=== PATIENT | female | born 1935 | race Caucasian/White ===

== ENCOUNTER → 2017-10-10 12:01 | Outpatient (CLI) | payer MEDICARE, SELFPAY ==
--- NOTE | 2017-10-10 12:03 | HPBI_ITS ---
MAMMOGRAPHY - BILATERAL SCREENING REASON FOR EXAM: Female, 82 years old. Routine annual screening examination. PERTINENT HISTORY: Daughters with breast cancer. Remote bilateral excisional breast biopsies. TECHNIQUE: Digital bilateral breast enedina (3D mammographic acquisition) in the CC and MLO projections. 2-D mediolateral oblique (MLO) and craniocaudad (CC) views of both breasts were obtained. CAD: Full Field Digital Mammography with Computer Added Detection was performed. COMPARISON: Comparison is made with prior examination dated October 03, 2016 and September 22, 2015. FINDINGS: Breast Composition: The breasts are heterogeneously dense, which may obscure small masses. There are no dominant masses or suspicious calcifications. No other significant abnormalities are identified. There has been no significant change since the prior study. HPBI/SCREENING MAMM (CAD), BILAT IMPRESSION: Stable bilateral screening mammogram. Yearly follow-up mammogram recommended. (A) ASSESSMENT CATEGORY: BIRADS Category 1: Negative. A letter regarding these results will be sent to the patient by the facility within 30 days. Approximately 10% of breast cancers are not detected by mammography. A normal mammogram should not delay biopsy of a clinically suspicious abnormality. [id number] Electronically Signed: Maurisio Yee MD at 13:49 EST Tel [phone], Service support ,
== END ==
PROVIDERS: Family Provider Internal Medicine; PCP Internal Medicine; Visit Provider Internal Medicine
DX: Z12.31 Encounter for screening mammogram for malignant neoplasm of breast (principal)
CPT/HCPCS: 77063; 77067

== ENCOUNTER → 2018-11-07 10:45 | Outpatient (CLI) | payer MEDICARE, SELFPAY ==
--- NOTE | 2018-11-07 10:48 | BI_ITS ---
MAMMOGRAPHY - BILATERAL SCREENING REASON FOR EXAM: Female, 83 years old. Routine annual screening examination. PERTINENT HISTORY: Daughters with breast cancer. Remote bilateral excisional breast biopsies. TECHNIQUE: Digital bilateral breast enedina (3D mammographic acquisition) in the CC and MLO projections. 2-D mediolateral oblique (MLO) and craniocaudad (CC) views of both breasts were obtained. CAD: Full Field Digital Mammography with Computer Added Detection was performed. COMPARISON: Comparison is made with prior study of October 10, 2017 and June 02, 2017. FINDINGS: Breast Composition: The breasts are heterogeneously dense, which may obscure small masses. There are no dominant masses or suspicious calcifications. No other significant abnormalities are identified. There has been no significant change since the prior study. BI/SCREENING MAMM (CAD), BILAT IMPRESSION: Stable bilateral screening mammogram. Yearly follow-up mammogram recommended. (A) ASSESSMENT CATEGORY: BIRADS Category 1: Negative. A letter regarding these results will be sent to the patient by the facility within 30 days. Approximately 10% of breast cancers are not detected by mammography. A normal mammogram should not delay biopsy of a clinically suspicious abnormality. [id number] Electronically Signed: Maurisio Yee, at 13:06 EDT , Service support ,
== END ==
PROVIDERS: Family Provider Internal Medicine; PCP Internal Medicine; Referring Provider Internal Medicine; Visit Provider Internal Medicine
DX: Z12.31 Encounter for screening mammogram for malignant neoplasm of breast (principal); Z80.3 Family history of malignant neoplasm of breast
CPT/HCPCS: 77063; 77067

== ENCOUNTER 2019-01-10 10:00 | Outpatient (RCR) | payer MEDICARE, SELFPAY ==
--- NOTE | 2018-11-28 11:05 | HP.PTEVAL_ITS ---
Patient's Visit Information REFUGIO MEDINA is a 83 year old F referred to Physical Therapy by Nadine Felix MD with a diagnosis of CERVICAL DDD AND H/O NERVE IMPINGEMENT. Date of Evaluation: 11/28/18 Physical Therapist: Lamar Garcia PT, Cert MDT - Visit Plan Frequency: 2-3x /Week Duration: 4-6 Weeks Plan: US TO RIGHT THORACIC REGION. 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 POSTURE CORRECTION/STRENGTHENING, INSTRUCTION IN APPROPRIATE BODY MECHANICS AND ACTIVITY MODIFICATIONS. REBECA UE ROM, STRETCHING AND STRENGTHENING. PLEASE TEST USE OF LUMBAR SUPPORT IN SITTING NEXT VISIT. ALSO PLEASE REVIEW RECENTLY GIVEN EX'S FROM [facility] WITH PATIENT AND MAKE CHANGES APPROPRIATE. HEP INSTRUCTION. - Subjective Findings: Diagnosis: CERVICAL DDD AND H/O NERVE IMPINGEMENT. Work/Leisure: RETIRED. Present symptoms: STIFF NECK AND PAIN AROUND SHOULDER BLADES AND BELOW RIGHT > LEFT. ALSO GETS PAIN IN NECK WITH TURNING. NO UE NUMBNESS OR TINGLING. NO HEADACHES. Present since: ABOUT A YEAR AND A HALF AGO. Pain Scale: Worst - 7/10 Least - 0/10. Currently: 10/14. Commenced as a result of: NO APPARENT REASON. Symptoms at onset: UPPER BACK. Worse: WHEN I GET TIRED, GARDENING, BALANCING CHECK BOOK, IT JUST HURTS. Better: HEATING PAD. NOTHING ELSE HELPS. Disturbed sleep: NO. Previous history/Previous treatment: THIS EPISODE TRIED 10 WEEKS AT [facility] BUT DIDN'T HELP. MASSAGE. PATIENT DENIES ANY PREVIOUS HISTORY OR TREATMENT FOR UPPER BACK PAIN. Dizziness: NO. Tinnitis: NO. Nausea: NO. Shortness of Breath: NO. Difficulty Swollowing: NO. Gait: RECENTLY LEFT KNEE STARTED HURTING. SURGERY ON IT A LONG TIME AGO. HAS MEERA'T NEXT WEEK WITH [facility] TO CHECK HER KNEE. LEFT HANKS SHARP PAINS TOO. Accidents/Falls: NO. Unexplained weight loss: NO. Imaging: AT [facility] - PATIENT DOESN'T KNOW RESULTS. PMH/Recent major surgery: COUMADIN FOR HEART CONDITION. OTHER: NOTICES NECK PAIN WHEN LOOKING BACK TO THE LEFT FOR ONCOMING TRAFFIC. CHIEF COMPLAINT IS UPPER BACK PAIN. PATIENT LIVES ALONE. - Objective Sitting Posture/Standing Posture: FORWARD HEAD. NO TORTICOLLIS. Active Correction of posture: NE. Other Observations: INDEP GAIT AND TRANSFERS. Motor deficit: REBECA UE'S WFL'S GRADED GROSSLY 4/5. Sensory deficit: NO. ROM deficit: REBECA UE'S WFL. Reflexes: NT. Dural Signs: NEGATIVE. Cervical Mvmt Loss: Flex: NIL. Pro: NIL. Ext: GOLDIE. Ret: GOLDIE. RSB: MOD. LSB: GOLDIE. R Rot: GOLDIE. L Rot: GOLDIE. THORACIC MVMT LOSS: RIGHT ROT - GOLDIE. LEFT ROT - GOLDIE. EXT - GOLDIE. PATIENT WITH C/O INCREASED NECK PAIN WITH REBECA ROT AND INCREASED UPPER BACK PAIN WITH REBECA THORACIC ROTATION. Postural strength: POOR. Palpation: MILD TENDERNESS WITH PALPATION OF MEDIAL AND INFERIOR RIGHT SCAP REGIONS. TREATMENT: US TO RIGHT THORACIC REGION AT 1.3 W/CM2 X 8 MIN WITH PATIENT PRONE. PATIENT REPORTING DECREASED PAIN POST SESSION. - Goals Goal 1:: DECREASE C/O NECK AND UPPER BACK PAIN Goal Time Frame: 4-6 Weeks Goal 2:: IMPROVE HEAD TURNING, THORACIC ROTATION, ADL AND RECREATIONAL FUNCTION LIKE GARDENING AND BALANCING CHECKBOOK. Goal Time Frame: 4-6 Weeks Goal 3:: INSTRUCT IN PROPHYLAXIS Goal Time Frame: 4-6 Weeks - Rehabilitation Potential Rehabilitation Potential: Fair - Anticipated Interventions Patient/Client Instruction: Educate patient on: Condition, Plan of Care, Risk Factors, Benefits of Fitness Program For the Purpose of:: To improve self management Therapeutic Exercise to Include: Strength training, Body mechanics, Postural training, Active ROM, Scapular Strength/Stabilization For the Purpose of:: To decrease pain Thermo therapy (hot pack): Yes Ultrasound (thermal/non thermal): Yes For the Purpose of:: To decrease pain, To increase ROM, To improve nutrient delivery to tissue Thank you for the opportunity to evaluate your patient. For Medicare and Medicare HMO plans, please review the plan of care and approve it. It will need to be FAXED BACK to us at [phone] for Medicare purposes. For Medicare only, by signing this I certify the plan of care. Please let me know if there are questions or concerns regarding this plan of care. Physician Signature: Date:
--- NOTE | 2018-12-20 13:02 | HP.PTREVAL_ITS ---
Nadine Felix MD, It has been my pleasure to treat REFUGIO MEDINA over the last 7 visits for CERVICAL DDD AND H/O NERVE IMPINGEMENT. Please see the progress note below for an update on the physical therapy plan of care! Subjective: PATIENT REPORTS SHE IS A LITTLE BETTER SINCE STARTING PT. SHE STATES SHE THINKS THE EX'S HAVE GIVEN HER MORE STRENGTH. SHE REPORTS COMPLIANCE WITH HEP. PATIENT REPORTS SHE WOULD LIKE TO CONTINUE PT IF POSSIBLE. Objective/Function: RECOMMEND CONTINUE PT BASED ON IMPROVEMENTS MADE AND POTENT IAL FOR MORE IMPROVEMENT. PATIENT IS TOLERATING PRE WELL AND LEARNING A HEP. Cervical Mvmt Loss: Flex: NIL. Pro: NIL. Ext: GOLDIE. Ret: GOLDIE. RSB: MOD. LSB: GOLDIE. R Rot: MOD. L Rot: MOD. THORACIC MVMT LOSS: RIGHT ROT - MOD. LEFT ROT - MOD. EXT - GOLDIE. PATIENT STILL WITH C/O INCREASED NECK PAIN WITH REBECA ROT BUT ROM HAS INCREASED. PATIENT DENIES INCREASED PAIN WITH THORACIC ROM TESTING TODAY. Postural strength: POOR. Palpation: STILL WITH MILD TENDERNESS WITH PALPATION OF MEDIAL AND INFERIOR RIGHT SCAP REGIONS. SELF STM WITH LACROSS BALL AGAINST WALL IN CLINIC TODAY TOLERATED WELL. Plan Plan: CONTINUE PT 2X'S A WEEK X 3 WEEKS PER ORIG POC WORKING TOWARD SAME GOALS: POSTURE CORRECTION/STRENGTHENING, INSTRUCTION IN APPROPRIATE BODY MECHANICS AND ACTIVITY MODIFICATIONS. REBECA UE ROM, STRETCHING AND STRENGTHENING. PLEASE TEST USE OF LUMBAR SUPPORT IN SITTING NEXT VISIT. ALSO PLEASE REVIEW RECENTLY GIVEN EX'S FROM [facility] WITH PATIENT AND MAKE CHANGES APPROPRIATE. HEP INSTRUCTION. Goals Goal 1:: DECREASE C/O NECK AND UPPER BACK PAIN Goal Time Frame: 4-6 Weeks Goal Progress: Progressing Goal 2:: IMPROVE HEAD TURNING, THORACIC ROTATION, ADL AND RECREATIONAL FUNCTION LIKE GARDENING AND BALANCING CHECKBOOK. Goal Time Frame: 4-6 Weeks Goal Progress: Progressing Goal 3:: INSTRUCT IN PROPHYLAXIS Goal Time Frame: 4-6 Weeks Goal Progress: Progressing Anticipated Interventions Patient/Client Instruction: Educate patient on: Condition, Plan of Care, Risk Factors, Benefits of Fitness Program For the Purpose of:: To improve self management Therapeutic Exercise to Include: Strength training, Body mechanics, Postural training, Active ROM, Scapular Strength/Stabilization For the Purpose of:: To decrease pain Thermo therapy (hot pack): Yes Ultrasound (thermal/non thermal): Yes For the Purpose of:: To decrease pain, To increase ROM, To improve nutrient delivery to tissue Please do not hesitate to contact me at [phone] by phone or if you have questions or concerns regarding this new plan of care! Sincerely, Lamar Garcia, PT, Cert MDT
--- NOTE | 2019-01-10 13:56 | HP.PTDCSUM_ITS ---
HP - PT D/C Summary It has been my pleasure to treat REFUGIO MEDINA under orders from Nadine Felix MD, for the diagnosis of CERVICAL DDD AND H/O NERVE IMPINGEMENT for a total of 13 visit(s). Discharge Date: 01/10/19 Please see the following information for a summary of their discharge status. - Subjective Subjective: PATIENT REPORT SHE CAME IN AND NKECHI HELPED HER IN THE GYM YESTERDAY AND IT WENT WELL. PATIENT REPORTS SHE CAN MANAGE HER PAIN BY MODIFYING HER ACTIVITIES WE HAVE INSTRUCTED HER BUT SHE STILL GETS THE SAME PAIN IF SHE TRIES TO DO WHAT SHE WANTS TO DO. - Pain R thoracic spine Pain Intensity (Out of 10): 5 - Overall Improvement % Improvement: 75 - Objective Objective/Function: PATIENT IS NOW INDEP WITH AN EXERCISE PROGRAM AND IS MANAGING HER PAIN BETTER WITH ACTIVITY MODIFICATIONS BUT HAS NOT BEEN ABLE TO RESUME NORMAL ACTIVITY WITHOUT THE SAME PAIN SHE CAME HERE FOR. PHYSICIAN RE- CHECK RECOMMENDED DUE TO THIS. EXAM TESTING TODAY IS SIMILAR TO LAST RECKECK: Cervical Mvmt Loss: Flex: NIL. Pro: NIL. Ext: GOLDIE. Ret: GOLDIE. RSB: MOD. LSB: GOLDIE. R Rot: MOD. L Rot: MOD. THORACIC MVMT LOSS: RIGHT ROT - MOD. LEFT ROT - MOD. EXT - GOLDIE. PATIENT STILL WITH C/O INCREASED NECK PAIN WITH REBECA ROT. PATIENT DENIES INCREASED PAIN WITH THORACIC ROM TESTING TODAY. Postural strength: POOR - Goals Goal 1:: DECREASE C/O NECK AND UPPER BACK PAIN Goal Progress: Progressing Goal 2:: IMPROVE HEAD TURNING, THORACIC ROTATION, ADL AND RECREATIONAL FUNCTION LIKE GARDENING AND BALANCING CHECKBOOK. Goal Progress: Progressing Goal 3:: INSTRUCT IN PROPHYLAXIS Goal Progress: Progressing - Plan Plan: D/C TO INDEP EX AND PHYSICIAN FOLLOW UP. PATIENT IS AGREEABLE. - D/C Information If there are questions or concerns regarding this patient's physical therapy, please feel free to call me at [phone]. Thank you for the referral of this patient. Sincerely, Lamar Garcia, PT, Cert MDT
== END 2019-01-10 19:00 | disposition home or self-care (01) ==
LOC: PT 10:00
PROVIDERS: Family Provider Internal Medicine; PCP Internal Medicine; Referring Provider Internal Medicine; Visit Provider Internal Medicine
DX: M50.30 Other cervical disc degeneration, unspecified cervical region (principal); Z86.69 Personal history of other diseases of the nervous system and sense organs
CPT/HCPCS: 97035; 97110; 97140; 97162; 97530

== ENCOUNTER → 2019-02-21 11:57 | Outpatient (CLI) | payer MEDICARE, SELFPAY ==
[2019-02-21 12:41] LABS: International Normalized Ratio 2.8; Prothrombin Time (Protime)PT. 29.4 SECONDS (11.7-14.9)
== END ==
PROVIDERS: Family Provider Internal Medicine; PCP Internal Medicine; Referring Provider Nurse Practitioner; Visit Provider Nurse Practitioner
DX: R31.0 Gross hematuria (principal)
CPT/HCPCS: 85610

== ENCOUNTER → 2019-04-03 09:41 | Outpatient (CLI) | payer MEDICARE, SELFPAY ==
[2019-04-03 11:38] LABS: AST(SGOT) 29 U/L (15-37); Alanine Aminotransfer ALT/SGPT 31 U/L (13-56); Albumin, Serum 3.6 g/dL (3.2-5.0); Alkaline Phosphatase 74 U/L (45-117); Bilirubin, Direct 0.15 mg/dL (0.00-0.30); Cholesterol 183 mg/dL (200); Globulin 3.7 g/dL (2.2-4.2); High Density Lipoprotein 67 mg/dL; Protein, Total 7.3 g/dL (6.4-8.2); Triglycerides 104 mg/dL; Very Low Density Lipoprotein 21 mg/dL (5-40)
== END ==
PROVIDERS: Family Provider Internal Medicine; PCP Internal Medicine; Referring Provider Internal Medicine Cardiovascular Disease; Visit Provider Internal Medicine Cardiovascular Disease
DX: E78.5 Hyperlipidemia, unspecified (principal)
CPT/HCPCS: 36415; 80061; 80076

== ENCOUNTER 2019-04-05 08:43 | Outpatient (RCR) | payer MEDICARE, SELFPAY ==
[2019-04-02 12:50] LABS: International Normalized Ratio 1.8; Prothrombin Time (Protime)PT. 20.4 SECONDS (11.7-14.9)
== END 2019-04-05 10:00 | disposition home or self-care (01) ==
LOC: LAB 08:43
PROVIDERS: Family Provider Internal Medicine; PCP Internal Medicine; Referring Provider Internal Medicine Cardiovascular Disease; Visit Provider Internal Medicine Cardiovascular Disease
DX: I34.0 Nonrheumatic mitral (valve) insufficiency (principal)
CPT/HCPCS: 36415; 85610

== ENCOUNTER → 2019-04-17 10:13 | Outpatient (CLI) | payer MEDICARE, SELFPAY ==
--- NOTE | 2019-04-17 10:19 | RAD_ITS ---
STUDY: X-RAY - THORACIC SPINE REASON FOR EXAM: Female, 83 years old. Chronic back pain. TECHNIQUE: AP and lateral view(s) of the thoracic spine were obtained. COMPARISON: None. FINDINGS: Normal kyphosis of the thoracic spine. There is no substantial scoliosis. There is demineralization of the thoracic spine with endplate spondylosis. There is multilevel disc space narrowing of the thoracic spine. The soft tissue structures are unremarkable. RAD/Thoracic Spine 2 Views IMPRESSION: Multilevel disc space narrowing with demineralization of the thoracic vertebrae. Electronically Signed: Maurisio Yee, at 12:51 EDT , Service support ,
== END ==
PROVIDERS: Family Provider Internal Medicine; PCP Internal Medicine; Referring Provider Nurse Practitioner Family; Visit Provider Nurse Practitioner Family
DX: M54.6 Pain in thoracic spine (principal)
CPT/HCPCS: 72070

== ENCOUNTER → 2019-04-19 10:50 | Outpatient (CLI) | payer MEDICARE, SELFPAY ==
--- NOTE | 2019-04-19 10:53 | ECHOD_ITS ---
Reason For Study: valve replacement eval Procedure This was a 2D Doppler, Color Flow transthoracic echocardiogram. Technically difficult study, patient had a hard time staying on left side due to hip pain. Exam performed in department. Left Ventricle Normal size and thickness. The estimated ejection fraction is 60 %. Stage 1 diastolic dysfunction. No regional wall motion abnormalities noted. Right Ventricle Normal size and thickness. Normal systolic function. Atria Normal left atrium. Normal right atrium. Normal atrial septum. Mitral Valve The mitral valve is structurally normal. No prolapse or stenosis seen. Trivial mitral valve insufficiency. Tricuspid Valve Normal tricuspid valve. Mild (1+) eccentric tricuspid valve insufficiency. Right ventricular systolic pressure estimated to be 25 mmHg. Aortic Valve Peak aortic valve gradient 26 mmHg. Mean aortic valve gradient 13 mmHg. Stable appearing mechanical aortic valve apparatus. Pulmonic Valve The pulmonic valve is not well visualized. Great Vessels Normal aortic root. Normal arch. Normal inferior vena cava. Inferior vena cava collapse with sniff. Pericardium/Pleural No pericardial effusion. MMode/2D Measurements & Calculations LVIDd: 4.7 cm IVSd: 0.78 cm LVOT diam: 2.0 cm LVIDs: 2.6 cm LVPWd: 0.78 cm LVOT area: 3.2 cm2 FS: 44.7 % LAV(MOD-sp4): 35.1 ml LA A4 area: 15.4 cm2 RA A4 area: 16.0 cm2 Time Measurements MV dec time: 0.27 sec Doppler Measurements & Calculations MV E max charan: 59.0 cm/sec Lat Peak E' Charan: 9.2 cm/sec Med Peak E' Charan: 8.2 cm/sec MV A max charan: 71.7 cm/sec E/E' lat: 6.4 E/E' med: 7.2 MV E/A: 0.82 MV V2 max: 80.2 cm/sec MV P1/2t max charan: 70.7 cm/sec Ao V2 max: 253.6 cm/sec MV max P.6 mmHg MV P1/2t: 87.0 msec Ao max P.7 mmHg MV V2 mean: 49.0 cm/sec MV dec slope: 238.1 cm/sec2 Ao V2 mean: 165.2 cm/sec MV mean P.1 mmHg MVA(P1/2t): 2.5 cm2 Ao mean P.6 mmHg MV V2 VTI: 20.7 cm Ao V2 VTI: 50.5 cm MVA(VTI): 2.7 cm2 ASHOK(I,D): 1.1 cm2 ASHOK(V,D): 1.2 cm2 LV V1 max: 92.5 cm/sec MR max charan: 563.0 cm/sec SV(LVOT): 56.3 ml LV V1 max P.4 mmHg MR max P.8 mmHg LV V1 mean P.6 mmHg MR mean charan: 441.3 cm/sec LV V1 mean: 57.0 cm/sec MR mean P.8 mmHg LV V1 VTI: 17.4 cm MR VTI: 170.1 cm PA V2 max: 87.6 cm/sec TR max charan: 223.6 cm/sec TR max P.0 mmHg Interpretation Summary The estimated ejection fraction is 60 %. Stage 1 diastolic dysfunction. Trivial mitral valve insufficiency. Mild (1+) eccentric tricuspid valve insufficiency. Right ventricular systolic pressure estimated to be 25 mmHg. Stable appearing and normally functioning mechanical aortic valve apparatus. Compared to echo report dated 11/20/2012, LV function has remained the same, RVSP has decreased from 40 to 25 mm Hg. Ordering Physician: Maldonado Mercer Referring Physician: Maldonado Mercer Performed By: Jhonathan Hart [facility]
== END ==
PROVIDERS: Family Provider Internal Medicine; PCP Internal Medicine; Referring Provider Internal Medicine Cardiovascular Disease; Visit Provider Internal Medicine Cardiovascular Disease
DX: I34.0 Nonrheumatic mitral (valve) insufficiency (principal)
CPT/HCPCS: 93306

== ENCOUNTER 2019-04-22 10:11 | Outpatient (RCR) | payer MEDICARE, SELFPAY ==
[2019-04-11 10:45] LABS: International Normalized Ratio 4.9
[2019-04-11 10:58] LABS: Prothrombin Time (Protime)PT. 46.1 SECONDS (11.7-14.9)
[2019-04-15 10:06] LABS: International Normalized Ratio 3.3; Prothrombin Time (Protime)PT. 33.8 SECONDS (11.7-14.9)
[2019-04-22 11:07] LABS: International Normalized Ratio 3.1; Prothrombin Time (Protime)PT. 32.5 SECONDS (11.7-14.9)
== END 2019-04-22 13:00 | disposition home or self-care (01) ==
LOC: LAB 10:11
PROVIDERS: Family Provider Internal Medicine; PCP Internal Medicine; Referring Provider Internal Medicine Cardiovascular Disease; Visit Provider Internal Medicine Cardiovascular Disease
DX: I34.0 Nonrheumatic mitral (valve) insufficiency (principal)
CPT/HCPCS: 36415; 85610

== ENCOUNTER → 2019-04-24 09:21 | Outpatient (CLI) | payer MEDICARE, SELFPAY ==
--- NOTE | 2019-04-24 09:26 | STEWCON_ITS ---
Reason For Study: CAD Stress Results Protocol: Arslan Protocol Maximum Predicted HR: 137 bpm Target HR: 116 bpm % Maximum Predicted HR: 112 % DurationHeart Rate Stage (mm:ss) (bpm) BP Comment Baseline 77 136/68No Chest Pain; Diluted Definity 3 ML Given Arslan Protocol Stage I 3:00 141 140/70No Chest Pain Arslan Protocol Stage II 3:00 153 164/72No Chest Pain; Mild Dyspnea Recovery 93 118/62No Chest Pain Stress Duration: 6:00 mm:ss Maximum Stress HR: 153 bpm METS: 7 Baseline Echocardiogram Findings The estimated ejection fraction is 55 %. Stress Echo Wall motion Data Resting WM Intermediate WM Stress WM Resting Wall Motion Wall Motion Stress No regional wall motion No regional wall motion abnormalities noted. abnormalities noted. EKG Data The baseline ECG displays normal sinus rhythm. The patient exercised according to the regular Arslan protocol for a total duration of 6:00. The maximum heart rate attained was 157 beats per minute. This was 114% of maximum predicted heart rate. The patient exercised into stage 3 of the Arlsan protocol. At peak exercise, upsloping ST changes only were noted, which did not meet the criteria for ischemia. No clinical angina was noted. Interpretation Summary The estimated ejection fraction is 55 %. Normal, adequate, treadmill echocardiogram. Negative for ischemia by EKG and echocardiographic criteria. No anginal symptoms noted. Rare PACs and PVCs during exercise. Average exercise capacity for age. Appropriate blood pressure response to exercise. Test terminated due to fatigue. Decreased sensitivity due to poor echo windows requiring Definity agent. Baseline ejection fraction mildly depressed 55% which increased to a final ejection fraction of 65%. No complications. The study was technically difficult. Contrast injection was performed. Ordering Physician: Maldonado Mercer Referring Physician: Nadine Felix Performed By: Evon Estrada, LUIS MIGUEL, RVT
== END ==
PROVIDERS: Family Provider Internal Medicine; PCP Internal Medicine; Referring Provider Internal Medicine Cardiovascular Disease; Visit Provider Internal Medicine Cardiovascular Disease
DX: I25.10 Atherosclerotic heart disease of native coronary artery without angina pectoris (principal); I48.91 Unspecified atrial fibrillation; E78.5 Hyperlipidemia, unspecified; I34.0 Nonrheumatic mitral (valve) insufficiency; Z95.2 Presence of prosthetic heart valve
CPT/HCPCS: 93017; 93350; Q9957; A4216; C8928

== ENCOUNTER 2019-05-28 10:33 | Outpatient (RCR) | payer MEDICARE, SELFPAY ==
[2019-05-07 11:53] LABS: Prothrombin Time (Protime)PT. 22.9 SECONDS (11.7-14.9)
[2019-05-14 14:29] LABS: International Normalized Ratio 2.5; Prothrombin Time (Protime)PT. 27.3 SECONDS (11.7-14.9)
[2019-05-28 11:21] LABS: International Normalized Ratio 2.8; Prothrombin Time (Protime)PT. 29.3 SECONDS (11.7-14.9)
== END 2019-05-28 18:00 | disposition home or self-care (01) ==
LOC: LAB 10:33
PROVIDERS: Family Provider Internal Medicine; PCP Internal Medicine; Referring Provider Internal Medicine Cardiovascular Disease; Visit Provider Internal Medicine Cardiovascular Disease
DX: I34.0 Nonrheumatic mitral (valve) insufficiency (principal)
CPT/HCPCS: 36415; 85610

== ENCOUNTER 2019-07-02 11:16 | Outpatient (RCR) | payer MEDICARE, SELFPAY ==
[2019-06-26 10:41] LABS: International Normalized Ratio 2.1; Prothrombin Time (Protime)PT. 23.2 SECONDS (11.7-14.9)
[2019-06-28 09:20] LABS: International Normalized Ratio 1.3; Prothrombin Time (Protime)PT. 16.1 SECONDS (11.7-14.9)
[2019-07-02 12:33] LABS: International Normalized Ratio 2.8; Prothrombin Time (Protime)PT. 29.6 SECONDS (11.7-14.9)
== END 2019-07-02 18:00 | disposition home or self-care (01) ==
LOC: LAB 11:16
PROVIDERS: Family Provider Internal Medicine; PCP Internal Medicine; Referring Provider Internal Medicine Cardiovascular Disease; Visit Provider Internal Medicine Cardiovascular Disease
DX: I34.0 Nonrheumatic mitral (valve) insufficiency (principal)
CPT/HCPCS: 36415; 85610

== ENCOUNTER 2019-08-02 15:56 | Outpatient (RCR) | payer MEDICARE, SELFPAY ==
[2019-07-09 12:20] LABS: Prothrombin Time (Protime)PT. 66.7 SECONDS (11.7-14.9)
[2019-07-09 12:22] LABS: International Normalized Ratio 7.7
[2019-07-11 11:34] LABS: Prothrombin Time (Protime)PT. 39.9 SECONDS (11.7-14.9)
[2019-07-11 11:39] LABS: International Normalized Ratio 4.1
[2019-07-15 10:26] LABS: International Normalized Ratio 2.9; Prothrombin Time (Protime)PT. 30.2 SECONDS (11.7-14.9)
[2019-08-02 19:47] LABS: Hematocrit 42.7 % (37-47); Hemoglobin 13.7 g/dL (12.0-15.0); Mean Corp Hgb Conc 32.1 g/dL (32-36); Mean Corpuscular Hgb 30.7 pg (27.0-32.0); Mean Corpuscular Volume 95.7 fL (81-99); Mean Platelet Vol. 10.6 fl (6.2-12.0); Platelet Count 249 K/mm3 (150-450); RBC Distribution Width CV 14.9 % (11.6-14.6); RBC Distribution Width SD 53.1 fl (35.1-43.9); Red Blood Count 4.46 M/mm3 (4.2-5.4); White Blood Count 5.7 K/mm3 (4.4-11.0)
[2019-08-02 20:04] LABS: Prothrombin Time (Protime)PT. 31.3 SECONDS (11.7-14.9)
[2019-08-02 20:15] LABS: Anion Gap 6 (5-15); BUN 14 mg/dL (7-18); BUN/Creat Ratio 18.1 RATIO (10-20); Calcium,Total 9.3 mg/dL (8.5-10.1); Chloride 110 mmol/L (98-107); Creatinine, Serum 0.78 mg/dL (0.55-1.02); EST Glomerular Filtration Rate 75 mL/min (>60); Est Glom Filt Rate - Afr Amer 91 mL/min (>60); Glucose 75 mg/dL (74-106); Potassium 3.9 mmol/L (3.5-5.1); Sodium Level 143 mmol/L (136-145)
[2019-08-02 20:26] LABS: BNP,B-Type NATRIURETIC PEPTIDE 225.7 pg/mL (0-100)
== END 2019-08-02 18:00 | disposition home or self-care (01) ==
LOC: LAB 15:56
PROVIDERS: Nurse Practitioner Family; Family Provider Internal Medicine; PCP Internal Medicine; Referring Provider Internal Medicine Cardiovascular Disease; Visit Provider Internal Medicine Cardiovascular Disease
DX: I34.0 Nonrheumatic mitral (valve) insufficiency (principal); I48.91 Unspecified atrial fibrillation; Z95.2 Presence of prosthetic heart valve; Z87.74 Personal history of (corrected) congenital malformations of heart and circulatory system; Z79.01 Long term (current) use of anticoagulants; R60.9 Edema, unspecified; R06.02 Shortness of breath
CPT/HCPCS: 36415; 80048; 83880; 85027; 85610

== ENCOUNTER → 2019-08-05 13:59 | Outpatient (CLI) | payer MEDICARE, SELFPAY ==
[2019-08-05 13:00] VITALS: BMI 20.5
--- NOTE | 2019-08-05 14:00 | RAD_ITS ---
STUDY: X-RAY CHEST REASON FOR EXAM: Female, 83 years old. Dyspnea on exertion. TECHNIQUE: Frontal and lateral views of the chest. COMPARISON: November 19, 2012 FINDINGS: Hyperexpansion with mild diffuse interstitial pattern slightly more prominent than on the prior study. Small right pleural effusion. Cardiomegaly with sternotomy wires, relatively unchanged Normal mediastinum and jon. Normal visualized pulmonary arteries. Normal visualized aortic arch and descending thoracic aorta. Normal visualized thoracic spine. Normal visualized ribs, clavicles, and shoulders. There is no demonstrated abnormality of the visualized soft tissue structures of the upper abdomen. RAD/Chest PA and Lateral IMPRESSION: Stable cardiomegaly with slight increased diffuse interstitial pattern and small right effusion. Findings may represent partial resolution of mild interstitial edema/congestive failure. No acute finding. Electronically Signed: Joey Washington MD at 16:08 EST , Service support ,
[2019-08-05 16:01] LABS: Anion Gap 2 (5-15); BUN 14 mg/dL (7-18); BUN/Creat Ratio 19.1 RATIO (10-20); Calcium,Total 9.2 mg/dL (8.5-10.1); Chloride 109 mmol/L (98-107); Creatinine, Serum 0.73 mg/dL (0.55-1.02); EST Glomerular Filtration Rate 80 mL/min (>60); Est Glom Filt Rate - Afr Amer 97 mL/min (>60); Glucose 65 mg/dL (74-106); Potassium 4.1 mmol/L (3.5-5.1); Sodium Level 141 mmol/L (136-145)
== END ==
PROVIDERS: Family Provider Internal Medicine; PCP Internal Medicine; Referring Provider Internal Medicine Cardiovascular Disease; Visit Provider Internal Medicine Cardiovascular Disease
DX: I48.91 Unspecified atrial fibrillation (principal); I48.92 Unspecified atrial flutter; R06.02 Shortness of breath
CPT/HCPCS: 36415; 71046; 80048

== ENCOUNTER 2019-08-21 11:47 | Day surgery (SDC) | payer MEDICARE, SELFPAY ==
[2019-08-05 13:00] VITALS: BMI 20.5
[2019-08-20 07:09] VITALS: BMI 20.5
--- NOTE | 2019-08-20 15:54 | PCM.HP.BLA ---
History and Physical Date of Admission: 08/21/19 [facility] History of Present Illness Details: Details: Mrs. Ward is a very pleasant 83-year-old non-smoking female with a history of hyperlipidemia, mitral insufficiency, intermittent atrial fibrillation, history of bicuspid aortic valve status post mechanical aortic valve replacement on 07/24/[address] Mishra at [facility] receiving a number 21 mm [place] valve, and on chronic Coumadin therapy since that time. She is transferring care from [facility] in [place]. Her most recent stress test was 10/27/2006 which was a negative treadmill/MPI. 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 An echocardiogram performed on 11/20/2012 at [facility] demonstrated intact LV function with an EF around 55%, stable appearing prosthetic aortic valve, and an RVSP of 40 mmHg. Subsequent to that, her echocardiogram dated 04/27/2016 for more revealed showed an EF of 55%, peak/mean gradient of 28/13 mmHg respectively, RVSP of 29 mmHg. Her most recent echocardiogram dated 04/19/2019 was as follows: The estimated ejection fraction is 60 %. Stage 1 diastolic dysfunction. Trivial mitral valve insufficiency. Mild (1+) eccentric tricuspid valve insufficiency. Right ventricular systolic pressure estimated to be 25 mmHg. Stable appearing and normally functioning mechanical aortic valve apparatus. Compared to echo report dated 11/20/2012, LV function has remained the same, RVSP has decreased from 40 to 25 mm Hg. Patient was in sinus rhythm at the time of her echocardiogram and stress echocardiogram. She underwent a stress echocardiogram on 04/24/2019 which was negative for inducible ischemia. She was in sinus rhythm at that time. Patient states that prior to going to [place], she noted new onset palpitations, shortness of breath and dyspnea on exertion walking upstairs. Patient went to [place] for about 8 days, and did fairly well and did not imbibe in excessive salt or water intake. Patient denies any chest pain symptoms. After arriving home she noticed tachycardia, increasing shortness of breath and dyspnea on exertion. She did not notify our office as it was the [place] holidays but called us to get an urgent appointment. In our office today her blood pressure is 120/60, pulse is 120 and irregular with ectopic beats. Her physical exam demonstrates 2+ carotid upstroke bilaterally, a 2/6 systolic ejection murmur best heard at the upper right sternal border with both systolic and diastolic clicks, no diastolic murmurs, no S3, S4, and no edema noted. EKG dated 04/02/2019 shows normal sinus rhythm with PACs and PVCs. EKG dated 08/05/2019 shows atrial fibrillation with rapid ventricular response, PVC, nonspecific inferior lateral ST segment flattening. Most recent lipid profile dated 11/22/2017 showed an LDL of 92 and HDL of 58. Her most recent lipids dated 04/03/2019 show an LDL of 95 and HDL of 67. Intake Vital Signs 08/05/19 Height 5 ft 6 in 08/05/19 Weight: 127 lb 08/05/19 BMI 20.5 08/05/19 BP 120/60 08/05/19 Blood Pressure Location Lt brachial 08/05/19 Position Sitting 08/05/19 Respiration 20 H 08/05/19 Pulse 120 H 08/05/19 Pulse Source Auscultation Intake Visit Reasons: Edema, shortness of breath Allergies amoxicillin trihydrate [From Augmentin] Adverse Reaction (Verified 04/02/19 11:03) Diarrhea potassium clavulanate [From Augmentin] Adverse Reaction (Verified 04/02/19 11:03) Diarrhea Medications calcium carbonate 600 mg(1,500 mg)-vitamin D3 800 unit chewable tablet 1 tab PO BID 03/30/19 [History Confirmed 08/05/19] cholecalciferol (vitamin D3) 25 mcg (1,000 unit) tablet 1,000 unit PO DAILY 03/30/19 [History Confirmed 08/05/19] multivitamin 1 tab PO DAILY 03/30/19 [History Confirmed 08/05/19] pravastatin 40 mg tablet 40 mg PO DAILY 03/30/19 [History Confirmed 08/05/19] risedronate 35 mg tablet 35 mg PO QWEEK 03/30/19 [History Confirmed 08/05/19] tizanidine 2 mg capsule 2 mg PO TID PRN 03/30/19 [History Confirmed 08/05/19] Coumadin 3 mg tablet 3 mg PO DAILY #90 tab NS 04/15/19 [Rx Confirmed 08/05/19] furosemide 20 mg tablet 20 mg PO DAILY #30 tab 08/05/19 [Rx Confirmed 08/05/19] metoprolol succinate 25 mg tablet,extended release 24 hr 25 mg PO DAILY #30 tab 08/05/19 [Rx Confirmed 08/05/19] [facility] Medical History Atrial fibrillation (Chronic) Hyperlipidemia (Chronic) Nonrheumatic mitral (valve) insufficiency (Chronic) FCI current use of anticoagulant (Chronic) Surgical History History of right and left heart catheterization (Chronic 07/13/00) Status post mechanical aortic valve replacement (Chronic 07/24/00) Family History Father , age 65 of head injury Head injury Brother CAD (coronary artery disease) Social History (Updated 08/05/19 @ 13:42 by Maldonado Mercer MD) Smoking Status: Never smoker ROS Const Const: Positive for weight gain and other; negative for fatigue, weakness, body ache, fever(s), headache(s), chills, frequent falls, night sweats, daytime sleepiness, difficulty sleeping, excessive sweating, weight loss, increased appetite, poor appetite or anorexia Eyes Eyes: Negative for blind spots, loss of peripheral vision, transient loss of vision, blurry vision, change in vision, double vision, floaters, tunnel vision or other ENT ENT: Negative for headache(s), dizziness, hearing loss, tinnitus, Nosebleed/epistaxis, balance problems, post nasal drip, lip swelling, tongue swelling, bleeding gums, hoarseness, neck pain, dry mouth or other Cardio Chest Pain: No Resp Respiratory: Negative for SOB with activity, SOB at rest, SOB orthopnea\SOB lying down, Coughing up blood/hemoptysis, chest congestion, pain on inspiration, snoring, stridor, wheezing, crackles, paroxysmal nocturnal dyspnea or other GI GI: Negative nausea, vomiting, heartburn, constipation, belching, bloating, cramping, vomiting blood/hematemesis, bright, red blood in stools, black,tarry stools, loose stools, Difficulty Swallowing or other : Negative for hematuria, frequent nighttime urination/ nocturia, erectile dysfunction or abnormal vaginal bleeding Musc Musc: Negative for muscle aches/ myalgia, muscle weakness, joint pain or balance problems Skin Skin: Negative redness, non-healing lesions, rash, unusual bruising, skin ulcer, wounds, jaundice or other Neuro Neuro: Negative for dizziness, lightheadedness, near syncope, syncope, orthostatic symptoms, frequent falls, headache(s), weakness, confusion, memory loss, restless legs, blurry vision, double vision, vertigo, seizures, lack of coordination or other Ollie Hematologic/Lymphatic: Negative for easy bleeding, easy bruising, enlarged lymph nodes or other Endo Endo: Negative for fatigue, cold intolerance, heat intolerance, excessive sweating, flushing, increased thirst/drinking, increased hunger, hair loss, hair growth or other Psych Psych: Negative for anxiety, depression, thoughts of harming anyone, thoughts of harming yourself, visual hallucinations, panic attacks or audible hallucinations Allergy Allergy/Immunology: Negative for throat swelling, Negative for tongue swelling, Negative for hives, Negative for rash, Negative for lip swelling Cardiology Exam Const Appearance: cooperative, healthy appearing and no acute distress Nutritional Appearance: well nourished Orientation: alert, oriented x3 and oriented to person Head Head: normal to inspection, normocephalic and atraumatic Nose: external nose normal Face and Sinus: face symmetric Mouth: oral mucosae normal Eyes General: appearance normal, both eyes and all related structures Eyelids: eyelids normal Conjunctivae: conjunctivae normal Pupils: PERRL and normal by confrontation EOM: EOM intact bilaterally Neck Neck: normal visual inspection and full ROM Carotids: normal carotid upstroke Chest Chest inspection: normal inspection of the chest Auscultation: Bilateral: Clear to Auscultation Cardio Palpation: normal PMI Rate: regular rate Rhythm: regular rhythm Heart sounds: S1 normal and S2 normal GI GI: normal to inspection, no hepatosplenomegaly and bowel sounds present Neuro General: alert, awake, oriented x3, CN's II-XI intact bilaterally and moves all extremities Skin Skin: no rashes or lesions noted Extremities Pulses: Normal: Right Femoral Pulse, Left Femoral Pulse, Right Dorsalis Pedis Pulse, Left Dorsalis Pedis Pulse, Right Posterior Tibial Pulse, Left Posterior Tibial Pulse, Right Radial Pulse, Left Radial Pulse Lower Extremity Edema: None: Bilateral Psych Psychological: normal affect Assessment & Plan 1. Atrial fibrillation I48.91 Plan 1. Atrial fibrillation: The patient presents with new onset rapid atrial fibrillation on no beta-angeli or calcium channel angeli therapy. Her most recent stress test in April 2019 was negative for inducible ischemia at which time she was in normal sinus rhythm by her EKG telemetry markings. At this point I would recommend continuing her Coumadin, and proceeding with rate control medications with Toprol-XL 25 mg p.o. daily. In addition I recommended Lasix 20 mg p.o. daily for her lower extremity edema. It is doubtful the patient had a pulmonary embolism as she is on Coumadin, and has no overt dyspnea at rest. It appears that her lower extremity edema and dyspnea preceded her plane ride to and from [place]. She will return in 2 weeks time for a blood pressure check and heart rate evaluation as well as a repeat EKG. Recommend an INR between 2.5 and 3.5 for the next 4 weeks followed by elective DC cardioversion. If this is unsuccessful, she may require amiodarone loading for a month's time followed by repeat cardioversion. Orders Orders: 12 Lead EKG performed by [facility] Today Cardioversion Today Basic Metabolic Profile (BMP) Today Chest PA and Lateral Today 2. Status post mechanical aortic valve replacement Z95.2 #[address] Bill Valve per Dr. Mishra, [facility] 07/24/2000 Plan 2. Status post mechanical aortic valve replacement: Patient require Coumadin therapy lifelong. Her most recent echocardiogram in April 2019 showed normal functioning prosthetic aortic valve. Continue SBE prophylaxis going forward. 3. Hyperlipidemia E78.5 Plan 3. Hyperlipidemia: Her LDL and HDL cholesterol are fairly well-controlled given her risk factors. Continue Pravachol. 4. Return office in 4 months with either myself or an [employer]. This note was generated using a voice recognition system and there may be incorrect words, spelling or punctuation that were not noted when reviewing the office note prior to saving.
--- NOTE | 2019-08-21 13:46 | CARDIOVERS_ITS ---
Cardioversion Cardioversion: DC cardioversion summary: The patient was brought to the [facility] holding area in the fasting state. The risk/benefits of the cardioversion procedure were thoroughly explained the patient and informed consent was obtained. The defibrillator pads were placed in the AP position. With the assistance of Dr. Truman Sanderson the patient was given 40 mg of IV propofol. Once adequate sedation was obtained, the patient received a single 200 J biphasic synchronized shock which converted from atrial fibrillation to normal sinus rhythm. Her rhythm remained durable, and the pads were removed. The patient spontaneously awoke, moves all 4 extremities and tolerated procedure well. Conclusions: Successful Coumadin assisted DC cardioversion receiving a single biphasic 200 J synchronized shock which converted from atrial fibrillation to normal sinus rhythm. Patient remain on Coumadin therapy. Should the patient revert back to atrial fibrillation I would recommend loading with amiodarone for 4 weeks time followed by repeat DC cardioversion as the patient has significant dyspnea on exertion and shortness of breath which may be related to her atrial fibrillation. Patient tolerated procedure well. No complications.
[2019-08-21 13:51] LABS: Bedside Glucose 80 mg/dL (70-110)
--- NOTE | 2019-08-21 14:06 | PRO.PCM_ITS ---
Procedure Report Date of Procedure: 08/21/19 CONSCIOUS SEDATION REPORT DATE OF SERVICE: August 21, 2019 BRIEF HISTORY OF PRESENT ILLNESS: The patient is an 84-year-old female who presented to [facility] for an elective outpatient cardioversion due to underlying atrial fibrillation. The patient has never previously undergone a cardioversion. She denies a history of any adverse effects from anesthesia. Her last surface echocardiogram revealed an ejection fraction of approximately 60%. The patient is currently systemically anticoagulated on Coumadin with an INR of 3.0. She denies a history of asthma, COPD or obstructive sleep apnea. PHYSICAL EXAMINATION: VITAL SIGNS: Reviewed and were acceptable. GENERAL: The patient is a female, in no apparent distress, speaking in full sentences. HEENT: Normocephalic, atraumatic. Mucous membranes are moist and pink. Good mouth opening noted. Trachea is midline. Good neck mobility. CHEST: S1, S2 irregularly irregular. No murmurs, rubs or gallops were noted. LUNGS: Clear to auscultation bilaterally without appreciable wheezes, rales or rhonchi. ABDOMEN: Soft, nontender, nondistended. Positive bowel sounds. EXTREMITIES: There is no clubbing, cyanosis or edema. ASA Class: II DESCRIPTION OF PROCEDURE: After confirmation of informed consent, the patient's anesthesia plan was reviewed in detail. Propofol was chosen. Risks and benefits were reviewed and the patient agreed to proceed. At 1335, the patient was given 40 mg of propofol. The patient achieved an appropriate level of sedation and was given a 200 joule synchronized cardioversion by Dr. Mercer at the bedside. This was successful in achieving normal sinus rhythm. The patient was monitored until 1345, at which time she reached her baseline mental status and function. The patient tolerated the procedure well. COMPLICATIONS: None ESTIMATED BLOOD LOSS: None RECOMMENDATIONS: Okay to recover in usual fashion. Code Visit 9xxxx: Other Procedure See Report - [id number]
[2019-08-21 15:31] LABS: Prothrombin Time Fingerstick 33.6 SEC (11.9-14.4)
== END 2019-08-21 14:35 | disposition home or self-care (01) ==
PROVIDERS: Family Provider Internal Medicine; PCP Internal Medicine; Referring Provider Internal Medicine Cardiovascular Disease; Visit Provider Internal Medicine Cardiovascular Disease
DX: I48.91 Unspecified atrial fibrillation (principal); E78.5 Hyperlipidemia, unspecified; I34.0 Nonrheumatic mitral (valve) insufficiency; Z95.2 Presence of prosthetic heart valve; Z79.01 Long term (current) use of anticoagulants; Z79.899 Other long term (current) drug therapy
CPT/HCPCS: 36416; 82962; 85610; 92960; 93005; J7040

== ENCOUNTER 2019-09-04 13:28 | Outpatient (RCR) | payer MEDICARE, SELFPAY ==
[2019-08-05 13:00] VITALS: BMI 20.5
[2019-08-12 12:47] LABS: Prothrombin Time (Protime)PT. 39.3 SECONDS (11.7-14.9)
[2019-08-16 11:42] LABS: International Normalized Ratio 3.3
[2019-08-20 13:18] LABS: International Normalized Ratio 3.2
[2019-08-26 15:47] LABS: International Normalized Ratio 2.2; Prothrombin Time (Protime)PT. 24.7 SECONDS (11.7-14.9)
[2019-09-04 14:35] LABS: International Normalized Ratio 3.8
== END 2019-09-04 18:00 | disposition home or self-care (01) ==
LOC: LAB 13:28
PROVIDERS: Family Provider Internal Medicine; PCP Internal Medicine; Referring Provider Internal Medicine Cardiovascular Disease; Visit Provider Internal Medicine Cardiovascular Disease
DX: I34.0 Nonrheumatic mitral (valve) insufficiency (principal)
CPT/HCPCS: 36415; 85610

== ENCOUNTER → 2019-09-18 10:49 | Outpatient (CLI) | payer MEDICARE, SELFPAY ==
[2019-09-18 10:04] VITALS: BMI 20.5
[2019-09-18 12:47] LABS: Prothrombin Time (Protime)PT. 61.8 SECONDS (11.7-14.9)
[2019-09-18 13:35] LABS: BUN 11 mg/dL (7-18); Creatinine, Serum 0.95 mg/dL (0.55-1.02); Glucose 67 mg/dL (74-106)
[2019-09-18 13:36] LABS: Anion Gap 4 (5-15); BUN/Creat Ratio 11.6 RATIO (10-20); Calcium,Total 9.2 mg/dL (8.5-10.1); Chloride 108 mmol/L (98-107); EST Glomerular Filtration Rate 60 mL/min (>60); Est Glom Filt Rate - Afr Amer 72 mL/min (>60); Potassium 3.7 mmol/L (3.5-5.1); Sodium Level 141 mmol/L (136-145)
== END ==
PROVIDERS: PCP Internal Medicine; Referring Provider Physician Assistant Medical; Visit Provider Physician Assistant Medical
DX: Z79.01 Long term (current) use of anticoagulants (principal)
CPT/HCPCS: 36415; 80048; 85610

== ENCOUNTER 2019-09-22 15:16 | Observation (INO) | payer MEDICARE, SELFPAY ==
[2019-09-18 10:04] VITALS: BMI 20.5
[2019-09-22] VITALS (7 sets, daily range): BP systolic 126–156; BP diastolic 59–93; PULSE 85–120; RESP 16–20; TEMP 36.6–37.1; O2SAT 96–98; BMI 19.6
--- NOTE | 2019-09-22 15:47 | CT_ITS ---
STUDY: CT BRAIN WITHOUT CONTRAST REASON FOR EXAM: Female, 84 years old. VERTIGO RADIATION DOSAGE (If Supplied By Facility): CTDIvol = ( 44.99 ) mGy, DLP = ( 762.36 ) mGycm TECHNIQUE: Transaxial CT imaging of the brain was performed without administration of intravenous contrast material. Individualized dose optimization techniques were used for this CT. COMPARISON: Prior study of 11/20/2012 FINDINGS: Normal soft tissue structures. Normal calvarium. There is mild cerebral atrophy with widening of the extra-axial spaces and ventricular dilatation. There are areas of decreased attenuation within the white matter tracts of the supratentorial brain, consistent with microvascular disease changes. Normal basal ganglia and thalami. Normal brainstem. Normal cerebellum. There is no intracranial hemorrhage. There are no findings of an acute ischemic infarction. Normal visualized paranasal sinuses. CT/Brain/Head without Contrast IMPRESSION: Chronic involutional changes of the brain. findings are similar to the previous study. Electronically Signed: Eladio Finney MD at 16:44 EST , Service support ,
--- NOTE | 2019-09-22 15:47 | EKG12_ITS ---
Test Reason : DIZZINESS Blood Pressure : / mmHG Vent. Rate : 083 BPM Atrial Rate : 227 BPM P-R Int : 000 ms QRS Dur : 092 ms QT Int : 382 ms P-R-T Axes : 000 063 -85 degrees QTc Int : 448 ms Atrial fibrillation with premature ventricular or aberrantly conducted complexes Nonspecific ST & T Wave Abnormality Abnormal ECG Confirmed by GUALBERTO GAUTHIER, MAYDA ([id number]), newspaper editor managing BERTA WEBSTER ([id number]) on 09/25/2019 8:56:31 AM Referred By: ART Confirmed By:MAYDA BURCIAGA MD
--- NOTE | 2019-09-22 15:47 | RAD_ITS ---
STUDY: X-RAY CHEST REASON FOR EXAM: Female, 84 years old. DIZZINESS TECHNIQUE: Single AP portable view of the chest. COMPARISON: Prior study of 08/05/2019 FINDINGS: The lungs are clear and expanded. There is no demonstrated pleural abnormality. There is mild cardiac enlargement. Status post sternotomy changes are noted. Normal mediastinum and jon. Normal visualized pulmonary arteries. Normal visualized aortic arch and descending thoracic aorta. Normal visualized thoracic spine. Normal visualized ribs, clavicles, and shoulders. There is no demonstrated abnormality of the visualized soft tissue structures of the upper abdomen. RAD/Chest 1 View (Portable) IMPRESSION: Mild cardiomegaly. Status post sternotomy. No acute cardiopulmonary disease process seen. Chest findings are stable in the interval. Electronically Signed: Eladio Finney MD at 16:16 EST , Service support ,
--- NOTE | 2019-09-22 15:55 | ED.DCSUM_ITS ---
- ER Visit Summary Date of Service: 09/22/19 Chief Complaint: Dizziness History of Present Illness: The patient is a 84 F with dizziness. Symptoms started yesterday. Nothing seemed to bring them on. Worse with moving her head and turning her head. It feels like things are whirling around. She never h ad this before. She feels her heartbeat in her ears but denies any other hearing symptoms. Denies any recent illnesses or fevers. Denies trauma. She takes Coumadin for history of atrial fibrillation and valve replacement. She has been compliant. She denies vision changes, speech changes, facial droop, weakness, numbness, or history of stroke. Physical Examination: Afebrile and vital signs unremarkable. HEENT exam unremarkable except for some blisters at her external right ear. She said this is from a dermatology treatment and they have been there. No other lesions. No nystagmus. Cranial nerves grossly intact. Heart irregular. Lungs clear. Abdomen soft. Extremities show trace symmetric edema, nontender. Skin otherwise unremarkable. Otherwise neurologic testing is normal. Test Results: EKG shows atrial fibrillation at a rate of 83. Laboratory studies and imaging are pending. Emergency Department Course and Treatment: Patient presents with vertigo. She has some components of peripheral vertigo and some component of central vertigo. Will initiate a work-up. She does not have focal neurologic findings or definite onset time. Further she is on Coumadin and not a TPA candidate. There is no indication to call a stroke team at this time. We will continue to monitor for any new or worsening issues. CBC, BMP unremarkable. Troponin normal. INR 9.5. Chest x-ray showed chronic changes and CT brain showed chronic changes. Patient is not having bleeding, so she will hold her Coumadin. She was not treated with vitamin K or other meds for her INR. Cannot rule out central cause of vertigo. Hospitalist was contacted for admission. Treatment Plan: As above Disposition: Admission Impression: 1. Vertigo 2. Supratherapeutic INR This note was generated with [employer] software. It may contain incorrect words, spelling, and punctuation that were not noted in review of the chart prior to signing ED Disposition - Plan for ED Patient: Referrals: Nadine Felix MD [Primary Care Provider] -
[2019-09-22] MEDS: LORazepam 2 MG/ML Syringe 0.5 MG IV (16:07)
[2019-09-22 16:09] LABS: Absolute Lymphocyte Count 1.24 X10^3/uL (0.83-4.51); Basophil# 0.03 X10^3/uL; Basophil% 0.5 % (0-1); Eosinophil# 0.03 X10^3/uL; Eosinophils% 0.5 % (0-5); Hemoglobin 14.1 g/dL (12.0-15.0); Lymphocyte # 1.24 X10^3/ul (4.0); Mean Corp Hgb Conc 33.6 g/dL (32-36); Mean Corpuscular Hgb 31.2 pg (27.0-32.0); Mean Corpuscular Volume 92.9 fL (81-99); Mean Platelet Vol. 10.3 fl (6.2-12.0); Monocyte# 0.58 X10^3/uL; Monocyte% 9.8 % (0-10); NRBC Flagged by Analyzer 0 % (0-5); Neutrophil # 4.02 X10^3/uL (2.7-7.7); Platelet Count 178 K/mm3 (150-450); RBC Distribution Width CV 13.3 % (11.6-14.6); RBC Distribution Width SD 45.4 fl (35.1-43.9); Red Blood Count 4.52 M/mm3 (4.2-5.4); White Blood Count 5.9 K/mm3 (4.4-11.0)
[2019-09-22 16:23] LABS: Prothrombin Time (Protime)PT. 78.9 SECONDS (11.7-14.9)
[2019-09-22 16:24] LABS: Partial Thromboplast Time 85.4 Seconds (24.1-36.2)
[2019-09-22 16:28] LABS: Anion Gap 5 (5-15); BUN 9 mg/dL (7-18); BUN/Creat Ratio 11.3 RATIO (10-20); Calcium,Total 9.1 mg/dL (8.5-10.1); Chloride 110 mmol/L (98-107); EST Glomerular Filtration Rate 73 mL/min (>60); Est Glom Filt Rate - Afr Amer 88 mL/min (>60); Estimated Creatinine Clearance 46.48 ml/min; Glucose 89 mg/dL (74-106); Potassium 3.6 mmol/L (3.5-5.1); Sodium Level 142 mmol/L (136-145)
[2019-09-22 16:30] LABS: International Normalized Ratio 9.5
--- NOTE | 2019-09-22 18:32 | HP.PCM_ITS ---
Problem List (1) Vertigo Status: Acute (2) BPPV (benign paroxysmal positional vertigo) Status: Chronic (3) Supratherapeutic INR Status: Acute (4) Longstanding persistent atrial fibrillation Status: Chronic (5) History of cardioversion Status: Chronic Comment: failed (6) Hyperlipidemia Status: Chronic (7) Nonrheumatic mitral (valve) insufficiency Status: Chronic Comment: Mild to moderate per echo 04/27/16 done @ [facility] (8) History of right and left heart catheterization Status: Chronic Comment: Per Dr. Ramos, [facility] 07/13/2000:Severe ; LAD 20% ostial stenosis;nonobstructive coronaries. (9) Status post mechanical aortic valve replacement Status: Chronic Comment: [facility] History of bicuspid aortic valve Status: Acute Comment: #21 St[address] Bill Valve per Dr. Mishra [facility] 07/24/2000 (11) [facility] current use of anticoagulant Status: Chronic Comment: Warfarin History of Present Illness Date of Admission: 09/22/19 Chief Complaint: Vertigo and difficulty ambulating The patient is a 84 year old F with a past medical history of longstanding persistent atrial fibrillation, hyperlipidemia, nonrheumatic mitral valve insufficiency, nonrheumatic bicuspid aortic stenosis with history of mechanical aortic valve replacement in July 2000, BPPV, remote TIA and chronic anticoagulation with warfarin who presented to the emergency department at [facility] on 09/22/2019 complaining of vertigo associated with gait instability secondary to disequilibrium. She has had this in the past and she generally goes to her ENT doctor who performs head maneuvers which resolves the problem. She has never been taught how to do this and she does not have Antivert at home. She denies nausea and also denies vomiting. She has no unilateral numbness or weakness, no difficulty swallowing, no change in vision, no slurred speech or other focal neurologic deficits. She denies ear pain, fevers, chills, headache. No signs of presentation to the emergency department were temperature 97.8, pulse rate 85, blood pressure 131/90, respiratory rate 16 and she was 98% saturated on room air. CBC showed a normal white blood cell count at 5.9 with an unremarkable differential. Hemoglobin and platelets were within normal limits. INR was markedly elevated at 9.5. BMP showed a potassium of 3.6 and was otherwise unremarkable. Troponin was less than 0.015. A noncontrasted CT brain showed chronic involutional changes with no acute findings. Chest x-ray showed no acute findings. She denies any epistaxis, hematochezia, hematemesis, hemoptysis, extensive bruising or melena. The only recent change to her medication is amiodarone which was started after a failed cardioversion in August 2019 and this could be contributing to the elevated INR. She is scheduled for a repeat cardioversion on 10/02/19. Her nurse recruiter is Dr. Mercer. Past Medical History Past Medical History (Chronic Problems): Chronic Problems (Last Reviewed 09/22/19 @ 18:52 by Kendra Barrios DO) BPPV (benign paroxysmal positional vertigo) (Chronic) Longstanding persistent atrial fibrillation (Chronic) History of cardioversion (Chronic 08/21/19) failed Hyperlipidemia (Chronic) Nonrheumatic mitral (valve) insufficiency (Chronic) Mild to moderate per echo 04/27/16 done @ [facility] History of right and left heart catheterization (Chronic 07/13/00) Per Dr. Ramos, [facility] 07/13/2000:Severe ; LAD 20% ostial stenosis;nonobstructive coronaries. Status post mechanical aortic valve replacement (Chronic 07/24/00) #21 [address] Bill Valve [address]. Mishra, [facility] 07/24/2000 [facility] current use of anticoagulant (Chronic) Warfarin Medical History: Medical History (Last Reviewed 09/22/19 @ 18:52 by Kendra Barrios DO) Longstanding persistent atrial fibrillation (Chronic) I48.11 Hyperlipidemia (Chronic) E78.5 Nonrheumatic mitral (valve) insufficiency (Chronic) I34.0 Mild to moderate per echo 04/27/16 done @ [facility] current use of anticoagulant (Chronic) Z79.01 Warfarin Allergies amoxicillin trihydrate [From Augmentin] Adverse Reaction (Verified 09/22/19 15:17) Diarrhea potassium clavulanate [From Augmentin] Adverse Reaction (Verified 09/22/19 15:17) Diarrhea Home Medications: Ambulatory Orders Medication Instructions Recorded calcium carbonate 600 mg(1,500 1 tab PO BID 03/30/19 mg)-vitamin D3 800 unit chewable tablet cholecalciferol (vitamin D3) 25 1,000 unit PO DAILY 03/30/19 mcg (1,000 unit) tablet multivitamin 1 tab PO DAILY 03/30/19 risedronate 35 mg tablet 35 mg PO QWEEK 03/30/19 tizanidine 2 mg capsule 2 mg PO TID PRN 03/30/19 Coumadin 3 mg tablet 3 mg PO DAILY #90 tab NS 04/15/19 furosemide 20 mg tablet 20 mg PO DAILY #30 tab 08/05/19 metoprolol succinate 25 mg 25 mg PO DAILY #30 tab 08/05/19 tablet,extended release 24 hr amiodarone 200 mg tablet 200 mg PO DAILY #30 tab 08/28/19 Surgical History: Surgical History (Last Reviewed 09/22/19 @ 18:52 by Kendra Barrios DO) History of cardioversion (Chronic) Onset Date: 08/21/19 Z98.890 failed History of right and left heart catheterization (Chronic) Onset Date: 07/13/[address] Ramos, [facility] 07/13/2000:Severe ; LAD 20% ostial stenosis;nonobstructive coronaries. Status post mechanical aortic valve replacement (Chronic) Onset Date: 07/24/[address] Bill [address] 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 Denies: Chest Pain, Light Headedness, Orthopnea, Palpitations, Syncope Respiratory: Reports: Shortness of breath upon exertion. Denies: Cough, Shortness of breath at rest, Sputum production Gastrointestinal: Denies: Abdominal Pain, Constipation, Diarrhea, Dyspepsia, Hematemesis, Hematochezia, Nausea, Melena, Vomiting Genitourinary: Denies: Dysuria Gynecological: Denies: Breast symptoms, Vaginal discharge Musculoskeletal: Denies: Joint Pain, Joint Tenderness Skin: Reports: - - She has erythematous macular lesions on her face that she tells me are due to recent dermatologic treatment and not due to rash. Denies: Jaundice, Rash, Wounds Neurological: Denies: Numbness, Tingling, Focal weakness Psychiatric: Denies: Anxiety, Depression, Homicidal Ideations, Suicidal Ideations Endocrine: Denies: Change in Body Habitus, Hx of Thyroiditis Hematologic/ Lymphatic: Denies: Easy Bruising, Easy Bleeding VTE Information - Inpt Only VTE Present on Admission: No VTE Mechan Device Prophylaxis: None VTE Pharm Prophylaxis ordered?: No Reason prophylaxis not ordered:: Treatment Not Indicated - She is supratherapeutic on warfarin and the INR is 9.5 Patient Problems: Active and Suspected Problems (Last Reviewed 09/22/19 @ 18:52 by Kendra Barrios DO) Vertigo (Acute) Supratherapeutic INR (Acute) - Physical Exam Vitals/I&O's: Vital Signs Temp Pulse Resp BP Pulse Ox 97.8 F 89 18 156/86 H 96 09/22/19 15:18 09/22/19 17:23 09/22/19 17:23 09/22/19 17:23 09/22/19 17:23 Oxygen Delivery Method Room Air Weight: 121 lb 9.6 oz Body Mass Index (BMI) 19.6 Intake and Output for Last 24 Hours 09/20/19 09/21/19 09/22/19 23:59 23:59 23:59 Intake Total 500 / 500 Balance 500 / 500 General: Alert, Oriented x3, Cooperative, No apparent distress, Well developed HEENT: Atraumatic, PERRLA, EOMI, Normocephalic, - - 1-2 beats of nystagmus Oral: No Gingival or Mucosal Lesions/ Ulcerations, Dry Mucosa Neck: Supple, No JVD, Negative Carotid Bruits, No Nodes, Trachea Midline Lungs: Clear to auscultation, Normal air movement, No rhonchi, No wheeze, No rales Cardiovascular: No murmurs, Irregular Rate - Telemetry unit shows atrial fibrillation with controlled ventricular response, No rub noted, No Gallop, - - She has a mechanical valve click due to the AVR Abdomen: Bowel Sounds Present, Soft, Non Tender Extremities: No cyanosis, No edema, Capillary Refill Less than 3 Seconds, Edema - Of the ankles and distal bilateral lower extremities, Peripheral Pulses Normal Skin: No rashes, No breakdown, - - She has erythematous macular lesions over her face which she states are secondary to recent dermatologic treatment and not due to a rash Musculoskeletal: No Tenderness to Palpation of Joints or Extremities, No Muscle Wasting Neurological: Cranial nerves II-XII grossly intact, Neuro grossly intact Psych/Mental Status: Normal Affect, Appropriate Laboratory Results 09/22/19 16:00: WBC 5.9, RBC 4.52, Hgb 14.1, Hct 42.0, MCV 92.9, MCH 31.2, MCHC 33.6, RDW Std Deviation 45.4 H, RDW Coeff of Celio 13.3, Plt Count 178, MPV 10.3, Immature Gran % (Auto) 0.200, Neut % (Auto) 68.0, Lymph % (Auto) 21.0, [place] % (Auto) 9.8, Eos % (Auto) 0.5, Baso % (Auto) 0.5, Absolute Neuts (auto) 4.0, Absolute Lymphs (auto) 1.24, Nucleated RBC % 0 09/22/19 16:00: PT 78.9 H, INR 9.5 H*, APTT 85.4 H 09/22/19 16:00: Sodium 142, Potassium 3.6, Chloride 110 H, Carbon Dioxide 27.0, Anion Gap 5, BUN 9, Creatinine 0.80, Estim Creat Clear Calc 46.48, Est GFR (MDRD) Af Amer 88, Est GFR (MDRD) Non-Af 73, BUN/Creatinine Ratio 11.3, Glucose 89, Calcium 9.1, Troponin I < 0.015 Assessment/Plan All Active Problems (Last Reviewed 09/22/19 @ 18:52 by Kendra Barrios DO) Vertigo (Acute) Supratherapeutic INR (Acute) History of bicuspid aortic valve (Acute) Impressions 1. BPPV - admit to the hospital for observation since she is unable to walk. Neurological assessments every 4 hours X 24H. Antivert ordered. PT consult for vestibular therapy 2. Supratherapeutic INR at 9.5- The INR has been increasing since the amiodarone was started on 08/21/2019 and it was 3.8 on 09/04/2019, 7.0 on 09/18/2019 and 9.5 today. She tells me that her warfarin dose has not changed recently. She sees Dr. Mercer and Dr. Felix. Will request records. Hold Warfarin and give 5 mg of vitamin K PO now. Recheck Pt/INR in the AM. 3. Chronic medical conditions include: Chronic persistent atrial fibrillation, history of bicuspid aortic valve with can occult aortic valve replacement, nonrheumatic mitral regurgitation, hyperlipidemia -continue home medications except for warfarin Code Visit OBSV E&M: 73022 Initial observation care L2
[2019-09-22 19:10] LABS: Magnesium 2.3 mg/dL (1.6-2.6)
[2019-09-22] MEDS: Phytonadione (Vit K1) 5 MG TABLET PO (20:02)
[2019-09-22] MEDS: Calcium Carb/Vitamin D 1 TABLET Tablet PO (22:26)
[2019-09-23] VITALS (12 sets, daily range): BP systolic 121–141; BP diastolic 67–93; PULSE 82–101; RESP 16–21; TEMP 36.4–37; O2SAT 93–98
[2019-09-23 04:48] LABS: Prothrombin Time (Protime)PT. 37.7 SECONDS (11.7-14.9)
[2019-09-23 04:50] LABS: International Normalized Ratio 3.8
[2019-09-23] MEDS: Amiodarone 200 MG Tablet PO (08:33)
[2019-09-23] MEDS: Furosemide 20 MG Tablet PO (08:33)
[2019-09-23] MEDS: Metoprolol(XL)Succ 25 MG Tablet PO (08:33)
[2019-09-23] MEDS: Calcium Carb/Vitamin D 1 TABLET Tablet PO ×2 (08:33→20:01)
--- NOTE | 2019-09-23 12:04 | PCM.PN.HOSP ---
Patient Problems: Active and Suspected Problems (Last Reviewed 09/22/19 @ 18:52 by Kendra Barrios DO) Vertigo (Acute) Supratherapeutic INR (Acute) Reason for Visit: Follow-up on vertigo/supratherapeutic INR Subjective: Patient was seen and examined. Feels improved. Has slight dizziness when she lifts her head up to look up to the ceiling. History of ago, follows with ENT. Seen by PT and OT and given materials for vestibular therapy. Denies any bleeding. Objective: Physical exam: Vitals/I&O's: Vital Signs Temp Pulse Resp BP Pulse Ox 97.8 F 100 18 127/93 H 98 09/23/19 08:26 09/23/19 08:33 09/23/19 08:26 09/23/19 08:26 09/23/19 08:26 Oxygen Delivery Method Room Air Weight: 55.157 kg Body Mass Index (BMI) 19.6 Intake and Output for Last 24 Hours 09/21/19 09/22/19 09/23/19 23:59 23:59 23:59 Intake Total 800 / 800 150 / 150 Balance 800 / 800 150 / 150 General: Alert, Oriented x3, Cooperative, No apparent distress HEENT: Atraumatic, PERRLA, EOMI, Normocephalic Oral: Moist Mucosa Neck: Supple Lungs: Clear to auscultation, Normal air movement Cardiovascular: Regular rate, Regular Rhythm, Normal S1, Normal S2, No murmurs Abdomen: Bowel Sounds Present, Soft, Non Tender, Non-Distended, No Hepato-splenomegaly Extremities: No edema Skin: No rashes Musculoskeletal: No Tenderness to Palpation of Joints or Extremities Lymphatic: No Cervical, Supraclavicular, or Inguinal Adenopathy Neurological: Cranial nerves II-XII grossly intact, Neuro grossly intact, - - Short-term memory present Psych/Mental Status: Normal Affect, Appropriate Laboratory Results 09/22/19 16:00: WBC 5.9, RBC 4.52, Hgb 14.1, Hct 42.0, MCV 92.9, MCH 31.2, MCHC 33.6, RDW Std Deviation 45.4 H, RDW Coeff of Celio 13.3, Plt Count 178, MPV 10.3, Immature Gran % (Auto) 0.200, Neut % (Auto) 68.0, Lymph % (Auto) 21.0, [place] % (Auto) 9.8, Eos % (Auto) 0.5, Baso % (Auto) 0.5, Absolute Neuts (auto) 4.0, Absolute Lymphs (auto) 1.24, Nucleated RBC % 0 09/22/19 16:00: PT 78.9 H, INR 9.5 H*, APTT 85.4 H 09/22/19 16:00: Sodium 142, Potassium 3.6, Chloride 110 H, Carbon Dioxide 27.0, Anion Gap 5, BUN 9, Creatinine 0.80, Estim Creat Clear Calc 46.48, Est GFR (MDRD) Af Amer 88, Est GFR (MDRD) Non-Af 73, BUN/Creatinine Ratio 11.3, Glucose 89, Calcium 9.1, Troponin I < 0.015 09/22/19 16:00: Magnesium 2.3 09/23/19 04:05: PT 37.7 H, INR 3.8 H* Current Medications Acetaminophen (Tylenol) 650 mg PO Q6H PRN PRN PRN Reason: Pain Score 1-10/Temp > 100.7 F Al Hydroxide/Mg Hydroxide (Mylanta Ii) 30 ml PO Q6H PRN PRN PRN Reason: Gastric Burning Amiodarone HCl (Cordarone) 200 mg PO DAILY [facility] Last Admin: 09/23/19 08:33 Dose: 200 mg Documented by: Calcium/Vitamin D (Os-Lee 500mg + D) 1 tablet PO BID [facility] Last Admin: 09/23/19 08:33 Dose: 1 tablet Documented by: Cholecalciferol (Vitamin D) 1,000 unit PO DAILY [facility] Last Admin: 09/23/19 08:33 Dose: 1,000 unit Documented by: Furosemide (Lasix) 20 mg PO DAILY [facility] Last Admin: 09/23/19 08:33 Dose: 20 mg Documented by: Sodium Chloride () 250 mls @ 15 mls/hr IV .[id number] PRN PRN Reason: Saline Flush Sodium Chloride () 250 mls @ 15 mls/hr IV .[id number] PRN PRN Reason: Additional IVPB Infusion Magnesium Hydroxide (Milk Of Magnesia) 30 ml PO DAILY PRN PRN PRN Reason: Constipation Meclizine HCl (Antivert) 12.5 mg PO TID PRN PRN PRN Reason: Vertigo Melatonin (Melatonin) 3 mg PO QHS PRN PRN PRN Reason: INSOMNIA Metoprolol Succinate (Toprol Xl (Beta Parmjit)) 25 mg PO DAILY [facility] Last Admin: 09/23/19 08:33 Dose: 25 mg Documented by: Nitroglycerin (Nitrostat) 0.4 mg SUBLINGUAL Q5M PRN PRN Reason: CARDIAC/CHEST PAIN Ondansetron HCl (Zofran) 4 mg IV Q8H PRN PRN PRN Reason: NAUSEA/VOMITING Potassium Chlor[facility] ([facility]Dur) [facility] Last Admin: 09/23/19 08:33 Dose: 20 meq Documented by: Prochlorperazine Edisylate (Compazine Iv) 5 mg IV Q4H PRN PRN PRN Reason: Breakthrough Nausea/Vomiting Risedronate (Actonel) 35 mg PO QWEEK [facility] Sodium Chloride () 10 - 40 ml IV UD PRN PRN Reason: SALINE FLUSH Tizanidine HCl (Zanaflex) 2 mg PO TID PRN PRN PRN Reason: SPASMS STROKE Vital Signs/Narrative: Vital Signs Temp Pulse Resp BP Pulse Ox 09/23/19 08:33 100 09/23/19 08:26 97.8 F 100 18 127/93 H 98 Medical Necessity - Tobacco Use Smoking Status: Never smoker Tobacco Use: Non-smoker Assessment/Plan All Active Problems (Last Reviewed 09/22/19 @ 18:52 by Kendra Barrios DO) Vertigo (Acute) Supratherapeutic INR (Acute) History of bicuspid aortic valve (Acute) 1. Vertigo secondary to BPPV, improved, continue Antivert, vestibular therapy per PT 2. Supratherapeutic INR, INR improved to 3.8, continue to hold Coumadin Repeat INR in a.m. 3. Chronic atrial fibrillation/mechanical bicuspid aortic valve replacement, remains stable, goal INR is 2.5-3.5, Will repeat INR in a.m, likely resume Coumadin tomorrow We will discuss with cardiology about continuation of amiodarone and Coumadin interaction 4. DVT PPx-INR is supratherapeutic, Coumadin on hold Code Visit Inpatient E&M: 04997 [facility] Hosp L2
[2019-09-23] MEDS: Acetaminophen 325 MG Tablet 650 MG PO (20:04)
[2019-09-24] VITALS (11 sets, daily range): BP systolic 108–142; BP diastolic 64–84; PULSE 70–97; RESP 17–20; TEMP 36.4–36.9; O2SAT 95–97
[2019-09-24] MEDS: Acetaminophen 325 MG Tablet 650 MG PO (03:24)
[2019-09-24] MEDS: Rizatriptan Benzoate 10 MG Tablet PO (04:34)
[2019-09-24 06:17] LABS: International Normalized Ratio 1.5; Prothrombin Time (Protime)PT. 18.3 SECONDS (11.7-14.9)
[2019-09-24] MEDS: Metoprolol(XL)Succ 25 MG Tablet PO (08:44)
[2019-09-24] MEDS: Amiodarone 200 MG Tablet PO (08:44)
[2019-09-24] MEDS: Calcium Carb/Vitamin D 1 TABLET Tablet PO ×2 (08:44→21:29)
[2019-09-24] MEDS: Furosemide 20 MG Tablet PO (08:45)
[2019-09-24] MEDS: Enoxaparin 60 MG/0.6 ML Syringe SC ×2 (10:38→21:29)
--- NOTE | 2019-09-24 10:42 | CASEMGMT ---
Case Management Progress Note: This data analyst report writer to patient bedside, introduced self and role. Explained/reviewed RODRIGUEZ form with patient in regards to her current treatment this hospital admission. Informed Outpatient billing is determined by her insurance plan and continual review is conducted to determine any changes in condition that may warrant inpatient stay. Patient acknowledges and states understanding, questions clarified/addressed with no additional questions or concerns. Rodriguez form signed and placed in patient hard chart and provided a copy. Ivonne Ayers RNCM
--- NOTE | 2019-09-24 12:38 | PCM.PN.HOSP ---
Patient Problems: Active and Suspected Problems (Last Reviewed 09/22/19 @ 18:52 by Kendra Barrios DO) Vertigo (Acute) Supratherapeutic INR (Acute) Reason for Visit: Follow-up on vertigo/supratherapeutic INR Subjective: Patient was seen and examined. Dizziness is improved. Denied chest pain or palpitations. Objective: Physical exam: General: Alert, Oriented x3, Cooperative, No apparent distress HEENT: Atraumatic, PERRLA, EOMI, Normocephalic Oral: Moist Mucosa Neck: Supple Lungs: Clear to auscultation, Normal air movement Cardiovascular: Regular rate, Regular Rhythm, Normal S1, Normal S2, No murmurs Abdomen: Bowel Sounds Present, Soft, Non Tender, Non-Distended, No Hepato-splenomegaly Extremities: No edema Skin: No rashes Musculoskeletal: No Tenderness to Palpation of Joints or Extremities Lymphatic: No Cervical, Supraclavicular, or Inguinal Adenopathy Neurological: Cranial nerves II-XII grossly intact, Neuro grossly intact, - - Short-term memory present Psych/Mental Status: Normal Affect, Appropriate Vitals/I&O's: Vital Signs Temp Pulse Resp BP Pulse Ox 98.3 F 73 18 127/79 H 95 09/24/19 08:35 09/24/19 08:44 09/24/19 08:35 09/24/19 08:35 09/24/19 08:35 Oxygen Delivery Method Room Air Weight: 55.157 kg Body Mass Index (BMI) 19.6 Intake and Output for Last 24 Hours 09/22/19 09/23/19 09/24/19 23:59 23:59 23:59 Intake Total 800 / 800 925 / 925 1000 / 1000 Balance 800 / 800 925 / 925 1000 / 1000 Laboratory Results 09/24/19 05:35: PT 18.3 H, INR 1.5 Current Medications Acetaminophen (Tylenol) 650 mg PO Q6H PRN PRN PRN Reason: Pain Score 1-10/Temp > 100.7 F Last Admin: 09/24/19 03:24 Dose: 650 mg Documented by: Al Hydroxide/Mg Hydroxide (Mylanta Ii) 30 ml PO Q6H PRN PRN PRN Reason: Gastric Burning Amiodarone HCl (Cordarone) 200 mg PO DAILY [facility] Last Admin: 09/24/19 08:44 Dose: 200 mg Documented by: Calcium/Vitamin D (Os-Lee 500mg + D) 1 tablet PO BID [facility] Last Admin: 09/24/19 08:44 Dose: 1 tablet Documented by: Cholecalciferol (Vitamin D) 1,000 unit PO DAILY [facility] Last Admin: 09/24/19 08:44 Dose: 1,000 unit Documented by: Enoxaparin Sodium (Lovenox) 60 mg SC Q12 [facility] Last Admin: 09/24/19 10:38 Dose: 60 mg Documented by: Furosemide (Lasix) 20 mg PO DAILY [facility] Last Admin: 09/24/19 08:45 Dose: 20 mg Documented by: Sodium Chloride () 250 mls @ 15 mls/hr IV .[id number] PRN PRN Reason: Saline Flush Sodium Chloride () 250 mls @ 15 mls/hr IV .[id number] PRN PRN Reason: Additional IVPB Infusion Magnesium Hydroxide (Milk Of Magnesia) 30 ml PO DAILY PRN PRN PRN Reason: Constipation Meclizine HCl (Antivert) 12.5 mg PO TID PRN PRN PRN Reason: Vertigo Melatonin (Melatonin) 3 mg PO QHS PRN PRN PRN Reason: INSOMNIA Metoprolol Succinate (Toprol Xl (Beta Parmjit)) 25 mg PO DAILY [facility] Last Admin: 09/24/19 08:44 Dose: 25 mg Documented by: Nitroglycerin (Nitrostat) 0.4 mg SUBLINGUAL Q5M PRN PRN Reason: CARDIAC/CHEST PAIN Ondansetron HCl (Zofran) 4 mg IV Q8H PRN PRN PRN Reason: NAUSEA/VOMITING Potassium Chloride (K-Dur) [facility] Last Admin: 09/24/19 08:44 Dose: 20 meq Documented by: Prochlorperazine Edisylate (Compazine Iv) 5 mg IV Q4H PRN PRN PRN Reason: Breakthrough Nausea/Vomiting Sodium Chloride () 10 - 40 ml IV UD PRN PRN Reason: SALINE FLUSH Tizanidine HCl (Zanaflex) 2 mg PO TID PRN PRN PRN Reason: SPASMS Warfarin Sodium (Coumadin (Pbkc)) 7.5 mg PO X1 ONE Stop: 09/24/19 17:01 STROKE Vital Signs/Narrative: Vital Signs Pulse 02/18/20 08:44 73 Medical Necessity - Tobacco Use Smoking Status: Never smoker Tobacco Use: Non-smoker Assessment/Plan All Active Problems (Last Reviewed 09/22/19 @ 18:52 by Kendra Barrios DO) Vertigo (Acute) Supratherapeutic INR (Acute) History of bicuspid aortic valve (Acute) 1. Vertigo secondary to BPPV, improved, continue Antivert, vestibular therapy per PT 2. Supratherapeutic INR, now subtherapeutic, bryan continue on therapeutic Lovenox and coumadin Repeat INR in a.m. 3. Chronic atrial fibrillation/mechanical bicuspid aortic valve replacement, remains stable, goal INR is 2.5-3.5, Will repeat INR in a.m, 4. Concern for cognitive impairment, admitting CT scan of brain was negative for any abnormality, no hydrocephalus seen, will check TSH, vitamin B12 5. DVT PPx-on therapeutic lovenox and coumadin Code Visit Inpatient E&M: 88402 Subs Hosp L2
--- NOTE | 2019-09-24 13:37 | CON.PCM_ITS ---
Problem List (1) Longstanding persistent atrial fibrillation Status: Chronic (2) History of cardioversion Status: Chronic Comment: failed (3) Hyperlipidemia Status: Chronic (4) Nonrheumatic mitral (valve) insufficiency Status: Chronic Comment: Mild to moderate per echo 04/27/16 done @ [facility] (5) Status post mechanical aortic valve replacement Status: Chronic Comment: #21 St[address] Bill Valve per Dr. 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 Patient underwent a recent cardioversion which was unsuccessful. Patient was offered amiodarone therapy in an attempt to stabilize her atrial membrane and attempt a repeat cardioversion. Initially the patient declined amiodarone therapy but then they finally agreed. Unfortunately she missed her appointment for INR check, and had not followed up properly in our office. Patient apparently was admitted with dizziness which is a known entity with the patient in the past consistent with otolith induced vertigo. Patient's INR was found to be elevated at 9.5, and the patient was given vitamin K therapy. This decreased her INR down to 3.8 initially, and now it is 1.5. Patient remains in atrial fibrillation. She denies any chest pain, angina, but does have some signs of dementia with worsening forgetfulness prior to initiation of amiodarone therapy. [] Past Medical History Allergies/Adverse Reactions: Allergies amoxicillin trihydrate [From Augmentin] Adverse Reaction (Verified 09/22/19 15:17) Diarrhea potassium clavulanate [From Augmentin] Adverse Reaction (Verified 09/22/19 15:17) Diarrhea Home Medications: Ambulatory Orders Medication Instructions Recorded calcium carbonate 600 mg(1,500 1 tab PO BID 03/30/19 mg)-vitamin D3 800 unit chewable tablet cholecalciferol (vitamin D3) 25 1,000 unit PO DAILY 03/30/19 mcg (1,000 unit) tablet multivitamin 1 tab PO DAILY 03/30/19 risedronate 35 mg tablet 35 mg PO QWEEK 03/30/19 tizanidine 2 mg capsule 2 mg PO TID PRN 03/30/19 Coumadin 3 mg tablet 3 mg PO DAILY #90 tab NS 04/15/19 furosemide 20 mg tablet 20 mg PO DAILY #30 tab 08/05/19 metoprolol succinate 25 mg 25 mg PO DAILY #30 tab 08/05/19 tablet,extended release 24 hr amiodarone 200 mg tablet 200 mg PO DAILY #30 tab 08/28/19 Past Medical History (Chronic Problems): Chronic Problems (Last Reviewed 09/22/19 @ 18:52 by Kendra Barrios DO) BPPV (benign paroxysmal positional vertigo) (Chronic) Longstanding persistent atrial fibrillation (Chronic) History of cardioversion (Chronic 08/21/19) failed Hyperlipidemia (Chronic) Nonrheumatic mitral (valve) insufficiency (Chronic) Mild to moderate per echo 04/27/16 done @ [facility] History of right and left heart catheterization (Chronic 07/13/00) Per Dr. Ramos [facility] 07/13/2000:Severe ; LAD 20% ostial stenosis;nonobstructive coronaries. Status post mechanical aortic valve replacement (Chronic 07/24/00) #21 St[address] Bill Valve per Dr. 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 Denies: Chest Discomfort, Shortness of Breath, Orthopnea, PND, Peripheral Edema, Palpitations, Lightheadedness, Near Syncope, Syncope Respiratory: Denies: Cough, Sputum Production, Hemoptysis Gastrointestinal: Denies: Hematemesis, Hematochezia, Melena Genitourinary: Denies: Dysuria, Hematuria Skin: Denies: Rash Subjectve: Patient sitting in a chair, no acute distress. Objective: Vital Signs Temp Pulse Resp BP Pulse Ox 98.3 F 73 18 127/79 H 95 09/24/19 08:35 09/24/19 08:44 09/24/19 08:35 09/24/19 08:35 09/24/19 08:35 Oxygen Delivery Method Room Air Weight: 121 lb 9.6 oz Body Mass Index (BMI) 19.6 Intake and Output for Last 24 Hours 09/22/19 09/23/19 09/24/19 23:59 23:59 23:59 Intake Total 800 / 800 925 / 925 1000 / 1000 Balance 800 / 800 925 / 925 1000 / 1000 General: Awake, Alert, Oriented x 3 HEENT: PERRL, EOMI, Sclera Non Icteric Neck: Supple, Good ROM, No Lymph Node Enlargement Lungs: Clear to auscultation Cardiovascular: Irregular Rhythm, Normal S2, No Rubs, No Gallops Murmur Murmur: Grade 2/6 Vascular: No Carotid Bruits, Normal Femoral Pulses, Normal Radial Pulses, Normal Dorsalis Pedal Pulse, Normal Posterior Tibial Pulses Abdomen: Bowel Sounds Present, Soft, Non Tender, No HSM, No Organomegaly Extremities: No Cyanosis, No Clubbing, No edema Neurological: No Focal Motor or Sensory Deficit 09/24/19 05:35: PT 18.3 H, INR 1.5 Rhythm: EKG: ECHO: Stress Test: Most recent stress test dated 04/24/2019 was negative for inducible ischemia. Cardiac Cath: PCI: CT Surgery: Holter monitor: EPS: PPM: CXR: Chest CT Scan: Assessment/Plan 1. Chronic persistent atrial fibrillation: Patient was started on amiodarone therapy, but unfortunately failed to follow-up appropriately for her INR, causing her INR to drift upwards as a result of amiodarone displacement. Her initial INR was 9.5, and is now 1.5 after correction with vitamin K. Unfortunate the patient requires an INR between 2.5 and 3.5 given her prosthetic aortic valve. Recommend starting her on Lovenox 1 mg/kg subcu daily to provide adequate anticoagulation while her INR increases with Coumadin redistribution. I would not recommend ELIZABETH guided DC cardioversion at this time. She will need to demonstrate a stable INR between 2.5 and 3.5 over the next 4 weeks with amiodarone on board prior to any repeat cardioversion. Patient's heart rate is well controlled recommend continuing current therapy. Patient may be discharged home once her INR is above 2.0, or she may be discharged home on Lovenox 60 mg subcu twice daily and have her INR checked on an outpatient basis. 2. We will plan for DC cardioversion in 4 to 6 weeks time. 3. Discussed with Dr. Leonardo. Thank you very much for the opportunity to participate in the cardiac care of your patient. Consultation time took place between 1 PM and 1:40 PM. All questions answered to the patient's family. Code Visit Inpatient E&M: 55792 Init Hosp L2
--- NOTE | 2019-09-24 15:54 | CASEMGMT ---
SW spoke with patient's daughter in [place] and her daughter here at [facility]. They are concerned with some of her memory issues at home and they were looking for recommendations on who to see to help with assessing this. Physician then came to the room and talked extensively with patient and family including memory issues. SW will gather some information for patient and family and get it to them. Alba CHAIDEZ MSW
[2019-09-24 16:23] LABS: Thyroid Stim Hormone (TSH) 2.59 uIU/mL (0.358-3.74)
[2019-09-24 17:28] LABS: Vitamin B12 521 pg/mL (211-911)
[2019-09-24] MEDS: 0.9% Saline Lock 10 ML Syringe IV (21:30)
[2019-09-25] VITALS (7 sets, daily range): BP systolic 121–140; BP diastolic 72–95; PULSE 76–91; RESP 16; TEMP 36.7; O2SAT 94–98
[2019-09-25] MEDS: Rizatriptan Benzoate 10 MG Tablet PO (06:17)
[2019-09-25 06:57] LABS: International Normalized Ratio 1.6; Prothrombin Time (Protime)PT. 19.1 SECONDS (11.7-14.9)
[2019-09-25] MEDS: Amiodarone 200 MG Tablet PO (08:28)
[2019-09-25] MEDS: Calcium Carb/Vitamin D 1 TABLET Tablet PO (08:28)
[2019-09-25] MEDS: Furosemide 20 MG Tablet PO (08:28)
--- NOTE | 2019-09-25 08:28 | PN.CARD_ITS ---
Subjectve: Patient doing well this morning, no 24-hour events. Remains in atrial fibrillation. INR 1.6 today. Objective: Vital Signs Temp Pulse Resp BP Pulse Ox 98.1 F 91 16 140/95 H 94 09/25/19 08:25 09/25/19 08:25 09/25/19 08:25 09/25/19 08:25 09/25/19 08:25 Oxygen Delivery Method Room Air Weight: 121 lb 9.6 oz Body Mass Index (BMI) 19.6 Intake and Output for Last 24 Hours 09/23/19 09/24/19 09/25/19 23:59 23:59 23:59 Intake Total 925 / 925 1720 / 1720 60 / 60 Balance 925 / 925 1720 / 1720 60 / 60 General: Awake, Alert, Oriented x 3 HEENT: PERRL, EOMI, Sclera Non Icteric Neck: Supple, Good ROM, No Lymph Node Enlargement Lungs: Clear to auscultation Cardiovascular: Irregular Rhythm, Normal S2, No Rubs, No Gallops, Lamoure Prosthetic S1, Lamoure Prosthetic S2 Vascular: No Carotid Bruits, Normal Femoral Pulses, Normal Radial Pulses, Normal Dorsalis Pedal Pulse, Normal Posterior Tibial Pulses Abdomen: Bowel Sounds Present, Soft, Non Tender, No HSM, No Organomegaly Extremities: No Cyanosis, No Clubbing, No edema Neurological: No Focal Motor or Sensory Deficit 09/25/19 06:00: PT 19.1 H, INR 1.6 Rhythm: EKG: ECHO: Stress Test: Cardiac Cath: PCI: CT Surgery: Holter monitor: EPS: PPM: CXR: Chest CT Scan: Medical Necessity - Tobacco Use Smoking Status: Never smoker Tobacco Use: Non-smoker Assessment/Plan 1. Chronic persistent atrial fibrillation: Patient was started on amiodarone therapy, but unfortunately failed to follow-up appropriately for her INR, causing her INR to drift upwards as a result of amiodarone displacement. Her initial INR was 9.5, and is now 1.5 after correction with vitamin K. Is currently 1.6. Unfortunately the patient requires an INR between 2.5 and 3.5 given her prost hetic aortic valve. Recommend starting her on Lovenox 1 mg/kg subcu daily to provide adequate anticoagulation while her INR increases with Coumadin redistribution. I would not recommend ELIZABETH guided DC cardioversion at this time. She will need to demonstrate a stable INR between 2.5 and 3.5 over the next 4 weeks with amiodarone on board prior to any repeat cardioversion. Patient's heart rate is well controlled recommend continuing current therapy. Patient may be discharged home once her INR is above 2.0, or she may be discharged home on Lovenox 60 mg subcu twice daily and have her INR checked on an outpatient basis. 2. We will plan for DC cardioversion in 4 to 6 weeks time. 3. Discussed with Dr. Leonardo. Patient may follow-up with Dr. Mercer in the office. We will sign off. Please call with any questions. All questions answered to the patient's family. Code Visit Inpatient E&M: 60954 Subs Hosp L2
[2019-09-25] MEDS: Enoxaparin 60 MG/0.6 ML Syringe SC (08:29)
[2019-09-25] MEDS: Metoprolol(XL)Succ 25 MG Tablet PO (08:29)
--- NOTE | 2019-09-25 10:59 | DCINST_ITS ---
- Discharge Diagnoses Current Active Problems: Current Active and Chronic Problems (Last Reviewed 09/22/19 @ 18:52 by Kendra Barrios DO) Vertigo (Acute) BPPV (benign paroxysmal positional vertigo) (Chronic) Supratherapeutic INR (Acute) Reason(s) for Visit for Discharge Instructions: Dizziness, fall You will use the following diet at home:: Cardiac Your food should be the consistency of: Regular Your liquids should be the consistency of: Regular/Thin Discharge Activity: Return to Normal Activity Instructions: Enoxaparin Sodium (Porcine) Solution for injection, Understanding Dizziness, Balance Problems, and Fainting, Inner Ear Problems: Causes of Dizziness (Vertigo), Managing Balance Problems: Vestibular Rehabilitation Therapy, Dizziness (Vertigo) and Balance Problems: Ensuring Your Safety Additional Instructions: Continue to take your coumadin. You will be discharged with Lovenox injections. You should have your INR checked on Monday09/27/19. Dr. Mercer's cardiology office should manage your INR until it is therapeutic (2.5- 3.5). You should follow-up with Dr. Mercer in 4 weeks to decide on the cardioversion. Follow-up with Dr. Del Castillo for memory-related complaints. Allergies/Adverse Reactions: Allergies amoxicillin trihydrate [From Augmentin] Adverse Reaction (Verified 09/22/19 15:17) Diarrhea potassium clavulanate [From Augmentin] Adverse Reaction (Verified 09/22/19 15:17) Diarrhea Medications to take at Discharge calcium carbonate 600 mg(1,500 mg)-vitamin D3 800 unit chewable tablet 1 tab PO BID 03/30/19 cholecalciferol (vitamin D3) 25 mcg (1,000 unit) tablet 1,000 unit PO DAILY 03/30/19 multivitamin 1 tab PO DAILY 03/30/19 risedronate 35 mg tablet 35 mg PO QWEEK 03/30/19 tizanidine 2 mg capsule 2 mg PO TID PRN 03/30/19 Coumadin 3 mg tablet 3 mg PO DAILY #90 tab NS 04/15/19 furosemide 20 mg tablet 20 mg PO DAILY #30 tab 08/05/19 metoprolol succinate 25 mg tablet,extended release 24 hr 25 mg PO DAILY #30 tab 08/05/19 amiodarone 200 mg tablet 200 mg PO DAILY #30 tab 08/28/19 Acetaminophen [Tylenol Tablet] 650 mg PO Q6H PRN PRN tablet 09/25/19 Enoxaparin [Lovenox] 60 mg SUBCUT Q12 7 Days #14 syringe 09/25/19 Meclizine HCl [Antivert] 12.5 mg PO TID PRN PRN 7 Days #20 tab 09/25/19 The following prescriptions were given: Meclizine HCl [Antivert] 12.5 mg PO TID PRN PRN 7 Days #20 tab PRN Reason: Vertigo Transmission Status: [id number] Enoxaparin [Lovenox] 60 mg SUBCUT Q12 7 Days #14 syringe Transmission Status: [id number] Primary Care Physician: Nadine Felix MD [Primary Care Provider] - Please follow up with your Primary Care Physician in: within 1-2 weeks of discharge Test Results: Test results from this visit will be discussed in further detail at your follow- up appointment, if applicable. Please Follow Up With: Maldoando Mercer MD When: in 4 weeks Please Follow Up With: Roberto Del Castillo Chi, MD When: as scheduled Proposed Discharge Date: 09/25/19
--- NOTE | 2019-09-25 11:05 | PCM.DC.SUM ---
Discharge Date and Diagnosis Date of Admission: 09/22/19 Date of Discharge: 09/25/19 - Primary Discharge Diagnosis Active and Suspected Problems (Last Reviewed 09/22/19 @ 18:52 by Kendra Barrios DO) Vertigo (Acute) Supratherapeutic INR (Acute) Subtherapeutic INR - Secondary Discharge Diagnosis Chronic Problems (Last Reviewed 09/22/19 @ 18:52 by Kendra Barrios DO) BPPV (benign paroxysmal positional vertigo) (Chronic) Longstanding persistent atrial fibrillation (Chronic) History of cardioversion (Chronic 08/21/19) failed Hyperlipidemia (Chronic) Nonrheumatic mitral (valve) insufficiency (Chronic) Mild to moderate per echo 04/27/16 done @ [facility] History of right and left heart catheterization (Chronic 07/13/00) Per Dr. Ramos, [facility] 07/13/2000:Severe ; LAD 20% ostial stenosis;nonobstructive coronaries. Status post mechanical aortic valve replacement (Chronic 07/24/00) #21 St[address] Bill Valve per Dr. 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 findings are similar to the previous study. Electronically Signed: Eladio Finney MD at 16:44 EST , Service support , Chest X-Ray 09/22/19 15:47 IMPRESSION: Mild cardiomegaly. Status post sternotomy. No acute cardiopulmonary disease process seen. Chest findings are stable in the interval. Electronically Signed: Eladio Finney MD at 16:16 EST , Service support , Cardiology Operations: None Procedures: None Summary of Care Provided: The patient is a 84 year old F with past medical history of chronic atrial fibrillation, tension who presented with dizziness and was diagnosed with vertigo secondary to BPPV. Her admitting INR was 9.8. Patient received oral vitamin K. Repeat INR was 3.8. Has a history of mechanical bioprosthetic aortic with goal INR between 2.5-3.5. Her repeat INR on the second day was 1.5. Patient was started on Lovenox with Coumadin bridging. Cardiology was consulted on [facility] by the family. INR on the third day was 1.6. Family was comfortable in being discharged on Lovenox and Coumadin overlap. Patient to follow closely with cardiology office within 3 days for repeat INR and adjustment of her Coumadin. There was an extensive discussion with the family who had concerns about cognitive impairment. It was recommended for the family to follow-up with a GI attrition. CT scan on admission showed chronic involutional changes. TSH was normal, B12 was normal. Patient will also follow closely with cardiology in the outpatient within a month for ELIZABETH cardioversion. Subjective: On the day of discharge, patient was seen and examined. Denied any new complaints. Objective: Physical exam: General: Alert, Oriented x3, Cooperative, No apparent distress HEENT: Atraumatic, PERRLA, EOMI, Normocephalic Oral: Moist Mucosa Neck: Supple Lungs: Clear to auscultation, Normal air movement Cardiovascular: Regular rate, Regular Rhythm, Normal S1, Normal S2, No murmurs Abdomen: Bowel Sounds Present, Soft, Non Tender, Non-Distended, No Hepato-splenomegaly Extremities: No edema Skin: No rashes Musculoskeletal: No Tenderness to Palpation of Joints or Extremities Lymphatic: No Cervical, Supraclavicular, or Inguinal Adenopathy Neurological: Cranial nerves II-XII grossly intact, Neuro grossly intact, - - Short-term memory present Psych/Mental Status: Normal Affect, Appropriate - Physical Exam Vitals/I&O's: Vital Signs Temp Pulse Resp BP Pulse Ox 98.1 F 91 16 140/95 H 94 09/25/19 08:25 09/25/19 08:29 09/25/19 08:25 09/25/19 08:25 09/25/19 08:25 Oxygen Delivery Method Room Air Weight: 55.157 kg Body Mass Index (BMI) 19.6 Intake and Output for Last 24 Hours 09/23/19 09/24/19 09/25/19 23:59 23:59 23:59 Intake Total 925 / 925 1720 / 1720 60 / 60 Balance 925 / 925 1720 / 1720 60 / 60 Laboratory Results 09/24/19 05:35: TSH 2.59 09/24/19 05:35: Vitamin B12 521 09/25/19 06:00: PT 19.1 H, INR 1.6 Current Medications Acetaminophen (Tylenol) 650 mg PO Q6H PRN PRN PRN Reason: Pain Score 1-10/Temp > 100.7 F Last Admin: 09/24/19 03:24 Dose: 650 mg Documented by: Al Hydroxide/Mg Hydroxide (Mylanta Ii) 30 ml PO Q6H PRN PRN PRN Reason: Gastric Burning Amiodarone HCl (Cordarone) 200 mg PO DAILY [facility] Last Admin: 09/25/19 08:28 Dose: 200 mg Documented by: Calcium/Vitamin D (Os-Lee 500mg + D) 1 tablet PO BID [facility] Last Admin: 09/25/19 08:28 Dose: 1 tablet Documented by: Cholecalciferol (Vitamin D) 1,000 unit PO DAILY [facility] Last Admin: 09/25/19 08:28 Dose: 1,000 unit Documented by: Enoxaparin Sodium (Lovenox) 60 mg SC Q12 [facility] Last Admin: 09/25/19 08:29 Dose: 60 mg Documented by: Furosemide (Lasix) 20 mg PO DAILY [facility] Last Admin: 09/25/19 08:28 Dose: 20 mg Documented by: Sodium Chloride () 250 mls @ 15 mls/hr IV .[id number] PRN PRN Reason: Saline Flush Sodium Chloride () 250 mls @ 15 mls/hr IV .[id number] PRN PRN Reason: Additional IVPB Infusion Magnesium Hydroxide (Milk Of Magnesia) 30 ml PO DAILY PRN PRN PRN Reason: Constipation Meclizine HCl (Antivert) 12.5 mg PO TID PRN PRN PRN Reason: Vertigo Melatonin (Melatonin) 3 mg PO QHS PRN PRN PRN Reason: INSOMNIA Metoprolol Succinate (Toprol Xl (Beta Parmjit)) 25 mg PO BID [facility] Nitroglycerin (Nitrostat) 0.4 mg SUBLINGUAL Q5M PRN PRN Reason: CARDIAC/CHEST PAIN Ondansetron HCl (Zofran) 4 mg IV Q8H PRN PRN PRN Reason: NAUSEA/VOMITING Potassium Chloride (K-Dur) 20 meq PO DAILYCM SHIRA Last Admin: 09/25/19 08:28 Dose: 20 meq Documented by: Prochlorperazine Edisylate (Compazine Iv) 5 mg IV Q4H PRN PRN PRN Reason: Breakthrough Nausea/Vomiting Rizatriptan Benzoate (Maxalt) 10 mg PO .[X1 PRN] PRN PRN Reason: MIGRAINE SYMPTOMS Last Admin: 09/25/19 06:17 Dose: 10 mg Documented by: Sodium Chloride () 10 - 40 ml IV UD PRN PRN Reason: SALINE FLUSH Last Admin: 09/24/19 21:30 Dose: 10 ml Documented by: Tizanidine HCl (Zanaflex) 2 mg PO TID PRN PRN PRN Reason: SPASMS Discharge Diet: Low fat/ Low Cholesterol, 2000 mg Sodium Diet Discharge Activity: Return to Normal Activity Home Medications: Medications to take at Discharge calcium carbonate 600 mg(1,500 mg)-vitamin D3 800 unit chewable tablet 1 tab PO BID 03/30/19 cholecalciferol (vitamin D3) 25 mcg (1,000 unit) tablet 1,000 unit PO DAILY 03/30/19 multivitamin 1 tab PO DAILY 03/30/19 risedronate 35 mg tablet 35 mg PO QWEEK 03/30/19 tizanidine 2 mg capsule 2 mg PO TID PRN 03/30/19 Coumadin 3 mg tablet 3 mg PO DAILY #90 tab NS 04/15/19 furosemide 20 mg tablet 20 mg PO DAILY #30 tab 08/05/19 metoprolol succinate 25 mg tablet,extended release 24 hr 25 mg PO DAILY #30 tab 08/05/19 amiodarone 200 mg tablet 200 mg PO DAILY #30 tab 08/28/19 Acetaminophen [Tylenol Tablet] 650 mg PO Q6H PRN PRN tab 09/25/19 Enoxaparin [Lovenox] 60 mg SUBCUT Q12 7 Days #14 syringe 09/25/19 Meclizine HCl [Antivert] 12.5 mg PO TID PRN PRN 7 Days #20 tab 09/25/19 Following Prescrptions Were Given to Patient: Meclizine HCl [Antivert] 12.5 mg PO TID PRN PRN 7 Days #20 tab PRN Reason: Vertigo Transmission Status: [id number] Enoxaparin [Lovenox] 60 mg SUBCUT Q12 7 Days #14 syringe Transmission Status: [id number] Primary Care Physician: Nadine Felix MD [Primary Care Provider] - Please follow up with your Primary Care Physician in: within 1-2 weeks of discharge Please Follow Up With: Maldonado Mercer MD When: in 4 weeks Please Follow Up With: Roberto Del Castillo Chi, MD When: as scheduled Patient Instructions: Enoxaparin Sodium (Porcine) Solution for injection, Understanding Dizziness, Balance Problems, and Fainting, Inner Ear Problems: Causes of Dizziness (Vertigo), Managing Balance Problems: Vestibular Rehabilitation Therapy, Dizziness (Vertigo) and Balance Problems: Ensuring Your Safety Disposition: Home Minutes spent on discharge:: 40 Patient Condition:: Stable Medical Necessity - Tobacco Use Smoking Status: Never smoker Tobacco Use: Non-smoker Meaningful Use Info Meaningful Use Diagnoses (Choose all that apply): None applicable Code Visit OBSV E&M: 83591 Observation care discharge
--- NOTE | 2019-09-25 11:22 | CASEMGMT ---
DILAN spoke with Dr Del Castillo's office and they are accepting new patients. DILAN created a list of in network Neurologists and Geriatricians for patient and family. DILAN also created a list of medical alert systems for patient and family. DILAN gave these lists to patient's daughter in law. She said patient's daughter already made patient an appt with Dr Del Castillo. She thanked DILAN for the assistance. Alba WOODSON
--- NOTE | 2019-09-25 11:47 | CASEMGMT ---
Call to [facility] that was already e-scribed and per pharmacist, pt's co-pay is $7.50 at this time. Gerardo DEGROOT CM
--- NOTE | 2019-09-25 11:50 | PHA.DC.MC ---
Pharmacy Service has performed discharge medication reconciliation and counseling for this patient. 1. ENOXAPARIN 60MG SC Q12H X 7 DAYS 2. MECLIZINE 12.5MG PO TID PRN VERTIGO X 7 DAYS The patient's discharge medication list was reviewed for discrepancies and discrepancies were resolved. Home Medications calcium carbonate 600 mg(1,500 mg)-vitamin D3 800 unit chewable tablet 1 tab PO BID 03/30/19 cholecalciferol (vitamin D3) 25 mcg (1,000 unit) tablet 1,000 unit PO DAILY 03/30/19 multivitamin 1 tab PO DAILY 03/30/19 risedronate 35 mg tablet 35 mg PO QWEEK 03/30/19 tizanidine 2 mg capsule 2 mg PO TID PRN 03/30/19 Coumadin 3 mg tablet 3 mg PO DAILY #90 tab NS 04/15/19 furosemide 20 mg tablet 20 mg PO DAILY #30 tab 08/05/19 metoprolol succinate 25 mg tablet,extended release 24 hr 25 mg PO DAILY #30 tab 08/05/19 amiodarone 200 mg tablet 200 mg PO DAILY #30 tab 08/28/19 Acetaminophen [Tylenol Tablet] 650 mg PO Q6H PRN PRN tab 09/25/19 Enoxaparin [Lovenox] 60 mg SUBCUT Q12 7 Days #14 syringe 09/25/19 Meclizine HCl [Antivert] 12.5 mg PO TID PRN PRN 7 Days #20 tab 09/25/19 The patient was counseled on the following discharge medications and changes in medications for homegoing were reviewed. The Reason for Use, instructions for use, and potential side effects were reviewed for all new medications. The patient's questions regarding all of their medications were answered. The patient was able to verbally demonstrate an understanding of their discharge medications.
== END 2019-09-25 10:55 | disposition home or self-care (01) ==
LOC: ED 15:54 → PCU 18:46
PROVIDERS: Admitting Provider Internal Medicine; Emergency Provider Emergency Medicine; PCP Internal Medicine; Visit Provider Internal Medicine
DX: H81.10 Benign paroxysmal vertigo, unspecified ear (principal); I48.11 Longstanding persistent atrial fibrillation; D68.8 Other specified coagulation defects; I10 Essential (primary) hypertension; E78.5 Hyperlipidemia, unspecified; Z79.899 Other long term (current) drug therapy; Z79.01 Long term (current) use of anticoagulants; Z95.2 Presence of prosthetic heart valve
CPT/HCPCS: 36415; 70450; 71045; 80048; 82607; 83735; 84443; 84484; 85025; 85610; 85730; 93005; 96361; 96372; 96374; 97116; 97162; 97166; 97530; 99218; 99285; A4216; G0378

== ENCOUNTER 2019-10-04 08:59 | Outpatient (RCR) | payer MEDICARE, SELFPAY ==
[2019-08-20 07:09] VITALS: BMI 20.5
[2019-09-22 18:30] VITALS: BMI 19.6
[2019-09-27 14:00] LABS: International Normalized Ratio 4.2
[2019-09-27 14:10] LABS: Prothrombin Time (Protime)PT. 40.8 SECONDS (11.7-14.9)
[2019-09-27 14:23] LABS: AST(SGOT) 27 U/L (15-37); Alanine Aminotransfer ALT/SGPT 30 U/L (13-56); Albumin, Serum 3.6 g/dL (3.2-5.0); Alkaline Phosphatase 64 U/L (45-117); Bilirubin, Direct 0.19 mg/dL (0.00-0.30); Cholesterol 142 mg/dL (200); Globulin 3.3 g/dL (2.2-4.2); High Density Lipoprotein 55 mg/dL; Protein, Total 6.9 g/dL (6.4-8.2); Triglycerides 66 mg/dL; Very Low Density Lipoprotein 13 mg/dL (5-40)
[2019-09-30 09:39] LABS: International Normalized Ratio 2.9; Prothrombin Time (Protime)PT. 30.6 SECONDS (11.7-14.9)
[2019-09-30 17:44] LABS: Absolute Lymphocyte Count 1.87 X10^3/uL (0.83-4.51); Absolute Neutrophil Count 5.2 X10^3/uL (2.0-7.7); Basophil# 0.05 X10^3/uL; Basophil% 0.6 % (0-1); Eosinophil# 0.04 X10^3/uL; Eosinophils% 0.5 % (0-5); Hematocrit 44.1 % (37-47); Hemoglobin 14.2 g/dL (12.0-15.0); Lymphocyte # 1.87 X10^3/ul (4.0); Lymphocyte % 23.4 % (19-41); Mean Corp Hgb Conc 32.2 g/dL (32-36); Mean Corpuscular Hgb 30.4 pg (27.0-32.0); Mean Corpuscular Volume 94.4 fL (81-99); Mean Platelet Vol. 10.9 fl (6.2-12.0); Monocyte# 0.84 X10^3/uL; Monocyte% 10.5 % (0-10); NRBC Flagged by Analyzer 0 % (0-5); Neutrophil # 5.16 X10^3/uL (2.7-7.7); Neutrophil % 64.7 % (47-70); Platelet Count 199 K/mm3 (150-450); RBC Distribution Width CV 13.6 % (11.6-14.6); RBC Distribution Width SD 47.1 fl (35.1-43.9); Red Blood Count 4.67 M/mm3 (4.2-5.4)
[2019-09-30 18:18] LABS: AST(SGOT) 31 U/L (15-37); Alanine Aminotransfer ALT/SGPT 40 U/L (13-56); Albumin, Serum 3.8 g/dL (3.2-5.0); Alkaline Phosphatase 68 U/L (45-117); Anion Gap 4 (5-15); BUN 14 mg/dL (7-18); BUN/Creat Ratio 17.1 RATIO (10-20); Calcium,Total 9.4 mg/dL (8.5-10.1); Chloride 106 mmol/L (98-107); Creatinine, Serum 0.82 mg/dL (0.55-1.02); EST Glomerular Filtration Rate 71 mL/min (>60); Est Glom Filt Rate - Afr Amer 86 mL/min (>60); Globulin 3.7 g/dL (2.2-4.2); Glucose 73 mg/dL (74-106); Potassium 3.9 mmol/L (3.5-5.1); Protein, Total 7.5 g/dL (6.4-8.2); Sodium Level 141 mmol/L (136-145); Thyroid Stim Hormone (TSH) 1.43 uIU/mL (0.358-3.74)
[2019-10-01 09:11] LABS: Vitamin D,25 Hydroxy 52.8 ng/mL
[2019-10-04 09:54] LABS: Prothrombin Time (Protime)PT. 22.7 SECONDS (11.7-14.9)
== END 2019-10-04 18:00 | disposition home or self-care (01) ==
LOC: LAB 08:59
PROVIDERS: Family Provider Internal Medicine; PCP Family Medicine Geriatric Medicine; Referring Provider Internal Medicine Cardiovascular Disease; Visit Provider Internal Medicine Cardiovascular Disease
DX: I34.0 Nonrheumatic mitral (valve) insufficiency (principal); E55.9 Vitamin D deficiency, unspecified; R60.9 Edema, unspecified; R42 Dizziness and giddiness; E78.00 Pure hypercholesterolemia, unspecified; E78.5 Hyperlipidemia, unspecified
CPT/HCPCS: 36415; 80053; 80061; 80076; 82306; 84443; 85025; 85610

== ENCOUNTER 2019-11-04 08:59 | Outpatient (RCR) | payer MEDICARE, SELFPAY ==
[2019-09-30 10:38] VITALS: BMI 19.6
[2019-10-07 14:29] LABS: International Normalized Ratio 2.7; Prothrombin Time (Protime)PT. 29.1 SECONDS (11.7-14.9)
[2019-10-14 09:10] LABS: Prothrombin Time (Protime)PT. 52.3 SECONDS (11.7-14.9)
[2019-10-14 09:29] LABS: International Normalized Ratio 5.7
[2019-10-16 10:48] LABS: International Normalized Ratio 2.1; Prothrombin Time (Protime)PT. 23.6 SECONDS (11.7-14.9)
[2019-10-21 11:42] LABS: International Normalized Ratio 1.7; Prothrombin Time (Protime)PT. 20.1 SECONDS (11.7-14.9)
[2019-10-28 11:00] LABS: International Normalized Ratio 2.1; Prothrombin Time (Protime)PT. 23.1 SECONDS (11.7-14.9)
[2019-11-04 09:31] LABS: International Normalized Ratio 1.9; Prothrombin Time (Protime)PT. 21.6 SECONDS (11.7-14.9)
== END 2019-11-04 18:00 | disposition home or self-care (01) ==
LOC: LAB 08:59
PROVIDERS: Family Provider Internal Medicine; PCP Family Medicine Geriatric Medicine; Referring Provider Internal Medicine Cardiovascular Disease; Visit Provider Internal Medicine Cardiovascular Disease
DX: I34.0 Nonrheumatic mitral (valve) insufficiency (principal)
CPT/HCPCS: 36415; 85610

== ENCOUNTER 2019-12-02 10:26 | Outpatient (RCR) | payer MEDICARE, SELFPAY ==
[2019-09-30 10:38] VITALS: BMI 19.6
[2019-11-11 09:27] LABS: International Normalized Ratio 2.6; Prothrombin Time (Protime)PT. 27.2 SECONDS (11.7-14.9)
[2019-11-18 10:10] LABS: International Normalized Ratio 2.5; Prothrombin Time (Protime)PT. 26.6 SECONDS (11.7-14.9)
[2019-12-02 11:55] LABS: International Normalized Ratio 1.9; Prothrombin Time (Protime)PT. 21.4 SECONDS (11.7-14.9)
== END 2019-12-05 18:00 | disposition home or self-care (01) ==
LOC: LAB 10:26
PROVIDERS: Family Provider Internal Medicine; PCP Family Medicine Geriatric Medicine; Referring Provider Internal Medicine Cardiovascular Disease; Visit Provider Internal Medicine Cardiovascular Disease
DX: I34.0 Nonrheumatic mitral (valve) insufficiency (principal)
CPT/HCPCS: 36415; 85610

== ENCOUNTER 2019-12-31 10:58 | Outpatient (RCR) | payer MEDICARE, SELFPAY ==
[2019-09-30 10:38] VITALS: BMI 19.6
[2019-12-09 11:59] LABS: International Normalized Ratio 2.7; Prothrombin Time (Protime)PT. 28.3 SECONDS (11.7-14.9)
[2019-12-31 11:34] LABS: International Normalized Ratio 3.4
== END 2019-12-31 18:00 | disposition home or self-care (01) ==
LOC: LAB 10:58
PROVIDERS: Family Provider Internal Medicine; PCP Family Medicine Geriatric Medicine; Referring Provider Internal Medicine Cardiovascular Disease; Visit Provider Internal Medicine Cardiovascular Disease
DX: I34.0 Nonrheumatic mitral (valve) insufficiency (principal)
CPT/HCPCS: 36415; 85610

== ENCOUNTER → 2020-01-01 14:50 | Outpatient (CLI) | payer MEDICARE, SELFPAY ==
--- NOTE | 2020-01-01 15:40 | RAD_ITS ---
STUDY: X-RAY - ABDOMEN/PELVIS REASON FOR EXAM: Female, 84 years old. RIGHT SIDE ABDOMEN PAIN, TECHNIQUE: AP supine and upright views of the abdomen and pelvis. COMPARISON: None. FINDINGS: Normal visualized lung bases. There is an abundance of fecal material throughout the colon. There is no demonstrated free abdominal air. The visualized liver, spleen and kidneys are grossly normal in size and morphology. There are calcified phleboliths in the pelvis. There are diffuse degenerative changes of the visualized lumbar spine. Degenerative changes of the sacroiliac joints as well as both hip joints. RAD/Abd Inc Decub and/or Erect IMPRESSION: Large amount of fecal material is seen in the colon. Electronically Signed: Maurisio Yee, at 15:20 EDT , Service support ,
[2020-01-01 15:53] LABS: Absolute Lymphocyte Count 2.11 X10^3/uL (0.83-4.51); Absolute Neutrophil Count 3.7 X10^3/uL (2.0-7.7); Basophil# 0.03 X10^3/uL; Basophil% 0.5 % (0-1); Eosinophil# 0.08 X10^3/uL; Eosinophils% 1.2 % (0-5); Hematocrit 43.8 % (37-47); Lymphocyte # 2.11 X10^3/ul (4.0); Lymphocyte % 32.4 % (19-41); Mean Corpuscular Hgb 29.4 pg (27.0-32.0); Mean Corpuscular Volume 91.8 fL (81-99); Mean Platelet Vol. 10.7 fl (6.2-12.0); Monocyte# 0.57 X10^3/uL; Monocyte% 8.8 % (0-10); NRBC Flagged by Analyzer 0 % (0-5); Neutrophil # 3.71 X10^3/uL (2.7-7.7); Neutrophil % 56.9 % (47-70); Platelet Count 189 K/mm3 (150-450); RBC Distribution Width CV 14.1 % (11.6-14.6); RBC Distribution Width SD 47.8 fl (35.1-43.9); Red Blood Count 4.77 M/mm3 (4.2-5.4); White Blood Count 6.5 K/mm3 (4.4-11.0)
[2020-01-01 16:08] LABS: Vitamin D,25 Hydroxy 56.2 ng/mL
[2020-01-01 16:18] LABS: ALB/GLOB Ratio 1.2 RATIO (0.9-2.4); AST(SGOT) 35 U/L (15-37); Alanine Aminotransfer ALT/SGPT 30 U/L (13-56); Albumin, Serum 3.8 g/dL (3.2-5.0); Alkaline Phosphatase 64 U/L (45-117); Anion Gap 7 (5-15); BUN 13 mg/dL (7-18); BUN/Creat Ratio 15.4 RATIO (10-20); Calcium,Total 9.2 mg/dL (8.5-10.1); Chloride 109 mmol/L (98-107); Creatinine, Serum 0.84 mg/dL (0.55-1.02); EST Glomerular Filtration Rate 68 mL/min (>60); Est Glom Filt Rate - Afr Amer 83 mL/min (>60); Globulin 3.3 g/dL (2.2-4.2); Glucose 79 mg/dL (74-106); Potassium 4.2 mmol/L (3.5-5.1); Protein, Total 7.1 g/dL (6.4-8.2); Sodium Level 141 mmol/L (136-145); Thyroid Stim Hormone (TSH) 1.72 uIU/mL (0.358-3.74)
== END ==
PROVIDERS: PCP Family Medicine Geriatric Medicine; Referring Provider Family Medicine Geriatric Medicine; Visit Provider Family Medicine Geriatric Medicine
DX: E55.9 Vitamin D deficiency, unspecified (principal); R53.83 Other fatigue; R10.9 Unspecified abdominal pain
CPT/HCPCS: 36415; 74019; 80053; 82306; 84443; 85025

== ENCOUNTER 2020-01-02 10:30 | Outpatient (RCR) | payer MEDICARE, SELFPAY ==
[2019-09-30 10:38] VITALS: BMI 19.6
--- NOTE | 2019-12-03 13:16 | HP.PTEVAL_ITS ---
Patient's Visit Information REFUGIO MEDINA is a 84 year old F referred to Physical Therapy by Roberto Del Castillo MD with a diagnosis of LOW BACK PAIN. Date of Evaluation: 12/03/19 Physical Therapist: Lamar Garcia PT, Cert MDT - Visit Plan Frequency: 2-3x /Week Duration: 4-6 Weeks Plan: RIGHT SCAP REGION US, STM AND STRETCHING. POSTURE CORRECTION/STRENGTHENING, INSTRUCTION IN APPROPRIATE BODY MECHANICS AND ACTIVITY MODIFICATIONS. DLS STARTING WITH A NEUTRAL SPINE PROGRESSING ROM TOLERATED. REBECA LE ROM, STRETCHING AND STRENGTHENING. HEP INSTRUCTION. - Subjective Subjective: Work/Leisure: RETIRED. Present symptoms: BACK PAIN A LITTLE BELOW SHOULDER BLADES. ITS ALL OVER MY BACK BACK MUSCLES ARE CRAMPING UP. PATIENT DENIES REBECA LE SX'S. Present since: CHRONIC. Pain Scale: WORST 8/10, LEAST 0/10. Currently: /10. Commenced as a result of: NO APPARENT REASON. Symptoms at onset: LOW BACK. Worse: IT JUST STARTS DOING IT. Better: HEATING PAD, ALCOHOL. Disturbed sleep: YES. Previous history/Previous treatment: CHIROPRACTIC. PHYSICAL THERAPY. PAIN MGMT. [facility] - LAST INJECTION WAS APPROX AUG 2019 - PATIENT REPORTS SHE DOES NOT THINK THE INJECTION HELPED. NO BACK SURGERY. Coughing/sneezing/straining: NO. Gait: UNREMARKABLE. NO ASSISTIVE DEVICES. Difficulty initiating urinatin: NO. Accidents: NO. Unexplained weight loss: NO. Imaging: NONE RECENT THAT PATIENT CAN RECALL. PMH: HEART VALVE REPLACEMENT ABOUT 20 YEARS AGO, TAKING COUMADIN. PATIENT DENIES H/O STROKE, CANCER AND DM. H/O LEFT KNEE PAIN WITHIN THE LAST YEAR - KNEE SURGERY A LONG TIME A GO. Recent major surgery: NO. SOCIAL: LIVES ALONE. OTHER: PATIENT REPORTS SHE WAS DOING SOME HOME EX'S BUT NONE RECENT. PATIENT REPORTS US TREATMENTS HELPING THIS PAIN IN THE PAST. - Objective Sitting Posture/Standing Posture: FORWARD HEAD. NO TORTICOLLIS. Active Correction of posture: NE. Other Observations: INDEP GAIT AND TRANSFERS. Motor deficit: REBECA UE'S WFL'S GRADED GROSSLY 4/5. Sensory deficit: NO. ROM deficit: REBECA UE'S WFL. Reflexes: NT. Dural Signs: NEGATIVE. Cervical Mvmt Loss: Flex: NIL. Pro: NIL. Ext: GOLDIE. Ret: GOLDIE. RSB: MOD. LSB: MOD. R Rot: MOD. L Rot: MOD. THORACIC MVMT LOSS: RIGHT ROT - GOLDIE. LEFT ROT - MOD. EXT - GOLDIE. PATIENT WITH C/O INCREASED NECK PAIN AND CRACKING WITH REBECA ROT AND INCREASED UPPER BACK PAIN WITH REBECA THORACIC ROTATION. Postural strength: POOR. Palpation: MILD TENDERNESS WITH PALPATION OF MEDIAL AND INFERIOR RIGHT SCAP REGIONS. EASILY PALPABLE MUSCLE SPASMS ALONG MEDIAL BOARDER OF RIGHT SCAP TODAY. TREATMENT: US TO RIGHT THORACIC REGION AT 1.3 W/CM2 X 8 MIN WITH PATIENT PRONE. NEUROMUSCULAR REEDUCATION - RETRAINING OF MVMT AND POSTURE FOR SITTING, LYING AND STANDING ACTIVITIES. PATIENT RESPONDED WELL TO US AND COMMUNICATED A GOOD UNDERSTANDING OF ALL INSTRUCTIONS AFTER GIVEN. - Goals Goal 1:: DECREASE C/O RIGHT THORACIC PAIN Goal Time Frame: 4-6 Weeks Goal 2:: IMPROVE LIFTING, STANDING, *SLEEP*, SOCIAL LIFE, TRAVEL AND HOMEMAKING FUNCTION Goal Time Frame: 4-6 Weeks Goal 3:: INSTRUCT IN PROPHYLAXIS Goal Time Frame: 4-6 Weeks - Anticipated Interventions Patient/Client Instruction: Educate patient on: Condition, Plan of Care, Risk Factors, Benefits of Fitness Program For the Purpose of:: To improve self management Therapeutic Exercise to Include: Strength training, Body mechanics, Postural training, Flexibilty training, Neuromotor development, In an aquatic setting, Dynamic Lumbar Stabilization For the Purpose of:: To decrease pain, To increase ROM, To improve muscle performance and motor function, To increase tolerance to activity/condition/position, To improve ability of physical actions for home/community/work/leisure, To improve gait and locomotor functions Manual Therapy Techniques to Include: Soft tissue mobilization For the Purpose of:: To decrease pain, To improve nutrient delivery to tissue Cryotherapy (ice pack, ice massage): Yes Thermo therapy (hot pack): Yes Ultrasound (thermal/non thermal): Yes For the Purpose of:: To decrease pain, To decrease swelling/inflammation, To improve nutrient delivery to tissue Thank you for the opportunity to evaluate your patient. For Medicare and Medicare HMO plans, please review the plan of care and approve it. It will need to be FAXED BACK to us at [phone] for Medicare purposes. For Medicare only, by signing this I certify the plan of care. Please let me know if there are questions or concerns regarding this plan of care. Physician Signature: Date:
--- NOTE | 2019-12-23 12:59 | HP.PTREVAL_ITS ---
Dr. Roberto Del Castillo MD, It has been my pleasure to treat REFUGIO MEDINA over the last 9 visits for LOW BACK PAIN. Please see the progress note below for an update on the physical therapy plan of care! Subjective: PATIENT REPROTS SHE DIDN'T NOTICE A DIFFERENCE WITH THE DRY NEEDLING AND ISN'T SURE IF SHE WANTS TO TRY IT AGAIN. Objective/Function: PATIENT WAS PAINFREE POST SESSION AGAIN AND IS MAKING SLOW PROGRESS TOWARD ALL SET PT GOALS. SHE IS A GOOD CANDIDATE TO CONTINUE PT AT THIS TIME. SHE DOES STILL GET PAIN QUITE SEVEVE AT TIMES. SHE PLANS TO CONTACT DR. MACIAS'S OFFICE TO SCHEDULE INJECTION MISSED DUE TO THE VIRUS. Plan Plan: CONTINUE PT 2 TIMES A WK X 2 MORE WKS. PATIENT AGREEABLE. RIGHT SCAP REGION US, STM AND STRETCHING. POSTURE CORRECTION/STRENGTHENING, INSTRUCTION IN APPROPRIATE BODY MECHANICS AND ACTIVITY MODIFICATIONS. DLS STARTING WITH A NEUTRAL SPINE PROGRESSING ROM TOLERATED. REBECA LE ROM, STRETCHING AND STRENGTHENING. HEP INSTRUCTION. Goals Goal 1:: DECREASE C/O RIGHT THORACIC PAIN Goal Time Frame: 4-6 Weeks Goal Progress: Progressing Goal 2:: IMPROVE LIFTING, STANDING, *SLEEP*, SOCIAL LIFE, TRAVEL AND HOMEMAKING FUNCTION Goal Time Frame: 4-6 Weeks Goal Progress: Progressing Goal 3:: INSTRUCT IN PROPHYLAXIS Goal Time Frame: 4-6 Weeks Goal Progress: Progressing Anticipated Interventions Patient/Client Instruction: Educate patient on: Condition, Plan of Care, Risk F actors, Benefits of Fitness Program For the Purpose of:: To improve self management Therapeutic Exercise to Include: Strength training, Body mechanics, Postural training, Flexibilty training, Neuromotor development, In an aquatic setting, Dynamic Lumbar Stabilization For the Purpose of:: To decrease pain, To increase ROM, To improve muscle performance and motor function, To increase tolerance to activity/condition/position, To improve ability of physical actions for home/community/work/leisure, To improve gait and locomotor functions Manual Therapy Techniques to Include: Soft tissue mobilization For the Purpose of:: To decrease pain, To improve nutrient delivery to tissue Cryotherapy (ice pack, ice massage): Yes Thermo therapy (hot pack): Yes Ultrasound (thermal/non thermal): Yes For the Purpose of:: To decrease pain, To decrease swelling/inflammation, To improve nutrient delivery to tissue Please do not hesitate to contact me at [phone] by phone or if you have questions or concerns regarding this new plan of care! Sincerely, Lamar Garcia, PT, Cert MDT
== END 2020-01-02 19:00 | disposition home or self-care (01) ==
LOC: PT 10:30
PROVIDERS: PCP Family Medicine Geriatric Medicine; Referring Provider Family Medicine Geriatric Medicine; Visit Provider Family Medicine Geriatric Medicine
DX: M54.5 Low back pain (principal)
CPT/HCPCS: 97014; 97035; 97110; 97112; 97140; 97162; 97164; 97530; G0283

== ENCOUNTER 2020-02-03 16:57 | Outpatient (RCR) | payer MEDICARE, SELFPAY ==
[2020-01-20 09:20] VITALS: BMI 19.6
[2020-01-20 13:07] LABS: International Normalized Ratio 2.4; Prothrombin Time (Protime)PT. 25.6 SECONDS (11.7-14.9)
[2020-02-03 17:30] LABS: International Normalized Ratio 2.6; Prothrombin Time (Protime)PT. 27.1 SECONDS (11.7-14.9)
== END 2020-02-03 18:00 | disposition home or self-care (01) ==
LOC: LAB 16:57
PROVIDERS: Family Provider Internal Medicine; PCP Family Medicine Geriatric Medicine; Referring Provider Internal Medicine Cardiovascular Disease; Visit Provider Internal Medicine Cardiovascular Disease
DX: I34.0 Nonrheumatic mitral (valve) insufficiency (principal)
CPT/HCPCS: 36415; 85610

== ENCOUNTER → 2020-02-07 | Outpatient (CLI) | payer MEDICARE, SELFPAY ==
[2020-01-30 14:07] VITALS: BMI 19.6
== END | disposition home or self-care (01) ==
LOC: POLAB3 11:12 → LABSPEC 11:12
PROVIDERS: PCP Family Medicine Geriatric Medicine; Visit Provider Family Medicine Geriatric Medicine
DX: N39.0 Urinary tract infection, site not specified (principal)
CPT/HCPCS: 87086; 87088; 87186

== ENCOUNTER → 2020-02-12 14:02 | Outpatient (CLI) | payer MEDICARE, SELFPAY ==
[2020-01-30 14:07] VITALS: BMI 19.6
--- NOTE | 2020-02-12 14:12 | CT_ITS ---
STUDY: CT THORACIC SPINE WITHOUT CONTRAST REASON FOR EXAM: Female, 84 years old. BACK PAIN RADIATION DOSAGE (If Supplied By Facility): CTDIvol = ( 18.42 ) mGy, DLP = ( 650.27 ) mGycm TECHNIQUE: The patient was scanned in a multi detector CT scanner. High resolution imaging was performed. Images were obtained from C7 to L1. Sagittal and coronal images were reconstructed. Individualized dose optimization techniques were used for this CT. COMPARISON: None. FINDINGS: Normal visualized cervical spine. Normal kyphosis of the thoracic spine. There is no substantial scoliosis. Normal thoracic vertebrae and endplates. Normal disc spaces heights. Suspect ribs on the L1 vertebra. The soft tissue structures are unremarkable. CT/Spine Thoracic without Contras IMPRESSION: Normal unenhanced CT examination of the thoracic spine. Electronically Signed: Roe Avila MD at 14:53 EDT Tel , Service support ,
== END ==
PROVIDERS: PCP Family Medicine Geriatric Medicine; Referring Provider Anesthesiology Pain Medicine; Visit Provider Anesthesiology Pain Medicine
DX: M51.34 Other intervertebral disc degeneration, thoracic region (principal); I34.0 Nonrheumatic mitral (valve) insufficiency
CPT/HCPCS: 36415; 72128; 85610

== ENCOUNTER 2020-02-24 09:40 | Outpatient (RCR) | payer MEDICARE, SELFPAY ==
[2020-01-30 14:07] VITALS: BMI 19.6
[2020-02-12 16:07] LABS: International Normalized Ratio 2.5; Prothrombin Time (Protime)PT. 26.1 SECONDS (11.7-14.9)
[2020-02-24 10:31] LABS: International Normalized Ratio 2.1; Prothrombin Time (Protime)PT. 22.6 SECONDS (11.7-14.9)
== END 2020-02-24 18:00 | disposition home or self-care (01) ==
LOC: LAB 09:40
PROVIDERS: Family Provider Internal Medicine; PCP Family Medicine Geriatric Medicine; Referring Provider Internal Medicine Cardiovascular Disease; Visit Provider Internal Medicine Cardiovascular Disease
DX: I34.0 Nonrheumatic mitral (valve) insufficiency (principal)
CPT/HCPCS: 36415; 85610

== ENCOUNTER → 2020-03-31 15:57 | Outpatient (CLI) | payer MEDICARE, SELFPAY ==
[2020-01-30 14:07] VITALS: BMI 19.6
--- NOTE | 2020-03-31 16:28 | RAD_ITS ---
STUDY: X-RAY CHEST REASON FOR EXAM: Female, 84 years old. osteoporosis TECHNIQUE: PA and lateral views of the chest. COMPARISON: Previous study of 09/22/2019 FINDINGS: The lungs are clear and expanded. There is no demonstrated pleural abnormality. There is mild cardiac enlargement. Status post median sternotomy changes are noted. Normal mediastinum and jon. Normal visualized pulmonary arteries. Normal visualized aortic arch and descending thoracic aorta. Normal visualized thoracic spine. Normal visualized ribs, clavicles, and shoulders. There is no demonstrated abnormality of the visualized soft tissue structures of the upper abdomen. RAD/Chest PA and Lateral IMPRESSION: Mild cardiomegaly. Status post median sternotomy. No acute cardiopulmonary disease process is seen. Chest findings are stable in the interval. Electronically Signed: Eladio Finney MD at 22:06 EDT , Service support ,
[2020-03-31 17:23] LABS: Vitamin D,25 Hydroxy 60.6 ng/mL
[2020-03-31 17:32] LABS: ALB/GLOB Ratio 1.3 RATIO (0.9-2.4); AST(SGOT) 30 U/L (15-37); Alanine Aminotransfer ALT/SGPT 24 U/L (13-56); Albumin, Serum 3.7 g/dL (3.2-5.0); Alkaline Phosphatase 65 U/L (45-117); Anion Gap 4 (5-15); BUN 18 mg/dL (7-18); Calcium,Total 9.2 mg/dL (8.5-10.1); Chloride 107 mmol/L (98-107); Creatinine, Serum 0.72 mg/dL (0.55-1.02); EST Glomerular Filtration Rate 82 mL/min (>60); Est Glom Filt Rate - Afr Amer 99 mL/min (>60); Globulin 2.9 g/dL (2.2-4.2); Glucose 93 mg/dL (74-106); Potassium 4.2 mmol/L (3.5-5.1); Protein, Total 6.6 g/dL (6.4-8.2); Sodium Level 142 mmol/L (136-145); Thyroid Stim Hormone (TSH) 1.68 uIU/mL (0.358-3.74)
[2020-03-31 17:38] LABS: Absolute Lymphocyte Count 1.54 X10^3/uL (0.83-4.51); Absolute Neutrophil Count 4.9 X10^3/uL (2.0-7.7); Basophil# 0.04 X10^3/uL; Basophil% 0.6 % (0-1); Eosinophil# 0.08 X10^3/uL; Eosinophils% 1.1 % (0-5); Hematocrit 45.2 % (37-47); Hemoglobin 14.5 g/dL (12.0-15.0); Lymphocyte # 1.54 X10^3/ul (4.0); Lymphocyte % 21.5 % (19-41); Mean Corp Hgb Conc 32.1 g/dL (32-36); Mean Corpuscular Hgb 30.1 pg (27.0-32.0); Mean Platelet Vol. 11.3 fl (6.2-12.0); Monocyte# 0.61 X10^3/uL; Monocyte% 8.5 % (0-10); NRBC Flagged by Analyzer 0 % (0-5); Neutrophil # 4.87 X10^3/uL (2.7-7.7); Neutrophil % 68.2 % (47-70); Platelet Count 188 K/mm3 (150-450); RBC Distribution Width CV 15.1 % (11.6-14.6); RBC Distribution Width SD 52.8 fl (35.1-43.9); Red Blood Count 4.81 M/mm3 (4.2-5.4); White Blood Count 7.2 K/mm3 (4.4-11.0)
== END ==
LOC: POLAB3 15:57 → RAD 16:27
PROVIDERS: PCP Family Medicine Geriatric Medicine; Referring Provider Family Medicine Geriatric Medicine; Visit Provider Family Medicine Geriatric Medicine
DX: E55.9 Vitamin D deficiency, unspecified (principal); R53.83 Other fatigue; M81.0 Age-related osteoporosis without current pathological fracture
CPT/HCPCS: 36415; 71046; 80053; 82306; 84443; 85025

== ENCOUNTER 2020-04-06 09:37 | Outpatient (RCR) | payer MEDICARE, SELFPAY ==
[2020-01-30 14:07] VITALS: BMI 19.6
[2020-03-09 11:19] LABS: International Normalized Ratio 3.2; Prothrombin Time (Protime)PT. 32.2 SECONDS (11.7-14.9)
[2020-03-23 14:02] LABS: International Normalized Ratio 2.1; Prothrombin Time (Protime)PT. 22.7 SECONDS (11.7-14.9)
[2020-04-06 10:44] LABS: International Normalized Ratio 1.9
== END 2020-04-06 18:00 | disposition home or self-care (01) ==
LOC: LAB 09:37
PROVIDERS: Family Provider Internal Medicine; PCP Family Medicine Geriatric Medicine; Referring Provider Internal Medicine Cardiovascular Disease; Visit Provider Internal Medicine Cardiovascular Disease
DX: I34.0 Nonrheumatic mitral (valve) insufficiency (principal)
CPT/HCPCS: 36415; 85610

== ENCOUNTER 2020-04-11 20:46 | Observation (INO) | payer MEDICARE, SELFPAY ==
[2020-01-30 14:07] VITALS: BMI 19.6
[2020-04-11 20:47] VITALS: BP 142/90; PULSE 91; RESP 16; TEMP 37.1; O2SAT 98; BMI 17.3
--- NOTE | 2020-04-11 21:08 | ED.DCSUM_ITS ---
History of Present Illness Chief Complaint: Back Informant: Patient, Family Onset: Yesterday Current Severity: Mild Maximum Severity: Moderate Narrative: Patient presents secondary to right-sided back spasms. Patient is a poor historian and much of the history is provided by her daughter at bedside. She states that her mother started complaining of back pain yesterday or this morning. She does have a history of chronic back pain that typically hits her between the shoulder blades. She is in pain management and is currently on tramadol. She states that back pain is been very well controlled. Over the last day or 2 she is now complaining of right-sided lower back pain. It does not radiate down to her leg. There is been no reported fall or injury. No problems with bowel or bladder control. Family did find some old baclofen and gave her a dose approximately 5 hours ago without improvement. Daughter gave her tramadol 1 hour ago and patient states that the pain is improving. 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 Valve per Dr. Mishra, [facility] 07/24/2000- CAN NOT HAVE MRI W/THIS Past Medical History - Allergies and Home Meds Allergies/Adverse Reactions: Allergies amiodarone Adverse Reaction (Severe, Verified 04/11/20 20:52) Poor balance, poor appetite, severe dizziness amoxicillin trihydrate [From Augmentin] Adverse Reaction (Verified 04/11/20 20:52) Diarrhea potassium clavulanate [From Augmentin] Adverse Reaction (Verified 04/11/20 20:52) Diarrhea Primary Care Physician: Roberto Del Castillo Chi, MD [Primary Care Provider] - Prior records reviewed: Yes Surgical History: AVR Lives: Alone Smoking Status: Never smoker Review of Systems General: Denies: Chills, Fever Eyes: Denies: Visual changes - bilaterally ENT: Denies: Bilateral ear pain Cardiovascular: Denies: Chest pain Respiratory: Denies: Dyspnea, Cough Gastrointestinal: Denies: Abdominal pain, Vomiting, Diarrhea Musculoskeletal: Reports: Back pain, Swelling. Denies: Extremity Pain Skin: Denies: Rash Hematologic: Reports: Easy bruising - Secondary to Coumadin Allergy: Denies: Uticaria Physical Exam Vital Signs/Narrative: Vital Signs Temp Pulse Resp BP Pulse Ox 04/11/20 20:47 98.8 F 91 16 142/90 H 98 Inital Vital Signs reviewed: Yes General: Well nourished, Well developed Head: Normocephalic ENT: Moist mucous membranes Neck: Supple Cardiovascular: Irregular, - - Mechanical valve click noted Respiratory: No distress, CTA bilaterally Abdomen: Soft, Nontender, Normal bowel sounds, No masses Back: - - No midline tenderness noted. She does have tenderness in the right lumbar paraspinal muscles. Extremities: Edema - 2+ lower extremity edema. Skin: Normal color Neurological: Alert, Oriented x3 Psychological: Normal affect Diagnostic/Tx/Re-eval Pelvis and lumbar spine x-rays are reviewed by myself. No acute fracture is noted. 04/11/20 22:47 Pelvis 1 or 2 Views [RAD] Stat 04/11/20 23:00 Lumbar Spine 2 or 3 Views [RAD] Stat Laboratory Results 04/11/20 04/11/20 20:31 20:31 WBC 9.3 RBC 5.12 Hgb 15.3 H Hct 47.5 H MCV 92.8 MCH 29.9 MCHC 32.2 RDW Std Deviation 51.9 H RDW Coeff of Celio 14.9 H Plt Count 197 MPV 11.1 Immature Gran % (Auto) 0.300 Neut % (Auto) 66.5 Lymph % (Auto) 21.2 Cowley % (Auto) 11.6 H Eos % (Auto) 0.1 Baso % (Auto) 0.3 Absolute Neuts (auto) 6.2 Absolute Lymphs (auto) 1.96 Nucleated RBC % 0 Sodium 139 Potassium 3.7 Chloride 104 Carbon Dioxide 29.0 Anion Gap 6 BUN 13 Creatinine 0.72 Estim Creat Clear Calc 32.26 Est GFR (MDRD) Af Amer 99 Est GFR (MDRD) Non-Af 82 BUN/Creatinine Ratio 18.1 Glucose 81 Calcium 9.3 - Medical Decision Making Patient had taken tramadol just prior to arrival. She was given p.o. Valium and a Lidoderm patch placed. They did note that her spasms seem to be lessening, however when daughter tried to lie the bed back to let her rest she got severe spasms again. Nursing staff went in to try to ambulate the patient. She is able to sit on the side of the bed but had severe pain when trying to weight- bear on her right hip. At that time decision was made to keep the patient in the hospital. Lab work and x-rays are unremarkable. She was given an additional 12.5 mcg of fentanyl to help with pain. I will speak with hospitalist. ED Disposition - Plan for ED Patient: Disposition: Acute Care Hospital [facility] Diagnosis: Back spasm Referrals: Roberto Del Castillo Chi, MD [Primary Care Provider] -
[2020-04-11] MEDS: diazePAM 5 MG Tablet 2.5 MG PO (21:14)
[2020-04-11] MEDS: Lidocaine 5% Patch 1 PATCH TOPICAL (21:21)
[2020-04-11] MEDS: fentaNYL 100 MCG/2 ML Ampul 12.5 MCG IV (22:28)
[2020-04-11 22:33] LABS: Absolute Lymphocyte Count 1.96 X10^3/uL (0.83-4.51); Absolute Neutrophil Count 6.2 X10^3/uL (2.0-7.7); Basophil# 0.03 X10^3/uL; Basophil% 0.3 % (0-1); Eosinophil# 0.01 X10^3/uL; Eosinophils% 0.1 % (0-5); Hematocrit 47.5 % (37-47); Hemoglobin 15.3 g/dL (12.0-15.0); Lymphocyte # 1.96 X10^3/ul (4.0); Lymphocyte % 21.2 % (19-41); Mean Corp Hgb Conc 32.2 g/dL (32-36); Mean Corpuscular Hgb 29.9 pg (27.0-32.0); Mean Corpuscular Volume 92.8 fL (81-99); Mean Platelet Vol. 11.1 fl (6.2-12.0); Monocyte# 1.07 X10^3/uL; Monocyte% 11.6 % (0-10); NRBC Flagged by Analyzer 0 % (0-5); Neutrophil # 6.15 X10^3/uL (2.7-7.7); Neutrophil % 66.5 % (47-70); Platelet Count 197 K/mm3 (150-450); RBC Distribution Width CV 14.9 % (11.6-14.6); RBC Distribution Width SD 51.9 fl (35.1-43.9); Red Blood Count 5.12 M/mm3 (4.2-5.4); White Blood Count 9.3 K/mm3 (4.4-11.0)
--- NOTE | 2020-04-11 22:47 | RAD_ITS ---
STUDY: X-RAY - PELVIS REASON FOR EXAM: Female, 84 years old. SEVERE BACK PAIN WITH SPASMS STARTING TODAY. PATIENT UNABLE TO FULLY STRAIGHTEN LEGS OR TURN IN LEGS FOR THIS IMAGE. TECHNIQUE: One view of the pelvis was obtained. COMPARISON: None. FINDINGS: There is a non-specific bowel gas pattern. Colonic fecal retention. Normal visualized soft tissue structures. Mild degenerative lower lumbar changes. Normal bilateral iliac wings, sacroiliac joints and visualized sacrum. Normal visualized bilateral superior and inferior pubic rami. Normal pubic symphysis. Normal ischial tuberosities. Normal visualized right femoral head. Normal right acetabulum. Normal right hip joint. Normal visualized left femoral head. Normal left acetabulum. Normal left hip joint. RAD/Pelvis 1 or 2 Views IMPRESSION: No acute bony injury of the pelvis. Colonic fecal retention. Electronically Signed: Silver Garcia DO at 23:37 EDT Tel [phone], Service support ,
[2020-04-11 22:51] LABS: Anion Gap 6 (5-15); BUN 13 mg/dL (7-18); BUN/Creat Ratio 18.1 RATIO (10-20); Calcium,Total 9.3 mg/dL (8.5-10.1); Chloride 104 mmol/L (98-107); Creatinine, Serum 0.72 mg/dL (0.55-1.02); EST Glomerular Filtration Rate 82 mL/min (>60); Est Glom Filt Rate - Afr Amer 99 mL/min (>60); Estimated Creatinine Clearance 32.26 ml/min; Glucose 81 mg/dL (74-106); Potassium 3.7 mmol/L (3.5-5.1); Sodium Level 139 mmol/L (136-145)
--- NOTE | 2020-04-11 23:00 | RAD_ITS ---
STUDY: X-RAY - LUMBAR SPINE REASON FOR EXAM: Female, 84 years old. SEVERE BACK PAIN WITH SPASMS STARTING TODAY TECHNIQUE: 2 view(s) of the lumbar spine were obtained. COMPARISON: None FINDINGS: Normal lumbar lordosis. There is no substantial scoliosis. There is a normal alignment of the vertebrae. Normal vertebral bodies with minimal spurring at the endplates. Normal disc space heights. The soft tissue structures are unremarkable. Colonic fecal retention. RAD/Lumbar Spine 2 or 3 Views IMPRESSION: Minimal degenerative changes of the lumbar spine. Colonic fecal retention. Electronically Signed: Silver Garcia DO at 23:35 EDT Tel [phone], Service support ,
[2020-04-11 23:21] VITALS: BP 137/84; PULSE 85; RESP 16; O2SAT 95
--- NOTE | 2020-04-11 23:36 | HP.PCM_ITS ---
Problem List (1) Back spasm Status: Acute (2) Back pain Status: Chronic Qualifiers: Back pain location: thoracic back pain Chronicity: acute Back pain laterality: right Qualified Code(s): M54.6 - Pain in thoracic spine (3) Segmental and somatic dysfunction of thoracic region Status: Chronic (4) Segmental and somatic dysfunction of cervical region Status: Chronic (5) Vertigo Status: Chronic (6) BPPV (benign paroxysmal positional vertigo) Status: Chronic (7) Longstanding persistent atrial fibrillation Status: Chronic (8) History of cardioversion Status: Chronic Comment: failed (9) Hyperlipidemia Status: Chronic (10) Nonrheumatic mitral (valve) insufficiency Status: Chronic Comment: Mild to moderate per echo 04/27/16 done @ [facility] (11) History of right and left heart catheterization Status: Chronic Comment: Per Dr. Ramos, [facility] 07/13/2000:Severe ; LAD 20% ostial stenosis;nonobstructive coronaries. (12) Status post mechanical aortic valve replacement Status: Chronic Comment: #21 [facility] Bill Valve per Dr. Mishra [facility] 07/24/2000- CAN NOT HAVE MRI W/THIS (13) History of bicuspid aortic valve Status: Chronic Comment: [facility] [employer] current use of anticoagulant Status: Chronic Comment: Warfarin History of Present Illness Date of Admission: 04/11/20 Chief Complaint: R lower back pain The patient is a 84 year old F with a significant history of bicuspid aortic valve status post mechanical aortic valve replacement; permanent atrial fibrillation; and chronic back pain who presents emergency department with excruciating right lower back pain. Patient is unsure when her pain started but her daughter thinks patient's pain started on the same day of presentation or a day before presentation. Her pain started after doing gardening. Her pain radiates to her right hip. Her pain is aggravated with slight movement and with standing. Her pain improves with lying still. She is in so much pain that she is unable to walk at this time. Patient's family gave patient some old baclofen pill. Patient is on home tramadol that she takes lesser dose as prescribed. She used to see Dr. Arnett for upper back pain in between her bilateral scapula. Past Medical History Past Medical History (Chronic Problems): Chronic Problems (Last Reviewed 04/12/20 @ 00:[address] Edward Arreguin MD) Back pain (Chronic) Segmental and somatic dysfunction of thoracic region (Chronic) Segmental and somatic dysfunction of cervical region (Chronic) Vertigo (Chronic) BPPV (benign paroxysmal positional vertigo) (Chronic) Longstanding persistent atrial fibrillation (Chronic) History of cardioversion (Chronic 08/21/19) failed Hyperlipidemia (Chronic) Nonrheumatic mitral (valve) insufficiency (Chronic) Mild to moderate per echo 04/27/16 done @ [facility] History of right and left heart catheterization (Chronic 07/13/00) Per Dr. Ramos [facility] 07/13/2000:Severe ; LAD 20% ostial stenosis;nonobstructive coronaries. Status post mechanical aortic valve replacement (Chronic 07/24/00) #21 St. Bill Valve per Dr. Mishra [facility] 07/24/2000- CAN NOT HAVE MRI W/THIS History of bicuspid aortic valve (Chronic) #21 St[address] Bill Valve per Dr. Mishra [facility] 07/24/2000 [facility] current use of anticoagulant (Chronic) Warfarin Medical History: Medical History (Last Reviewed 04/12/20 @ 02:[address] Edward Arreguin MD) Longstanding persistent atrial fibrillation (Chronic) I48.11 Hyperlipidemia (Chronic) E78.5 Nonrheumatic mitral (valve) insufficiency (Chronic) I34.0 Mild to moderate per echo 04/27/16 done @ [facility] current use of anticoagulant (Chronic) Z79.01 Warfarin Allergies amiodarone Adverse Reaction (Severe, Verified 04/11/20 20:52) Poor balance, poor appetite, severe dizziness amoxicillin trihydrate [From Augmentin] Adverse Reaction (Verified 04/11/20 20:52) Diarrhea potassium clavulanate [From Augmentin] Adverse Reaction (Verified 04/11/20 20:52) Diarrhea Home Medications: Ambulatory Orders Medication Instructions Recorded cholecalciferol (vitamin D3) 25 1,000 unit PO DAILY 03/30/19 mcg (1,000 unit) tablet metoprolol succinate 25 mg 25 mg PO DAILY #30 tab 08/05/19 tablet,extended release 24 hr Acetaminophen [Tylenol Tablet] 650 mg PO Q6H PRN PRN tab 09/25/19 calcium carbonate 600 mg(1,500 1 tab PO DAILY tab 12/16/19 mg)-vitamin D3 800 unit chewable tablet meclizine 12.5 mg tablet 12.5 mg PO DAILY PRN #14 tab 12/16/19 tramadol 50 mg tablet See Rx Instructions PO DAILY 02/10/20 Warfarin [Coumadin ([facility])] 3 mg PO DAILY 04/12/20 Surgical History: Surgical History (Last Reviewed 04/12/20 @ 02:[address] Edward Arreguin MD) History of cardioversion (Chronic) Onset Date: 08/21/19 Z98.890 failed History of right and left heart catheterization (Chronic) Onset Date: 07/13/[address] Ramos, [facility] 07/13/2000:Severe ; LAD 20% ostial stenosis;nonobstructive coronaries. Status post mechanical aortic valve replacement (Chronic) Onset Date: 07/24/[address] Bill [address]ve [address] Dr. Mishra, [facility] 07/24/2000- CAN NOT HAVE MRI W/THIS Surgical History: AVR Psychiatric History: - - She does not admit to a psychiatric disorder but, she is on Risperidone [employer] History: No pertinent [employer] history Lives: Alone Smoking Status: Never smoker - *Family History Maternal Family History: Family History (Last Reviewed 04/12/20 @ 02:[address] Edward Arreguin MD) Father Head injury Brother CAD (coronary artery disease) Review of Systems Constitutional: Denies: Chills, Fever, Weight Change HEENT: Denies: Head Aches, Sinus Congestion, Sinus Drainage Cardiovascular: Denies: Chest Pain, Palpitations Respiratory: Denies: Cough, Shortness of breath at rest, Sputum production Gastrointestinal: Denies: Abdominal Pain, Nausea, Vomiting Genitourinary: Denies: Dysuria Musculoskeletal: Reports: Back Pain - Right lower back, Joint Pain - Right hip, Muscle pain Skin: Denies: Rash, Wounds Neurological: Denies: Numbness, Tingling, Focal weakness Psychiatric: Denies: Anxiety, Depression, Homicidal Ideations, Suicidal Ideations Hematologic/ Lymphatic: Denies: Easy Bruising, Easy Bleeding VTE Information - Inpt Only VTE Present on Admission: No VTE Mechan Device Prophylaxis: None VTE Pharm Prophylaxis ordered?: No Reason prophylaxis not ordered:: Treatment Not Indicated - Home Coumadin for A. fib and mechanical aortic valve continued. Patient Problems: Active and Suspected Problems (Last Reviewed 04/12/20 @ 00:[address] Edward Arreguin MD) Back spasm (Acute) - Physical Exam Vitals/I&O's: Vital Signs Temp Pulse Resp BP Pulse Ox 98.8 F 85 16 137/84 H 95 04/11/20 20:47 04/11/20 23:21 04/11/20 23:21 04/11/20 23:21 04/11/20 23:21 Oxygen Delivery Method Room Air Weight: 48.8 kg Body Mass Index (BMI) 17.3 General: Alert, Oriented x3, Cooperative HEENT: Atraumatic, PERRLA, EOMI, Normocephalic Neck: Supple, No JVD, Trachea Midline Lungs: Clear to auscultation, Normal air movement Cardiovascular: Normal S1, Normal S2, No murmurs, Irregular Rate, - - Hyperdynamic heart sounds. Abdomen: Bowel Sounds Present, Soft, Non Tender Extremities: No edema, Capillary Refill Less than 3 Seconds Skin: No rashes, No breakdown Musculoskeletal: No Tenderness to Palpation of Joints or Extremities Neurological: Cranial nerves II-XII grossly intact Psych/Mental Status: Normal Affect, Appropriate Laboratory Results 04/11/20 20:31: WBC 9.3, RBC 5.12, Hgb 15.3 H, Hct 47.5 H, MCV 92.8, MCH 29.9, MCHC 32.2, RDW Std Deviation 51.9 H, RDW Coeff of Celio 14.9 H, Plt Count 197, MPV 11.1, Immature Gran % (Auto) 0.300, Neut % (Auto) 66.5, Lymph % (Auto) 21.2, [place] % (Auto) 11.6 H, Eos % (Auto) 0.1, Baso % (Auto) 0.3, Absolute Neuts (auto) 6.2, Absolute Lymphs (auto) 1.96, Nucleated RBC % 0 04/11/20 20:31: Sodium 139, Potassium 3.7, Chloride 104, Carbon Dioxide 29.0, Anion Gap 6, BUN 13, Creatinine 0.72, Estim Creat Clear Calc 32.26, Est GFR (MDRD) Af Amer 99, Est GFR (MDRD) Non-Af 82, BUN/Creatinine Ratio 18.1, Glucose 81, Calcium 9.3 Assessment/Plan All Active Problems (Last Reviewed 04/12/20 @ 00:[address] Edward Arreguin MD) Back spasm (Acute) The patient is a 84 year old F with a significant history of bicuspid aortic valve status post mechanical aortic valve replacement; permanent atrial fibrillation; and chronic back pain who presents to the emergency department with excruciating right lower back pain that radiates to her right hip. Intractable right lower back pain Patient received Valium; fentanyl and Lidoderm patch at emergency department. Escalate home dose of tramadol. Will put patient on scheduled Flexeril. IV morphine as needed. Antiemetics and bowel protocol in place. Lidoderm patch ordered PT and OT to work with patient. Patient's family asked whether patient could be discharged on fentanyl patch at time of discharge. Discussed with patient form that is very unlikely as the pain is acute. History of mechanical aortic valve Coumadin continued. Trend PT/INR Permanent A. fib Coumadin continued Metoprolol continued DVT prophylaxis Not indicated since patient is therapeutic those of Coumadin. Coumadin continued. Advanced care planning: Discussed CODE STATUS with outpatient. Different CODE STATUS including DNR and a full CODE STATUS was discussed with patient. Patient stated that she has a living will. Her daughter Dorothy Munoz has a copy of patient's living will. Patient is a full code with CPR and intubation. However she does not want to remain on mechanical ventilation for a prolonged time. Sixteen (16) minutes was spent discussing CODE STATUS. Inpatient E&M: 18370 Init Hosp L3 Procedures: [id number] Advncd Care Plan 30 Min
[2020-04-11 23:48] LABS: Prothrombin Time (Protime)PT. 30.5 SECONDS (11.7-14.9)
[2020-04-12] VITALS (7 sets, daily range): BP systolic 109–142; BP diastolic 73–92; PULSE 78–89; RESP 16–20; TEMP 36.3–37.1; O2SAT 92–100; BMI 17.6
[2020-04-12] MEDS: traMADol 50 MG Tablet PO ×2 (05:05→12:16)
[2020-04-12] MEDS: Acetaminophen 500 MG Tablet PO ×2 (05:05→12:16)
[2020-04-12] MEDS: Baclofen 10 MG Tablet PO ×2 (05:06→15:17)
[2020-04-12] MEDS: Metoprolol(XL)Succ 25 MG Tablet PO (10:04)
[2020-04-12] MEDS: Lidocaine 5% Patch 1 PATCH TOPICAL (10:05)
[2020-04-12] MEDS: Calcium Carb/Vitamin D 1 TABLET Tablet PO (10:05)
--- NOTE | 2020-04-12 11:35 | PCM.NTREPORT ---
Nutrition Therapy Report - History Nutrition Services has been consulted to:: Manage nutrient details of diet order Current diet / nutrition support order:: Regular w/ 120 cc Ensure Enlive 4x/day - Anthropometric Measurements Height:: 5 ft 6 in Weight:: 49.4 kg Body Mass Index (BMI):: 17.6 - Relevant Labs Relevant Labs:: Hgb 15.3 g/dL (12.0-15.0) H 04/11/20 20:31 Hct 47.5 % (37-47) H 04/11/20 20:31 RDW Std Deviation 51.9 fl (35.1-43.9) H 04/11/20 20:31 RDW Coeff of Celio 14.9 % (11.6-14.6) H 04/11/20 20:31 [place] % (Auto) 11.6 % (0-10) H 04/11/20 20:31 PT 30.5 SECONDS (11.7-14.9) H 04/11/20 20:31 - Assessment Food / Nutrition-Related History:: Pt states Regular diet at home - doesn't eat much - doesn't like to eat meat. UBW: 56.245 kg - wt loss of 12.2% in unknown time frame - pt states she has seen a difference in the way her clothes fit. Agreeable to ONS at [facility] for increased nutrition. Pt would like to prevent any further wt loss. Appeats to be malnourished AEB fat/musle loss, suboptimal po intake and wt loss. - Nutrition Diagnosis Problem / Etiology / Signs & Symptoms (PES):: Pt with decreased oral intake r/t doesn't eat much per pt AEB s/s malnutrition w/ fat/muscle loss and 12.2% wt loss Evidence of Malnutrition Exists:: Yes Severe PCM:: Chronic Illness - Nutrition Intervention Nutrition Prescription:: [id number] randal / 60-70 gm pro / day - Food / Nutrient Delivery Interventions Summary of nutrition intervention:: Rec continue liberal Regular diet w/ ONS at [facility] for increased nutrition if consumed. [ End ] Nutrition education provided?: Yes - encouraged pt to drink 2-3 bottles ensure enlive per day post d/c - MNT Monitoring Further MNT monitoring and evaluation required?: Yes MNT Follow-up in:: 3-5 days - please call RD/LD if questions [phone]
--- NOTE | 2020-04-12 12:57 | DCINST_ITS ---
- Discharge Diagnoses Current Active Problems: Current Active and Chronic Problems (Last Reviewed 04/12/20 @ 02:[address] Edward Arreguin MD) Back spasm (Acute) You will use the following diet at home:: Cardiac Your food should be the consistency of: Regular Your liquids should be the consistency of: Regular/Thin Discharge Activity: Return to Normal Activity Allergies/Adverse Reactions: Allergies amiodarone Adverse Reaction (Severe, Verified 04/11/20 20:52) Poor balance, poor appetite, severe dizziness amoxicillin trihydrate [From Augmentin] Adverse Reaction (Verified 04/11/20 20:52) Diarrhea potassium clavulanate [From Augmentin] Adverse Reaction (Verified 04/11/20 20:52) Diarrhea Medications to take at Discharge cholecalciferol (vitamin D3) 25 mcg (1,000 unit) tablet 1,000 unit PO DAILY 03/30/19 metoprolol succinate 25 mg tablet,extended release 24 hr 25 mg PO DAILY #30 tab 08/05/19 Acetaminophen [Tylenol Tablet] 650 mg PO Q6H PRN PRN tab 09/25/19 calcium carbonate 600 mg(1,500 mg)-vitamin D3 800 unit chewable tablet 1 tab PO DAILY tab 12/16/19 meclizine 12.5 mg tablet 12.5 mg PO DAILY PRN #14 tab 12/16/19 tramadol 50 mg tablet See Rx Instructions PO DAILY 02/10/20 Baclofen [Lioresal] 10 mg PO TID #21 tab 04/12/20 Lidocaine [Lidoderm Patch] 1 patch TOPICAL DAILY #14 patch 04/12/20 Warfarin [Coumadin] 3 mg PO DAILY 04/12/20 The following prescriptions were given: Lidocaine [Lidoderm Patch] 1 patch TOPICAL DAILY #14 patch Transmission Status: Pending to [id number] Baclofen [Lioresal] 10 mg PO TID #21 tab Transmission Status: Pending to [id number] Primary Care Physician: Roberto Del Castillo Chi, MD [Primary Care Provider] - Please follow up with your Primary Care Physician in: 1-2 weeks Test Results: Test results from this visit will be discussed in further detail at your follow- up appointment, if applicable. Please Follow Up With: Manfred Arnett DO When: 1 week Proposed Discharge Date: 04/12/20
--- NOTE | 2020-04-12 12:58 | PCM.DC.SUM ---
<Nain Cronin - Last Filed: 04/12/20 12:58> Discharge Date and Diagnosis Date of Admission: 04/11/20 Date of Discharge: 04/12/20 - Primary Discharge Diagnosis Acute Problems: Active Problems (Last Reviewed 04/12/20 @ 02:[address] Edward Arreguin MD) Back spasm (Acute), acute on chronic back pain 2/2 DDD - Secondary Discharge Diagnosis Chronic Problems: Chronic Problems (Last Reviewed 04/12/20 @ 02:[address] Edward Arreguin MD) Back pain (Chronic) Segmental and somatic dysfunction of thoracic region (Chronic) Segmental and somatic dysfunction of cervical region (Chronic) Vertigo (Chronic) BPPV (benign paroxysmal positional vertigo) (Chronic) Longstanding persistent atrial fibrillation (Chronic) History of cardioversion (Chronic 08/21/19) failed Hyperlipidemia (Chronic) Nonrheumatic mitral (valve) insufficiency (Chronic) Mild to moderate per echo 04/27/16 done @ [facility] History of right and left heart catheterization (Chronic 07/13/00) Per Dr. Ramos [facility] 07/13/2000:Severe ; LAD 20% ostial stenosis;nonobstructive coronaries. Status post mechanical aortic valve replacement (Chronic 07/24/00) #21 St. Bill Valve per Dr. Mishra [facility] 07/24/2000- CAN NOT HAVE MRI W/THIS History of bicuspid aortic valve (Chronic) #21 St. Bill Valve per Dr. Mishra 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 Colonic fecal retention. RAD/Lumbar Spine 2 or 3 Views IMPRESSION: Minimal degenerative changes of the lumbar spine. Colonic fecal retention. Operations: None Procedures: None Summary of Care Provided: Hospital course: The patient is a 84 year old F with pmhx as above, notably chronic back pain 2/[address] Arnett, who came to the ER with intractable back pain. Imaging was negative for acute fx however the patient was unablet o walk. She c/o spasms in the lumbar spine that led to severe pain and inability to ambulate. The patient was admitted to the med surg floor and treated with morphine, tylenol, lidoderm patches, and baclofen. She had significant improvement in her pain by the following morning, was able to amulate, and insistent on discharge home. She was discharged home in stable condition and should follow up with pain management in 1 week, and with her PCP in 1-2 week. Homegoing regimen will include baclofen, tylenol, lidocaine patches, and tramadol. This patient was seen by Nain Cronin PA-C under the supervision of Dr. Brush . [] - Physical Exam Vitals/I&O's: Vital Signs Temp Pulse Resp BP Pulse Ox 97.4 F L 83 20 H 122/78 H 97 04/12/20 10:11 04/12/20 10:11 04/12/20 10:11 04/12/20 10:11 04/12/20 10:11 Oxygen Delivery Method Room Air Weight: 108 lb 14.534 oz Body Mass Index (BMI) 17.6 Intake and Output for Last 24 Hours 04/10/20 04/11/20 04/12/20 23:59 23:59 23:59 Intake Total 150 / 150 Balance 150 / 150 General: Alert, Oriented x3, Cooperative HEENT: Atraumatic, PERRLA, EOMI, Normocephalic Neck: Supple, No JVD, Negative Carotid Bruits Lungs: Clear to auscultation, Normal air movement Cardiovascular: Regular rate, No murmurs Abdomen: Bowel Sounds Present, Soft, Non Tender Extremities: No edema, Capillary Refill Less than 3 Seconds Skin: No rashes, No breakdown Musculoskeletal: No Tenderness to Palpation of Joints or Extremities Neurological: Cranial nerves II-XII grossly intact Psych/Mental Status: Normal Affect, Appropriate, Alert and oriented to time, place, person, mood and affect Laboratory Results 04/11/20 20:31: WBC 9.3, RBC 5.12, Hgb 15.3 H, Hct 47.5 H, MCV 92.8, MCH 29.9, MCHC 32.2, RDW Std Deviation 51.9 H, RDW Coeff of Celio 14.9 H, Plt Count 197, MPV 11.1, Immature Gran % (Auto) 0.300, Neut % (Auto) 66.5, Lymph % (Auto) 21.2, [place] % (Auto) 11.6 H, Eos % (Auto) 0.1, Baso % (Auto) 0.3, Absolute Neuts (auto) 6.2, Absolute Lymphs (auto) 1.96, Nucleated RBC % 0 04/11/20 20:31: Sodium 139, Potassium 3.7, Chloride 104, Carbon Dioxide 29.0, Anion Gap 6, BUN 13, Creatinine 0.72, Estim Creat Clear Calc 32.26, Est GFR (MDRD) Af Amer 99, Est GFR (MDRD) Non-Af 82, BUN/Creatinine Ratio 18.1, Glucose 81, Calcium 9.3 04/11/20 20:31: PT 30.5 H, INR 3.0 Current Medications Acetaminophen (Tylenol) 500 mg PO Q6 [facility] Last Admin: 04/12/20 12:16 Dose: 500 mg Documented by: Baclofen (Lioresal) 10 mg PO TID [facility] Last Admin: 04/12/20 05:06 Dose: 10 mg Documented by: Calcium/Vitamin D (Os-Lee 500mg + D) 1 tablet PO DAILY [facility] Last Admin: 04/12/20 10:05 Dose: 1 tablet Documented by: Cholecalciferol (Vitamin D (25mcg)) 1,000 unit PO DAILY [facility] Last Admin: 04/12/20 10:06 Dose: 1,000 unit Documented by: Lidocaine (Lidoderm Patch) 1 patch TOPICAL DAILY [facility]; Protocol Last Admin: 04/12/20 10:05 Dose: 1 patch Documented by: Magnesium Hydroxide (Milk Of Magnesia) 30 ml PO DAILY PRN PRN Reason: Constipation Meclizine HCl (Antivert) 12.5 mg PO DAILY PRN PRN PRN Reason: dizziness Metoprolol Succinate (Toprol Xl (Beta Parmjit)) 25 mg PO DAILY [facility] Last Admin: 04/12/20 10:04 Dose: 25 mg Documented by: Morphine Sulfate () 1 mg IV Q4H PRN PRN PRN Reason: Pain Score 6-10/10 Nutritional Formula (Lactose Free) (Ensure Enlive) 120 ml PO 4X/DAY [facility] Last Admin: 04/12/20 10:16 Dose: 120 ml Documented by: Ondansetron HCl (Zofran) 4 mg IV Q8H PRN PRN PRN Reason: NAUSEA/VOMITING Polyethylene Glycol (Miralax) 17 gm PO DAILY PRN PRN Reason: Constipation Senna/Docusate Sodium (Senokot-S, Sharita-Colace) 2 tablet PO BID PRN PRN PRN Reason: Constipation Sodium Chloride () 10 - 40 ml IV UD PRN PRN Reason: SALINE FLUSH Tramadol HCl (Ultram) 50 mg PO Q6 [facility] Last Admin: 04/12/20 12:16 Dose: 50 mg Documented by: Warfarin Sodium (Jantoven) 3 mg PO MoTuWeThFrSa@1700 [facility] Warfarin Sodium (Jantoven) 1.5 mg PO Porras@1700 [facility] Discharge Diet: Low fat/ Low Cholesterol, 2000 mg Sodium Diet Discharge Activity: Return to Normal Activity Home Medications: Medications to take at Discharge cholecalciferol (vitamin D3) 25 mcg (1,000 unit) tablet 1,000 unit PO DAILY 03/30/19 metoprolol succinate 25 mg tablet,extended release 24 hr 25 mg PO DAILY #30 tab 08/05/19 Acetaminophen [Tylenol Tablet] 650 mg PO Q6H PRN PRN tab 09/25/19 calcium carbonate 600 mg(1,500 mg)-vitamin D3 800 unit chewable tablet 1 tab PO DAILY tab 12/16/19 meclizine 12.5 mg tablet 12.5 mg PO DAILY PRN #14 tab 12/16/19 tramadol 50 mg tablet See Rx Instructions PO DAILY 02/10/20 Baclofen [Lioresal] 10 mg PO TID #21 tab 04/12/20 Lidocaine [Lidoderm Patch] 1 patch TOPICAL DAILY #14 patch 04/12/20 Warfarin [Coumadin] 3 mg PO DAILY 04/12/20 Following Prescriptions Were Given to Patient: Lidocaine [Lidoderm Patch] 1 patch TOPICAL DAILY #14 patch Transmission Status: Received by [id number] Baclofen [Lioresal] 10 mg PO TID #21 tab Transmission Status: Received by [id number] Primary Care Physician: Roberto Del Castillo Chi, MD [Primary Care Provider] - Please follow up with your Primary Care Physician in: 1-2 weeks Please Follow Up With: Manfred Arnett DO When: 1 week Disposition: Home Minutes spent on discharge:: 35 Patient Condition:: Stable Medical Necessity - Tobacco Use Smoking Status: Never smoker Meaningful Use Info Meaningful Use Diagnoses (Choose all that apply): None applicable <Padmaja Brush - Last Filed: 04/12/20 16:57> Discharge Date and Diagnosis - Secondary Discharge Diagnosis Chronic Problems: Chronic Problems (Last Reviewed 04/12/20 @ 02:[address] Edward Arreguin MD) Back pain (Chronic) Segmental and somatic dysfunction of thoracic region (Chronic) Segmental and somatic dysfunction of cervical region (Chronic) Vertigo (Chronic) BPPV (benign paroxysmal positional vertigo) (Chronic) Longstanding persistent atrial fibrillation (Chronic) History of cardioversion (Chronic 08/21/19) failed Hyperlipidemia (Chronic) Nonrheumatic mitral (valve) insufficiency (Chronic) Mild to moderate per echo 04/27/16 done @ [facility] History of right and left heart catheterization (Chronic 07/13/00) Per Dr. Ramos [facility] 07/13/2000:Severe ; LAD 20% ostial stenosis;nonobstructive coronaries. Status post mechanical aortic valve replacement (Chronic 07/24/00) #21 St. Bill Valve per Dr. Mishra [facility] 07/24/2000- CAN NOT HAVE MRI W/THIS History of bicuspid aortic valve (Chronic) #21 St. Bill Valve per Dr. Mishra 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 She does have a history of chronic back pain due to degenerative joint disease and follows with Dr. Arnett. She usually takes tramadol for this pain. She was admitted through the ED on 04/11/2020 with a complaint of excruciating right lower back pain which started about a day before presentation. Patient states the pain started after gardening and she thinks she has been working too hard in her garden. Pain was aggravated by movement and with standing and relieved by lying still. She came into the ED because she was not even able to ambulate due to severe pain. Lumbar spine x-ray done showed minimal degenerative changes of the lumbar spine with colonic fecal retention. She was admitted and managed for intractable back pain. She was put on p.o. baclofen and lidocaine patch as well as Tylenol and tramadol. PT OT was consulted. Patient was able to work with therapy and able to ambulate and pain improved significantly. Patient insisted on being discharged home on 04/12/2020. She was therefore discharged home and is to follow-up with her primary care doctor and pain management doctor. Patient seen and examined prior to discharge. She had no complaints and felt well. Pain was much better. Review of systems otherwise negative. Labs and vitals reviewed. Home medications reviewed and reconciled. O/E: Vital Signs Temp Pulse Resp BP Pulse Ox 97.8 F 78 16 109/78 99 04/12/20 15:23 04/12/20 15:23 04/12/20 15:23 04/12/20 15:23 04/12/20 15:23 [] General: Alert, Oriented x3, Cooperative HEENT: Atraumatic, PERRLA, EOMI, Normocephalic Neck: Supple, No JVD, Negative Carotid Bruits Lungs: Clear to auscultation, Normal air movement Cardiovascular: Regular rate, No murmurs Abdomen: Bowel Sounds Present, Soft, Non Tender Extremities: No edema, Capillary Refill Less than 3 Seconds Skin: No rashes, No breakdown Musculoskeletal: No Tenderness to Palpation of Joints or Extremities Neurological: Cranial nerves II-XII grossly intact Psych/Mental Status: Normal Affect, Appropriate, Alert and oriented to time, place, person, mood and affect Plan is for discharge home today. She is to continue taking baclofen, Tylenol and tramadol as well as lidocaine patch. Rest as per Nain Cronin PA-C's note, which I have reviewed and endorsed. - Physical Exam Vitals/I&O's: Vital Signs Temp Pulse Resp BP Pulse Ox 97.8 F 78 16 109/78 99 04/12/20 15:23 04/12/20 15:23 04/12/20 15:23 04/12/20 15:23 04/12/20 15:23 Oxygen Delivery Method Room Air Weight: 108 lb 14.534 oz Body Mass Index (BMI) 17.6 Intake and Output for Last 24 Hours 04/10/20 04/11/20 04/12/20 23:59 23:59 23:59 Intake Total 150 / 150 Balance 150 / 150 Laboratory Results 04/11/20 20:31: WBC 9.3, RBC 5.12, Hgb 15.3 H, Hct 47.5 H, MCV 92.8, MCH 29.9, MCHC 32.2, RDW Std Deviation 51.9 H, RDW Coeff of Celio 14.9 H, Plt Count 197, MPV 11.1, Immature Gran % (Auto) 0.300, Neut % (Auto) 66.5, Lymph % (Auto) 21.2, [place] % (Auto) 11.6 H, Eos % (Auto) 0.1, Baso % (Auto) 0.3, Absolute Neuts (auto) 6.2, Absolute Lymphs (auto) 1.96, Nucleated RBC % 0 04/11/20 20:31: Sodium 139, Potassium 3.7, Chloride 104, Carbon Dioxide 29.0, Anion Gap 6, BUN 13, Creatinine 0.72, Estim Creat Clear Calc 32.26, Est GFR (MDRD) Af Amer 99, Est GFR (MDRD) Non-Af 82, BUN/Creatinine Ratio 18.1, Glucose 81, Calcium 9.3 04/11/20 20:31: PT 30.5 H, INR 3.0 OBSV E&M: [id number] Observation care discharge
--- NOTE | 2020-04-12 15:42 | NURSING ---
This nurse walked in room to check on pt and see if PT/OT had evaluated pt yet as pt and daughter have been waiting to take her home until evaluated. WE have been waiting and no one has come yet. Phyiscal Therapy not on this floor. Eleanor RN called all the other floors to see if PT/OT are around. Edson, [employer] has no way of getting a hold of them. this nurse along with Sachi Charge nurse think that PT/OT have left for the day. This nurse texted YARELY Pineda to inform as he wanted them to be seen by PT/OT prior to discharge.
== END 2020-04-12 16:05 | disposition home or self-care (01) ==
LOC: ED 23:29 → MS3 23:54
PROVIDERS: Admitting Provider Hospitalist; Emergency Provider Emergency Medicine; PCP Family Medicine Geriatric Medicine; Visit Provider Student in an Organized Health Care Education/Training Program
DX: G89.29 Other chronic pain (principal); M62.830 Muscle spasm of back; H81.10 Benign paroxysmal vertigo, unspecified ear; I48.21 Permanent atrial fibrillation; M99.01 Segmental and somatic dysfunction of cervical region; M99.02 Segmental and somatic dysfunction of thoracic region; E78.5 Hyperlipidemia, unspecified; Z95.2 Presence of prosthetic heart valve; Z79.01 Long term (current) use of anticoagulants; Z79.899 Other long term (current) drug therapy
CPT/HCPCS: 72100; 72170; 80048; 85025; 85610; 96374; 97802; 99218; 99285; A4216; G0378

== ENCOUNTER → 2020-04-23 | Outpatient (CLI) | payer MEDICARE, SELFPAY ==
[2020-04-12 11:38] VITALS: BMI 17.6
== END | disposition home or self-care (01) ==
LOC: LABSPEC 16:56
PROVIDERS: PCP Family Medicine Geriatric Medicine; Visit Provider Family Medicine Geriatric Medicine
DX: N39.0 Urinary tract infection, site not specified (principal)
CPT/HCPCS: 87086; 87088

== ENCOUNTER 2020-04-27 14:00 | Outpatient (RCR) | payer MEDICARE, SELFPAY ==
[2020-01-30 14:07] VITALS: BMI 19.6
[2020-04-12 11:38] VITALS: BMI 17.6
[2020-04-14 15:04] LABS: International Normalized Ratio 3.2; Prothrombin Time (Protime)PT. 32.3 SECONDS (11.7-14.9)
[2020-04-20 14:18] LABS: International Normalized Ratio 2.4; Prothrombin Time (Protime)PT. 25.7 SECONDS (11.7-14.9)
[2020-04-27 14:23] LABS: International Normalized Ratio 2.2; Prothrombin Time (Protime)PT. 24.3 SECONDS (11.7-14.9)
== END 2020-04-27 18:00 | disposition home or self-care (01) ==
LOC: LAB 14:00
PROVIDERS: Nurse Practitioner Family; Family Provider Internal Medicine; PCP Family Medicine Geriatric Medicine; Referring Provider Internal Medicine Cardiovascular Disease; Visit Provider Internal Medicine Cardiovascular Disease
DX: Z95.2 Presence of prosthetic heart valve (principal); Z79.01 Long term (current) use of anticoagulants
CPT/HCPCS: 36415; 85610

== ENCOUNTER 2020-05-27 10:11 | Outpatient (RCR) | payer MEDICARE, SELFPAY ==
[2020-04-24 13:27] VITALS: BMI 18.6
[2020-05-11 13:32] LABS: Prothrombin Time (Protime)PT. 45.9 SECONDS (11.7-14.9)
[2020-05-11 13:51] LABS: International Normalized Ratio 4.9
[2020-05-13 12:39] LABS: International Normalized Ratio 2.1; Prothrombin Time (Protime)PT. 22.6 SECONDS (11.7-14.9)
[2020-05-20 11:18] LABS: International Normalized Ratio 2.4
[2020-05-27 11:03] LABS: International Normalized Ratio 3.1; Prothrombin Time (Protime)PT. 31.6 SECONDS (11.7-14.9)
== END 2020-05-27 18:00 | disposition home or self-care (01) ==
LOC: LAB 10:11
PROVIDERS: Family Provider Internal Medicine; PCP Family Medicine Geriatric Medicine; Referring Provider Internal Medicine Cardiovascular Disease; Visit Provider Internal Medicine Cardiovascular Disease
DX: Z95.2 Presence of prosthetic heart valve (principal); Z79.01 Long term (current) use of anticoagulants
CPT/HCPCS: 36415; 85610

== ENCOUNTER 2020-06-23 16:39 | Outpatient (RCR) | payer MEDICARE, SELFPAY ==
[2020-04-24 13:27] VITALS: BMI 18.6
[2020-06-10 10:44] LABS: Prothrombin Time (Protime)PT. 35.9 SECONDS (11.7-14.9)
[2020-06-10 10:57] LABS: International Normalized Ratio 3.6
[2020-06-23 17:45] LABS: International Normalized Ratio 2.6; Prothrombin Time (Protime)PT. 27.1 SECONDS (11.7-14.9)
== END 2020-06-23 18:00 | disposition home or self-care (01) ==
LOC: LAB 16:39
PROVIDERS: Family Provider Internal Medicine; PCP Family Medicine Geriatric Medicine; Referring Provider Internal Medicine Cardiovascular Disease; Visit Provider Internal Medicine Cardiovascular Disease
DX: Z95.2 Presence of prosthetic heart valve (principal); Z79.01 Long term (current) use of anticoagulants
CPT/HCPCS: 36415; 85610

== ENCOUNTER → 2020-06-29 13:42 | Outpatient (CLI) | payer MEDICARE, SELFPAY ==
[2020-04-24 13:27] VITALS: BMI 18.6
[2020-06-29 17:28] LABS: Absolute Lymphocyte Count 1.35 X10^3/uL (0.83-4.51); Absolute Neutrophil Count 3.8 X10^3/uL (2.0-7.7); Basophil# 0.03 X10^3/uL; Basophil% 0.5 % (0-1); Eosinophil# 0.03 X10^3/uL; Eosinophils% 0.5 % (0-5); Hematocrit 43.3 % (37-47); Hemoglobin 13.8 g/dL (12.0-15.0); Lymphocyte # 1.35 X10^3/ul (4.0); Lymphocyte % 23.7 % (19-41); Mean Corp Hgb Conc 31.9 g/dL (32-36); Mean Corpuscular Hgb 31.2 pg (27.0-32.0); Mean Corpuscular Volume 97.7 fL (81-99); Mean Platelet Vol. 11.1 fl (6.2-12.0); Monocyte# 0.49 X10^3/uL; Monocyte% 8.6 % (0-10); NRBC Flagged by Analyzer 0 % (0-5); Neutrophil # 3.78 X10^3/uL (2.7-7.7); Neutrophil % 66.5 % (47-70); Platelet Count 198 K/mm3 (150-450); RBC Distribution Width CV 15.8 % (11.6-14.6); RBC Distribution Width SD 57.2 fl (35.1-43.9); Red Blood Count 4.43 M/mm3 (4.2-5.4); White Blood Count 5.7 K/mm3 (4.4-11.0)
[2020-06-29 17:47] LABS: ALB/GLOB Ratio 1.1 RATIO (0.9-2.4); AST(SGOT) 38 U/L (15-37); Alanine Aminotransfer ALT/SGPT 45 U/L (13-56); Albumin, Serum 3.9 g/dL (3.2-5.0); Alkaline Phosphatase 81 U/L (45-117); Anion Gap 2 (5-15); BUN 21 mg/dL (7-18); Calcium,Total 9.4 mg/dL (8.5-10.1); Chloride 108 mmol/L (98-107); Creatinine, Serum 0.78 mg/dL (0.55-1.02); EST Glomerular Filtration Rate 75 mL/min (>60); Est Glom Filt Rate - Afr Amer 90 mL/min (>60); Globulin 3.4 g/dL (2.2-4.2); Glucose 78 mg/dL (74-106); Potassium 4.1 mmol/L (3.5-5.1); Protein, Total 7.3 g/dL (6.4-8.2); Sodium Level 142 mmol/L (136-145); Thyroid Stim Hormone (TSH) 1.31 uIU/mL (0.358-3.74)
[2020-06-29 17:57] LABS: Vitamin D,25 Hydroxy 48.9 ng/mL
== END ==
PROVIDERS: PCP Family Medicine Geriatric Medicine; Visit Provider Family Medicine Geriatric Medicine
DX: E55.9 Vitamin D deficiency, unspecified (principal); R53.83 Other fatigue
CPT/HCPCS: 36415; 80053; 82306; 84443; 85025

== ENCOUNTER 2020-08-03 14:34 | Outpatient (RCR) | payer MEDICARE, SELFPAY ==
[2020-04-24 13:27] VITALS: BMI 18.6
[2020-07-21 10:58] LABS: International Normalized Ratio 3.1; Prothrombin Time (Protime)PT. 31.4 SECONDS (11.7-14.9)
[2020-07-27 16:59] LABS: International Normalized Ratio 2.4
[2020-08-03 15:11] LABS: International Normalized Ratio 3.3
[2020-08-03 18:40] LABS: M R Staph aureus DNA By PCR Negative (Negative); Probe Check PASS; Staph aureus DNA By PCR NEGATIVE (Negative)
== END 2020-08-03 18:00 | disposition home or self-care (01) ==
LOC: LAB 14:34
PROVIDERS: Family Provider Internal Medicine; PCP Family Medicine Geriatric Medicine; Referring Provider Internal Medicine Cardiovascular Disease; Visit Provider Internal Medicine Cardiovascular Disease
DX: N39.0 Urinary tract infection, site not specified (principal); Z95.2 Presence of prosthetic heart valve; Z79.01 Long term (current) use of anticoagulants
CPT/HCPCS: 36415; 85610; 87070; 87077; 87086; 87186; 87205; 87640

== ENCOUNTER 2020-08-28 12:48 | Outpatient (RCR) | payer MEDICARE, SELFPAY ==
[2020-04-24 13:27] VITALS: BMI 18.6
== END 2020-08-28 23:59 ==
LOC: IMMUN 12:48
PROVIDERS: PCP Family Medicine Geriatric Medicine; Referring Provider Family Medicine; Visit Provider Family Medicine
DX: Z23 Encounter for immunization (principal)
CPT/HCPCS: 0011A; 0012A

== ENCOUNTER 2020-08-31 16:09 | Outpatient (RCR) | payer MEDICARE, SELFPAY ==
[2020-04-24 13:27] VITALS: BMI 18.6
[2020-08-10 15:09] LABS: Prothrombin Time (Protime)PT. 30.7 SECONDS (11.7-14.9)
[2020-08-17 16:58] LABS: International Normalized Ratio 1.9
[2020-08-24 18:02] LABS: International Normalized Ratio 2.2; Prothrombin Time (Protime)PT. 24.4 SECONDS (11.7-14.9)
[2020-08-31 17:37] LABS: International Normalized Ratio 2.5; Prothrombin Time (Protime)PT. 26.7 SECONDS (11.7-14.9)
== END 2020-08-31 18:00 | disposition home or self-care (01) ==
LOC: LAB 16:09
PROVIDERS: Family Provider Internal Medicine; PCP Family Medicine Geriatric Medicine; Referring Provider Internal Medicine Cardiovascular Disease; Visit Provider Internal Medicine Cardiovascular Disease
DX: Z95.2 Presence of prosthetic heart valve (principal); Z79.01 Long term (current) use of anticoagulants
CPT/HCPCS: 36415; 85610

== ENCOUNTER 2020-09-14 16:10 | Outpatient (RCR) | payer MEDICARE, SELFPAY ==
[2020-04-24 13:27] VITALS: BMI 18.6
[2020-09-14 17:20] LABS: International Normalized Ratio 2.8; Prothrombin Time (Protime)PT. 28.7 SECONDS (11.7-14.9)
== END 2020-09-14 18:00 | disposition home or self-care (01) ==
LOC: LAB 16:10
PROVIDERS: Family Provider Internal Medicine; PCP Family Medicine Geriatric Medicine; Referring Provider Internal Medicine Cardiovascular Disease; Visit Provider Internal Medicine Cardiovascular Disease
DX: Z95.2 Presence of prosthetic heart valve (principal); Z79.01 Long term (current) use of anticoagulants
CPT/HCPCS: 36415; 85610

== ENCOUNTER → 2020-10-01 14:56 | Outpatient (CLI) | payer MEDICARE, SELFPAY ==
[2020-04-24 13:27] VITALS: BMI 18.6
[2020-10-01 18:05] LABS: Absolute Lymphocyte Count 1.86 X10^3/uL (0.83-4.51); Absolute Neutrophil Count 4.9 X10^3/uL (2.0-7.7); Basophil# 0.04 X10^3/uL; Basophil% 0.5 % (0-1); Eosinophil# 0.07 X10^3/uL; Eosinophils% 0.9 % (0-5); Hematocrit 44.4 % (37-47); Lymphocyte # 1.86 X10^3/ul (4.0); Lymphocyte % 25.2 % (19-41); Mean Corp Hgb Conc 31.5 g/dL (32-36); Mean Corpuscular Hgb 31.2 pg (27.0-32.0); Mean Corpuscular Volume 98.9 fL (81-99); Mean Platelet Vol. 10.9 fl (6.2-12.0); Monocyte% 6.8 % (0-10); NRBC Flagged by Analyzer 0 % (0-5); Neutrophil % 66.3 % (47-70); Platelet Count 184 K/mm3 (150-450); RBC Distribution Width CV 13.5 % (11.6-14.6); RBC Distribution Width SD 49.4 fl (35.1-43.9); Red Blood Count 4.49 M/mm3 (4.2-5.4); White Blood Count 7.4 K/mm3 (4.4-11.0)
[2020-10-01 18:30] LABS: ALB/GLOB Ratio 1.2 RATIO (0.9-2.4); AST(SGOT) 34 U/L (15-37); Alanine Aminotransfer ALT/SGPT 37 U/L (13-56); Alkaline Phosphatase 74 U/L (45-117); Anion Gap 6 (5-15); BUN 23 mg/dL (7-18); BUN/Creat Ratio 31.6 RATIO (10-20); Calcium,Total 9.6 mg/dL (8.5-10.1); Chloride 107 mmol/L (98-107); Creatinine, Serum 0.73 mg/dL (0.55-1.02); EST Glomerular Filtration Rate 81 mL/min (>60); Est Glom Filt Rate - Afr Amer 98 mL/min (>60); Globulin 3.3 g/dL (2.2-4.2); Glucose 92 mg/dL (74-106); Potassium 3.9 mmol/L (3.5-5.1); Protein, Total 7.3 g/dL (6.4-8.2); Sodium Level 141 mmol/L (136-145); Thyroid Stim Hormone (TSH) 1.88 uIU/mL (0.358-3.74)
== END ==
PROVIDERS: PCP Family Medicine Geriatric Medicine; Visit Provider Family Medicine Geriatric Medicine
DX: E55.9 Vitamin D deficiency, unspecified (principal); R53.83 Other fatigue
CPT/HCPCS: 36415; 80053; 82306; 84443; 85025

== ENCOUNTER 2020-11-02 13:53 | Outpatient (RCR) | payer MEDICARE, SELFPAY ==
[2020-04-24 13:27] VITALS: BMI 18.6
[2020-10-05 17:32] LABS: International Normalized Ratio 2.9; Prothrombin Time (Protime)PT. 29.7 SECONDS (11.7-14.9)
[2020-11-02 15:20] LABS: International Normalized Ratio 2.1; Prothrombin Time (Protime)PT. 22.7 SECONDS (11.7-14.9)
== END 2020-11-02 18:00 | disposition home or self-care (01) ==
LOC: LAB 13:53
PROVIDERS: Family Provider Internal Medicine; PCP Family Medicine Geriatric Medicine; Referring Provider Internal Medicine Cardiovascular Disease; Visit Provider Internal Medicine Cardiovascular Disease
DX: Z79.01 Long term (current) use of anticoagulants (principal); Z95.2 Presence of prosthetic heart valve
CPT/HCPCS: 36415; 85610

== ENCOUNTER 2020-12-04 16:29 | Outpatient (RCR) | payer MEDICARE, SELFPAY ==
[2020-10-27 15:58] VITALS: BMI 19.2
[2020-11-09 17:04] LABS: International Normalized Ratio 2.6; Prothrombin Time (Protime)PT. 27.3 SECONDS (11.7-14.9)
[2020-11-23 17:05] LABS: International Normalized Ratio 2.6; Prothrombin Time (Protime)PT. 26.8 SECONDS (11.7-14.9)
[2020-12-04 17:22] LABS: International Normalized Ratio 2.9; Prothrombin Time (Protime)PT. 29.6 SECONDS (11.7-14.9)
== END 2020-12-04 18:00 | disposition home or self-care (01) ==
LOC: LAB 16:29
PROVIDERS: Family Provider Internal Medicine; PCP Family Medicine Geriatric Medicine; Referring Provider Internal Medicine Cardiovascular Disease; Visit Provider Internal Medicine Cardiovascular Disease
DX: Z79.01 Long term (current) use of anticoagulants (principal); Z95.2 Presence of prosthetic heart valve
CPT/HCPCS: 36415; 85610

== ENCOUNTER 2020-12-28 16:19 | Outpatient (RCR) | payer MEDICARE, SELFPAY ==
[2020-10-27 15:58] VITALS: BMI 19.2
[2020-12-28 17:40] LABS: International Normalized Ratio 2.5; Prothrombin Time (Protime)PT. 26.5 SECONDS (11.7-14.9)
== END 2020-12-28 18:00 | disposition home or self-care (01) ==
LOC: LAB 16:19
PROVIDERS: Family Provider Internal Medicine; PCP Family Medicine Geriatric Medicine; Referring Provider Internal Medicine Cardiovascular Disease; Visit Provider Internal Medicine Cardiovascular Disease
DX: Z95.2 Presence of prosthetic heart valve (principal); Z79.01 Long term (current) use of anticoagulants
CPT/HCPCS: 36415; 85610

== ENCOUNTER 2021-01-25 16:07 | Outpatient (RCR) | payer MEDICARE, SELFPAY ==
[2020-10-27 15:58] VITALS: BMI 19.2
[2021-01-25 16:59] LABS: International Normalized Ratio 3.3; Prothrombin Time (Protime)PT. 32.6 SECONDS (11.7-14.9)
== END 2021-01-25 18:00 | disposition home or self-care (01) ==
LOC: LAB 16:07
PROVIDERS: Family Provider Internal Medicine; PCP Family Medicine Geriatric Medicine; Referring Provider Internal Medicine Cardiovascular Disease; Visit Provider Internal Medicine Cardiovascular Disease
DX: Z79.01 Long term (current) use of anticoagulants (principal); Z95.2 Presence of prosthetic heart valve
CPT/HCPCS: 36415; 85610

== ENCOUNTER → 2021-02-04 14:36 | Outpatient (CLI) | payer MEDICARE, SELFPAY ==
[2020-10-27 15:58] VITALS: BMI 19.2
[2021-02-04 15:43] LABS: Absolute Lymphocyte Count 0.95 X10^3/uL (0.83-4.51); Absolute Neutrophil Count 6.8 X10^3/uL (2.0-7.7); Basophil# 0.03 X10^3/uL; Basophil% 0.4 % (0-1); Eosinophil# 0.01 X10^3/uL; Eosinophils% 0.1 % (0-5); Hematocrit 44.8 % (37-47); Hemoglobin 14.3 g/dL (12.0-15.0); Lymphocyte # 0.95 X10^3/ul (0.83-4.51); Lymphocyte % 11.2 % (19-41); Mean Corp Hgb Conc 31.9 g/dL (32-36); Mean Corpuscular Hgb 30.5 pg (27.0-32.0); Mean Corpuscular Volume 95.5 fL (81-99); Mean Platelet Vol. 10.9 fl (6.2-12.0); Monocyte% 8.2 % (0-10); NRBC Flagged by Analyzer 0 % (0-5); Neutrophil # 6.78 X10^3/uL (2.7-7.7); Neutrophil % 79.9 % (47-70); Platelet Count 182 K/mm3 (150-450); RBC Distribution Width CV 12.8 % (11.6-14.6); Red Blood Count 4.69 M/mm3 (4.2-5.4); White Blood Count 8.5 K/mm3 (4.4-11.0)
[2021-02-04 16:06] LABS: ALB/GLOB Ratio 1.1 RATIO (0.9-2.4); AST(SGOT) 50 U/L (15-37); Alanine Aminotransfer ALT/SGPT 32 U/L (13-56); Albumin, Serum 3.7 g/dL (3.2-5.0); Alkaline Phosphatase 77 U/L (45-117); Anion Gap 9 (5-15); BUN 29 mg/dL (7-18); BUN/Creat Ratio 31.5 RATIO (10-20); Calcium,Total 8.9 mg/dL (8.5-10.1); Chloride 102 mmol/L (98-107); Creatinine, Serum 0.92 mg/dL (0.55-1.02); EST Glomerular Filtration Rate 61 mL/min (>60); Est Glom Filt Rate - Afr Amer 74 mL/min (>60); Globulin 3.5 g/dL (2.2-4.2); Glucose 118 mg/dL (74-106); Potassium 3.8 mmol/L (3.5-5.1); Protein, Total 7.2 g/dL (6.4-8.2); Sodium Level 141 mmol/L (136-145); Thyroid Stim Hormone (TSH) 0.71 uIU/mL (0.358-3.74)
== END ==
PROVIDERS: PCP Family Medicine Geriatric Medicine; Visit Provider Family Medicine Geriatric Medicine
DX: N39.0 Urinary tract infection, site not specified (principal); R53.83 Other fatigue
CPT/HCPCS: 36415; 80053; 84443; 85025; 87086; 87088

== ENCOUNTER 2021-03-03 15:14 | Outpatient (RCR) | payer MEDICARE, SELFPAY ==
[2020-10-27 15:58] VITALS: BMI 19.2
[2021-02-10 17:41] LABS: International Normalized Ratio 3.2; Prothrombin Time (Protime)PT. 32.1 SECONDS (11.7-14.9)
[2021-02-17 17:57] LABS: International Normalized Ratio 3.1; Prothrombin Time (Protime)PT. 30.8 SECONDS (11.7-14.9)
[2021-03-03 17:56] LABS: International Normalized Ratio 2.5; Prothrombin Time (Protime)PT. 26.4 SECONDS (11.7-14.9)
== END 2021-03-03 18:00 | disposition home or self-care (01) ==
LOC: LAB 15:14
PROVIDERS: Family Provider Internal Medicine; PCP Family Medicine Geriatric Medicine; Referring Provider Internal Medicine Cardiovascular Disease; Visit Provider Internal Medicine Cardiovascular Disease
DX: I48.11 Longstanding persistent atrial fibrillation (principal); Z79.01 Long term (current) use of anticoagulants; Z95.2 Presence of prosthetic heart valve
CPT/HCPCS: 36415; 85610

== ENCOUNTER 2021-03-24 16:14 | Outpatient (RCR) | payer MEDICARE, SELFPAY ==
[2020-10-27 15:58] VITALS: BMI 19.2
[2021-03-24 17:31] LABS: International Normalized Ratio 2.6; Prothrombin Time (Protime)PT. 26.8 SECONDS (11.7-14.9)
== END 2021-03-24 18:00 | disposition home or self-care (01) ==
LOC: LAB 16:14
PROVIDERS: Family Provider Internal Medicine; PCP Family Medicine Geriatric Medicine; Referring Provider Internal Medicine Cardiovascular Disease; Visit Provider Internal Medicine Cardiovascular Disease
DX: I48.11 Longstanding persistent atrial fibrillation (principal); Z79.01 Long term (current) use of anticoagulants; Z95.2 Presence of prosthetic heart valve
CPT/HCPCS: 36415; 85610

== ENCOUNTER → 2021-03-30 16:24 | Outpatient (CLI) | payer MEDICARE, SELFPAY ==
[2021-03-30 17:24] LABS: Absolute Lymphocyte Count 1.46 X10^3/uL (0.83-4.51); Basophil# 0.02 X10^3/uL; Basophil% 0.3 % (0-1); Eosinophil# 0.06 X10^3/uL; Hematocrit 40.4 % (37-47); Hemoglobin 13.2 g/dL (12.0-15.0); Lymphocyte # 1.46 X10^3/ul (0.83-4.51); Lymphocyte % 23.9 % (19-41); Mean Corp Hgb Conc 32.7 g/dL (32-36); Mean Corpuscular Hgb 31.5 pg (27.0-32.0); Mean Corpuscular Volume 96.4 fL (81-99); Mean Platelet Vol. 10.8 fl (6.2-12.0); Monocyte# 0.59 X10^3/uL; Monocyte% 9.6 % (0-10); NRBC Flagged by Analyzer 0 % (0-5); Neutrophil # 3.97 X10^3/uL (2.7-7.7); Neutrophil % 64.9 % (47-70); Platelet Count 195 K/mm3 (150-450); RBC Distribution Width CV 14.8 % (11.6-14.6); RBC Distribution Width SD 53.1 fl (35.1-43.9); Red Blood Count 4.19 M/mm3 (4.2-5.4); White Blood Count 6.1 K/mm3 (4.4-11.0)
[2021-03-30 17:41] LABS: ALB/GLOB Ratio 1.1 RATIO (0.9-2.4); AST(SGOT) 33 U/L (15-37); Alanine Aminotransfer ALT/SGPT 41 U/L (13-56); Albumin, Serum 3.6 g/dL (3.2-5.0); Alkaline Phosphatase 69 U/L (45-117); Anion Gap 5 (5-15); BUN 16 mg/dL (7-18); BUN/Creat Ratio 26.4 RATIO (10-20); Calcium,Total 9.1 mg/dL (8.5-10.1); Chloride 106 mmol/L (98-107); Creatinine, Serum 0.61 mg/dL (0.55-1.02); EST Glomerular Filtration Rate 100 mL/min (>60); Est Glom Filt Rate - Afr Amer 121 mL/min (>60); Globulin 3.2 g/dL (2.2-4.2); Glucose 96 mg/dL (74-106); Potassium 3.9 mmol/L (3.5-5.1); Protein, Total 6.8 g/dL (6.4-8.2); Sodium Level 138 mmol/L (136-145); Thyroid Stim Hormone (TSH) 1.37 uIU/mL (0.358-3.74); Vitamin D,25 Hydroxy 57.6 ng/mL
== END ==
PROVIDERS: PCP Family Medicine Geriatric Medicine; Visit Provider Family Medicine Geriatric Medicine
DX: E55.9 Vitamin D deficiency, unspecified (principal); R53.83 Other fatigue
CPT/HCPCS: 36415; 80053; 82306; 84443; 85025

== ENCOUNTER → 2021-04-06 08:22 | Outpatient (CLI) | payer MEDICARE, SELFPAY ==
--- NOTE | 2021-04-06 08:26 | EKG12_ITS ---
Test Reason : CP Blood Pressure : / mmHG Vent. Rate : 077 BPM Atrial Rate : 065 BPM P-R Int : 000 ms QRS Dur : 088 ms QT Int : 380 ms P-R-T Axes : 000 032 047 degrees QTc Int : 430 ms Atrial fibrillation Nonspecific ST and T wave abnormality Abnormal ECG Confirmed by GUALBERTO GAUTHIER, MAYDA ([id number]), publishing editor BERTA WEBSTER ([id number]) on 04/07/2021 9:55:53 AM Referred By: Roberto Del Castillo Confirmed By:MAYDA BURCIAGA MD
== END ==
PROVIDERS: PCP Family Medicine Geriatric Medicine; Referring Provider Family Medicine Geriatric Medicine; Visit Provider Family Medicine Geriatric Medicine
DX: R07.9 Chest pain, unspecified (principal)
CPT/HCPCS: 93005

== ENCOUNTER 2021-04-14 09:16 | Outpatient (RCR) | payer MEDICARE, SELFPAY ==
[2021-04-06 23:28] VITALS: BMI 19.2
[2021-04-14 10:39] LABS: International Normalized Ratio 2.6; Prothrombin Time (Protime)PT. 26.7 SECONDS (11.7-14.9)
[2021-05-12 18:01] LABS: International Normalized Ratio 2.4; Prothrombin Time (Protime)PT. 25.5 SECONDS (11.7-14.9)
== END 2021-04-14 18:00 | disposition home or self-care (01) ==
LOC: LAB 09:16
PROVIDERS: Family Provider Internal Medicine; PCP Family Medicine Geriatric Medicine; Referring Provider Internal Medicine Cardiovascular Disease; Visit Provider Internal Medicine Cardiovascular Disease
DX: I48.11 Longstanding persistent atrial fibrillation (principal); Z79.01 Long term (current) use of anticoagulants
CPT/HCPCS: 36415; 85610

== ENCOUNTER 2021-06-03 16:11 | Outpatient (RCR) | payer MEDICARE, SELFPAY ==
[2021-05-06 21:18] VITALS: BMI 19.2
[2021-05-27 17:32] LABS: International Normalized Ratio 2.2; Prothrombin Time (Protime)PT. 23.2 SECONDS (11.7-14.9)
[2021-06-03 17:34] LABS: International Normalized Ratio 1.8
== END 2021-06-06 18:00 | disposition home or self-care (01) ==
LOC: LAB 16:11
PROVIDERS: Family Provider Internal Medicine; PCP Family Medicine Geriatric Medicine; Referring Provider Internal Medicine Cardiovascular Disease; Visit Provider Internal Medicine Cardiovascular Disease
DX: I48.11 Longstanding persistent atrial fibrillation (principal); Z79.01 Long term (current) use of anticoagulants
CPT/HCPCS: 36415; 85610

== ENCOUNTER 2021-06-24 16:11 | Outpatient (RCR) | payer MEDICARE, SELFPAY ==
[2021-06-06 19:49] VITALS: BMI 19.2
[2021-06-10 17:24] LABS: International Normalized Ratio 2.4
[2021-06-24 16:56] LABS: International Normalized Ratio 2.3; Prothrombin Time (Protime)PT. 24.9 SECONDS (11.7-14.9)
== END 2021-07-06 18:00 | disposition home or self-care (01) ==
LOC: LAB 16:11
PROVIDERS: Family Provider Internal Medicine; PCP Family Medicine Geriatric Medicine; Referring Provider Internal Medicine Cardiovascular Disease; Visit Provider Internal Medicine Cardiovascular Disease
DX: I48.11 Longstanding persistent atrial fibrillation (principal); Z79.01 Long term (current) use of anticoagulants
CPT/HCPCS: 36415; 85610

== ENCOUNTER → 2021-07-27 14:22 | Outpatient (CLI) | payer MEDICARE, SELFPAY ==
--- NOTE | 2021-07-27 14:33 | RAD_ITS ---
STUDY: X-RAY CHEST REASON FOR EXAM: Female, 85 years old. CONGESTION OF MUCOSA TECHNIQUE: PA and lateral views of the chest. COMPARISON: 03/31/2020 FINDINGS: The lungs are clear and expanded. There is no demonstrated pleural abnormality. There is mild cardiac enlargement. Prior CABG. Normal mediastinum and jon. Normal visualized pulmonary arteries. Normal visualized aortic arch and descending thoracic aorta. There is no demonstrated abnormality of the visualized soft tissue structures of the upper abdomen. RAD/Chest PA and Lateral IMPRESSION: No acute abnormal cardiopulmonary finding. Electronically Signed: Ok Perez MD at 5:44 EST Tel , Service support ,
--- NOTE | 2021-07-27 14:33 | RAD_ITS ---
STUDY: X-RAY - ABDOMEN/PELVIS REASON FOR EXAM: Female, 85 years old. ABD PAIN TECHNIQUE: Two AP supine views of the abdomen and pelvis. COMPARISON: 01/01/2020 FINDINGS: Normal visualized lung bases. There is a moderate amount of colonic fecal material. Bowel gas pattern is nonobstructive. The visualized liver, spleen and kidneys are grossly normal in size and morphology. Normal soft tissue structures. RAD/Abdomen Single View IMPRESSION: Findings suggest constipation. Electronically Signed: Ok Perez MD at 5:41 EST Tel , Service support ,
== END ==
PROVIDERS: PCP Family Medicine Geriatric Medicine; Referring Provider Family Medicine Geriatric Medicine; Visit Provider Family Medicine Geriatric Medicine
DX: R68.83 Chills (without fever) (principal); R10.9 Unspecified abdominal pain; R09.89 Other specified symptoms and signs involving the circulatory and respiratory systems
CPT/HCPCS: 71046; 74018; 87635; 87804; 87807; C9803; U0005; U0003

== ENCOUNTER 2021-08-05 09:53 | Outpatient (RCR) | payer MEDICARE, SELFPAY ==
[2021-07-07 03:26] VITALS: BMI 19.2
[2021-07-08 17:45] LABS: International Normalized Ratio 2.6; Prothrombin Time (Protime)PT. 26.7 SECONDS (11.7-14.9)
[2021-07-22 18:11] LABS: International Normalized Ratio 2.8; Prothrombin Time (Protime)PT. 28.4 SECONDS (11.7-14.9)
[2021-08-02 16:12] LABS: Prothrombin Time (Protime)PT. 47.4 SECONDS (11.7-14.9)
[2021-08-02 16:15] LABS: International Normalized Ratio 5.2
[2021-08-05 10:53] LABS: International Normalized Ratio 1.9; Prothrombin Time (Protime)PT. 20.8 SECONDS (11.7-14.9)
== END 2021-08-07 18:00 | disposition home or self-care (01) ==
LOC: LAB 09:53
PROVIDERS: Family Provider Internal Medicine; PCP Family Medicine Geriatric Medicine; Referring Provider Internal Medicine Cardiovascular Disease; Visit Provider Internal Medicine Cardiovascular Disease
DX: I48.11 Longstanding persistent atrial fibrillation (principal); Z79.01 Long term (current) use of anticoagulants
CPT/HCPCS: 36415; 85610

== ENCOUNTER 2021-09-02 16:33 | Outpatient (RCR) | payer MEDICARE, SELFPAY ==
[2021-08-08 04:28] VITALS: BMI 19.2
[2021-08-12 17:11] LABS: International Normalized Ratio 2.5; Prothrombin Time (Protime)PT. 26.6 SECONDS (11.7-14.9)
[2021-08-19 17:19] LABS: International Normalized Ratio 2.5; Prothrombin Time (Protime)PT. 26.1 SECONDS (11.7-14.9)
[2021-09-02 16:58] LABS: International Normalized Ratio 2.3; Prothrombin Time (Protime)PT. 24.6 SECONDS (11.7-14.9)
== END 2021-09-06 18:00 | disposition home or self-care (01) ==
LOC: LAB 16:33
PROVIDERS: Family Provider Internal Medicine; PCP Family Medicine Geriatric Medicine; Referring Provider Internal Medicine Cardiovascular Disease; Visit Provider Internal Medicine Cardiovascular Disease
DX: I48.11 Longstanding persistent atrial fibrillation (principal); Z79.01 Long term (current) use of anticoagulants
CPT/HCPCS: 36415; 85610

== ENCOUNTER 2021-09-17 09:50 | Outpatient (CLI) | payer MEDICARE, SELFPAY ==
--- NOTE | 2021-09-17 09:54 | ECHOD_ITS ---
Reason For Study: Valve Replacement Procedure This was a 2D Doppler, Color Flow transthoracic echocardiogram. Technically difficult study, patient had a very difficult time laying on left side and staying in position. The study was technically difficult. Exam performed in department. Left Ventricle Normal LV size. Left ventricular systolic function is normal. The estimated ejection fraction is 60 %. Post operative septal motion. No regional wall motion abnormalities noted. Right Ventricle Normal RV size. Normal systolic function. Atria The left atrium is moderately enlarged. The right atrium is moderately enlarged. No doppler evidence for ASD. Mitral Valve There is mild mitral annular calcification. Anterior leaflet diffuse mitral valve thickening. The mitral papillary muscle appears thickened and/or calcified. Trivial mitral valve insufficiency. Tricuspid Valve Normal tricuspid valve. Moderate (2+) eccentric tricuspid valve insufficiency. Right ventricular systolic pressure estimated to be 28 mmHg. Aortic Valve Stable appearing mechanical aortic valve apparatus. Trivial transvalvular insufficiency of the aortic valve. Pulmonic Valve The pulmonic valve is not well visualized. Great Vessels Normal sized aortic root. Pericardium/Pleural No pericardial effusion. MMode/2D Measurements & Calculations LVIDd: 4.2 cm IVSd: 1.1 cm Ao root diam: 3.7 cm LVIDs: 2.7 cm LVPWd: 1.1 cm LA dimension: 3.1 cm RVDd: 3.8 cm FS: 37.4 % LAV(MOD-bp): 69.4 ml LA A4 area: 20.0 cm2 RA A4 area: 18.7 cm2 LAV(MOD-bp) Indexed: 43.4 ml/m2 LAV(MOD-sp2): 75.6 ml LAV(MOD-sp4): 56.8 ml Time Measurements MV dec time: 0.19 sec Doppler Measurements & Calculations MV E max charan: 85.7 cm/sec Lat Peak E' Charan: 11.4 cm/sec Med Peak E' Charan: 10.8 cm/sec MV A max charan: 27.8 cm/sec E/E' lat: 7.5 E/E' med: 8.0 MV E/A: 3.1 MV V2 max: 103.1 cm/sec MV P1/2t max charan: 103.5 cm/sec Ao V2 max: 209.0 cm/sec MV max P.3 mmHg MV P1/2t: 76.6 msec Ao max P.5 mmHg MV V2 mean: 55.2 cm/sec MV dec slope: 396.0 cm/sec2 Ao V2 mean: 146.4 cm/sec MV mean P.5 mmHg MVA(P1/2t): 2.9 cm2 Ao mean P.5 mmHg MV V2 VTI: 21.3 cm Ao V2 VTI: 38.3 cm LV V1 max: 169.9 cm/sec PA V2 max: 77.1 cm/sec TR max charan: 250.8 cm/sec LV V1 max P.6 mmHg TR max P.2 mmHg LV V1 mean P.2 mmHg LV V1 mean: 115.4 cm/sec LV V1 VTI: 35.6 cm ECHO/Echo Complete Interpretation Summary The study was technically difficult. Left ventricular systolic function is normal. The estimated ejection fraction is 60 %. Post operative septal motion. The left atrium is moderately enlarged. The right atrium is moderately enlarged. There is mild mitral annular calcification. Anterior leaflet diffuse mitral valve thickening. The mitral papillary muscle appears thickened and/or calcified. Trivial mitral valve insufficiency. Moderate (2+) eccentric tricuspid valve insufficiency. Stable appearing mechanical aortic valve apparatus. Trivial transvalvular insufficiency of the aortic valve. Right ventricular systolic pressure estimated to be 28 mmHg. Transmitral diastolic flow velocities suggest diastolic dysfunction (pseudonorm al pattern). Ordering Physician: Ok Rodas Referring Physician: Roberto Del Castillo Chi Performed By: Jhonathan Hart RCS
== END 2021-09-17 23:59 | disposition home or self-care (01) ==
LOC: CVS 09:54
PROVIDERS: PCP Family Medicine Geriatric Medicine; Referring Provider Internal Medicine Cardiovascular Disease; Visit Provider Internal Medicine Cardiovascular Disease
DX: Z95.2 Presence of prosthetic heart valve (principal)
CPT/HCPCS: 93306

== ENCOUNTER 2021-09-24 13:19 | Outpatient (RCR) | payer MEDICARE, SELFPAY ==
[2021-09-07 01:17] VITALS: BMI 19.2
[2021-09-10 17:16] LABS: International Normalized Ratio 2.7; Prothrombin Time (Protime)PT. 27.8 SECONDS (11.7-14.9)
[2021-09-24 14:02] LABS: International Normalized Ratio 2.6; Prothrombin Time (Protime)PT. 26.9 SECONDS (11.7-14.9)
== END 2021-09-24 23:59 | disposition home or self-care (01) ==
LOC: LAB 13:19
PROVIDERS: Family Provider Internal Medicine; PCP Family Medicine Geriatric Medicine; Referring Provider Internal Medicine Cardiovascular Disease; Visit Provider Internal Medicine Cardiovascular Disease
DX: I48.11 Longstanding persistent atrial fibrillation (principal); Z79.01 Long term (current) use of anticoagulants
CPT/HCPCS: 36415; 85610

== ENCOUNTER 2021-10-04 15:20 | Outpatient (CLI) | payer MEDICARE, SELFPAY ==
[2021-10-04 17:22] LABS: Absolute Lymphocyte Count 1.69 X10^3/uL (0.83-4.51); Absolute Neutrophil Count 4.3 X10^3/uL (2.0-7.7); Basophil# 0.03 X10^3/uL; Basophil% 0.5 % (0-1); Eosinophils% 1.5 % (0-5); Hematocrit 41.2 % (37-47); Hemoglobin 13.3 g/dL (12.0-15.0); Lymphocyte # 1.69 X10^3/ul (0.83-4.51); Lymphocyte % 25.4 % (19-41); Mean Corp Hgb Conc 32.3 g/dL (32-36); Mean Corpuscular Hgb 30.5 pg (27.0-32.0); Mean Corpuscular Volume 94.5 fL (81-99); Mean Platelet Vol. 10.7 fl (6.2-12.0); Monocyte# 0.58 X10^3/uL; Monocyte% 8.7 % (0-10); NRBC Flagged by Analyzer 0 % (0-5); Neutrophil # 4.25 X10^3/uL (2.7-7.7); Neutrophil % 63.7 % (47-70); Platelet Count 193 K/mm3 (150-450); RBC Distribution Width CV 14.8 % (11.6-14.6); RBC Distribution Width SD 52.6 fl (35.1-43.9); Red Blood Count 4.36 M/mm3 (4.2-5.4); White Blood Count 6.7 K/mm3 (4.4-11.0)
[2021-10-04 18:17] LABS: Vitamin D,25 Hydroxy 36.1 ng/mL
[2021-10-04 18:23] LABS: AST(SGOT) 37 U/L (15-37); Alanine Aminotransfer ALT/SGPT 44 U/L (13-56); Albumin, Serum 3.7 g/dL (3.2-5.0); Alkaline Phosphatase 85 U/L (45-117); Anion Gap 4 (5-15); BUN 15 mg/dL (7-18); BUN/Creat Ratio 21.5 RATIO (10-20); Calcium,Total 8.9 mg/dL (8.5-10.1); Chloride 108 mmol/L (98-107); EST Glomerular Filtration Rate 85 mL/min (>60); Est Glom Filt Rate - Afr Amer 102 mL/min (>60); Globulin 3.6 g/dL (2.2-4.2); Glucose 86 mg/dL (74-106); Potassium 4.2 mmol/L (3.5-5.1); Protein, Total 7.3 g/dL (6.4-8.2); Sodium Level 143 mmol/L (136-145); Thyroid Stim Hormone (TSH) 1.63 uIU/mL (0.358-3.74)
== END 2021-10-04 23:59 | disposition home or self-care (01) ==
LOC: POLAB3 15:21
PROVIDERS: PCP Family Medicine Geriatric Medicine; Visit Provider Family Medicine Geriatric Medicine
DX: E55.9 Vitamin D deficiency, unspecified (principal); R53.83 Other fatigue
CPT/HCPCS: 36415; 80053; 82306; 84443; 85025

== ENCOUNTER 2021-10-22 11:30 | Outpatient (CLI) | payer MEDICARE, SELFPAY ==
--- NOTE | 2021-10-22 11:34 | RAD_ITS ---
STUDY: X-RAY - LEFT SHOULDER REASON FOR EXAM: Female, 86 years old. Pain, decreased range of motion TECHNIQUE: 4 view(s) of the shoulder. COMPARISON: None. FINDINGS: There is mild degenerative arthrosis of the glenohumeral articulation. There is degenerative arthrosis of the acromioclavicular joint without inferior osseous spur formation. Normal acromion. There is demineralization of the humerus and visualized osseous structures. The soft tissue structures are unremarkable. Normal visualized pulmonary apex. RAD/Shoulder min 2 Views IMPRESSION: Degenerative arthrosis Electronically Signed: Brody Galdamez MD at 16:53 EDT ,
== END 2021-10-22 23:59 | disposition home or self-care (01) ==
LOC: RAD 11:33
PROVIDERS: PCP Family Medicine Geriatric Medicine; Referring Provider Family Medicine Geriatric Medicine; Visit Provider Family Medicine Geriatric Medicine
DX: M19.012 Primary osteoarthritis, left shoulder (principal); I48.11 Longstanding persistent atrial fibrillation; Z79.01 Long term (current) use of anticoagulants
CPT/HCPCS: 36415; 73030; 85610

== ENCOUNTER 2021-11-03 16:15 | Outpatient (RCR) | payer MEDICARE, SELFPAY ==
[2021-10-05 09:46] VITALS: BMI 19.2
[2021-10-15 14:19] LABS: Prothrombin Time (Protime)PT. 40.2 SECONDS (11.7-14.9)
[2021-10-15 14:26] LABS: International Normalized Ratio 4.3
[2021-10-22 11:44] LABS: International Normalized Ratio 2.9; Prothrombin Time (Protime)PT. 29.2 SECONDS (11.7-14.9)
[2021-10-27 15:37] LABS: International Normalized Ratio 2.1; Prothrombin Time (Protime)PT. 22.6 SECONDS (11.7-14.9)
[2021-11-03 16:47] LABS: International Normalized Ratio 2.7; Prothrombin Time (Protime)PT. 27.5 SECONDS (11.7-14.9)
== END 2021-11-04 18:00 | disposition home or self-care (01) ==
LOC: LAB 16:15
PROVIDERS: Family Provider Internal Medicine; PCP Family Medicine Geriatric Medicine; Referring Provider Internal Medicine Cardiovascular Disease; Visit Provider Internal Medicine Cardiovascular Disease
DX: I48.11 Longstanding persistent atrial fibrillation (principal); Z79.01 Long term (current) use of anticoagulants
CPT/HCPCS: 36415; 85610

== ENCOUNTER 2021-11-29 16:39 | Outpatient (RCR) | payer MEDICARE, SELFPAY ==
[2021-11-05 02:34] VITALS: BMI 19.2
[2021-11-17 17:18] LABS: Prothrombin Time (Protime)PT. 44.4 SECONDS (11.7-14.9)
[2021-11-17 17:26] LABS: International Normalized Ratio 4.8
[2021-11-22 17:32] LABS: International Normalized Ratio 3.6; Prothrombin Time (Protime)PT. 35.6 SECONDS (11.7-14.9)
[2021-11-29 17:41] LABS: International Normalized Ratio 2.2; Prothrombin Time (Protime)PT. 24.2 SECONDS (11.7-14.9)
== END 2021-11-29 18:00 | disposition home or self-care (01) ==
LOC: LAB 16:39
PROVIDERS: Family Provider Internal Medicine; PCP Family Medicine Geriatric Medicine; Referring Provider Internal Medicine Cardiovascular Disease; Visit Provider Internal Medicine Cardiovascular Disease
DX: I48.11 Longstanding persistent atrial fibrillation (principal); Z79.01 Long term (current) use of anticoagulants
CPT/HCPCS: 36415; 85610

== ENCOUNTER 2021-12-14 16:58 | Outpatient (CLI) | payer MEDICARE, SELFPAY ==
[2021-12-15 08:25] LABS: Syphilis Antibodies Non-reactive; Vitamin B12 341 pg/mL (211-911)
== END 2021-12-14 23:59 | disposition home or self-care (01) ==
LOC: LABSPEC 16:59
PROVIDERS: PCP Family Medicine Geriatric Medicine; Visit Provider Family Medicine Geriatric Medicine
DX: F06.8 Other specified mental disorders due to known physiological condition (principal); G30.9 Alzheimer's disease, unspecified; N39.0 Urinary tract infection, site not specified
CPT/HCPCS: 36415; 82607; 82746; 86780; 87086; 87088

== ENCOUNTER 2021-12-20 16:13 | Outpatient (RCR) | payer MEDICARE, SELFPAY ==
[2021-12-05 03:28] VITALS: BMI 19.2
[2021-12-13 18:15] LABS: International Normalized Ratio 2.1; Prothrombin Time (Protime)PT. 23.3 SECONDS (11.7-14.9)
[2021-12-20 16:58] LABS: International Normalized Ratio 2.7
== END 2021-12-20 18:00 | disposition home or self-care (01) ==
LOC: LAB 16:13
PROVIDERS: Family Provider Internal Medicine; PCP Family Medicine Geriatric Medicine; Referring Provider Internal Medicine Cardiovascular Disease; Visit Provider Internal Medicine Cardiovascular Disease
DX: I48.11 Longstanding persistent atrial fibrillation (principal); Z79.01 Long term (current) use of anticoagulants
CPT/HCPCS: 36415; 85610

== ENCOUNTER → 2021-12-24 | Outpatient (CLI) | payer MEDICARE, SELFPAY ==
--- NOTE | 2021-12-24 14:10 | CT_ITS ---
STUDY: CT BRAIN WITHOUT CONTRAST REASON FOR EXAM: Female, 86 years old. Headaches. RADIATION DOSAGE (If Supplied By Facility): CTDIvol = ( 47.06 ) mGy, DLP = ( 872.68 ) mGycm TECHNIQUE: Transaxial CT imaging of the brain was performed without administration of intravenous contrast material. Individualized dose optimization techniques were used for this CT. COMPARISON: No relevant priors. FINDINGS: Normal soft tissue structures. Normal calvarium. There is disproportionate enlargement of the lateral and third ventricles, as compared to the extra-axial spaces. The findings suggest normal pressure hydrocephalus (NPH). Normal white matter tracts of the cerebral hemispheres. Normal basal ganglia and thalami. Normal brainstem. There is mild cerebellar atrophy. There is no intracranial hemorrhage. There are no findings of an acute ischemic infarction. Atherosclerotic calcification of the cavernous portions of the internal carotid artery bilaterally. Normal visualized paranasal sinuses. 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 Electronically Signed: Maurisio Yee MD at 14:58 EDT ,
[2021-12-24 15:05] LABS: Homocysteine 8.5 umol/L (3.2-10.7)
[2021-12-30 18:18] LABS: Methylmalonic Acid Bld 188 nmol/L (0-378)
== END | disposition home or self-care (01) ==
LOC: CT 13:24
PROVIDERS: PCP Family Medicine Geriatric Medicine; Referring Provider Family Medicine Geriatric Medicine; Visit Provider Family Medicine Geriatric Medicine
DX: G30.9 Alzheimer's disease, unspecified (principal); D51.9 Vitamin B12 deficiency anemia, unspecified; R51.9 Headache, unspecified
CPT/HCPCS: 36415; 70450; 83090; 83921

== ENCOUNTER 2022-02-02 16:21 | Outpatient (RCR) | payer MEDICARE, SELFPAY ==
[2022-01-04 20:47] VITALS: BMI 19.2
[2022-01-05 17:42] LABS: International Normalized Ratio 1.9; Prothrombin Time (Protime)PT. 21.4 SECONDS (11.7-14.9)
[2022-01-12 17:37] LABS: International Normalized Ratio 2.1; Prothrombin Time (Protime)PT. 23.3 SECONDS (11.7-14.9)
[2022-01-18 17:16] LABS: International Normalized Ratio 2.5; Prothrombin Time (Protime)PT. 26.5 SECONDS (11.7-14.9)
[2022-02-02 17:22] LABS: International Normalized Ratio 2.4; Prothrombin Time (Protime)PT. 26.1 SECONDS (11.7-14.9)
== END 2022-02-02 23:59 | disposition home or self-care (01) ==
LOC: LAB 16:21
PROVIDERS: Family Provider Internal Medicine; PCP Family Medicine Geriatric Medicine; Referring Provider Internal Medicine Cardiovascular Disease; Visit Provider Internal Medicine Cardiovascular Disease
DX: I48.11 Longstanding persistent atrial fibrillation (principal); Z79.01 Long term (current) use of anticoagulants
CPT/HCPCS: 36415; 85610

== ENCOUNTER 2022-02-16 16:10 | Outpatient (RCR) | payer MEDICARE, SELFPAY ==
[2022-02-04 07:07] VITALS: BMI 19.2
[2022-02-16 16:58] LABS: International Normalized Ratio 2.6; Prothrombin Time (Protime)PT. 27.8 SECONDS (11.7-14.9)
== END 2022-03-06 02:43 | disposition home or self-care (01) ==
LOC: LAB 16:10
PROVIDERS: Family Provider Internal Medicine; PCP Family Medicine Geriatric Medicine; Referring Provider Internal Medicine Cardiovascular Disease; Visit Provider Internal Medicine Cardiovascular Disease
DX: I48.11 Longstanding persistent atrial fibrillation (principal); Z79.01 Long term (current) use of anticoagulants; Z95.2 Presence of prosthetic heart valve
CPT/HCPCS: 36415; 85610

== ENCOUNTER 2022-03-23 16:11 | Outpatient (RCR) | payer MEDICARE, SELFPAY ==
[2022-03-06 02:43] VITALS: BMI 19.2
[2022-03-09 14:45] LABS: International Normalized Ratio 2.2; Prothrombin Time (Protime)PT. 24.2 SECONDS (11.7-14.9)
[2022-03-23 17:49] LABS: International Normalized Ratio 2.7; Prothrombin Time (Protime)PT. 28.5 SECONDS (11.7-14.9)
== END 2022-03-23 18:00 | disposition home or self-care (01) ==
LOC: LAB 16:11
PROVIDERS: Family Provider Internal Medicine; PCP Family Medicine Geriatric Medicine; Referring Provider Internal Medicine Cardiovascular Disease; Visit Provider Internal Medicine Cardiovascular Disease
DX: I48.11 Longstanding persistent atrial fibrillation (principal); Z95.2 Presence of prosthetic heart valve; Z79.01 Long term (current) use of anticoagulants
CPT/HCPCS: 36415; 85610

== ENCOUNTER 2022-05-05 11:41 | Outpatient (RCR) | payer MEDICARE, SELFPAY ==
[2022-04-06 23:09] VITALS: BMI 19.2
[2022-04-13 17:15] LABS: Prothrombin Time (Protime)PT. 31.1 SECONDS (11.7-14.9)
== END 2022-05-05 18:00 | disposition home or self-care (01) ==
LOC: LAB 11:41
PROVIDERS: Family Provider Internal Medicine; PCP Family Medicine Geriatric Medicine; Referring Provider Internal Medicine Cardiovascular Disease; Visit Provider Internal Medicine Cardiovascular Disease
DX: I48.11 Longstanding persistent atrial fibrillation (principal); Z95.2 Presence of prosthetic heart valve; Z79.01 Long term (current) use of anticoagulants
CPT/HCPCS: 36415; 85610

== ENCOUNTER → 2022-05-26 | Outpatient (CLI) | payer MEDICARE, SELFPAY ==
[2022-05-26 17:33] LABS: Absolute Lymphocyte Count 1.59 X10^3/uL (0.83-4.51); Absolute Neutrophil Count 2.9 X10^3/uL (2.0-7.7); Basophil# 0.03 X10^3/uL; Basophil% 0.6 % (0-1); Eosinophil# 0.04 X10^3/uL; Eosinophils% 0.8 % (0-5); Hematocrit 41.8 % (37-47); Hemoglobin 13.2 g/dL (12.0-15.0); Lymphocyte # 1.59 X10^3/ul (0.83-4.51); Mean Corp Hgb Conc 31.6 g/dL (32-36); Mean Corpuscular Hgb 30.2 pg (27.0-32.0); Mean Corpuscular Volume 95.7 fL (81-99); Mean Platelet Vol. 11.2 fl (6.2-12.0); Monocyte# 0.55 X10^3/uL; Monocyte% 10.7 % (0-10); NRBC Flagged by Analyzer 0 % (0-5); Neutrophil # 2.91 X10^3/uL (2.7-7.7); Neutrophil % 56.7 % (47-70); Platelet Count 182 K/mm3 (150-450); RBC Distribution Width SD 49.4 fl (35.1-43.9); Red Blood Count 4.37 M/mm3 (4.2-5.4); White Blood Count 5.1 K/mm3 (4.4-11.0)
[2022-05-26 18:09] LABS: Vitamin D,25 Hydroxy 50.1 ng/mL
[2022-05-26 18:31] LABS: ALB/GLOB Ratio 1.1 RATIO (0.9-2.4); AST(SGOT) 35 U/L (15-37); Alanine Aminotransfer ALT/SGPT 41 U/L (13-56); Albumin, Serum 3.7 g/dL (3.2-5.0); Alkaline Phosphatase 82 U/L (45-117); Anion Gap 6 (5-15); BUN 18 mg/dL (7-18); BUN/Creat Ratio 25.7 RATIO (10-20); Calcium,Total 9.3 mg/dL (8.5-10.1); Chloride 105 mmol/L (98-107); EST Glomerular Filtration Rate 84 mL/min (>60); Est Glom Filt Rate - Afr Amer 102 mL/min (>60); Globulin 3.4 g/dL (2.2-4.2); Glucose 73 mg/dL (74-106); Potassium 3.9 mmol/L (3.5-5.1); Protein, Total 7.1 g/dL (6.4-8.2); Sodium Level 139 mmol/L (136-145); Thyroid Stim Hormone (TSH) 2.31 uIU/mL (0.358-3.74)
== END | disposition home or self-care (01) ==
LOC: POLAB3 16:07
PROVIDERS: PCP Family Medicine Geriatric Medicine; Visit Provider Family Medicine Geriatric Medicine
DX: E55.9 Vitamin D deficiency, unspecified (principal); R53.83 Other fatigue
CPT/HCPCS: 36415; 80053; 82306; 84443; 85025

== ENCOUNTER 2022-06-01 16:17 | Outpatient (RCR) | payer MEDICARE, SELFPAY ==
[2022-05-06 21:40] VITALS: BMI 19.2
[2022-05-11 17:36] LABS: International Normalized Ratio 1.9
[2022-05-18 17:16] LABS: Prothrombin Time (Protime)PT. 22.5 SECONDS (11.7-14.9)
[2022-06-01 17:02] LABS: International Normalized Ratio 2.8; Prothrombin Time (Protime)PT. 29.1 SECONDS (11.7-14.9)
== END 2022-06-01 18:00 | disposition home or self-care (01) ==
LOC: LAB 16:17
PROVIDERS: Family Provider Internal Medicine; PCP Family Medicine Geriatric Medicine; Referring Provider Internal Medicine Cardiovascular Disease; Visit Provider Internal Medicine Cardiovascular Disease
DX: I48.11 Longstanding persistent atrial fibrillation (principal); Z95.2 Presence of prosthetic heart valve; Z79.01 Long term (current) use of anticoagulants
CPT/HCPCS: 36415; 85610

== ENCOUNTER 2022-07-05 16:44 | Outpatient (RCR) | payer MEDICARE, SELFPAY ==
[2022-06-07 10:05] VITALS: BMI 19.2
[2022-06-14 14:11] LABS: International Normalized Ratio 3.2; Prothrombin Time (Protime)PT. 32.2 SECONDS (11.7-14.9)
[2022-07-05 17:16] LABS: International Normalized Ratio 3.1; Prothrombin Time (Protime)PT. 31.5 SECONDS (11.7-14.9)
== END 2022-07-06 18:00 | disposition home or self-care (01) ==
LOC: LAB 16:44
PROVIDERS: Family Provider Internal Medicine; PCP Family Medicine Geriatric Medicine; Referring Provider Internal Medicine Cardiovascular Disease; Visit Provider Internal Medicine Cardiovascular Disease
DX: I48.11 Longstanding persistent atrial fibrillation (principal); Z95.2 Presence of prosthetic heart valve; Z79.01 Long term (current) use of anticoagulants
CPT/HCPCS: 36415; 85610

== ENCOUNTER 2022-08-02 16:45 | Outpatient (RCR) | payer MEDICARE, SELFPAY ==
[2022-07-07 00:28] VITALS: BMI 19.2
[2022-07-26 16:17] LABS: Prothrombin Time (Protime)PT. 43.3 SECONDS (11.7-14.9)
[2022-07-26 16:46] LABS: International Normalized Ratio 4.6
[2022-08-02 17:58] LABS: International Normalized Ratio 2.2; Prothrombin Time (Protime)PT. 24.4 SECONDS (11.7-14.9)
== END 2022-08-02 18:00 | disposition home or self-care (01) ==
LOC: LAB 16:45
PROVIDERS: Family Provider Internal Medicine; PCP Family Medicine Geriatric Medicine; Referring Provider Internal Medicine Cardiovascular Disease; Visit Provider Internal Medicine Cardiovascular Disease
DX: I48.11 Longstanding persistent atrial fibrillation (principal); Z95.2 Presence of prosthetic heart valve; Z79.01 Long term (current) use of anticoagulants
CPT/HCPCS: 36415; 85610

== ENCOUNTER 2022-08-24 16:36 | Outpatient (RCR) | payer MEDICARE, SELFPAY ==
[2022-08-07 04:02] VITALS: BMI 19.2
[2022-08-09 16:36] LABS: International Normalized Ratio 3.1; Prothrombin Time (Protime)PT. 31.3 SECONDS (11.7-14.9)
[2022-08-24 17:09] LABS: International Normalized Ratio 2.4; Prothrombin Time (Protime)PT. 26.2 SECONDS (11.7-14.9)
== END 2022-08-24 18:00 | disposition home or self-care (01) ==
LOC: LAB 16:36
PROVIDERS: Family Provider Internal Medicine; PCP Family Medicine Geriatric Medicine; Referring Provider Internal Medicine Cardiovascular Disease; Visit Provider Internal Medicine Cardiovascular Disease
DX: I48.11 Longstanding persistent atrial fibrillation (principal); Z95.2 Presence of prosthetic heart valve; Z79.01 Long term (current) use of anticoagulants
CPT/HCPCS: 36415; 85610

== ENCOUNTER 2022-09-26 16:31 | Outpatient (RCR) | payer MEDICARE, SELFPAY ==
[2022-09-07 08:04] VITALS: BMI 19.2
[2022-09-07 16:22] LABS: International Normalized Ratio 2.4; Prothrombin Time (Protime)PT. 25.7 SECONDS (11.7-14.9)
[2022-09-22 17:29] LABS: Prothrombin Time (Protime)PT. 46.2 SECONDS (11.7-14.9)
[2022-09-26 17:12] LABS: International Normalized Ratio 2.2; Prothrombin Time (Protime)PT. 23.9 SECONDS (11.7-14.9)
== END 2022-09-26 18:00 | disposition home or self-care (01) ==
LOC: LAB 16:31
PROVIDERS: Family Provider Internal Medicine; PCP Family Medicine Geriatric Medicine; Referring Provider Internal Medicine Cardiovascular Disease; Visit Provider Internal Medicine Cardiovascular Disease
DX: I48.11 Longstanding persistent atrial fibrillation (principal); Z95.2 Presence of prosthetic heart valve; Z79.01 Long term (current) use of anticoagulants
CPT/HCPCS: 36415; 85610

== ENCOUNTER → 2022-10-07 | Outpatient (CLI) | payer MEDICARE, SELFPAY ==
[2022-10-07 12:41] LABS: Absolute Lymphocyte Count 1.56 X10^3/uL (0.83-4.51); Basophil# 0.02 X10^3/uL; Basophil% 0.5 % (0-1); Eosinophil# 0.11 X10^3/uL; Eosinophils% 2.6 % (0-5); Hematocrit 39.7 % (37-47); Hemoglobin 13.1 g/dL (12.0-15.0); Lymphocyte # 1.56 X10^3/ul (0.83-4.51); Lymphocyte % 37.1 % (19-41); Mean Corpuscular Hgb 30.1 pg (27.0-32.0); Mean Corpuscular Volume 91.3 fL (81-99); Monocyte# 0.46 X10^3/uL; NRBC Flagged by Analyzer 0 % (0-5); Neutrophil # 2.04 X10^3/uL (2.7-7.7); Neutrophil % 48.6 % (47-70); Platelet Count 149 K/mm3 (150-450); RBC Distribution Width CV 14.6 % (11.6-14.6); RBC Distribution Width SD 49.4 fl (35.1-43.9); Red Blood Count 4.35 M/mm3 (4.2-5.4); White Blood Count 4.2 K/mm3 (4.4-11.0)
[2022-10-07 12:55] LABS: Vitamin D,25 Hydroxy 58.2 ng/mL
[2022-10-07 13:06] LABS: AST(SGOT) 30 U/L (15-37); Alanine Aminotransfer ALT/SGPT 29 U/L (13-56); Albumin, Serum 3.5 g/dL (3.2-5.0); Alkaline Phosphatase 76 U/L (45-117); Anion Gap 7 (5-15); BUN 11 mg/dL (7-18); BUN/Creat Ratio 13.4 RATIO (10-20); Calcium,Total 9.4 mg/dL (8.5-10.1); Chloride 102 mmol/L (98-107); Creatinine, Serum 0.82 mg/dL (0.55-1.02); EST Glomerular Filtration Rate 70 mL/min (>60); Est Glom Filt Rate - Afr Amer 85 mL/min (>60); Globulin 3.4 g/dL (2.2-4.2); Glucose 141 mg/dL (74-106); Potassium 3.8 mmol/L (3.5-5.1); Protein, Total 6.9 g/dL (6.4-8.2); Sodium Level 138 mmol/L (136-145)
== END | disposition home or self-care (01) ==
LOC: POLAB3 10:14
PROVIDERS: PCP Family Medicine Geriatric Medicine; Visit Provider Family Medicine Geriatric Medicine
DX: R53.83 Other fatigue (principal); E55.9 Vitamin D deficiency, unspecified
CPT/HCPCS: 36415; 80053; 82306; 84443; 85025

== ENCOUNTER 2022-10-24 16:27 | Outpatient (RCR) | payer MEDICARE, SELFPAY ==
[2022-10-04 23:05] VITALS: BMI 19.2
[2022-10-10 17:26] LABS: International Normalized Ratio 2.4; Prothrombin Time (Protime)PT. 25.7 SECONDS (11.7-14.9)
[2022-10-24 18:50] LABS: Prothrombin Time (Protime)PT. 30.6 SECONDS (11.7-14.9)
== END 2022-11-04 23:10 | disposition home or self-care (01) ==
LOC: LAB 16:27
PROVIDERS: Family Provider Internal Medicine; PCP Family Medicine Geriatric Medicine; Referring Provider Internal Medicine Cardiovascular Disease; Visit Provider Internal Medicine Cardiovascular Disease
DX: I48.11 Longstanding persistent atrial fibrillation (principal); Z95.2 Presence of prosthetic heart valve; Z79.01 Long term (current) use of anticoagulants
CPT/HCPCS: 36415; 85610

== ENCOUNTER → 2022-11-07 | Outpatient (CLI) | payer MEDICARE, SELFPAY ==
--- NOTE | 2022-11-07 15:31 | RAD_ITS ---
STUDY: X-RAY - LEFT KNEE REASON FOR EXAM: Female, 87 years old. Osteoarthrosis of the left knee. Pain. TECHNIQUE: 3 view(s) of the knee. COMPARISON: None. FINDINGS: There is demineralization of the visualized distal femur. There is demineralization of the tibia and fibula. Normal proximal tibiofibular articulation. There is no acute fracture, dislocation or destructive osseous pathology. There is moderate to severe degenerative arthrosis of the medial femorotibial compartment with moderate joint space narrowing. There is moderate degenerative arthrosis of the lateral femorotibial compartment with moderate joint space narrowing. There is severe degenerative arthrosis of the patellofemoral articulation. There is a soft tissue prominence in the suprapatellar region suggesting a small volume joint effusion. This is a joint mouse in the effusion. The soft tissue structures are unremarkable. RAD/Knee 4 or More Views IMPRESSION: Degenerative arthrosis. There is an associated suprapatellar joint effusion. Electronically Signed: Erlin Manuel DO at 23:55 EDT ,
--- NOTE | 2022-11-07 15:45 | CT_ITS ---
STUDY: CT BRAIN WITHOUT CONTRAST REASON FOR EXAM: Female, 87 years old. Closed head injury. RADIATION DOSAGE (If Supplied By Facility): CTDIvol = ( 44.99 ) mGy, DLP = ( 796.11 ) mGycm TECHNIQUE: Transaxial CT imaging of the brain was performed without administration of intravenous contrast material. Individualized dose optimization techniques were used for this CT. COMPARISON: December 24, 2021 FINDINGS: Normal soft tissue structures. Normal calvarium. There is mild cerebral atrophy with widening of the extra-axial spaces and ventricular dilatation. There are areas of decreased attenuation within the white matter tracts of the supratentorial brain, consistent with microvascular disease changes. Normal basal ganglia and thalami. Normal brainstem. There is mild cerebellar atrophy. There is no intracranial hemorrhage. There are no findings of an acute ischemic infarction. Normal visualized paranasal sinuses. CT/Brain/Head without Contrast IMPRESSION: Chronic involutional changes without evidence of acute intracranial or calvarial abnormality. No major interval change. Electronically Signed: Erlin Manuel DO at 16:20 EDT ,
[2022-11-07 17:06] LABS: Absolute Lymphocyte Count 1.27 X10^3/uL (0.83-4.51); Absolute Neutrophil Count 5.1 X10^3/uL (2.0-7.7); Basophil# 0.02 X10^3/uL; Basophil% 0.3 % (0-1); Hematocrit 42.3 % (37-47); Hemoglobin 13.8 g/dL (12.0-15.0); Lymphocyte # 1.27 X10^3/ul (0.83-4.51); Lymphocyte % 17.1 % (19-41); Mean Corp Hgb Conc 32.6 g/dL (32-36); Mean Corpuscular Hgb 30.1 pg (27.0-32.0); Mean Corpuscular Volume 92.2 fL (81-99); Mean Platelet Vol. 10.9 fl (6.2-12.0); Monocyte# 1.04 X10^3/uL; NRBC Flagged by Analyzer 0 % (0-5); Neutrophil # 5.07 X10^3/uL (2.7-7.7); Neutrophil % 68.5 % (47-70); Platelet Count 151 K/mm3 (150-450); RBC Distribution Width CV 14.5 % (11.6-14.6); RBC Distribution Width SD 48.4 fl (35.1-43.9); Red Blood Count 4.59 M/mm3 (4.2-5.4); White Blood Count 7.4 K/mm3 (4.4-11.0)
[2022-11-07 17:48] LABS: ALB/GLOB Ratio 0.9 RATIO (0.9-2.4); AST(SGOT) 65 U/L (15-37); Alanine Aminotransfer ALT/SGPT 44 U/L (13-56); Albumin, Serum 3.7 g/dL (3.2-5.0); Alkaline Phosphatase 85 U/L (45-117); Anion Gap 3 (5-15); BUN 15 mg/dL (7-18); BUN/Creat Ratio 21.4 RATIO (10-20); Calcium,Total 9.6 mg/dL (8.5-10.1); Chloride 103 mmol/L (98-107); EST Glomerular Filtration Rate 84 mL/min (>60); Est Glom Filt Rate - Afr Amer 102 mL/min (>60); Glucose 86 mg/dL (74-106); Potassium 3.7 mmol/L (3.5-5.1); Protein, Total 7.7 g/dL (6.4-8.2); Sodium Level 136 mmol/L (136-145)
== END | disposition home or self-care (01) ==
PROVIDERS: PCP Family Medicine Geriatric Medicine; Visit Provider Family Medicine Geriatric Medicine
DX: R19.7 Diarrhea, unspecified (principal); S09.90XA Unspecified injury of head, initial encounter; M17.12 Unilateral primary osteoarthritis, left knee
CPT/HCPCS: 36415; 70450; 73564; 80053; 85025

== ENCOUNTER → 2022-11-11 | Outpatient (CLI) | payer MEDICARE, SELFPAY | END | disposition home or self-care (01) | PROVIDERS: PCP Family Medicine Geriatric Medicine; Referring Provider Family Medicine Geriatric Medicine; Visit Provider Family Medicine Geriatric Medicine | DX: R19.7 Diarrhea, unspecified (principal) | CPT/HCPCS: 82274; 83630; 87177; 87209; 87493 ==

== ENCOUNTER 2022-11-12 09:44 | Emergency (ER) | payer MEDICARE, SELFPAY ==
[2022-11-12 09:45] VITALS: BP 132/73; PULSE 69; RESP 16; TEMP 36.6; O2SAT 97; BMI 18.3
--- NOTE | 2022-11-12 10:25 | RAD_ITS ---
INDICATION: chest wall pain EXAMINATION/TECHNIQUE: X-RAY - XR Ribs Unilateral W/ PA Chest Min 3 Views COMPARISON: None. FINDINGS: SOFT TISSUES: No soft tissue swelling or gas. BONES: No demonstrated definite fractures. The lower lobes are suboptimally visualized. VISUALIZED LUNGS: No pneumothorax. Mild cardiomegaly. Status post CABG. Minimal blunting of the right costophrenic angle. RAD/Ribs Uni Min 3V w/PA Chest IMPRESSION: No evidence of displaced rib fracture. Electronically Signed: Lavelle Young MD at 11:13 EDT ,
--- NOTE | 2022-11-12 10:27 | EX.ED.DYSGE1 ---
HPI History of Present Illness Chief Complaint: Back Informant: patient Narrative Narrative: Patient is a 89-year-old female with history of dementia, atrial fibrillation on Coumadin and back spasms presenting with right shoulder and chest pain. She texted her daughter from bed stating to call her this morning because she was having pain. Patient is complaining of right shoulder and right-sided chest pain. Seems to be worse with movement. It is not worse when she takes a deep breath. Her daughter notes that she has a history of back spasms and normally that is in her lower back. The daughter gave her 2 Tylenol as well as a baclofen just prior to arrival. There is been no reports of falls but daughter states is possible she could have fallen and did not tell anyone about it. She is on Coumadin. Daughter does report that she has been having ongoing diarrhea. She had stool studies that were dropped off this week but I do not know the results. She is asking when the results were. No report of any blood in the stool. Patient is currently not complain of any abdominal pain, nausea or vomiting. At rest she has no complaints. [facility] Medical History (Updated 11/12/22 @ 12:[address] Maddie Coates, DO) Hyperlipidemia USP current use of anticoagulant Longstanding persistent atrial fibrillation Nonrheumatic mitral (valve) insufficiency Home Medications cholecalciferol (vitamin D3) 25 mcg (1,000 unit) tablet 1,000 unit PO DAILY supplement 03/30/19 [History Last Taken 04/11/20] calcium carbonate 600 mg-vitamin D3 20 mcg (800 unit) chewable tablet (Caltrate 600 plus D) 1 tab PO DAILY supplement 12/16/19 [History Last Taken 04/11/20] lidocaine 5 % topical patch 1 patch topical DAILY PRN 04/24/20 [History Last Taken Unknown] methenamine mandelate 1 gram tablet 1 gm PO DAILY 10/27/20 [History Last Taken Unknown] tramadol 50 mg tablet See Rx Instructions PO DAILY PRN 10/27/20 [History Last Taken Unknown] ascorbic acid (vitamin C) 500 mg tablet 500 mg PO DAILY 08/23/21 [History Last Taken Unknown] baclofen 10 mg tablet 10 mg PO TID PRN 08/23/21 [History Last Taken Unknown] donepezil 5 mg tablet 5 mg PO QHS 12/21/21 [History Last Taken Unknown] warfarin 3 mg tablet 3 mg PO .COMPLEX Afib #300 tabs 02/08/22 [Rx Last Taken Unknown] warfarin 1 mg tablet 1 mg PO .COMPLEX #270 tabs 02/16/22 [Rx Last Taken Unknown] citalopram 10 mg tablet 20 mg PO DAILY 06/02/22 [History Last Taken Unknown] memantine 10 mg tablet 10 mg PO QPM 06/02/22 [History Last Taken Unknown] metoprolol succinate 25 mg tablet,extended release 24 hr 25 mg PO DAILY #90 tabs 06/16/22 [Rx Last Taken Unknown] hydrocodone-acetaminophen 5-325mg 5mg-325mg 1 tab PO Q8H PRN pain 3 days #10 tabs 11/12/22 [Rx Last Taken Unknown] Allergy/AdvReac Type Severity Reaction Status Date / Time amiodarone AdvReac Severe Poor Verified 11/12/22 09:49 balance, poor appetite, severe dizziness amoxicillin trihydrate AdvReac Diarrhea Verified 11/12/22 09:49 [From Augmentin] potassium clavulanate AdvReac Diarrhea Verified 11/12/22 09:49 [From Augmentin] Family History Father , age 65 of head injury Head injury Brother CAD (coronary artery disease) Surgical History History of cardioversion (08/21/19) History of right and left heart catheterization (07/13/00) 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) Social History Smoking Status: Never smoker ROS ROS ED Constitutional Constitutional ED: Denies chills or fever(s) Eyes Eyes: Denies change in vision Cardiovascular Cardiovascular: Reports chest pain; Denies palpitations Respiratory/Chest Respiratory/Chest: Denies cough or dyspnea Gastrointestinal Gastrointestinal: Reports diarrhea; Denies abdominal pain, nausea or vomiting Musculoskeletal Musculoskeletal: Reports back pain and other Details: right shoulder pain ; Denies arthralgias Integumentary Denies rash Neurologic Neurologic: Denies headache(s) or weakness Psychiatric Psychiatric: Denies anxiety Hematologic/Lymphatic Hematologic/Lymphatic: Reports easy bleeding EXAM Physical Exam Const Vital Signs: 11/12/22 09:45 11/12/22 12:30 11/12/22 13:51 Temperature 97.8 F Temperature Source Temporal Pulse Rate 69 66 Respiratory Rate 16 18 Blood Pressure 132/73 H 118/58 L Blood Pressure Mean 92 Pulse Ox 97 96 98 Oxygen Delivery Method Room Air Room Air Positive well nourished and well developed General Appearance ED: well developed and NAD HEENT Reports TM's clear and moist mucous membranes Negative for trauma Tympanic Membrane ED: Yes TM's clear Eyes PERRL and EOMs intact bilaterally Neck supple Neck Narrative: normal ROM Chest Wall Chest Narrative: Tenderness palpation of the right anterior superior chest wall. There is localized area of swelling approximately rib 3. The tenderness does extend laterally at the same level. No chest wall crepitus appreciated. Resp normal respiratory effort and clear to auscultation bilaterally Cardio regular rate and no murmurs Rhythm: abnormal rhythm irregularly irregular GI normal to inspection, nondistended, normoactive bowel sounds Back/Spine no CVA tenderness Thoracic Spine / Upper Back: Negative for thoracic spinal tenderness or paraspinal muscle tenderness Lumbar Spine / Lower Back: Negative for lumbar spinal tenderness Extremity Extremity Narrative: No obvious deformity. No pinpoint tenderness palpation of the right shoulder however she does have pain with range of motion. General Extremety ED: Negative for edema General Extremity: Negative for edema Neuro Neuro Narrative: Normal strength and sensation grossly. No focal deficits appreciated. Patient is at her baseline per her daughter Sensorium / Orientation: alert Motor Exam: Negative for general weakness Psych mental status grossly normal Skin no rashes or lesions noted and no wounds MDM MDM MDM Narrative Medical decision making narrative: Is evaluated for chest wall pain. She does have some localized area of swelling and tenderness which I suspect is a contusion. Rib series is obtained interpreted by myself as well as radiology which does not show any acute rib fracture, pneumothorax or other acute process. Shoulder x-ray does not show any acute process. This is again interpreted by myself as well as radiology. Patient is given a Lidoderm patch. If she took baclofen and Tylenol just prior to arrival but she does not have significant improvement with these interventions. Discussed with her daughter states that she has required tramadol for pain. I did herb counselor her that at the patient's age with her history of dementia I do feel uncomfortable with tramadol because of its potential neurologic side effects. Daughter is agreeable with a dose of morphine and starting on Jackson at home. Is counseled on risk of opioids as well as increased risk of constipation and falls/confusion. Daughter states she will have the patient stay with her tonight that she keep an eye on her. Counseled to not mix muscle relaxers and Jackson. Counseled to not take extra Tylenol in addition to the Jackson as it already contains Tylenol. Counseled on the risk of pneumonia associated chest wall/rib injuries and the need to use incentive spirometer. Is given an incentive spirometer as well as education on this. Given return precautions. Discharged home in stable condition. Patient was ordered a dose of IM morphine for pain prior to discharge per request of the patient's daughter who feels that she is still in a lot of pain. This is ordered however while waiting for the prescription family does not feel that she has adequate pain control and thinks that she needs a muscle relaxer. She is then given a dose of IM Norflex. They have baclofen to take at home. Counseled on return precautions. Radiography Diagnostic Testing: Clinical Impression(s) from Imaging Studies Ribs w/Chest X-Ray 11/12/22 10:25 IMPRESSION: No evidence of displaced rib fracture. Electronically Signed: Lavelle Young MD at 11:13 EDT , Shoulder X-Ray 11/12/22 10:45 IMPRESSION: No demonstrated acute fracture or dislocation. Electronically Signed: Lavelle Young MD at 11:05 EDT , Rhythm Strip Rhythm Strip: A-fib Rate: 71 Ectopy: None EKG Initial EKG: Attestation: I personally reviewed and interpreted this EKG as follows: Interpretation: Atrial Fibrillation Comments: Atrial fibrillation at a rate of [address] and T wave abnormalities No acute ischemic changes Compared to prior EKG on 04/06/2021, no significant changes Discharge Plan Triage Chief Complaint: Back ED Provider: Maddie Coates Dx/Rx/DC Orders Clinical Impression: Chest wall contusion, Acute chest wall pain Instructions: ED Chest Wall Contusion, ED Rib Contusion or Minor Fracture Prescriptions: New hydrocodone-acetaminophen 5-325 mg tablet 1 tab PO Q8H PRN (Reason: pain) 3 Days Qty: 10 0RF No Action cholecalciferol (vitamin D3) 1,000 unit (25 mcg) tablet 1,000 unit PO DAILY Caltrate 600 plus D 600 mg (1,500 mg)-800 unit tablet,chewable 1 tab PO DAILY lidocaine 5 % adhesive patch,medicated 1 patch topical DAILY PRN tramadol 50 mg tablet See Rx Instructions PO DAILY PRN Rx Instructions: 25 mg BID, 50 mg @ lunchtime PO daily PRN; methenamine mandelate 1 gram tablet 1 gm PO DAILY Rx Instructions: administer after meals and at bedtime ascorbic acid (vitamin C) 500 mg tablet 500 mg PO DAILY baclofen 10 mg tablet 10 mg PO TID PRN donepezil 5 mg tablet 5 mg PO QHS warfarin 3 mg tablet 3 mg PO .COMPLEX Qty: 300 3RF Protocol: Dose Management Condition: Monday Dose/Route: 3 mg Instruction: 1 x 3 mg tablet Condition: Monday Dose/Route: 3 mg Instruction: 1 x 3 mg tablet Condition: Monday Dose/Route: 3 mg Instruction: 1 x 3 mg tablet Condition: Monday Dose/Route: 4.5 mg Instruction: 1.5 x 3 mg tablets Condition: Dose/Route: 3 mg Instruction: 1 x 3 mg tablet Condition: Monday Dose/Route: 3 mg Instruction: 1 x 3 mg tablet Condition: Monday Dose/Route: 3 mg Instruction: 1 x 3 mg tablet Protocol Text: Adjustment Start Date: Monday10/25/22 INR Value: 3.0 INR Date: 10/24/22 Recheck Date: 11/15/22 Rx Instructions: 3 mg orally daily, except on and Monday take total of 5mg; or as directed; warfarin 1 mg tablet 1 mg PO .COMPLEX Qty: 270 3RF Protocol: Dose Management Condition: Monday Dose/Route: 3 mg Instruction: 1 x 3 mg tablet Condition: Monday Dose/Route: 3 mg Instruction: 1 x 3 mg tablet Condition: Monday Dose/Route: 3 mg Instruction: 1 x 3 mg tablet Condition: Monday Dose/Route: 4.5 mg Instruction: 1.5 x 3 mg tablets Condition: Dose/Route: 3 mg Instruction: 1 x 3 mg tablet Condition: Monday Dose/Route: 3 mg Instruction: 1 x 3 mg tablet Condition: Monday Dose/Route: 3 mg Instruction: 1 x 3 mg tablet Protocol Text: Adjustment Start Date: Monday10/25/22 INR Value: 3.0 INR Date: 10/24/22 Recheck Date: 11/15/22 Rx Instructions: takes a 3 mg tablet daily; but takes additional 1 mg tablets (2mg) on and Monday to = 5mg; or as directed citalopram 10 mg tablet 20 mg PO DAILY memantine 10 mg tablet 10 mg PO QPM metoprolol succinate 25 mg tablet extended release 24 hr 25 mg PO DAILY Qty: 90 3RF Primary Care Provider: Roberto Del Castillo Chi Referrals: Roberto Del Castillo Chi, MD [Primary Care Provider] - Activity Restrictions/Additional Instructions: Follow-up with your primary care doctor next week for recheck. I suspect you have a bruise or injury to your chest wall/ribs is causing the pain. Watch for signs of constipation. Watch for signs of falls or increased confusion associated with the pain medicine. Use incentive spirometer as we discussed approximately every hour while awake to help prevent any pneumonia. Disposition Disposition: Home, Self Care Discharge Date/Time: 11/12/22 13:53
[2022-11-12] MEDS: Lidocaine 5% Patch 1 PATCH TOPICAL (10:37)
--- NOTE | 2022-11-12 10:45 | RAD_ITS ---
INDICATION: Injury/Pain EXAMINATION/TECHNIQUE: X-RAY - RIGHT XR Shoulder Min 2 Views 4 VIEWS COMPARISON: None. FINDINGS: SOFT TISSUES: No soft tissue swelling or gas. No radiopaque foreign body. BONES/JOINTS: No acute fracture or subluxation.. Normal alignment. Preservation of the joint space.. Mild subchondral cystic changes of the greater tuberosity. RAD/Shoulder min 2 Views IMPRESSION: No demonstrated acute fracture or dislocation. Electronically Signed: Lavelle Young MD at 11:05 EDT ,
[2022-11-12] MEDS: Morphine 4 MG/ML Syringe IM (12:17)
[2022-11-12 12:30] VITALS: O2SAT 96
[2022-11-12] MEDS: Orphenadrine 60 MG/2 ML Ampul IM (13:46)
[2022-11-12 13:51] VITALS: BP 118/58; PULSE 66; RESP 18; O2SAT 98
== END 2022-11-12 13:53 | disposition home or self-care (01) ==
PROVIDERS: Emergency Provider Emergency Medicine; PCP Family Medicine Geriatric Medicine; Visit Provider Emergency Medicine
DX: S20.20XA Contusion of thorax, unspecified, initial encounter (principal); I48.11 Longstanding persistent atrial fibrillation; R07.89 Other chest pain; Z79.01 Long term (current) use of anticoagulants; X58.XXXA Exposure to other specified factors, initial encounter
CPT/HCPCS: 71101; 73030; 93005; 96372; 99252; 99282; G0463

== ENCOUNTER 2022-11-17 15:46 | Emergency (ER) | payer MEDICARE, SELFPAY ==
[2022-11-17 15:47] VITALS: BP 111/66; PULSE 86; RESP 18; TEMP 36.6; O2SAT 95; BMI 18.3
--- NOTE | 2022-11-17 16:03 | CT_ITS ---
INDICATION: trauma EXAMINATION: CT Chest W/O Contrast Injection TECHNIQUE: Helically acquired images were obtained of the chest without IV contrast. A radiation dose optimization technique was used for this scan. COMPARISON: None. FINDINGS: Lungs: 4 mm pulmonary nodule in the right lower lobe. Mediastinum: The heart is mildly enlarged. No mediastinal, hilar or axillary adenopathy. Mild aortic arch and coronary artery calcifications. Pleura: Unremarkable Bones/Soft tissues: There are diffuse degenerative changes of the spine. Upper abdomen: No visualized abnormalities in the upper abdomen. CT/Chest without Contrast IMPRESSION: No acute traumatic abnormalities in the chest. 4 mm pulmonary nodule in the right lower lobe. Electronically Signed: Garrett Flores MD at 17:21 EDT ,
--- NOTE | 2022-11-17 16:04 | ED.VIS.FALL ---
HPI HPI - Fall History of Present Illness Chief Complaint: Fall Informant: patient and family Narrative Narrative: History is mostly through daughter. Patient does not remember a lot of the details. They went to see her on Monday. She was complaining of right chest wall pain. The suspicion is that the patient had fallen and hit herself there. She did not remember all the details. She was seen. She had x-rays of the chest and shoulder. Her INR was a bit high at 4.8. She had a little bit of bruising at the time but not much. Evidently the pain has gotten markedly better. Patient is clinically doing well. She is eating and drinking. She is having no trouble getting around. She is having no trouble breathing. Occasionally she has pain in her right anterior lateral chest wall when she lifts her right arm up high. But the family was concerned because she now has bruising that is tracked down most of the side of her chest wall. The swollen area that was in the right upper chest is still present but it has not gotten bigger. Their primary concern is what her INR is today. They did hold and change the dosage based on their maintenance technician recommendation for her elevated levels the other day. [facility] Medical History (Updated 11/17/22 @ 18:[address] Medardo Garcia MD) Hyperlipidemia alf current use of anticoagulant Longstanding persistent atrial fibrillation Nonrheumatic mitral (valve) insufficiency Home Medications cholecalciferol (vitamin D3) 25 mcg (1,000 unit) tablet 1,000 unit PO DAILY supplement 03/30/19 [History Last Taken 04/11/20] calcium carbonate 600 mg-vitamin D3 20 mcg (800 unit) chewable tablet (Caltrate 600 plus D) 1 tab PO DAILY supplement 12/16/19 [History Last Taken 04/11/20] lidocaine 5 % topical patch 1 patch topical DAILY PRN 04/24/20 [History Last Taken Unknown] methenamine mandelate 1 gram tablet 1 gm PO DAILY 10/27/20 [History Last Taken Unknown] tramadol 50 mg tablet See Rx Instructions PO DAILY PRN 10/27/20 [History Last Taken Unknown] ascorbic acid (vitamin C) 500 mg tablet 500 mg PO DAILY 08/23/21 [History Last Taken Unknown] baclofen 10 mg tablet 10 mg PO TID PRN 08/23/21 [History Last Taken Unknown] donepezil 5 mg tablet 5 mg PO QHS 12/21/21 [History Last Taken Unknown] warfarin 3 mg tablet 3 mg PO .COMPLEX Afib #300 tabs 02/08/22 [Rx Last Taken Unknown] warfarin 1 mg tablet 1 mg PO .COMPLEX #270 tabs 02/16/22 [Rx Last Taken Unknown] citalopram 10 mg tablet 20 mg PO DAILY 06/02/22 [History Last Taken Unknown] memantine 10 mg tablet 10 mg PO QPM 06/02/22 [History Last Taken Unknown] metoprolol succinate 25 mg tablet,extended release 24 hr 25 mg PO DAILY #90 tabs 06/16/22 [Rx Last Taken Unknown] hydrocodone-acetaminophen 5-325mg 5mg-325mg 1 tab PO Q8H PRN pain 3 days #10 tabs 11/12/22 [Rx Last Taken Unknown] Allergy/AdvReac Type Severity Reaction Status Date / Time amiodarone AdvReac Severe Poor Verified 11/17/22 15:47 balance, poor appetite, severe dizziness amoxicillin trihydrate AdvReac Diarrhea Verified 11/17/22 15:47 [From Augmentin] potassium clavulanate AdvReac Diarrhea Verified 11/17/22 15:47 [From Augmentin] Family History Father , age 65 of head injury Head injury Brother CAD (coronary artery disease) Surgical History History of cardioversion (08/21/19) History of right and left heart catheterization (07/13/00) 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) Social History Smoking Status: Never smoker ROS ROS ED Constitutional Constitutional ED: Denies chills or fever(s) Eyes Eyes: Denies change in vision Cardiovascular Cardiovascular: Reports chest pain; Denies palpitations or racing heartbeat Respiratory/Chest Respiratory/Chest: Denies cough or dyspnea Gastrointestinal Gastrointestinal: Denies abdominal pain, nausea or vomiting Genitourinary Genitourinary ED: Denies hematuria Musculoskeletal Musculoskeletal: Denies back pain or neck pain Integumentary Reports rash and other Details: Bruising as in history of present illness peer Neurologic Neurologic: Denies headache(s) Hematologic/Lymphatic Hematologic/Lymphatic: Reports easy bleeding and easy bruising Allergic/Immunologic Allergic/Immunologic ED: Denies urticaria EXAM Physical Exam Narrative Exam Narrative: Patient is awake and alert. She is at baseline memory per daughter. Nontoxic in appearance. Very pleasant. HEENT shows no sign of trauma anywhere. Eyes show no subconjunctival hemorrhage or or limitation of range of motion Neck is supple nontender Chest: Breath sounds are clear bilaterally. She takes good deep breaths. I get no subcutaneous air on palpation. She does have an area of firm swelling about 6 to 7 cm around in the right anterior upper chest. Just on the lower portion of this bruising starts. And she has some external bruising that travels all the way down the right side of her chest wall. It really stops at the elastic band of her underwear. This all looks to be external. This is not notably swollen though. Its not really tender. When the patient lifts her arm up over her head she has a small area of pain right at the inferior portion of that swollen area. But I do not feel any clicking in the area. Heart: This sounds regular. Rates about 80. Abdomen is soft and completely nontender. No distention. shows no CVA or suprapubic tenderness Extremities show no bruising pain with range of motion. She can walk well. No pain with hip motion. Const Vital Signs: 11/17/22 15:47 11/17/22 16:01 Temperature 97.9 F Temperature Source Temporal Pulse Rate 86 Respiratory Rate 18 Respiratory Effort Normal Non-Labored Respiratory Depth Normal Respiratory Pattern Normal Blood Pressure 111/66 Blood Pressure Mean 81 Pulse Ox 95 Oxygen Delivery Method Room Air Room Air MDM MDM MDM Narrative Medical decision making narrative: My independent interpretation the patient's CT of the chest shows a soft tissue mass in the right upper area consistent with her exam. But I do not know if this is hematoma or not. Final reading is showing that there is no acute process. 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 I did discuss this with the patient and her daughter. We then had them really look at the film. They felt that this mass in her right upper chest was likely either home hematoma but cannot rule out malignancy. Clinically it appeared after trauma. She is on Coumadin. She has bruising from that area down. Clinically this is likely hematoma. But we talked that if this is not improving over the next few weeks it may need further imaging. At this point I do not think it would be appropriate to do a needle aspiration is that we may make this worse. Patient CBC is normal. Patient's INR is therapeutic at 2.0. All questions and reasons for follow-up were discussed. Lab Data Attestation: I reviewed the patient's lab results. Labs: Laboratory Results - last 24 hr 11/17/22 11/17/22 16:11 16:11 WBC 8.5 RBC 3.99 L Hgb 12.1 Hct 36.6 L MCV 91.7 MCH 30.3 MCHC 33.1 RDW Std Deviation 48.6 H RDW Coeff of Celio 14.3 Plt Count 231 MPV 9.4 Immature Gran % (Auto) 0.200 Neut % (Auto) 71.2 H Lymph % (Auto) 15.6 L Trimble % (Auto) 11.8 H Eos % (Auto) 0.7 Baso % (Auto) 0.5 Absolute Neuts (auto) 6.0 Absolute Lymphs (auto) 1.32 Nucleated RBC % 0 PT 22.6 H INR 2.0 Radiography Diagnostic Testing: Clinical Impression(s) from Imaging Studies Chest CT 11/17/22 16:03 IMPRESSION: No acute traumatic abnormalities in the chest. 4 mm pulmonary nodule in the right lower lobe. Electronically Signed: Garrett Flores MD at 17:21 EDT , ADDENDUM: 11/17/22 1748 IMPRESSION: undefined ADDENDUM: 11/17/22 1801 IMPRESSION: undefined Discharge Plan Triage Chief Complaint: Fall Other Complaint: Wound Check ED Provider: Medardo Garcia Dx/Rx/DC Orders Clinical Impression: Fall at home, Chest wall contusion, Chest wall hematoma, Warfarin-induced coagulopathy Instructions: ED Chest Wall Contusion Prescriptions: No Action cholecalciferol (vitamin D3) 1,000 unit (25 mcg) tablet 1,000 unit PO DAILY Caltrate 600 plus D 600 mg (1,500 mg)-800 unit tablet,chewable 1 tab PO DAILY lidocaine 5 % adhesive patch,medicated 1 patch topical DAILY PRN tramadol 50 mg tablet See Rx Instructions PO DAILY PRN Rx Instructions: 25 mg BID, 50 mg @ lunchtime PO daily PRN; methenamine mandelate 1 gram tablet 1 gm PO DAILY Rx Instructions: administer after meals and at bedtime ascorbic acid (vitamin C) 500 mg tablet 500 mg PO DAILY baclofen 10 mg tablet 10 mg PO TID PRN hydrocodone-acetaminophen 5-325 mg tablet 1 tab PO Q8H PRN (Reason: pain) 3 Days Qty: 10 0RF donepezil 5 mg tablet 5 mg PO QHS warfarin 3 mg tablet 3 mg PO .COMPLEX Qty: 300 3RF Protocol: Dose Management Condition: Monday Dose/Route: 3 mg Instruction: 1 x 3 mg tablet Condition: Monday Dose/Route: 3 mg Instruction: 1 x 3 mg tablet Condition: Monday Dose/Route: 3 mg Instruction: 1 x 3 mg tablet Condition: Monday Dose/Route: 4.5 mg Instruction: 1.5 x 3 mg tablets Condition: Dose/Route: 3 mg Instruction: 1 x 3 mg tablet Condition: Monday Dose/Route: 3 mg Instruction: 1 x 3 mg tablet Condition: Monday Dose/Route: 3 mg Instruction: 1 x 3 mg tablet Protocol Text: Adjustment Start Date: Monday11/15/22 INR Value: 4.8 INR Date: 11/14/22 Rx Instructions: 3 mg orally daily, except on and Monday take total of 5mg; or as directed; warfarin 1 mg tablet 1 mg PO .COMPLEX Qty: 270 3RF Protocol: Dose Management Condition: Monday Dose/Route: 3 mg Instruction: 1 x 3 mg tablet Condition: Monday Dose/Route: 3 mg Instruction: 1 x 3 mg tablet Condition: Monday Dose/Route: 3 mg Instruction: 1 x 3 mg tablet Condition: Monday Dose/Route: 4.5 mg Instruction: 1.5 x 3 mg tablets Condition: Dose/Route: 3 mg Instruction: 1 x 3 mg tablet Condition: Monday Dose/Route: 3 mg Instruction: 1 x 3 mg tablet Condition: Monday Dose/Route: 3 mg Instruction: 1 x 3 mg tablet Protocol Text: Adjustment Start Date: Monday11/15/22 INR Value: 4.8 INR Date: 11/14/22 Rx Instructions: takes a 3 mg tablet daily; but takes additional 1 mg tablets (2mg) on and Monday to = 5mg; or as directed citalopram 10 mg tablet 20 mg PO DAILY memantine 10 mg tablet 10 mg PO QPM metoprolol succinate 25 mg tablet extended release 24 hr 25 mg PO DAILY Qty: 90 3RF Primary Care Provider: Roberto Del Castillo Chi Referrals: Roberto Del Castillo Chi, MD [Primary Care Provider] - 1-2 Weeks Disposition Disposition: Home, Self Care
[2022-11-17 16:20] LABS: Absolute Lymphocyte Count 1.32 X10^3/uL (0.83-4.51); Basophil# 0.04 X10^3/uL; Basophil% 0.5 % (0-1); Eosinophil# 0.06 X10^3/uL; Eosinophils% 0.7 % (0-5); Hematocrit 36.6 % (37-47); Hemoglobin 12.1 g/dL (12.0-15.0); Lymphocyte # 1.32 X10^3/ul (0.83-4.51); Lymphocyte % 15.6 % (19-41); Mean Corp Hgb Conc 33.1 g/dL (32-36); Mean Corpuscular Hgb 30.3 pg (27.0-32.0); Mean Corpuscular Volume 91.7 fL (81-99); Mean Platelet Vol. 9.4 fl (6.2-12.0); Monocyte% 11.8 % (0-10); NRBC Flagged by Analyzer 0 % (0-5); Neutrophil # 6.03 X10^3/uL (2.7-7.7); Neutrophil % 71.2 % (47-70); Platelet Count 231 K/mm3 (150-450); RBC Distribution Width CV 14.3 % (11.6-14.6); RBC Distribution Width SD 48.6 fl (35.1-43.9); Red Blood Count 3.99 M/mm3 (4.2-5.4); White Blood Count 8.5 K/mm3 (4.4-11.0)
[2022-11-17 16:30] LABS: Prothrombin Time (Protime)PT. 22.6 SECONDS (11.7-14.9)
[2022-11-17 18:49] VITALS: BP 113/79; PULSE 64; RESP 16; O2SAT 99
== END 2022-11-17 18:50 | disposition home or self-care (01) ==
PROVIDERS: Emergency Provider Emergency Medicine; PCP Family Medicine Geriatric Medicine; Visit Provider Emergency Medicine
DX: S20.20XA Contusion of thorax, unspecified, initial encounter (principal); I48.11 Longstanding persistent atrial fibrillation; Z79.01 Long term (current) use of anticoagulants; W19.XXXA Unspecified fall, initial encounter
CPT/HCPCS: 71250; 85025; 85610; 99283; A4216

== ENCOUNTER 2022-11-23 16:22 | Outpatient (RCR) | payer MEDICARE, SELFPAY ==
[2022-11-04 23:11] VITALS: BMI 19.2
[2022-11-14 17:39] LABS: Prothrombin Time (Protime)PT. 45.1 SECONDS (11.7-14.9)
[2022-11-14 18:13] LABS: International Normalized Ratio 4.8
[2022-11-23 17:15] LABS: International Normalized Ratio 2.6; Prothrombin Time (Protime)PT. 27.3 SECONDS (11.7-14.9)
== END 2022-12-04 01:25 | disposition home or self-care (01) ==
LOC: LAB 16:22
PROVIDERS: Family Provider Internal Medicine; PCP Family Medicine Geriatric Medicine; Referring Provider Internal Medicine Cardiovascular Disease; Visit Provider Internal Medicine Cardiovascular Disease
DX: I48.11 Longstanding persistent atrial fibrillation (principal); Z95.2 Presence of prosthetic heart valve; Z79.01 Long term (current) use of anticoagulants
CPT/HCPCS: 36415; 85610

== ENCOUNTER 2023-01-04 16:28 | Outpatient (RCR) | payer MEDICARE, SELFPAY ==
[2022-12-04 01:25] VITALS: BMI 19.2
[2022-12-07 17:20] LABS: International Normalized Ratio 2.3; Prothrombin Time (Protime)PT. 25.5 SECONDS (11.7-14.9)
[2022-12-21 17:02] LABS: International Normalized Ratio 2.3; Prothrombin Time (Protime)PT. 25.3 SECONDS (11.7-14.9)
[2023-01-04 17:04] LABS: International Normalized Ratio 2.6; Prothrombin Time (Protime)PT. 28.4 SECONDS (11.7-14.9)
== END 2023-01-04 18:00 | disposition home or self-care (01) ==
LOC: LAB 16:28
PROVIDERS: Physician Assistant Medical; Family Provider Internal Medicine; PCP Family Medicine Geriatric Medicine; Referring Provider Internal Medicine Cardiovascular Disease; Visit Provider Internal Medicine Cardiovascular Disease
DX: Z79.01 Long term (current) use of anticoagulants
CPT/HCPCS: 36415; 85610

== ENCOUNTER 2023-02-01 16:22 | Outpatient (RCR) | payer MEDICARE, SELFPAY ==
[2023-01-05 09:49] VITALS: BMI 19.2
[2023-02-01 17:15] LABS: International Normalized Ratio 3.2; Prothrombin Time (Protime)PT. 33.5 SECONDS (11.7-14.9)
== END 2023-02-01 18:00 | disposition home or self-care (01) ==
LOC: LAB 16:22
PROVIDERS: Family Provider Internal Medicine; PCP Family Medicine Geriatric Medicine; Referring Provider Internal Medicine Cardiovascular Disease; Visit Provider Internal Medicine Cardiovascular Disease
DX: Z79.01 Long term (current) use of anticoagulants (principal)
CPT/HCPCS: 36415; 85610

== ENCOUNTER → 2023-02-09 | Outpatient (CLI) | payer MEDICARE, SELFPAY ==
--- NOTE | 2023-02-09 15:42 | BD_ITS ---
STUDY: DUAL ENERGY X-RAY ABSORPTIOMETRY / DXA REASON FOR EXAM: Female, 87 years old. Post menopausal TECHNIQUE: Bone Mineral Density (BMD) measurements of lumbar spine and bilateral hips were obtained. COMPARISON: Comparison is made with prior study dated January 21, 2014. FINDINGS: Lumbar Spine (L1-L4): g/cm2 (0.669) / T-score (-3.4) / Z-score (-0.6) Findings are suggestive of osteoporosis with a high fracture risk. Left Femur Total: g/cm2 (0.633) / T-score (-2.5) / Z-score (-0.2) Left Femoral Neck: g/cm2 (0.701) / T-score (-1.3) / Z-score (1.2) Right Femur Total: g/cm2 (0.642) / T-score (-2.5) / Z-score (-0.1) Right Femoral Neck: g/cm2 (0.571) / T-score (-2.5) / Z-score (0.0) The T-Scores on the most recent prior examination were: Lumbar Spine (L1-L4): There has been worsening of bone density since the previous examination. Left Femur Total: which represents a worsening of 70%. Right Femur Total: which represents a worsening of 17.2%. BD/Dexa Bone Density Study IMPRESSION: The patient is considered osteoporotic as outlined below according to World Dennis Organization (WHO) criteria with a high fracture risk. There has been worsening of bone density since the previous examination. Reference Information: The T-score is the number of standard deviations above or below the standard which is normal for young adults at their peak bone mineral density. The World Health Organization (WHO) interprets the T-scores as follows: Above -1 Normal bone density Between -1 and -2.5 Osteopenia Equal to / or below -2.5 Osteoporosis As a practical clinical guideline, osteopenia may be graded as follows: Mild -1 through -1.5 Moderate -1.6 through -2.0 Severe -2.1 through -2.4 The Z-score is the number of standard deviations above or below age-matched controls. A Z-score of less than -1.5 would be considered abnormal. References: 1. NIH Osteoporosis and Related Bone Diseases www osteo.org 2. International Society for Clinical Densitometry www iscd.org 3. National Osteoporosis Foundation www nof.org Electronically Signed: Maurisio Yee MD at 12:54 EDT ,
== END | disposition home or self-care (01) ==
LOC: OPBD 15:39
PROVIDERS: PCP Family Medicine Geriatric Medicine; Referring Provider Internal Medicine; Visit Provider Internal Medicine
DX: Z78.0 Asymptomatic menopausal state (principal)
CPT/HCPCS: 77080

== ENCOUNTER 2023-02-21 17:52 | Emergency (ER) | payer MEDICARE, SELFPAY ==
[2023-02-21 17:52] VITALS: BP 93/63; PULSE 98; RESP 16; TEMP 36.6; O2SAT 95
--- NOTE | 2023-02-21 18:11 | EX.ED.DYSGE1 ---
HPI History of Present Illness Chief Complaint: General Illness Detail of Chief Complaint: Concern for dehydration Informant: patient and family Narrative Narrative: Patient presents with daughter due to concerns for possible dehydration. Daughter states that her mother has been sleeping more and complaining of muscle spasms. Just prior to arrival she had a severe muscle spasm in her left shoulder. She states her mother had a recent urinalysis and the urine was very dark and concentrated. It did not reveal a UTI. They have noted skin tenting and higher baseline heart rate. They do note that she only drinks water to take her medication but really does not drink otherwise. Patient denies any complaints at this time. [facility] Medical History Alzheimer disease Generalized anxiety disorder History of hearing problem Hx of cataract Hx: UTI (urinary tract infection) Hyperlipidemia senior care current use of anticoagulant Longstanding persistent atrial fibrillation Nonrheumatic mitral (valve) insufficiency Osteoporosis Home Medications cholecalciferol (vitamin D3) 25 mcg (1,000 unit) tablet 1,000 unit PO DAILY supplement 03/30/19 [History Last Taken 04/11/20] calcium carbonate 600 mg-vitamin D3 20 mcg (800 unit) chewable tablet (Caltrate 600 plus D) 1 tab PO DAILY supplement 12/16/19 [History Last Taken 04/11/20] lidocaine 5 % topical patch 1 patch topical DAILY PRN 04/24/20 [History Last Taken Unknown] methenamine mandelate 1 gram tablet 1 gm PO DAILY 10/27/20 [History Last Taken Unknown] ascorbic acid (vitamin C) 500 mg tablet 500 mg PO DAILY 08/23/21 [History Last Taken Unknown] warfarin 1 mg tablet 1 mg PO .COMPLEX #270 tabs 02/16/22 [Rx Last Taken Unknown] citalopram 10 mg tablet 20 mg PO DAILY 06/02/22 [History Last Taken Unknown] metoprolol succinate 25 mg tablet,extended release 24 hr 25 mg PO DAILY #90 tabs 06/16/22 [Rx Last Taken Unknown] warfarin 3 mg tablet 3 mg PO .COMPLEX Afib 01/13/23 [History Last Taken Unknown] baclofen 10 mg tablet 10 mg PO DAILY PRN muscle spasm #60 tabs 01/20/23 [Rx Last Taken Unknown] donepezil 5 mg tablet 10 mg (2 x 5 mg) PO QHS #90 tabs 01/20/23 [Rx Last Taken Unknown] denosumab 60 mg/mL subcutaneous syringe (Prolia) 60 mg subcut [id number] #1 mL 02/10/23 [Rx Last Taken Unknown] Allergy/AdvReac Type Severity Reaction Status Date / Time amiodarone AdvReac Severe Poor Verified 02/21/23 17:54 balance, poor appetite, severe dizziness amoxicillin trihydrate AdvReac Diarrhea Verified 02/21/23 17:54 [From Augmentin] potassium clavulanate AdvReac Diarrhea Verified 02/21/23 17:54 [From Augmentin] Family History Father , age 65 of head injury Head injury Brother CAD (coronary artery disease) Surgical History History of cardioversion (08/21/19) History of right and left heart catheterization (07/13/00) 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 Review of Systems ROS Unobtainable: due to mental condition EXAM Physical Exam Const Vital Signs: 02/21/23 17:52 02/21/23 18:10 02/21/23 20:47 Temperature 97.8 F Temperature Source Temporal Pulse Rate 98 78 Respiratory Rate 16 17 Respiratory Effort Normal Respiratory Pattern Normal Blood Pressure 93/63 112/75 Blood Pressure Mean 73 87 Pulse Ox 95 98 Oxygen Delivery Method Room Air Room Air Positive well nourished and well developed General Appearance ED: well developed HEENT Reports dry mucous membranes Mouth ED: Yes dry mucous membranes Mouth: dry mucous membranes Eyes EOMs intact bilaterally Chest Wall inspection of chest normal and palpation of chest normal Resp normal respiratory effort and clear to auscultation bilaterally Cardio regular rate and regular rhythm GI non-tender Auscultation: hypoactive bowel sounds Palpation: soft Extremity Extremity Narrative: 2-3+ bilateral lower extremity edema, symmetric. Daughter states this is chronic and unchanged from baseline Neuro no sensory deficits noted Neuro Narrative: No focal neurologic deficits Sensorium / Orientation: alert Motor Exam: strength 5/5 throughout Skin no rashes or lesions noted MDM MDM MDM Narrative Medical decision making narrative: EKG obtained to evaluate for cardiac arrhythmia/ischemia. Labwork obtained to evaluate for leukocytosis, anemia, and electrolyte derangement. Urinalysis obtained to evaluate for infection/hematuria. Patient given a liter IV fluids. History & Record Review Discussion w/independent historian: Patient and Family Lab Data Attestation: I reviewed the patient's lab results. Labs: Laboratory Results - last 24 hr 02/21/23 02/21/23 18:22 19:42 WBC 6.6 RBC 4.65 Hgb 14.0 Hct 43.1 MCV 92.7 MCH 30.1 MCHC 32.5 RDW Std Deviation 45.0 H RDW Coeff of Celio 13.3 Plt Count 194 MPV 10.6 Immature Gran % (Auto) 0.200 Neut % (Auto) 66.8 Lymph % (Auto) 19.9 Haakon % (Auto) 11.7 H Eos % (Auto) 0.9 Baso % (Auto) 0.5 Absolute Neuts (auto) 4.4 Absolute Lymphs (auto) 1.32 Nucleated RBC % 0 PT 38.7 H INR 3.9 Sodium 135 L Potassium 3.3 L Chloride 103 Carbon Dioxide 26.0 Anion Gap 6 BUN 16 Creatinine 0.69 Est GFR (MDRD) Af Amer 104 Est GFR (MDRD) Non-Af 86 BUN/Creatinine Ratio 23.2 H Glucose 88 Calcium 9.0 Urine Color Yellow Urine Clarity Clear Urine pH 6.0 Ur Specific [place] 1.015 Urine Protein Negative Urine Glucose (UA) Normal Urine Ketones 5 H Urine Occult Blood 25 H Urine Nitrite Negative Urine Bilirubin Negative Urine Urobilinogen Normal Ur Leukocyte Esterase Negative Urine RBC 0-5 SEEN Urine WBC 0-5 SEEN Ur Squamous Epith Cells 0-5 SEEN Calcium Oxalate Crystal RARE Urine Bacteria RARE Urine Mucus 0 SEEN EKG Initial EKG: Attestation: I personally reviewed and interpreted this EKG as follows: Interpretation: Atrial Fibrillation (Atrial fibrillation at 78 bpm. Nonspecific T wave flattening. No acute ischemia.) Treatment and Re-Evaluation :: CBC was normal white count at 6.6 with a hemoglobin of 14.0. Differential is unremarkable. Chemistry studies reveal slightly low potassium at 3.3. This is replaced orally. Sodium is 135. Renal function is normal with a BUN of 16 and a creatinine is 0.69. Glucose is normal at 88. Urinalysis reveals 5 ketones with rare bacteria, 0-5 white cells, 0-5 epithelial cells. On repeat evaluation patient is just returning from the restroom. She is in no acute distress. INR is supratherapeutic at 3.9. Patient is to hold her Coumadin for 1 night. She is already scheduled for repeat INR drawn next Monday. Return instructions given. Discharge Plan Triage Chief Complaint: General Illness ED Provider: Emily Baker Dx/Rx/DC Orders Clinical Impression: Back spasm, Weakness, Supratherapeutic INR Instructions: ED Weakness (Uncertain Cause) Prescriptions: No Action cholecalciferol (vitamin D3) 1,000 unit (25 mcg) tablet 1,000 unit PO DAILY Caltrate 600 plus D 600 mg (1,500 mg)-800 unit tablet,chewable 1 tab PO DAILY lidocaine 5 % adhesive patch,medicated 1 patch topical DAILY PRN methenamine mandelate 1 gram tablet 1 gm PO DAILY Rx Instructions: administer after meals and at bedtime ascorbic acid (vitamin C) 500 mg tablet 500 mg PO DAILY warfarin 3 mg tablet 3 mg PO .COMPLEX Protocol: Dose Management Condition: Monday Dose/Route: 3 mg Instruction: 1 x 3 mg tablet Condition: Monday Dose/Route: 3 mg Instruction: 1 x 3 mg tablet Condition: Monday Dose/Route: 3 mg Instruction: 1 x 3 mg tablet Condition: Monday Dose/Route: 3 mg Instruction: 1 x 3 mg tablet Condition: Dose/Route: 4.5 mg Instruction: 1.5 x 3 mg tablets Condition: Monday Dose/Route: 3 mg Instruction: 1 x 3 mg tablet Condition: Monday Dose/Route: 3 mg Instruction: 1 x 3 mg tablet Protocol Text: Adjustment Start Date: Monday02/01/23 INR Value: 3.2 INR Date: 02/01/23 Recheck Date: 03/03/23 Rx Instructions: 3 mg orally daily, except on , take 4.5mg warfarin 1 mg tablet 1 mg PO .COMPLEX Qty: 270 3RF Protocol: Dose Management Condition: Monday Dose/Route: 3 mg Instruction: 1 x 3 mg tablet Condition: Monday Dose/Route: 3 mg Instruction: 1 x 3 mg tablet Condition: Monday Dose/Route: 3 mg Instruction: 1 x 3 mg tablet Condition: Monday Dose/Route: 3 mg Instruction: 1 x 3 mg tablet Condition: Dose/Route: 4.5 mg Instruction: 1.5 x 3 mg tablets Condition: Monday Dose/Route: 3 mg Instruction: 1 x 3 mg tablet Condition: Monday Dose/Route: 3 mg Instruction: 1 x 3 mg tablet Protocol Text: Adjustment Start Date: Monday02/01/23 INR Value: 3.2 INR Date: 02/01/23 Recheck Date: 03/03/23 Rx Instructions: takes a 3 mg tablet daily; but takes additional 1 mg tablets (2mg) on and Monday to = 5mg; or as directed citalopram 10 mg tablet 20 mg PO DAILY metoprolol succinate 25 mg tablet extended release 24 hr 25 mg PO DAILY Qty: 90 3RF baclofen 10 mg tablet 10 mg PO DAILY PRN (Reason: muscle spasm) Qty: 60 2RF donepezil 5 mg tablet 10 mg PO QHS Qty: 90 2RF Prolia 60 mg/mL syringe 60 mg subcut [id number] Qty: 1 3RF Primary Care Provider: Meredith Olmstead Referrals: Meredith Olmstead MD [Primary Care Provider] - 1-2 Weeks Roberto Del Castillo Chi, MD [Med Staff - Active Staff] - Activity Restrictions/Additional Instructions: As discussed, your INR is elevated tonight to 3.9. Please hold your next dose of Coumadin. Have your level rechecked next Monday as scheduled. Please increase p.o. fluids to maintain hydration. Disposition Disposition: Home, Self Care
[2023-02-21] MEDS: 0.9% Normal Saline 1,000 ML 1000 ML IV (18:21)
[2023-02-21 18:33] LABS: Absolute Lymphocyte Count 1.32 X10^3/uL (0.83-4.51); Absolute Neutrophil Count 4.4 X10^3/uL (2.0-7.7); Basophil# 0.03 X10^3/uL; Basophil% 0.5 % (0-1); Eosinophil# 0.06 X10^3/uL; Eosinophils% 0.9 % (0-5); Hematocrit 43.1 % (37-47); Lymphocyte # 1.32 X10^3/ul (0.83-4.51); Lymphocyte % 19.9 % (19-41); Mean Corp Hgb Conc 32.5 g/dL (32-36); Mean Corpuscular Hgb 30.1 pg (27.0-32.0); Mean Corpuscular Volume 92.7 fL (81-99); Mean Platelet Vol. 10.6 fl (6.2-12.0); Monocyte# 0.78 X10^3/uL; Monocyte% 11.7 % (0-10); NRBC Flagged by Analyzer 0 % (0-5); Neutrophil # 4.44 X10^3/uL (2.7-7.7); Neutrophil % 66.8 % (47-70); Platelet Count 194 K/mm3 (150-450); RBC Distribution Width CV 13.3 % (11.6-14.6); Red Blood Count 4.65 M/mm3 (4.2-5.4); White Blood Count 6.6 K/mm3 (4.4-11.0)
[2023-02-21 18:45] LABS: International Normalized Ratio 3.9; Prothrombin Time (Protime)PT. 38.7 SECONDS (11.7-14.9)
[2023-02-21 18:56] LABS: Anion Gap 6 (5-15); BUN 16 mg/dL (7-18); BUN/Creat Ratio 23.2 RATIO (10-20); Chloride 103 mmol/L (98-107); Creatinine, Serum 0.69 mg/dL (0.55-1.02); EST Glomerular Filtration Rate 86 mL/min (>60); Est Glom Filt Rate - Afr Amer 104 mL/min (>60); Glucose 88 mg/dL (74-106); Potassium 3.3 mmol/L (3.5-5.1); Sodium Level 135 mmol/L (136-145)
[2023-02-21] MEDS: Potassium Chloride Oral Soln 20 MEQ/15 ML UDC 40 MEQ PO (19:37)
[2023-02-21] MEDS: 0.9% Normal Saline 1,000 ML 150 ML IV (19:39)
[2023-02-21 19:48] LABS: Mucous, Urine 0 SEEN /hpf (<or=2+)
[2023-02-21 20:06] LABS: Color, Urine Yellow (Yellow); Glucose, Dipstick Normal (Normal); Ketone-Dipstick 5 mg/dl (Negative); Leukocyte Esterase-Dipstick Negative /ul (Negative); Nitrite-Dipstick Negative (Negative); Occult Blood-Urine 25 /ul (Negative); Protein-Dipstick Negative (Negative); Specific Gravity, Urine 1.015 (1.002-1.030); Urine Bilirubin Dipstick Negative (Negative); Urine Clarity Clear (Clear); Urine Urobilinogen Normal (Normal)
[2023-02-21 20:18] LABS: Bacteria RARE /hpf (None Seen); Calcium Oxalate Crystals Ur RARE /hpf (<or=2+); Red Blood Cells-Urine 0-5 SEEN /hpf (0-5); Squamous Epithelial Cells - UA 0-5 SEEN /hpf (5-10); White Blood Cells 0-5 SEEN /hpf (0-5)
[2023-02-21 20:47] VITALS: BP 112/75; PULSE 78; RESP 17; O2SAT 98
== END 2023-02-21 21:04 | disposition home or self-care (01) ==
PROVIDERS: Emergency Provider Emergency Medicine; PCP Internal Medicine; Visit Provider Emergency Medicine
DX: M62.830 Muscle spasm of back (principal); G30.9 Alzheimer's disease, unspecified; F02.80 Dementia in other diseases classified elsewhere, unspecified severity, without behavioral disturbance, psychotic disturbance, mood disturbance, and anxiety; I48.11 Longstanding persistent atrial fibrillation; R53.1 Weakness; R79.1 Abnormal coagulation profile; E87.6 Hypokalemia; E78.5 Hyperlipidemia, unspecified; Z79.01 Long term (current) use of anticoagulants; Z79.899 Other long term (current) drug therapy
CPT/HCPCS: 80048; 81001; 85025; 85610; 93005; 96360; 96361; 99284; J7030

== ENCOUNTER 2023-03-01 16:36 | Outpatient (RCR) | payer MEDICARE, SELFPAY ==
[2023-02-03 22:31] VITALS: BMI 19.2
[2023-03-01 17:20] LABS: International Normalized Ratio 3.8; Prothrombin Time (Protime)PT. 37.9 SECONDS (11.7-14.9)
== END 2023-03-06 18:00 | disposition home or self-care (01) ==
LOC: LAB 16:36
PROVIDERS: Family Provider Internal Medicine; PCP Internal Medicine; Visit Provider Nurse Practitioner Family
DX: Z79.01 Long term (current) use of anticoagulants (principal)
CPT/HCPCS: 36415; 85610

== ENCOUNTER 2023-03-23 13:12 | Outpatient (RCR) | payer MEDICARE, SELFPAY ==
[2023-03-07 00:49] VITALS: BMI 19.2
[2023-03-15 17:07] LABS: International Normalized Ratio 2.1; Prothrombin Time (Protime)PT. 23.8 SECONDS (11.7-14.9)
[2023-03-23 14:12] LABS: International Normalized Ratio 2.2; Prothrombin Time (Protime)PT. 24.4 SECONDS (11.7-14.9)
== END 2023-03-23 18:00 | disposition home or self-care (01) ==
LOC: LAB 13:12
PROVIDERS: Family Provider Internal Medicine; PCP Internal Medicine; Referring Provider Nurse Practitioner Family; Visit Provider Nurse Practitioner Family
DX: Z79.01 Long term (current) use of anticoagulants (principal)
CPT/HCPCS: 36415; 85610

== ENCOUNTER 2023-05-03 14:47 | Outpatient (RCR) | payer MEDICARE, SELFPAY ==
[2023-04-06 23:02] VITALS: BMI 19.2
[2023-04-11 17:27] LABS: International Normalized Ratio 2.7; Prothrombin Time (Protime)PT. 29.3 SECONDS (11.7-14.9)
[2023-05-03 15:25] LABS: International Normalized Ratio 2.8; Prothrombin Time (Protime)PT. 29.8 SECONDS (11.7-14.9)
== END 2023-05-03 18:00 | disposition home or self-care (01) ==
LOC: LAB 14:47
PROVIDERS: Family Provider Internal Medicine; PCP Internal Medicine; Referring Provider Nurse Practitioner Family; Visit Provider Nurse Practitioner Family
DX: Z79.01 Long term (current) use of anticoagulants (principal)
CPT/HCPCS: 36415; 85610

== ENCOUNTER 2023-05-24 16:24 | Outpatient (RCR) | payer MEDICARE, SELFPAY ==
[2023-05-07 02:51] VITALS: BMI 19.2
[2023-05-24 17:04] LABS: International Normalized Ratio 2.7; Prothrombin Time (Protime)PT. 28.6 SECONDS (11.7-14.9)
== END 2023-05-24 18:00 | disposition home or self-care (01) ==
LOC: LAB 16:24
PROVIDERS: Family Provider Internal Medicine; PCP Internal Medicine; Referring Provider Nurse Practitioner Family; Visit Provider Nurse Practitioner Family
DX: Z79.01 Long term (current) use of anticoagulants (principal)
CPT/HCPCS: 36415; 85610

== ENCOUNTER 2023-06-28 13:17 | Outpatient (RCR) | payer MEDICARE, SELFPAY ==
[2023-06-06 22:25] VITALS: BMI 19.2
[2023-06-14 17:25] LABS: International Normalized Ratio 2.1; Prothrombin Time (Protime)PT. 23.9 SECONDS (11.7-14.9)
[2023-06-28 15:19] LABS: International Normalized Ratio 2.7; Prothrombin Time (Protime)PT. 29.1 SECONDS (11.7-14.9)
== END 2023-07-06 18:00 | disposition home or self-care (01) ==
LOC: LAB 13:17
PROVIDERS: Family Provider Internal Medicine; PCP Internal Medicine; Referring Provider Nurse Practitioner Family; Visit Provider Nurse Practitioner Family
DX: Z79.01 Long term (current) use of anticoagulants (principal)
CPT/HCPCS: 36415; 85610

== ENCOUNTER 2023-07-19 16:26 | Outpatient (RCR) | payer MEDICARE, SELFPAY ==
[2023-07-07 03:13] VITALS: BMI 19.2
[2023-07-19 17:23] LABS: International Normalized Ratio 2.5; Prothrombin Time (Protime)PT. 27.1 SECONDS (11.7-14.9)
== END 2023-08-06 18:00 | disposition home or self-care (01) ==
LOC: LAB 16:26
PROVIDERS: Family Provider Internal Medicine; PCP Internal Medicine; Referring Provider Nurse Practitioner Family; Visit Provider Nurse Practitioner Family
DX: Z79.01 Long term (current) use of anticoagulants (principal)
CPT/HCPCS: 36415; 85610

== ENCOUNTER 2023-09-04 16:39 | Outpatient (RCR) | payer MEDICARE, SELFPAY ==
[2023-08-06 20:57] VITALS: BMI 19.2
[2023-08-11 16:52] LABS: International Normalized Ratio 3.1; Prothrombin Time (Protime)PT. 32.6 SECONDS (11.7-14.9)
[2023-08-28 17:41] LABS: International Normalized Ratio 4.6
[2023-08-31 17:26] LABS: Prothrombin Time (Protime)PT. 23.1 SECONDS (11.7-14.9)
[2023-09-04 17:22] LABS: International Normalized Ratio 3.3
== END 2023-09-04 18:00 | disposition home or self-care (01) ==
LOC: LAB 16:39
PROVIDERS: Family Provider Internal Medicine; PCP Internal Medicine; Referring Provider Nurse Practitioner Family; Visit Provider Nurse Practitioner Family
DX: Z79.01 Long term (current) use of anticoagulants (principal)
CPT/HCPCS: 36415; 85610

== ENCOUNTER → 2023-09-15 | Outpatient (CLI) | payer MEDICARE, SELFPAY ==
--- OUTSIDE RECORDS SUMMARY | 2023-09-15 11:48 | XMS RPT_ITS | CCD ---
Author Name Unknown Address [address] [place] [address] Organization [facility] Care Team Providers Care Security Project Manager Name Role Phone Nadine Felix MD Primary Care Provider Dixon Sheela Chi Primary Care Provider AISHWARYA, NADINE Primary Care [facility] Referring Unav ailable KRIVOSHEYA, SOPHIE Attending Unavailable DIXON, SHEELA CHI Primary Care Unavailable TAPNAGI CANTRELL Attending Unavailable GANTA, NADINE Primary Care Unavailable NAGI GARCIA Attending Unavailable KRIVOSHEYA, SOPHIE Referring Unavailable GANTA, NADINE Primary Care Unavailable GANTA, NADINE Referring Unavailable KRIVOSHEYA, SOPHIE Attending Unavailable GANTA, NADINE Primary Care Unavailable GANTA, NADINE Referring Unavailable Dixon, Sheela Chi Primary Care Provider AISHWARYA, NADINE Primary Care Unavailable KRIVOSHEYA, SOPHIE Referring Unavailable TESTRAKE, YOSVANY Referring Unavailable DIXON, SHEELA CHI Primary Care Unavailable TESTRAKE, YOSVANY Attending Unavailable DIXON, SHEELA CHI Primary Care Unavailable TESTRAKE, YOSVANY Attending Unavailable TESTRAKE, YOSVANY Attending Unavailable TESTRAKE, YOSVANY Referring Unavailable DIXON, SHEELA CHI Primary Care Unavailable TESTRAKE, YOSVANY Attending Unavailable TESTRAKE, YOSVANY Referring Unavailable GANTA, NADINE Primary Care Unavailable Allergies Allergy Classification Reported Allergen(s) Allergy Type Date of Onset Reaction(s) Facility (14 sources) Amoxicillin / Clavulanate; Translations: [AMOXICILLIN-POT CLAVULANATE] Drug Allergy 01-23-2016 Diarrhea [facility] Work Phone: (14 sources) POISON NGOZI EXTRACT; Translations: [POISON NGOZI] Drug Allergy 11-09-2010 Itching [facility] (10 sources) Clavulanate; Translations: [POTASSIUM CLAVULANATE] Drug Allergy 04-02-2019 Diarrhea [facility] Medications Completed/Discontinued Medications Medication Drug Class(es) Dates Sig (Normalized) Sig (Original) amiodarone hydrochloride 200 mg oral tablet (1 source) Antiarrhythmic Start: 09-21-2019 take 1 tablet by mouth once daily amiodarone (PACERONE) 200 mg tablet Take 200 mg by mouth once daily. 0 09/21/2019 Active Problems Active Problems Problem Classification Problem Date Documented Date Episodic/Chronic Cardiac dysrhythmias (12 sources) Atrial fibrillation; Translations: [Unspecified atrial fibrillation] Onset: 10-20-2015 08-02-2021 Chronic Delirium, dementia, and amnestic and other cognitive disorders (6 sources) Mild dementia; Translations: [Unspecified dementia without behavioral disturbance] Onset: 04-29-2022 Chronic Disorders of lipid metabolism (12 sources) Mixed hyperlipidemia; Translations: [Mixed hyperlipidemia] Onset: 10-20-2015 10-20-2015 Chronic Heart valve disorders (20 sources) Mitral valve prolapse; Translations: [Nonrheumatic mitral (valve) prolapse] Onset: 10-20-2015 10-20-2015 Chronic Mycoses (6 sources) Onychomycosis; Translations: [Tinea unguium] Onset: 01-27-2023 Episodic Other connective tissue disease (5 sources) Pain of toe of left foot; Translations: [Pain in left toe(s)] Episodic Other connective tissue disease (5 sources) Pain of toe of right foot; Translations: [Pain in right toe(s)] Episodic Other connective tissue disease (1 source) Pain in left toe(s); Translations: [Pain in toe of left foot] Onset: 01-27-2023 Episodic Other connective tissue disease (1 source) Pain in right toe(s); Translations: [Pain in toe of right foot] Onset: 01-27-2023 Episodic Other diseases of veins and lymphatics (2 sources) Vascular insufficiency; Translations: [Venous insufficiency (chronic) (peripheral)] Episodic Other nervous system disorders (3 sources) Normal pressure hydrocephalus; Translations: [(Idiopathic) normal pressure hydrocephalus] Chronic Other nervous system disorders (1 source) Hydrocephalus; Translations: [Other hydrocephalus] Chronic Other nervous system disorders (2 sources) (Idiopathic) normal pressure hydrocephalus; Translations: [NPH (normal pressure hydrocephalus) (HCC)] Onset: 02-03-2022 Chronic Other nervous system disorders (1 source) Other hydrocephalus; Translations: [Other hydrocephalus (HCC)] Onset: 02-03-2022 Chronic Residual codes; unclassified (1 source) Amnesia; Translations: [Other amnesia] Episodic Unclassified (1 source) Established Patient Onset: 03-31-2022 Past or Other Problems Problem Classification Problem Date Documented Da te Episodic/Chronic Other bone disease and musculoskeletal deformities (12 sources) Osteopenia; Translations: [Other specified disorders of bone density and structure, unspecified site] Onset: 10-20-2015 08-22-2016 Episodic Other gastrointestinal disorders (12 sources) Abdominal bloating; Translations: [Abdominal distension (gaseous)] Onset: 04-05-2018 04-05-2018 Episodic Other gastrointestinal disorders (12 sources) Urgent desire for stool; Translations: [Fecal urgency] Onset: 04-05-2018 04-05-2018 Episodic Other gastrointestinal disorders (9 sources) Alteration in bowel elimination; Translations: [Change in bowel habit] Onset: 04-05-2018 04-05-2018 Episodic Other gastrointestinal disorders (3 sources) Altered bowel function; Translations: [Change in bowel habit] Onset: 04-05-2018 04-05-2018 Episodic Results Test Name Value Interpretation Reference Range Facil ity Vital Signs Date Time Vital Sign Value Performing Clinician Khushi johnson 03-31-2022 15:140400 Body height 167.6 cm Sophie Merritt MD Work Phone: [facility] 03-31-2022 15:14-0400 Body temperature 97.59 [degF] Sophie Merritt MD Work Phone: [facility] 03-31-2022 15:14-0400 Body weight 51.7 kg Sophie Merritt MD Work Phone: [facility] 03-31-2022 15:14-0400 Diastolic blood pressure 61 mm[Hg] Sophie Merritt MD Work Phone: [facility] 03-31-2022 15:14-0400 Heart rate 80 /min Sophie Merritt MD Work Phone: [facility] 03-31-2022 15:14-0400 SaO2% (BldA) [Mass fraction] 96 % Sophie Merritt MD Work Phone: [facility] 03-31-2022 15:14-0400 Systolic blood pressure 111 mm[Hg] Sophie Merritt MD Work Phone: [facility] Encounters Encounter Date Encounter Type Care Provider Facility Start: 01-27-2023 End: 01-28-2023 ambulatory YOSVANY CAMPBELL Facility:[facility] Start: 01-27-2023 End: 01-27-2023 Patient encounter procedure Yosvany Campbell Work Phone: Podiatry Plan of Treatment Date Care Activity Detail Author Start: 06-01-2028 Urine microalbumin profile DTAP,TDAP,TD (2 - Td or Tdap) [facility] Start: 03-25-2025 DIABETES SCREEN DIABETES SCREEN [facility] Start: 04-07-2023 Influenza vaccination INFLUENZ A (Season Ended) [facility] Start: 08-07-2022 ADVANCE DIRECTIVE DISCUSSION ADVANCE DIRECTIVE DISCUSSION [facility] Start: 04-07-2022 Influenza vaccination C [facility] Start: 03-26-2022 DIABETES SCREEN DIABETES SCREEN [facility] Start: 03-18-2022 End: 05-18-2022 Basic metabolic 2000 panel - Serum or Plasma BASIC METABOLIC PNL Lab Routine NPH (normal pressure hydrocephalus) (HCC) Expected: 03/18/2022, Expires: 05/18/2022 [facility] Work Phone: Immunizations Immunization Date Immunization Notes Care Provider Alaina fregoso 05-23-2017 influenza, high dose seasonal, preservative-free Yosvany Campbell Work Phone: [facility] 09-14-2016 pneumococcal conjuga te vaccine, 13 valent Yosvany Campbell Work Phone: [facility] Work Phone: 09-30-2005 pneumococcal polysaccharide vaccine, 23 valent Yosvany Campbell Work Phone: [facility] Payers Date Payer Category Payer Medicare [employer] MEDICARE A ETNA MEDICARE PPO [id number] 2021-Present [phone] [address] [place] [address] PPO [id number] 2021 Medicare A[employer] MEDICARE A ETNA MEDICARE PPO [id number] 2021-Present [phone] [address] [place] [address] PPO [id number] 2021 Medicare [id number] Social History Date Type Detail Facility Start: 12-01-2017 End: 04-04-2018 Tobacco smoking status NHIS Never smoked tobacco [facility] Start: 12-01-2017 End: 04-04-2018 Tobacco use and exposure Smokeless tobacco non-user [facility] Start: 12-24-2021 End: 01-27-2023 Alcohol intake Current drinker of alcohol (finding) [facility] Start: 12-20-2018 History SDOH Alcohol Comment rare use only at weddings for gt ogden [facility] Start: 1935 Sex Assigned At Female C [facility] Start: 12-14-2021 End: 04-29-2022 Exposure to SARS-CoV-2 (event) Not sure [facility] Work Phone: Clinical Notes 12-24-2021 to 01-27-2023 Yosvany Campbell - 01/27/2023 10:37 AM Mary Kate Mcmillan RN - 01/27/2023 10:35 AM Franc Campebll - 10/25/2022 3:43 PM Niecy Schaeffer LPN - 10/25/2022 3:39 PM EDT Note Date & Type Note Facility 01-27-2023 Note HNO ID: [id number] Author: Yosvany Campbell Service: ? Author Type: Physician Type: Progress Notes Filed: 01/27/2023 10:48 AM Note Text: Subjective: Patient presents to clinic c/o painful toenails. They state that the nails are especially painful with shoe gear and pressure. Patient states that nails 1-4 b/l are painful. No other pedal complaints at this time. Patient states no change in medications or medical history since last visit. Objective: Patient presents to clinic ambulating in sneakers Vasc: DP and PT pulses are palpable bilateral. CFT is less than 5 seconds bilateral. Skin temperature is warm to cool proximal to distal bilateral. There is mild edema or varicosities noted. Neuro: Protective sensation is intact to the foot and toes when tested with the 5.07 SWM bilateral. Vibratory sensation is intact at the hallux IPJ bilateral. The hallux is downgoing bilateral. Derm: Nails 1-4 b/l are painful, discolored-yellow, thick, crumbly, dystrophic and with subungal debris. Skin is of normal turgor, texture and hair growth is present bilateral. There are no hyperkeratosis, ulcerations, scars, verruca or other lesions noted. Ortho: Muscle strength is 5/5 for all pedal groups tested. Ankle joint DF is full with the knee extended with no pain or crepitus noted. 1st MPJ ROM is full bilateral. Assessment: (B35.1) Onychomycosis (primary encounter diagnosis) (M79.675) Pain in toe of left foot (M79.674) Pain in toe of right foot Plan: Patient was seen and evaluated. Nails 1-4 bilateral were debrided in length and thickness. Patient is to RTC in 3-4 months. Yosvany Campbell DPM [facility] 01-27-2023 Note HNO ID: [id number] Author: Savannah Mcmillan RN Service: ? Author Type: ? Type: Progress Notes Filed: 01/27/2023 10:48 AM Note Text: Patient presents with: Left Foot - Established Patient, Debridement of Nail Right Foot - Established Patient, Debridement of Nail Daughter is with patient today. [facility] 01-27-2023 History of Present illness Narrative Subjective: Patient presents to clinic c/o painful toenails. They state that the nails are especially painful with shoe gear and pressure. Patient states that nails 1-4 b/l are painful. No other pedal complaints at this time. Patient states no change in medications or medical history since last visit. Objective: Patient presents to clinic ambulating in [facility] Vasc: DP and PT pulses are palpable bilateral. CFT is less than 5 seconds bilateral. Skin temperature is warm to cool proximal to distal bilateral. There is mild edema or varicosities noted. Neuro: Protective sensation is intact to the foot and toes when tested with the 5.07 SWM bilateral. Vibratory sensation is intact at the hallux IPJ bilateral. The hallux is downgoing bilateral. Derm: Nails 1-4 b/l are painful, discolored-yellow, thick, crumbly, dystrophic and with subungal debris. Skin is of normal turgor, texture and hair growth is present bilateral. There are no hyperkeratosis, ulcerations, scars, verruca or other lesions noted. Ortho: Muscle strength is 5/5 for all pedal groups tested. Ankle joint DF is full with the knee extended with no pain or crepitus noted. 1st MPJ ROM is full bilateral. Assessment: (B35.1) Onychomycosis (primary encounter diagnosis) (M79.675) Pain in toe of left foot (M79.674) Pain in toe of right foot Plan: Patient was seen and evaluated. Nails 1-4 bilateral were debrided in length and thickness. Patient is to RTC in 3-4 months. Yosvany Campbell DPM Patient presents with: Left Foot - Established Patient, Debridement of Nail Right Foot - Established Patient, Debridement of Nail Daughter is with patient today. documented in this encounter [facility] 10-25-2022 Note HNO ID: [id number] Author: Yosvany Campbell Service: ? Author Type: Physician Type: Progress Notes Filed: 10/26/2022 8:10 AM Note Text: Subjective: Patient presents to clinic c/o painful toenails. They state that the nails are especially painful with shoe gear and pressure. Patient states that left hallux nail are painful. No other pedal complaints at this time. Patient states no change in medications or medical history since last visit. Objective: Patient presents to clinic ambulating in sneakers Vasc: DP and PT pulses are faintly palpable bilateral. CFT is less than 5 seconds bilateral. Skin temperature is warm to cool proximal to distal bilateral. There is moderate edema or varicosities noted. Neuro: Protective sensation is absent to the foot and toes when tested with the 5.07 SWM bilateral. Vibratory sensation is absent at the hallux IPJ bilateral. The hallux is downgoing bilateral. Derm: Nails 1-5 b/l are painful, discolored-yellow, thick, crumbly, dystrophic and with subungal debris. Left hallux toenail is ingrowing. Small bleed to left 2nd toe and right 4th toe. Skin is thin, dry, and ruborous and hair growth is absent bilateral. There are no hyperkeratosis, ulcerations, scars, verruca or other lesions noted. Ortho: Muscle strength is 5/5 for all pedal groups tested. Ankle joint DF is decreased with the knee extended with no pain or crepitus noted. 1st MPJ ROM is decreased bilateral. Assessment: (B35.1) Onychomycosis (primary encounter diagnosis) (M79.675) Pain in toe of left foot (M79.674) Pain in toe of right foot Plan: Patient was seen and evaluated. Nails 1-5 bilateral were debrided in length and thickness. Discussed ingrowing tendency of left hallux nail plate. Could consider removal in future. Patient is not interested. Patient is to RTC in 3-4 months. Yosvany Campbell DPM [facility] 10-25-2022 Note HNO ID: [id number] Author: Dina Schaeffer LPN Service: ? Author Type: LICENSED NURSE Type: Progress Notes Filed: 10/26/2022 8:10 AM Note Text: AMB ROOMING INTAKE FLOWSHEET DATA Patient presents with: Left Foot - Established Patient, Follow Up, nail care Right Foot - Established Patient, Follow Up, nail care Dina Schaeffer LPN [facility] 10-25-2022 History of Present illness Narrative Subjective: Patient presents to clinic c/o painful toenails. They state that the nails are especially painful with shoe gear and pressure. Patient states that left hallux nail are painful. No other pedal complaints at this time. Patient states no change in medications or medical history since last visit. Objective: [facility] Vasc: DP and PT pulses are faintly palpable bilateral. CFT is less than 5 seconds bilateral. Skin temperature is warm to cool proximal to distal bilateral. There is moderate edema or varicosities noted. Neuro: Protective sensation is absent to the foot and toes when tested with the 5.07 SWM bilateral. Vibratory sensation is absent at the hallux IPJ bilateral. The hallux is downgoing bilateral. Derm: Nails 1-5 b/l are painful, discolored-yellow, thick, crumbly, dystrophic and with subungal debris. Left hallux toenail is ingrowing. Small bleed to left 2nd toe and right 4th toe. Skin is thin, dry, and ruborous and hair growth is absent bilateral. There are no hyperkeratosis, ulcerations, scars, verruca or other lesions noted. Ortho: Muscle strength is 5/5 for all pedal groups tested. Ankle joint DF is decreased with the knee extended with no pain or crepitus noted. 1st MPJ ROM is decreased bilateral. Assessment: (B35.1) Onychomycosis (primary encounter diagnosis) (M79.675) Pain in toe of left foot (M79.674) Pain in toe of right foot Plan: Patient was seen and evaluated. Nails 1-5 bilateral were debrided in length and thickness. Discussed ingrowing tendency of left hallux nail plate. Could consider removal in future. Patient is not interested. Patient is to RTC in 3-4 months. Yosvany Campbell DPM AMB ROOMING INTAKE FLOWSHEET DATA Patient presents with: Left Foot - Established Patient, Follow Up, nail care Right Foot - Established Patient, Follow Up, nail care Dina Schaeffer LPN documented in this encounter [facility] 07-27-2022 Note HNO ID: [id number] Author: Yosvany Campbell Service: ? Author Type: Physician Type: Progress Notes Filed: 07/26/2022 10:31 PM Note Text: Subjective: Patient presents to clinic c/o painful toenails. They state that the nails are especially painful with shoe gear and pressure. Patient reports swelling in b/l legs but does not wear compression stockings regularlry. No other pedal complaints at this time. Patient states no change in medications or medical history since last visit. Objective: Patient presents to clinic ambulating in [facility] Vasc: DP and PT pulses are palpable bilateral. CFT is less than 5 seconds bilateral. Skin temperature is warm to cool proximal to distal bilateral. There is moderate edema or varicosities noted. Neuro: Protective sensation is decreased to the foot and toes when tested with the 5.07 SWM bilateral. Vibratory sensation is absent at the hallux IPJ bilateral. The hallux is downgoing bilateral. Derm: Nails 1-4 b/l are painful, discolored-yellow, thick, crumbly, dystrophic and with subungal debris. Skin is of normal turgor, texture and hair growth is decreased bilateral. There are no hyperkeratosis, ulcerations, scars, verruca or other lesions noted. Ortho: Muscle strength is 5/5 for all pedal groups tested. Ankle joint DF is decreased with the knee extended with no pain or crepitus noted. 1st MPJ ROM is decreased bilateral. Assessment: (B35.1) Onychomycosis (primary encounter diagnosis) (M79.675) Pain in toe of left foot (M79.674) Pain in toe of right foot (I87.2) Venous insufficiency Plan: Patient was seen and evaluated. Nails 1-4 bilateral were debrided in length and thickness. Discussed swelling in b/l legs. Recommend tubigrip for lower extremity swelling. Patient is to RTC in 3-4 months. Yosvany Campbell DPM [facility] 07-26-2022 History of Present illness Narrative Subjective: Patient presents to clinic c/o painful toenails. They state that the nails are especially painful with shoe gear and pressure. Patient reports swelling in b/l legs but does not wear compression stockings regularlry. No other pedal complaints at this time. Patient states no change in medications or medical history since last visit. Objective: Patient presents to clinic ambulating in [facility] Vasc: DP and PT pulses are palpable bilateral. CFT is less than 5 seconds bilateral. Skin temperature is warm to cool proximal to distal bilateral. There is moderate edema or varicosities noted. Neuro: Protective sensation is decreased to the foot and toes when tested with the 5.07 SWM bilateral. Vibratory sensation is absent at the hallux IPJ bilateral. The hallux is downgoing bilateral. Derm: Nails 1-4 b/l are painful, discolored-yellow, thick, crumbly, dystrophic and with subungal debris. Skin is of normal turgor, texture and hair growth is decreased bilateral. There are no hyperkeratosis, ulcerations, scars, verruca or other lesions noted. Ortho: Muscle strength is 5/5 for all pedal groups tested. Ankle joint DF is decreased with the knee extended with no pain or crepitus noted. 1st MPJ ROM is decreased bilateral. Assessment: (B35.1) Onychomycosis (primary encounter diagnosis) (M79.675) Pain in toe of left foot (M79.674) Pain in toe of right foot (I87.2) Venous insufficiency Plan: Patient was seen and evaluated. Nails 1-4 bilateral were debrided in length and thickness. Discussed swelling in b/l legs. Recommend tubigrip for lower extremity swelling. Patient is to RTC in 3-4 months. Yosvany Campbell DPM AMB ROOMING INTAKE FLOWSHEET DATA Risk Screening Do you have concerns about personal safety or safety in the home?: No Patient presents with: Left Foot - Established Patient, Follow Up, Swelling Right Foot - Established Patient, Follow Up, Swelling Patient presents with daughter. Dina Schaeffer LPN documented in this encounter [facility] 07-26-2022 Note HNO ID: [id number] Author: Dina Schaeffer LPN Service: ? Author Type: LICENSED NURSE Type: Progress Notes Filed: 07/26/2022 10:31 PM Note Text: AMB ROOMING INTAKE FLOWSHEET DATA Risk Screening Do you have concerns about personal safety or safety in the home?: No Patient presents with: Left Foot - Established Patient, Follow Up, Swelling Right Foot - Established Patient, Follow Up, Swelling Patient presents with daughter. Dina Schaeffer LPN [facility] 04-29-2022 Note HNO ID: [id number] Author: Nagi Garcia, PhD Service: ? Author Type: Psychologist Type: Progress Notes Filed: 04/29/2022 4:00 PM Note Text: Neuropsychology Consultation Name: Kendra Medina Referred by: Sophie Merritt MD Date of Evaluation: 04/15/2022 Date of : 1935 Date of Feedback: 04/29/2022 Examiner: Nagi Garcia, PhD Date of Report: 04/29/2022 Reason for Referral: Ms. Kendra Medina is an 86-year-old, right-handed, , white, woman referred for a neuropsychological evaluation for possible normal pressure hydrocephalus. Procedures: Available medical records were obtained and reviewed. Verbal informed consent was obtained prior to the clinical interview following a discussion of the nature of the evaluation, test procedures, risks and benefits, professional records, and confidentiality. The patient acknowledged understanding the purpose and/or need for the third libertarian (daughter) to be present and provided verbal consent for her to participate in the evaluation process. A clinical interview was then conducted with the patient and her daughter, and the following tests were administered by the examiner: Test of Premorbid Functioning (TOPF); Repeatable Battery for the Assessment of Neuropsychological Status (RBANS A); [place] Making Test, Parts A AND B; Neuropsychological Assessment Battery (NAB: Screening Numbers AND Letters, Digits Backward, Naming); Controlled Oral Word Association Test (FAS); Category Fluency (Animals); Clock Drawing Test; Complex Ideational Material ([place] Diagnostic Aphasia Exam); Dot Counting Test (DCT); Sentence Repetition Test; Geriatric Depression Scale - Short Form (GDS-SF); Geriatric Anxiety Scale - 10 item (GAS-10); Quick Dementia Rating System (QDRS); Neuropsychiatric Inventory - Questionnaire (NPI-Q). The testing was scored and interpreted. A follow-up appointment was held to review the results, and this report was finalized. Presenting Problem AND Background Information: Ms. Medina and her daughter reported that their primary concern is the patient's memory. Memory problems started gradually about 3 to 4 years ago. Of note, memory problems first mentioned in her EMR on 05/23/17. Examples include forgetting conversations and repeating herself. They also endorsed problems with word-finding. They denied problems with speech or other cognitive issues. Her PCP started her on donepezil about 1-year ago, per daughter's report. She is not having side effects but they haven't noticed any benefits. Her daughter was not sure when gait dysfunction and urinary issues started but it sounded like both started after the onset of memory problems. She thinks that gait changes started about 2-years ago and urinary incontinence within the last year. Of note, I do see mentioned in her chart a history of fecal incontinence. The patient reportedly has small, somewhat shuffling steps; no history of falls or tremors. The patient feels her gait is fine. She has a cane but rarely uses it. She reported only some mild leakage but her daughter shared that she has full incontinence. She wears pads. Her PCP referred to neurosurgery for evaluation of possible NPH due to enlarged ventricles on imaging. 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 On neurologic exam Dr. Merritt noted ?gait a little slow, very slight shuffling quality to it, stable turns, unable to tandem.? She also noted that anticoagulation would need to be held for LP and surgery which puts her at higher risk of stroke and bleeding. Functionally, Ms. Medina lives alone in her own home. Her son and daughter live close by. Her son started managing her medications about 2.5 years ago. He stops by every day to administer her meds; her daughter takes her to all her appointments. She stopped driving several years ago on her own. Her daughter has been managing the finances for several years. 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 She left the stove on recently; this only happened one time. Her smoke alarms work. She does not have life alert and said she does not need it because she has a cell phone. Her daughter has POA. Her daughter reported the patient has been irritable recently. She has always been very independent throughout her life and does not like to receive help. She sometimes ?obsesses? about things, such as the mail, which appears to be at least somewhat related to her memory. She recently started on Celexa but her daughter has not noticed any major changes. She is reportedly sleeping well with about 10 hours pe (more content not included)... [facility] 04-29-2022 History of Present illness Narrative Neuropsychology Consultation Name: Kendra Medina Referred by: Sophie Merritt MD Date of Evaluation: 04/15/2022 Date of : 1935 Date of Feedback: 04/29/2022 Examiner: Nagi Garcia, PhD Date of Report: 04/29/2022 Reason for Referral: Ms. Kendra Medina is an 86-year-old, right-handed, , white, woman referred for a neuropsychological evaluation for possible normal pressure hydrocephalus. Procedures: Available medical records were obtained and reviewed. Verbal informed consent was obtained prior to the clinical interview following a discussion of the nature of the evaluation, test procedures, risks and benefits, professional records, and confidentiality. The patient acknowledged understanding the purpose and/or need for the third libertarian (daughter) to be present and provided verbal consent for her to participate in the evaluation process. A clinical interview was then conducted with the patient and her daughter, and the following tests were administered by the examiner: Test of Premorbid Functioning (TOPF); Repeatable Battery for the Assessment of Neuropsychological Status (RBANS A); Maxatawny Making Test, Parts A & B; Neuropsychological Assessment Battery (NAB: Screening Numbers & Letters, Digits Backward, Naming); Controlled Oral Word Association Test (FAS); Category Fluency (Animals); Clock Drawing Test; Complex Ideational Material (Warba Diagnostic Aphasia Exam); Dot Counting Test (DCT); Sentence Repetition Test; Geriatric Depression Scale - Short Form (GDS-SF); Geriatric Anxiety Scale - 10 item (GAS-10); Quick Dementia Rating System (QDRS); Neuropsychiatric Inventory - Questionnaire (NPI-Q). The testing was scored and interpreted. A follow-up appointment was held to review the results, and this report was finalized. Presenting Problem & Background Information: Ms. Medina and her daughter reported that their primary concern is the patient's memory. Memory problems started gradually about 3 to 4 years ago. Of note, memory problems first mentioned in her EMR on 05/23/17. Examples include forgetting conversations and repeating herself. They also endorsed problems with word-finding. They denied problems with speech or other cognitive issues. Her PCP started her on donepezil about 1-year ago, per daughter's report. She is not having side effects but they haven't noticed any benefits. Her daughter was not sure when gait dysfunction and urinary issues started but it sounded like both started after the onset of memory problems. She thinks that gait changes started about 2-years ago and urinary incontinence within the last year. Of note, I do see mentioned in her chart a history of fecal incontinence. The patient reportedly has small, somewhat shuffling steps; no history of falls or tremors. The patient feels her gait is fine. She has a cane but rarely uses it. She reported only some mild leakage but her daughter shared that she has full incontinence. She wears pads. Her PCP referred to neurosurgery for evaluation of possible NPH due to enlarged ventricles on imaging. CT on 04/01/22 was read as showing Disproportionate prominence of the ventricular system most notably the third and lateral ventricles including dilatation of the temporal horns of the lateral ventricles typical for communicating hydrocephalus. 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 On neurologic exam Dr. Merritt noted gait a little slow, very slight shuffling quality to it, stable turns, unable to tandem. She also noted that anticoagulation would need to be held for LP and surgery which puts her at higher risk of stroke and bleeding. Functionally, Ms. Medina lives alone in her own home. Her son and daughter live close by. Her son started managing her medications about 2.5 years ago. He stops by every day to administer her meds; her daughter takes her to all her appointments. She stopped driving several years ago on her own. Her daughter has been managing the finances for several years. 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 She left the stove on recently; this only happened one time. Her smoke alarms work. She does not have life alert and said she does not need it because she has a cell phone. Her daughter has POA. Her daughter reported the patient has been irritable recently. She has always been very independent throughout her life and does not like to receive help. She sometimes obsesses about things, such as the mail, which appears to be at least somewhat related to her memory. She recently started on Celexa but her daughter has not noticed any major changes. She is reportedly sleeping well with about 10 hours per night. Additional Relevant Medical History: A.fib, mixed HLD, hx of aortic valve replacement, diverticulosis, osteoporosis, osteopenia. -Hearing loss in right ear; not interested in hearing aids. -Reported possible TIA about 1 year ago but I did not see this mentioned in her chart. Denied hx of acute stroke. -Denied hx of seizure or TBI. Additional Data Reviewed: -Neurosurgery notes -Recent labs, B12-341 (12/15/21), TSH-2.59 (09/24/19) Current Medications: Methenamine 1 g, citalopram 10 mg, donepezil 10 mg, baclofen 10 mg, methenamine hippurate 1 g, metoprolol 25 mg, coumadin 3 mg, Vitamin D3, Vitamin C, calcium. Relevant Developmental, Educational & Occupational History: Ms. Medina reported that she reached all developmental milestones on time. She holds a PhD in history from [employer]. She described herself as an 'A' student without difficulties with learning or reading. She denied problems with inattention or hyperactivity/impulsivity as a child. 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 Relevant Psychiatric & Substance Use History: Ms. Medina denied a prior history of psychiatric diagnoses, hospitalizations, or treatments. She denied past or current substance abuse. She drinks alcohol infrequently. She does not use tobacco or recreational drugs Relevant Social History: Ms. Medina is . She has 3 children and 7 grandchildren; 2 children live locally, 1 lives in [place]. She reported good social support in her family. She is a monolingual Mosotho speaker. Relevant Family History: Dementia (likely AD) - mother (diagnosed in mid-80's, at 96). Mental Status & Behavioral Observations: Consciousness: Awake and alert Dress: Well dressed Grooming: Well groomed Prosthetic Devices: Glasses Motor: No involuntary movements were observed; mild fidgeting was noted Speech: Spontaneous speech somewhat limited; repeated herself often; word-finding difficulties noted; fluent and articulate with normal rate, volume, and prosody. Comprehension: Appeared intact conversationally Reliable Informant: No (history primarily gathered from patient's daughter) Orientation: Fully oriented to person and situation; incorrect date, day, city, floor, hospital; did not know president but correct with multiple choice. Mood: Okay Affect: Anxious, guarded but appeared to relax as evaluation progressed Thought Process: Somewhat difficult to assess given limited spontaneous speech but generally logical and linear Thought Content: No overt evidence of delusional thinking Hallucinations: Denied Suicidal Ideation: Denied Homicidal Ideation: Denied Insight: Limited Rapport: Adequate Behavior: Pt was cooperative with all evaluation procedures. She was fully engaged throughout the evaluation. She declined breaks during testing. NOTE: To protect against COVID-19, testing was conducted with appropriate PPE, which deviates from standard administration. While every effort was made to minimize the impact of PPE on test results, the diagnostic conclusions and recommendations for treatment provided in this report are being advanced with these reservations. Test Results: As part of standard test procedure, empirically validated performance validity tests were interspersed throughout the test battery. The patient performed in the valid range on three of three standalone and embedded performance validity tests. As such, the results are judged to be a valid and accurate representation of her cognitive functioning. A summary of individual test scores can be found at the end of the report. Significant test findings are discussed below. General Intellectual: The TOPF was in the high average range. When viewed together with her educational and occupational history her general abilities are estimated to be high average or above. Attention & Speed of Information Processing: Notable for below expected performance on a test of processing speed (Screen N&L). She performed broadly within normal expectations on all other tests in this domain. Fundamental Language: Notable for below expected performance on tests of semantic fluency (RBANS, Animal Fluency) and a test of confrontation naming (NAB). Learning & Memory: Notable for impaired performance on tests of verbal and visual memory. Her memory profile was consistent with impaired encoding and storage. Visuospatial & Constructional: Within normal expectations Executive Functions: Notable for borderline impaired performance on clock drawing test (concrete placement of hands). All other tests in this domain were broadly within normal expectations Rating Scales: She endorsed minimal symptoms of depression and anxiety on brief mood assessment measures. Her daughter characterized her as functioning at a mild dementia level on a collateral informant measure. On a collateral measure of neuropsychiatric symptoms she endorsed mild to moderate agitation/aggression, irritability/lability, motor disturbance, and appetite changes/eating behaviors that cause minimal to moderate caregiver distress. Clinical Impressions & Recommendations: Ms. Kendra Medina is an 86-year-old woman referred for a neuropsychological evaluation for possible normal pressure hydrocephalus. The test results were notable for deficits on tests of memory and semantic fluency, as well as select tests of confrontation naming, processing speed, and executive functions. She has had a decline in multiple IADL's over the last few years. Taken together, she is functioning at a mild dementia level of functioning. The history, presentation, and pattern on neuropsychological testing is consistent with Alzheimer's disease. Co-occurring NPH is possible, given findings on imaging, urinary incontinence, and gait changes, but the history and test pattern favors a primary diagnosis of Alzheimer's disease. Further workup with an LP could be considered but as noted by Dr. Merritt she is at higher risk for stroke and bleeding and therefore the risks and benefits would need to be carefully weighed. Moreover, patients with early prominent dementia are less likely to have a favorable response to shunting. She is already prescribed donepezil. She has good support from her family and her children check on her daily. Her daughter already has POA. I will offer the family a referral to the Alzheimer[employer] for additional support services. She can repeat neuropsychological testing as clinically indicated. Of note, she has hearing loss and I recommend she consult with audiology to discuss treatment options if she is amenable. 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 Medina and her daughter. They were given an opportunity to ask questions and indicated that they understood the results of the evaluation and recommendations. We had a long discussion about her memory and current living situation. I recommended life alert and she will think about it. They accepted a referral to the Alzheimer's Association; referral will be placed. Her daughter said she may unplug the stove or have her only use it when someone is there. They are going to look into hearing aids for her. They were encouraged to contact me if they have any questions in the future. A copy of the report will also be sent to her PCP at their request. They will follow up with Dr. Merritt. It was a pleasure participating in the care of Ms. Medina. Please contact me if you have any questions about the evaluation ([phone]). Nagi Garcia, PhD Clinical Neuropsychologist Test Summary This score sheet is provided for the convenience of other professionals. It accompanies a written report and should not be interpreted without reference to the report. Test scores are relative to age, gender, and education as available and appropriate. Scores are reported as follows: SCORES MEAN STANDARD DEVIATION Standard Scores 100 15 Scaled Scores 10 3 T Scores 50 10 Z Scores 0 1 Test of Premorbid Functioning (TOPF) Standard Score TOPF 112 Repeatable Battery for the Assessment of Neuropsychological Status (Form A) Index Standard Score Immediate Memory 40 Visuospatial/Constructional 102 Language 92 Attention 103 Delayed Memory 40 Total Scale 69 Subtest Scaled Score Cumulative Percentage List Learning 1 Story Memory 1 Figure Copy 11 Line Orientation 26-50 Picture Naming 26-50 Semantic Fluency 6 Digit Span 13 Coding 8 List Recall 3-9 List Recognition ? 2 Story Recall 2 Figure Recall 1 Neuropsychological Assessment Battery (NAB) Screening Module Subtest T Score Screening Numbers & Letters Part A Speed 33 Screening Numbers & Letters Part A Errors 42 Screening Numbers & Letters Part A Efficiency 32 Neuropsychological Assessment Battery (NAB) Attention Module Subtest T Score Digits Backward 41 Neuropsychological Assessment Battery (NAB) Language Module Subtest T Score Naming 39 Verbal Fluency ([place]augh) T Score Phonemic Fluency (F-A-S) 48 Semantic Fluency 35 Maxatawny Making Test ([place]) T Score Trails A 55 Trails B 40 Complex Ideational Material (Cole) Raw = 10/12 Scaled Score = 7 Clock Drawing Test Total Score = 8/10 (borderline impaired) Rating Scales Total Score GDS-SF 0 GAS-10 0 QDRS 6 Services associated with this evaluation: 04/15/2022: 05141 x 60 minutes 62024 x 30 minutes 98095 x 120 minutes 04/29/2022: 63618 x 60 minutes 93681 x 180 minutes documented in this encounter [facility] 04-15-2022 Note HNO ID: [id number] Author: Nagi Garcia, PhD Service: ? Author Type: Psychologist Type: Progress Notes Filed: 04/15/2022 4:31 PM Note Text: [facility] Neuropsychology Consultation Name: Kendra Medina Date of : 1935 Age: 86 Date of Evaluation: 04/15/2022 Ms. Medina was seen today for a clinical interview and neuropsychological testing. She was accompanied by her daughter. Return appointment to discuss the results of the evaluation currently scheduled for 04/29/2022 at 1:00 pm. Full report to follow. Nagi Garcia, PhD Clinical Neuropsychologist Services associated with this encounter: 51059 x 60 minutes 52418 x 30 minutes 41322 x 120 minutes [facility] 04-15-2022 History of Present illness Narrative [facility] Neuropsychology Consultation Name: Kendra Medina Date of : 1935 Age: 86 Date of Evaluation: 04/15/2022 Ms. Medina was seen today for a clinical interview and neuropsychological testing. She was accompanied by her daughter. Return appointment to discuss the results of the evaluation currently scheduled for 04/29/2022 at 1:00 pm. Full report to follow. Nagi Garcia, PhD Clinical Neuropsychologist Services associated with this encounter: 24865 x 60 minutes 47662 x 30 minutes 05948 x 120 minutes documented in this encounter [facility] 04-01-2022 Note HNO ID: [id number] Author: Yosvany Campbell Service: ? Author Type: Physician Type: Progress Notes Filed: 04/01/2022 11:00 AM Note Text: Subjective: Patient presents to clinic c/o painful toenails. They state that the nails are especially painful with shoe gear and pressure. Patient states that nails 1-4 b/l are painful. No other pedal complaints at this time. Patient states no change in medications or medical history since last visit. Objective: Patient presents to clinic ambulating in dress shoes Vasc: DP and PT pulses are palpable bilateral. CFT is less than 5 seconds bilateral. Skin temperature is warm to cool proximal to distal bilateral. There is moderate edema and varicosities noted. Neuro: Protective sensation is intact to the foot and toes when tested with the 5.07 SWM bilateral. Vibratory sensation is decreased at the hallux IPJ bilateral. The hallux is downgoing bilateral. Derm: Nails 1-4 b/l are painful, discolored-yellow, thick, crumbly, dystrophic and with subungal debris. B/l 5th toenail has been removed. Skin is of normal turgor, texture and hair growth is present bilateral. There are no hyperkeratosis, ulcerations, scars, verruca or other lesions noted. Ortho: Muscle strength is 5/5 for all pedal groups tested. Ankle joint DF is decreased with the knee extended with no pain or crepitus noted. 1st MPJ ROM is decreased bilateral. Assessment: (B35.1) Onychomycosis (primary encounter diagnosis) (M79.675) Pain in toe of left foot (M79.674) Pain in toe of right foot Venous insufficiency Plan: Patient was seen and evaluated. Nails 1-4 bilateral were debrided in length and thickness. Discussed swelling in b/l legs. Recommend she monitor her legs for any venous leg sores. Use of stockings were discussed with patient. She has elected to hold on this for now as she experiences more pain with stockings than without. Patient is to RTC in 3-4 months. Yosvany Campbell DPM [facility] 04-01-2022 Note HNO ID: [id number] Author: Savannah Mcmillan RN Service: ? Author Type: ? Type: Progress Notes Filed: 04/01/2022 11:00 AM Note Text: AMB ROOMING INTAKE FLOWSHEET DATA Risk Screening Do you have concerns about personal safety or safety in the home?: No Patient presents with: Left Foot - Established Patient Right Foot - Established Patient Nail Care [facility] 04-01-2022 History of Present illness Narrative Subjective: Patient presents to clinic c/o painful toenails. They state that the nails are especially painful with shoe gear and pressure. Patient states that nails 1-4 b/l are painful. No other pedal complaints at this time. Patient states no change in medications or medical history since last visit. Objective: Patient presents to clinic ambulating in dress shoes Vasc: DP and PT pulses are palpable bilateral. CFT is less than 5 seconds bilateral. Skin temperature is warm to cool proximal to distal bilateral. There is moderate edema and varicosities noted. Neuro: Protective sensation is intact to the foot and toes when tested with the 5.07 SWM bilateral. Vibratory sensation is decreased at the hallux IPJ bilateral. The hallux is downgoing bilateral. Derm: Nails 1-4 b/l are painful, discolored-yellow, thick, crumbly, dystrophic and with subungal debris. B/l 5th toenail has been removed. Skin is of normal turgor, texture and hair growth is present bilateral. There are no hyperkeratosis, ulcerations, scars, verruca or other lesions noted. Ortho: Muscle strength is 5/5 for all pedal groups tested. Ankle joint DF is decreased with the knee extended with no pain or crepitus noted. 1st MPJ ROM is decreased bilateral. Assessment: (B35.1) Onychomycosis (primary encounter diagnosis) (M79.675) Pain in toe of left foot (M79.674) Pain in toe of right foot Venous insufficiency Plan: Patient was seen and evaluated. Nails 1-4 bilateral were debrided in length and thickness. Discussed swelling in b/l legs. Recommend she monitor her legs for any venous leg sores. Use of stockings were discussed with patient. She has elected to hold on this for now as she experiences more pain with stockings than without. Patient is to RTC in 3-4 months. Yosvany Campbell DPM AMB ROOMING INTAKE FLOWSHEET DATA Risk Screening Do you have concerns about personal safety or safety in the home?: No Patient presents with: Left Foot - Established Patient Right Foot - Established Patient Nail Care documented in this encounter [facility] 03-31-2022 Note HNO ID: [id number] Author: Sophie Merritt MD Service: ? Author Type: Physician Type: Progress Notes Filed: 04/01/2022 7:52 AM Note Text: NEUROSURGERY FOLLOW UP OFFICE NOTE Sophie Merritt MD Date of visit: March 31, 2022 Patient Name: Ms.Mary Shiv Medina Date of : 1935 Current Age: [age] year old Sex: female MRN/E# [id number] Last Office Visit: 03/18/2022 CLINICAL SUMMARY: Ventriculomegaly, possible NPH Hx of mechanical heart valve, 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 Kendra Medina is a 86 year old right-handed female presenting with daughter. PMH including a fib, osteoporosis, diverticulosis, high cholesterol. Patient was referred by Dr. Sheela Del Castillo for neurosurgical evaluation for normal pressure hydrocephalus. She was seen initially on 02/03/2022 she and daughter reported she had been having progressive memory decline for past two years. She had been on Aricept per Dr. Del Castillo. 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 Patient denied much incontinence but will sometimes wear pads in case she can't get to the restroom in time, one pad per day. CT brain demonstrated moderate ventriculomegaly, no overt obstruction. Due to patient's mechanical valve not being MRI compatible, she was requested to follow up with CT with and without contrast to further assess. Gait was recorded and consult was placed to neuropsych testing. 03/31/2022 Today patient follows up with CT imaging. She states that her memory seems to come and go. She does not feel that the issue has worsened since her last visit. She denies any incontinence, headaches, numbness, tingling, seizures, or vision changes. She denies balance issues or recent falls. She continues to take Warfarin. Plans to go for neuropsych testing April 15 in [place]. She is here for image review, evaluation and plan of care. Smoker: no Diabetic: no Anticoagulants / Antiplatelets: YES warfarin Occupation: retired PAIN EVALUATION No data found in the last 1 encounters. PAST MEDICAL HISTORY PAST MEDICAL HISTORY Diagnosis Date Arrhythmia Arthropathy, unspecified, site unspecified Atrial fibrillation (HCC) Backache, unspecified Degeneration of intervertebral disc, site unspecified Diverticulosis of colon (without mention of hemorrhage) Hypoglycemia, unspecified Osteoporosis, unspecified Pure hypercholesterolemia Unspecified congenital anomaly of heart PAST SURGICAL HISTORY PAST SURGICAL HISTORY Procedure Laterality Date BUNIONECTOMY, LAPIDUS-TYPE uncertain which foot COLONOSCOPY FLX DX W/COLLJ SPEC WHEN PFRMD 11/09/2010 Colonoscopy COLONOSCOPY FLX DX W/COLLJ SPEC WHEN PFRMD 04/17/2018 Colonoscopy HEART SURGERY HX 07/1999 AVR KNEE ARTHROSCOPY/SURGERY Left 40 years ago PAST SURGICAL HISTORY OF Bilateral 04/2018 cataract removal with lens inserts PERCUT AORTIC VALVE REPLACE 07/1999 @ [facility] FAMILY HISTORY FAMILY HISTORY Problem Relation Age of Onset Alzheimer's Disease Mother at 96 Osteoporosis Mother No Known Problems Father fell down basement stairs and fx skull cause of ALLERGIES ALLERGIES Allergen Reactions Augmentin [Amoxicil* Diarrhea She takes it before dental work and she has no issues with it Poison Ngozi Itching CURRENT MEDICATIONS Current Outpatient Medications Medication Sig Dispense Refill iv contrast (will be provided with radiology test) CT Brain WO/W - No IV access, insert saline lock prior to the sedation, infusion, injection for imaging exam. Discontinue saline lock post exam. If Pt. has a central line or IVAD, may access for administration according to line specific nursing protocol. Once exam is complete flush line and de-access according to line specific nursing protocol in the CT contrast administration guidelines link. 1 Each 0 citalopram hydrobromide (CELEXA) 10 mg tablet TAKE 1/2 TABLET ORALLY ONCE PER DAY FOR 30 DAYS donepezil (ARICEPT) 10 mg tablet TAKE 1 TABLET ORALLY ONCE PER DAY FOR 30 DAYS TAKE WITH SUPPER. baclofen (LIORESAL) 10 mg tablet Take 10 mg by mouth as needed. Methenamine Hippurate (HIPREX) 1 gram tablet Take 1 g by mouth twice daily with meals. ascorbic acid, vitamin C, (VITAMIN C) 250 mg tablet Take 250 mg by mouth once daily. metoprolol succinate ER (TOPROL XL) 25 mg 24 hr tablet COUMADIN 3 mg tablet Take 1 tablet by mouth daily as directed. Dispense brand Coumadin only. Pt unable to take generic. 45 tablet 3 calcium carbonate (CALTRATE) 600 mg (1,500 mg) tab Take 0.5 tablets by mouth. 0 Cholecalciferol, Vitamin D3, 1,000 unit ORAL Tab Take 2 tablets by mouth once daily. 0 No current facility-administered medications for this visit. OBJECTIVE: BP 111/61 (BP Site: Left Arm, BP Position: Sitting, BP Cuff Size: Large Adult) Pulse 80 Temp 36.4 ?C (97.6 ?F) (Temporal) Ht 5' 6 (1.676 m) Wt 113 lb 15.7 oz (51.7 kg) SpO2 (more content not included)... [facility] 03-31-2022 Note HNO ID: [id number] Author: RT Viridiana(R) Service: Radiology Author Type: Technologist Type: Progress Notes Filed: 03/31/2022 3:30 PM Note Text: Radiology Service Progress Note DATE OF SERVICE: March 31, 2022 TIME: 3:29 PM PATIENT IDENTITY VERIFICATION COMPLETED USING TWO (2) STANDARD IDENTIFIERS: Name and Date of confirmed by patient verbally. FALL SCREENING: Has the patient had 2 falls in the last year or 1 fall with injury or currently using an Ambulatory Assistive Device (Walker, Cane, Wheelchair, Crutches, etc.)? No PATIENT GENDER DATA: Female. status: : No status: NO. PATIENT RELEVANT IMPLANT DATA REVIEWED: Not Applicable ALLERGIES: Reviewed and unchanged CONTRAST ALLERGY: NO. EXAM: CT -CONTRAST INDUCED NEPHROPATHY RISK FACTORS: Home going recommendation given Yes CREATININE: Creatinine Date Value Ref Range Status 03/25/2022 0.70 0.58 - 0.96 mg/dL Final 03/26/2019 0.63 0.58 - 0.96 mg/dL Final 02/21/2019 0.69 0.58 - 0.96 mg/dL Final Estimated Glomerular Filtration Rate Date Value Ref Range Status 03/25/2022 84 >=60 mL/min/1.73m? Final Comment: Estimated Glomerular Filtration Rate (eGFR) is calculated using the 2020 CKD-EPI creatinine equation. This equation utilizes serum creatinine, sex, and age as parameters. The creatinine assay has traceable calibration to isotope dilution-mass spectrometry. Refer to KDIGO guidelines for clinical interpretation. In patients with unstable renal function, e.g. those with acute kidney injury, the eGFR may not accurately reflect actual GFR. eGFR- Date Value Ref Range Status 03/26/2019 >60 Final P.O.C.T. RESULTS: POC done: Yes, See Lab Tab March 31, 2022 TREATMENT: N/A PERIPHERAL IV DATA: Ambulatory: A peripheral IV was started in the Right antecubital site with a Angio cath: 22 gauge. 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 Kendra Medina is a 86 year old right-handed female presenting with daughter. PMH including a fib, osteoporosis, diverticulosis, high cholesterol. Patient was referred by Dr. Sheela Del Castillo for neurosurgical evaluation for normal pressure hydrocephalus. She was seen initially on 02/03/2022 she and daughter reported she had been having progressive memory decline for past two years. She had been on Aricept per Dr. Del Castillo. 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 Patient denied much incontinence but will sometimes wear pads in case she can't get to the restroom in time, one pad per day. CT brain demonstrated moderate ventriculomegaly, no overt obstruction. Due to patient's mechanical valve not being MRI compatible, she was requested to follow up with CT with and without contrast to further assess. Gait was recorded and consult was placed to neuropsych testing. 03/31/2022 Today patient follows up with CT imaging. She states that her memory seems to come and go. She does not feel that the issue has worsened since her last visit. She denies any incontinence, headaches, numbness, tingling, seizures, or vision changes. She denies balance issues or recent falls. She continues to take Warfarin. Plans to go for neuropsych testing April 15 in [place]. She is here for image review, evaluation and plan of care. Smoker: no Diabetic: no Anticoagulants / Antiplatelets: YES warfarin Occupation: retired PAIN EVALUATION No data found in the last 1 encounters. PAST MEDICAL HISTORY PAST MEDICAL HISTORY Diagnosis Date Arrhythmia Arthropathy, unspecified, site unspecified Atrial fibrillation (HCC) Backache, unspecified Degeneration of intervertebral disc, site unspecified Diverticulosis of colon (without mention of hemorrhage) Hypoglycemia, unspecified Osteoporosis, unspecified Pure hypercholesterolemia Unspecified congenital anomaly of heart PAST SURGICAL HISTORY PAST SURGICAL HISTORY Procedure Laterality Date BUNIONECTOMY, LAPIDUS-TYPE uncertain which foot COLONOSCOPY FLX DX W/COLLJ SPEC WHEN PFRMD 11/09/2010 Colonoscopy COLONOSCOPY FLX DX W/COLLJ SPEC WHEN PFRMD 04/17/2018 Colonoscopy HEART SURGERY HX 07/1999 AVR KNEE ARTHROSCOPY/SURGERY Left 40 years ago PAST SURGICAL HISTORY OF Bilateral 04/2018 cataract removal with lens inserts PERCUT AORTIC VALVE REPLACE 07/1999 @ [facility] FAMILY HISTORY FAMILY HISTORY Problem Relation Age of Onset Alzheimer's Disease Mother at 96 Osteoporosis Mother No Known Problems Father fell down basement stairs and fx skull cause of ALLERGIES ALLERGIES Allergen Reactions Augmentin [Amoxicil* Diarrhea She takes it before dental work and she has no issues with it Poison Ngozi Itching CURRENT MEDICATIONS Current Outpatient Medications Medication Sig Dispense Refill iv contrast (will be provided with radiology test) CT Brain WO/W - No IV access, insert saline lock prior to the sedation, infusion, injection for imaging exam. Discontinue saline lock post exam. If Pt. has a central line or IVAD, may access for administration according to line specific nursing protocol. Once exam is complete flush line and de-access according to line specific nursing protocol in the CT contrast administration guidelines link. 1 Each 0 citalopram hydrobromide (CELEXA) 10 mg tablet TAKE 1/2 TABLET ORALLY ONCE PER DAY FOR 30 DAYS donepezil (ARICEPT) 10 mg tablet TAKE 1 TABLET ORALLY ONCE PER DAY FOR 30 DAYS TAKE WITH SUPPER. baclofen (LIORESAL) 10 mg tablet Take 10 mg by mouth as needed. Methenamine Hippurate (HIPREX) 1 gram tablet Take 1 g by mouth twice daily with meals. ascorbic acid, vitamin C, (VITAMIN C) 250 mg tablet Take 250 mg by mouth once daily. metoprolol succinate ER (TOPROL XL) 25 mg 24 hr tablet COUMADIN 3 mg tablet Take 1 tablet by mouth daily as directed. Dispense brand Coumadin only. Pt unable to take generic. 45 tablet 3 calcium carbonate (CALTRATE) 600 mg (1,500 mg) tab Take 0.5 tablets by mouth. 0 Cholecalciferol, Vitamin D3, 1,000 unit ORAL Tab Take 2 tablets by mouth once daily. 0 No current facility-administered medications for this visit. OBJECTIVE: BP 111/61 (BP Site: Left Arm, BP Position: Sitting, BP Cuff Size: Large Adult) Pulse 80 Temp 36.4 C (97.6 F) (Temporal) Ht 5' 6 (1.676 m) Wt 113 lb 15.7 oz (51.7 kg) SpO2 96% BMI 18.40 kg/m PHYSICAL EXAM A&Ox3, speech fluent TATA 3 mm EOM are full Face symmetric No pronator drift 5/5 in UEs and LEs Gait a little slow, very slight shuffling quality to it, stable turns, unable to tandem, does not use any walking aids Data Review IMAGING STUDIES: CT brain obtained on 03/31/2022 demonstrates: Final read pending Images independently reviewed The following portions of the patient's history were reviewed, confirmed, updated as necessary: allergies, current medications, past family history, past medical history, past social history, past surgical history, problem list, HPI and ROS obtained by others. The clinical and radiographic findings as well as the risks, benefits, and alternatives of treatment have been reviewed in detail with the patient. ASSESSMENT/PLAN 1. NPH (normal pressure hydrocephalus) (HCC) Reviewed results of CT w/wo contrast - stable ventriculomegaly, no evidence of abnormal enhancement - reviewed symptoms of NPH with patient and daughter. It appears that memory decline is their most prominent concern. Discussed that the shunt may lead to modest improvement in memory. - they have a formal neuropsychological testing coming up. Will reach out if there is a limited repeat assessment that would be possible on the day of the lumbar puncture, should they choose to proceed with that - also discussed that patient has a heart valve that requires anticoagulation, which would need to be held for the lumbar puncture as well as for the surgery, which will put her at a higher risk of stroke and bleeding - they are planning to proceed with neuropsychological testing, and will make the decision on LP/shunt after that - at present, the patient believes that her gait and memory are good and that no treatment is necessary - they will contact our office should they choose to proceed with further work up - Encouraged patient to contact our office should there be any further questions, concerns, or change in symptoms. Patient expressed understanding and is in agreement with plan. Some elements may have been copied from a previous note and have been updated/reviewed where appropriate. All portions reflect current medical decision making from today. Sophie Merritt MD documented in this encounter [facility] 03-31-2022 History of Present illness Narrative Radiology Service Progress Note DATE OF SERVICE: March 31, 2022 TIME: 3:29 PM PATIENT IDENTITY VERIFICATION COMPLETED USING TWO (2) STANDARD IDENTIFIERS: Name and Date of confirmed by patient verbally. FALL SCREENING: Has the patient had 2 falls in the last year or 1 fall with injury or currently using an Ambulatory Assistive Device (Walker, Cane, Wheelchair, Crutches, etc.)? No PATIENT GENDER DATA: Female. status: : No status: NO. PATIENT RELEVANT IMPLANT DATA REVIEWED: Not Applicable ALLERGIES: Reviewed and unchanged CONTRAST ALLERGY: NO. EXAM: CT -CONTRAST INDUCED NEPHROPATHY RISK FACTORS: Home going recommendation given Yes CREATININE: Creatinine Date Value Ref Range Status 03/25/2022 0.70 0.58 - 0.96 mg/dL Final 03/26/2019 0.63 0.58 - 0.96 mg/dL Final 02/21/2019 0.69 0.58 - 0.96 mg/dL Final Estimated Glomerular Filtration Rate Date Value Ref Range Status 03/25/2022 84 >=60 mL/min/1.73m Final Comment: Estimated Glomerular Filtration Rate (eGFR) is calculated using the 2020 CKD-EPI creatinine equation. This equation utilizes serum creatinine, sex, and age as parameters. The creatinine assay has traceable calibration to isotope dilution-mass spectrometry. Refer to KDIGO guidelines for clinical interpretation. In patients with unstable renal function, e.g. those with acute kidney injury, the eGFR may not accurately reflect actual GFR. eGFR- Date Value Ref Range Status 03/26/2019 >60 Final P.O.C.T. RESULTS: POC done: Yes, See Lab Tab March 31, 2022 TREATMENT: N/A PERIPHERAL IV DATA: Ambulatory: A peripheral IV was started in the Right antecubital site with a Angio cath: 22 gauge. RADIOLOGY DEPARTMENT: CT; Exam(s) Completed: Brain SIGNATURE: RT Viridiana(R) PATIENT NAME: Kendra Medina DATE: March 31, 2022 TIME: 3:29 PM documented in this encounter [facility] 03-18-2022 Miscellaneous Notes Spoke with Dorothy and let her know we would need blood work to check kidney function for her before her CT brain with & without contrast. Katie Tran RN documented in this encounter [facility] 02-04-2022 Miscellaneous Notes Colleen called back and said Dr. Reed earliest availability for neuropsych testing is april 15. Called Pastora james's daughter and let her know this information and she said she will take the appointment on 04/15 at 1 pm. I let her know it is at the [facility]. Gave her colleen's phone # as well [phone]. Called colleen back and let her know to set patient up for appt on 04/15 at 1pm. Katie Tran RN Left VM for colleen at neuropsych testing in [place] to see if she would be able to set up an appt for Kendra. Left phone # and ext to call back. Katie Tran RN documented in this encounter [facility] 02-04-2022 Miscellaneous Notes Referral for neuropsychological testing has been submitted via the [facility] Internal Referral request form on the [facility] Appointment Portal. Confirmation # [id number] Dr Merritt requesting Dr Garcia, noted on referral. Petra Leal MA documented in this encounter [facility] 02-03-2022 Note HNO ID: [id number] Author: Sophie Merritt MD Service: ? Author Type: Physician Type: Progress Notes Filed: 02/03/2022 3:25 PM Note Text: NEUROSURGERY CONSULT NOTE Sophie Merritt MD Date of visit: February 03, 2022 Patient Name: Ms.Mary Shiv Medina Date of : 1935 Current Age: [age] year old Sex: female MRN/E# [id number] Last Office Visit: Visit date not found CLINICAL SUMMARY: * Evaluation for NPH HISTORY OF PRESENT ILLNESS : Kendra Medina is a 86 year old right-handed female presenting with daughter. PMH including a fib, osteoporosis, diverticulosis, high cholesterol. Patient was referred by Dr. Sheela Del Castillo for neurosurgical evaluation for normal pressure hydrocephalus. Today she and daughter report she has been having progressive memory decline for past two years. She has been started on Aricept per Dr. Del Castillo. Patient reports she doesn't have issues with gait, unless she is gardening then is careful not to trip over anything. Daughter notes that she does not picker tender helper her feet much and shuffles. Patient denies much incontinence but will sometimes wear pads incase she can't get to the restroom in time. She denies headaches, dizziness, numbness/tingling and new vision changes. She is here for image review, evaluation and plan of care. Smoker: no Diabetic: no Anticoagulants / Antiplatelets: YES warfarin Occupation: retired PAIN EVALUATION No data found in the last 1 encounters. PAST MEDICAL HISTORY Diagnosis Date - Arrhythmia - Arthropathy, unspecified, site unspecified - Atrial fibrillation (HCC) - Backache, unspecified - Degeneration of intervertebral disc, site unspecified - Diverticulosis of colon (without mention of hemorrhage) - Hypoglycemia, unspecified - Osteoporosis, unspecified - Pure hypercholesterolemia - Unspecified congenital anomaly of heart PAST SURGICAL HISTORY Procedure Laterality Date - BUNIONECTOMY, LAPIDUS-TYPE uncertain which foot - COLONOSCOPY FLX DX W/COLLJ SPEC WHEN PFRMD 11/09/2010 Colonoscopy - COLONOSCOPY FLX DX W/COLLJ SPEC WHEN PFRMD 04/17/2018 Colonoscopy - HEART SURGERY HX 07/1999 AVR - KNEE ARTHROSCOPY/SURGERY Left 40 years ago - PAST SURGICAL HISTORY OF Bilateral 04/2018 cataract removal with lens inserts - PERCUT AORTIC VALVE REPLACE 07/1999 @ [facility] FAMILY HISTORY Problem Relation Age of Onset - Alzheimer's Disease Mother at 96 - Osteoporosis Mother - No Known Problems Father fell down basement stairs and fx skull cause of ALLERGIES Allergen Reactions - Augmentin [Amoxicil* Diarrhea She takes it before dental work and she has no issues with it - Poison Ngozi Itching Current Outpatient Medications Medication Sig Dispense Refill - citalopram hydrobromide (CELEXA) 10 mg tablet TAKE 1/2 TABLET ORALLY ONCE PER DAY FOR 30 DAYS - donepezil (ARICEPT) 10 mg tablet TAKE 1 TABLET ORALLY ONCE PER DAY FOR 30 DAYS TAKE WITH SUPPER. - baclofen (LIORESAL) 10 mg tablet Take 10 mg by mouth as needed. - Methenamine Hippurate (HIPREX) 1 gram tablet Take 1 g by mouth twice daily with meals. - ascorbic acid, vitamin C, (VITAMIN C) 250 mg tablet Take 250 mg by mouth once daily. - metoprolol succinate ER (TOPROL XL) 25 mg 24 hr tablet - COUMADIN 3 mg tablet Take 1 tablet by mouth daily as directed. Dispense brand Coumadin only. Pt unable to take generic. 45 tablet 3 - calcium carbonate (CALTRATE) 600 mg (1,500 mg) tab Take 0.5 tablets by mouth. 0 - Cholecalciferol, Vitamin D3, 1,000 unit ORAL Tab Take 2 tablets by mouth once daily. 0 No current facility-administered medications for this visit. REVIEW OF SYSTEMS Review of Systems Constitutional: Negative for chills and fever. HENT: Positive for hearing loss. Negative for tinnitus. Decreased hearing right ear Eyes: Negative for visual disturbance. Respiratory: Negative for cough, chest tightness and shortness of breath. Cardiovascular: Negative for chest pain, palpitations and leg swelling. Gastrointestinal: Negative for diarrhea and vomiting. Genitourinary: Positive for urgency. Negative for difficulty urinating. Musculoskeletal: Positive for back pain. Negative for neck pain. Skin: Negative for rash and wound. Neurological: Negative for dizziness, seizures, speech difficulty, weakness, numbness and headaches. Hematological: Bruises/bleeds easily. On warfarin Psychiatric/Behavioral: Negative for agitation and confusion. The patient is not nervous/anxious. OBJECTIVE: BP 126/76 Pulse 83 Resp 16 Ht 5' 6 (1.68m) Wt 112 lb 3.4 oz (50.9kg) SpO2 98% BMI 18.12 kg/(m2). PHYSICAL EXAM: GENERAL: No distress, Alert, cooperative, pleasant HEENT: Normocephalic, atraumatic LUNGS: Unlabored breathing NECK/BACK: ROM appropriate, no TTP CARDIAC: Regular rate and rhythm ABDOMEN: Soft, non-tender, non-distended EXTREMITIES: LUDWIG, No deformities, No edema NEURO: Mental State: Alert, Oriented to person, (more content not included)... [facility] 12-24-2021 History of Present illness Narrative Subjective: Patient presents to clinic c/o painful toenails. They state that the nails are especially painful with shoe gear and pressure. Patient states that nails 1-4 b/l are painful. No other pedal complaints at this time. Patient states no change in medications or medical history since last visit. Objective: Patient presents to clinic ambulating in [facility] Vasc: DP and PT pulses are palpable bilateral. CFT is less than 5 seconds bilateral. Skin temperature is warm to cool proximal to distal bilateral. There is moderate edema or varicosities noted. Neuro: Protective sensation is intact to the foot and toes when tested with the 5.07 SWM bilateral. Vibratory sensation is decreased at the hallux IPJ bilateral. The hallux is downgoing bilateral. Derm: Nails 1-4 b/l are painful, discolored-yellow, thick, crumbly, dystrophic and with subungal debris. Skin is of normal turgor, texture and hair growth is absent bilateral. There are no hyperkeratosis, ulcerations, scars, verruca or other lesions noted. Ortho: Muscle strength is 5/5 for all pedal groups tested. Ankle joint DF is full with the knee extended with no pain or crepitus noted. 1st MPJ ROM is full bilateral. Assessment: (B35.1) Onychomycosis (primary encounter diagnosis) (M79.675) Pain in toe of left foot (M79.674) Pain in toe of right foot (I87.2) Venous insufficiency Plan: Patient was seen and evaluated. Nails 1-4 bilateral were debrided in length and thickness. Recommend compression stockings for swelling. Patient states that compression stockings are hard for her to get on. Will try tubigrip. Patient is to RTC in 3-4 months. Yosvany Campbell DPM Patient presents with: Left Foot - Follow Up Right Foot - Follow Up Nail Care Started Aricept. No other med changes. No complaints. Here today with her daughter. Jaki Pettit documented in this encounter [facility] Diagnosis NPH (normal pressure hydrocephalus) (HCC)- Primary Idiopathic normal pressure hydrocephalus (INPH) [facility] Diagnosis Other hydrocephalus (HCC) [facility] Diagnosis Onychomycosis- Primary Dermatophytosis of nail Pain in toe of left foot Pain in limb Pain in toe of right foot Pain in limb [facility] Memory loss- Primary NPH (normal pressure hydrocephalus) (HCC) Idiopathic normal pressure hydrocephalus (INPH) [facility] Diagnosis Mild dementia- Primary Dementia, unspecified, without behavioral disturbance [facility] Diagnosis Onychomycosis- Primary Dermatophytosis of nail Pain in toe of left foot Pain in limb Pain in toe of right foot Pain in limb Venous insufficiency Unspecified venous (peripheral) insufficiency [facility] Diagnosis Onychomycosis- Primary Dermatophytosis of nail Pain in toe of left foot Pain in limb Pain in toe of right foot Pain in limb [facility] Diagnosis Onychomycosis- Primary Dermatophytosis of nail Pain in toe of left foot Pain in limb Pain in toe of right foot Pain in limb documented in this encounter [facility] Summary Purpose Family History No Family History Records FoundNo Family History Records FoundNo Family History Records Found Advance Directives No Advanced Directives Records FoundDocuments on File Type Date Recorded Patient Examination Grader Expl anation Advance Directive(s) 04/17/2018 7:02 AM Advance Directive(s) 04/17/2018 7:08 AM Documents on File Type Date Recorded Patient Examination Grader Expl anation Advance Directive(s) 04/17/2018 7:08 AM Documents on File Type Date Recorded Patient Examination Grader Expl anation Advance Directive(s) 04/17/2018 7:08 AM Reason for Referral Specialty Diagnoses / Procedures Referred By Contac t Referred To Contact CT IMAGING Diagnoses Other hydrocephalus (HCC) Procedures CT BRAIN WO/W IVCON CT HEAD/BRAIN W/O & W/CONTRAST MATERIAL Sophie Merritt MD [address] [place] [address] Ct Imaging Referral ID Status Reason Start Date Expiration Date V isits Requested Visits Authorized [id number] Closed Auto-Generate d Referral 02/04/2022 03/06/2023 1 1 Additional Source Comments INFORMATION SOURCE (unrecogn ized section and content) DATE CREATED AUTHOR AUTHOR'S ORGANIZ ATION 05/08/2022 [facility] DATE CREATED AUTHOR AUTHOR'S ORGANIZ ATION 01/31/2023 [facility] Source Comments (unrecognize d section and content) In the event this informatio n is protected by the Federal Confidentiality of Alcohol and Drug Abuse Patient Records regulations: The Federal rules restrict any use of the information to criminally investigate or prosecute any alcohol or drug abuse patient.[facility] the event this information is protected by the Federal Confidentiality of Alcohol and Drug Abuse Patient Records regulations: The Federal rules restrict any use of the information to criminally investigate or prosecute any alcohol or drug abuse patient.[facility] the event this information is protected by the Federal Confidentiality of Alcohol and Drug Abuse Patient Records regulations: The Federal rules restrict any use of the information to criminally investigate or prosecute any alcohol or drug abuse patient.[facility] the event this information is protected by the Federal Confidentiality of Alcohol and Drug Abuse Patient Records regulations: The Federal rules restrict any use of the information to criminally investigate or prosecute any alcohol or drug abuse patient.[facility] the event this information is protected by the Federal Confidentiality of Alcohol and Drug Abuse Patient Records regulations: The Federal rules restrict any use of the information to criminally investigate or prosecute any alcohol or drug abuse patient.[facility] the event this information is protected by the Federal Confidentiality of Alcohol and Drug Abuse Patient Records regulations: The Federal rules restrict any use of the information to criminally investigate or prosecute any alcohol or drug abuse patient.[facility] the event this information is protected by the Federal Confidentiality of Alcohol and Drug Abuse Patient Records regulations: The Federal rules restrict any use of the information to criminally investigate or prosecute any alcohol or drug abuse patient.[facility] the event this information is protected by the Federal Confidentiality of Alcohol and Drug Abuse Patient Records regulations: The Federal rules restrict any use of the information to criminally investigate or prosecute any alcohol or drug abuse patient.[facility] the event this information is protected by the Federal Confidentiality of Alcohol and Drug Abuse Patient Records regulations: The Federal rules restrict any use of the information to criminally investigate or prosecute any alcohol or drug abuse patient.[facility] the event this information is protected by the Federal Confidentiality of Alcohol and Drug Abuse Patient Records regulations: The Federal rules restrict any use of the information to criminally investigate or prosecute any alcohol or drug abuse patient.[facility] the event this information is protected by the Federal Confidentiality of Alcohol and Drug Abuse Patient Records regulations: The Federal rules restrict any use of the information to criminally investigate or prosecute any alcohol or drug abuse patient.[facility] the event this information is protected by the Federal Confidentiality of Alcohol and Drug Abuse Patient Records regulations: The Federal rules restrict any use of the information to criminally investigate or prosecute any alcohol or drug abuse patient.[facility] Reason for Visit (unrecogniz ed section and content) Specialty Diagnoses / Procedures Referred By Contac t Referred To Contact Psychology / PSYCHIATRY Diagnoses NPH (normal pressure hydrocephalus) (HCC) New Patient/NPH Procedures NEUROBEHAVIORAL STATUS XM PHYS/QHP 1ST HOUR NEUROPSYCHOLOGICAL TST EVAL PHYS/QHP 1ST HOUR NEUROPSYCHOLOGICAL TST EVAL PHYS/QHP EA ADDL HR PSYL/NRPSYCL TST PHYS/QHP 2+ TST 1ST 30 MIN PSYCL/NRPSYCL TST PHYS/QHP 2+ TST EA ADDL 30 MIN TESTING Carrington Carter MD [address] [place] [address] Nagi Garcia, PhD [address] [facility] [address] [place] [address] Referral ID Status Reason Start Date Expiration Date Visits Re quested Visits Authorized [id number] Closed 04/15/2022 08/06/2022 2 2 Reason Comments Nail Care Follow Up Reason Comments Internal Referrals/resources 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 - Other Appointment Reason Comments Patient Update Specialty Diagnoses / Procedures Referred By Contaime t Referred To Contact CT IMAGING Diagnoses Other hydrocephalus (HCC) Procedures CT BRAIN WO/W IVCON CT HEAD/BRAIN W/O & W/CONTRAST MATERIAL Sophie Merritt MD [address] [facility] [place] [address] Ct Imaging Referral ID Status Reason Start Date Expiration Date V isits Requested Visits Authorized [id number] Closed Auto-Generate d Referral 02/04/2022 03/06/2023 1 1 Reason Comments Established Patient Reason Comments Established Patient Nail Care Reason Comments Neuropsych Testing Referral ID Status Reason Start Date Expiration Date V isits Requested Visits Authorized [id number] Authorized 04/15/2022 08/06/2022 2 2 Reason Comments Established Patient Follow Up Swelling Reason Comments Established Patient Follow Up nail care Reason Comments Established Patient Debridement of Nail Care Teams (unrecognized sec tion and content) Security Project Manager Relationship Specialty Start Date End Date Nadine Felix MD [address] [place] [address] PCP - General Internal Medicine 10/20/15 Security Project Manager Relationship Specialty Start Date End Date Nadine Felix MD [address] [place] [address] PCP - General Internal Medicine 10/20/15 Security Project Manager Relationship Specialty Start Date End Date Nadine Felix MD [address] [place] [address] PCP - General Internal Medicine 10/20/15 Security Project Manager Relationship Specialty Start Date End Date Nadine Felix MD [address] [place] [address] PCP - General Internal Medicine 10/20/15 Security Project Manager Relationship Specialty Start Date End Date Nadine Felix MD [address] [place] [address] PCP - General Internal Medicine 10/20/15 Security Project Manager Relationship Specialty Start Date End Date Nadine Felix MD [address] [place] [address] PCP - General Internal Medicine 10/20/15 Security Project Manager Relationship Specialty Start Date End Date Sheela Del Castillo Chi [address] [place] [address] PCP - General Gerontology 04/29/22 Security Project Manager Relationship Specialty Start Date End Date Sheela Del Castillo Chi [address] [place] [address] PCP - General Gerontology 04/29/22 Security Project Manager Relationship Specialty Start Date End Date Sheela Del Castillo Chi [address] [place] [address] PCP - General Gerontology 04/29/22 Security Project Manager Relationship Specialty Start Date End Date Sheela Del Castillo Chi [address] [place] [address] PCP - General Gerontology 04/29/22 FOR RECORDS PERTAINING TO PATIENTS WHO ARE OR HAVE BEEN ENROLLED IN A CHEMICAL DEPENDENCY/SUBSTANCEABUSE PROGRAM, SOME INFORMATION MAY BE OMITTED. This clinical summary was aggregated from multiple sources. Caution should be exercised in using it in the provision of clinical care. This summary normalizes information from multiple sources, and as a consequence, information in this document may materially change the coding, format and clinical context of patient data. In addition, data may be omitted in some cases. CLINICAL DECISIONS SHOULD BE BASED ON THE PRIMARY CLINICAL RECORDS. [facility]. provides no warranty or guarantee of the accuracy or completeness of information in this document.
[2023-09-15 12:10] LABS: Absolute Lymphocyte Count 1.28 X10^3/uL (0.83-4.51); Absolute Neutrophil Count 2.3 X10^3/uL (2.0-7.7); Basophil# 0.02 X10^3/uL; Basophil% 0.5 % (0-1); Eosinophil# 0.05 X10^3/uL; Eosinophils% 1.2 % (0-5); Hematocrit 39.9 % (37-47); Hemoglobin 12.9 g/dL (12.0-15.0); Lymphocyte # 1.28 X10^3/ul (0.83-4.51); Lymphocyte % 31.4 % (19-41); Mean Corp Hgb Conc 32.3 g/dL (32-36); Mean Corpuscular Hgb 30.1 pg (27.0-32.0); Mean Platelet Vol. 10.3 fl (6.2-12.0); Monocyte# 0.45 X10^3/uL; NRBC Flagged by Analyzer 0 % (0-5); Neutrophil # 2.27 X10^3/uL (2.7-7.7); Neutrophil % 55.7 % (47-70); Platelet Count 172 K/mm3 (150-450); RBC Distribution Width CV 14.1 % (11.6-14.6); RBC Distribution Width SD 48.2 fl (35.1-43.9); Red Blood Count 4.29 M/mm3 (4.2-5.4); White Blood Count 4.1 K/mm3 (4.4-11.0)
[2023-09-15 12:47] LABS: Vitamin D,25 Hydroxy 42.3 ng/mL
[2023-09-15 13:12] LABS: AST(SGOT) 39 U/L (15-37); Alanine Aminotransfer ALT/SGPT 41 U/L (13-56); Albumin, Serum 3.6 g/dL (3.2-5.0); Alkaline Phosphatase 79 U/L (45-117); Anion Gap 3 (5-15); BUN 17 mg/dL (7-18); BUN/Creat Ratio 22.5 RATIO (10-20); Calcium,Total 9.3 mg/dL (8.5-10.1); Chloride 107 mmol/L (98-107); Creatinine, Serum 0.76 mg/dL (0.55-1.02); EST Glomerular Filtration Rate 77 mL/min (>60); Est Glom Filt Rate - Afr Amer 93 mL/min (>60); Globulin 3.7 g/dL (2.2-4.2); Glucose 70 mg/dL (74-106); Potassium 3.9 mmol/L (3.5-5.1); Protein, Total 7.3 g/dL (6.4-8.2); Sodium Level 141 mmol/L (136-145)
== END | disposition home or self-care (01) ==
LOC: BIMLAB 11:21
PROVIDERS: PCP Internal Medicine; Referring Provider Internal Medicine; Visit Provider Internal Medicine
DX: I48.11 Longstanding persistent atrial fibrillation (principal); M81.0 Age-related osteoporosis without current pathological fracture
CPT/HCPCS: 36415; 80053; 82306; 85025

== ENCOUNTER 2023-10-02 16:46 | Outpatient (RCR) | payer MEDICARE, SELFPAY ==
[2023-09-06 23:12] VITALS: BMI 19.2
[2023-09-18 17:06] LABS: International Normalized Ratio 1.9; Prothrombin Time (Protime)PT. 22.2 SECONDS (11.7-14.9)
[2023-10-02 17:21] LABS: International Normalized Ratio 2.2; Prothrombin Time (Protime)PT. 24.1 SECONDS (11.7-14.9)
== END 2023-10-05 18:00 | disposition home or self-care (01) ==
LOC: LAB 16:46
PROVIDERS: Family Provider Internal Medicine; PCP Internal Medicine; Referring Provider Nurse Practitioner Family; Visit Provider Nurse Practitioner Family
DX: Z79.01 Long term (current) use of anticoagulants (principal)
CPT/HCPCS: 36415; 85610

== ENCOUNTER → 2023-10-13 | Outpatient (CLI) | payer MEDICARE, SELFPAY ==
[2023-10-13 09:35] LABS: Hematocrit 40.4 % (37-47); Hemoglobin 12.8 g/dL (12.0-15.0); Mean Corp Hgb Conc 31.7 g/dL (32-36); Mean Corpuscular Hgb 29.7 pg (27.0-32.0); Mean Corpuscular Volume 93.7 fL (81-99); Mean Platelet Vol. 10.4 fl (6.2-12.0); Platelet Count 165 K/mm3 (150-450); RBC Distribution Width CV 14.4 % (11.6-14.6); RBC Distribution Width SD 49.9 fl (35.1-43.9); Red Blood Count 4.31 M/mm3 (4.2-5.4); White Blood Count 4.5 K/mm3 (4.4-11.0)
--- OUTSIDE RECORDS SUMMARY | 2023-10-13 09:48 | XMS RPT_ITS | CCD ---
Author Name Unknown Address [address] [place] [address] Organization [facility] Care Team Providers Care Relief Cook Name Role Phone Nadine Neff MD Primary Care Provider Sheela Del Castillo Chi Primary Care Provider [phone] Dixon, Sheela Chi Primary Care Provider NADINE NEFF Primary Care Unavailable SOPHIE GIRON Referring Unavailable TESTRAKE, YOSVANY Referring Unavailable DIXON, SHEELA CHI Primary Care Unavailable TESTRAKE, YOSVANY Attending Unavailable DIXON, SHEELA CHI Primary Care Unavailable TESTRAKE, YOSVANY Attending Unavailable TESTRAKE, YOSVANY Attending Unavailable TESTRAKE, YOSVANY Referring Unavailable DIXON, SHEELA CHI Primary Care Unavailable TESTRAKE, YOSVANY Attending Unavailable TESTRAKE, YOSVANY Referring Unavailable GANTA, NADINE Primary Care Unavailable Dixon, Sheela Chi Primary Care Provider Allergies Allergy Classification Reported Allergen(s) Allergy Type Date of Onset Reaction(s) Facility (16 sources) Amoxicillin / Clavulanate; Translations: [AMOXICILLIN-POT CLAVULANATE] Drug Allergy 01-23-2016 Diarrhea [facility] Work Phone: (16 sources) POISON NGOZI EXTRACT; Translations: [POISON NGOZI] Drug Allergy 11-09-2010 Itching [facility] (12 sources) Clavulanate; Translations: [POTASSIUM CLAVULANATE] Drug Allergy 04-02-2019 Diarrhea [facility] Medications Completed/Discontinued Medications Medication Drug Class(es) Dates Sig (Normalized) Sig (Original) amiodarone hydrochloride 200 mg oral tablet (1 source) Antiarrhythmic Start: 09-21-2019 take 1 tablet by mouth once daily amiodarone (PACERONE) 200 mg tablet Take 200 mg by mouth once daily. 0 09/21/2019 Active Problems Active Problems Problem Classification Problem Date Documented Date Episodic/Chronic Cardiac dysrhythmias (15 sources) Atrial fibrillation; Translations: [Unspecified atrial fibrillation] Onset: 10-20-2015 08-02-2021 Chronic Delirium, dementia, and amnestic and other cognitive disorders (8 sources) Mild dementia; Translations: [Unspecified dementia without behavioral disturbance] Onset: 04-29-2022 Chronic Disorders of lipid metabolism (15 sources) Mixed hyperlipidemia; Translations: [Mixed hyperlipidemia] Onset: [...] [Other hydrocephalus] Chronic Other nervous system disorders (1 source) (Idiopathic) normal pressure hydrocephalus; Translations: [NPH (normal pressure hydrocephalus) (HCC)] Onset: 03-25-2022 Chronic Residual codes; unclassified (1 source) Amnesia; Translations: [Other amnesia] Episodic Past or Other Problems Problem Classification Problem Date Documented Da te Episodic/Chronic Other bone disease and musculoskeletal deformities (15 sources) Osteopenia; Translations: [Other specified disorders of bone density and structure, unspecified site] Onset: 10-20-2015 08-22-2016 Episodic Other gastrointestinal disorders (15 sources) Abdominal bloating; Translations: [Abdominal distension (gaseous)] Onset: 04-05-2018 04-05-2018 Episodic Other gastrointestinal disorders (15 sources) Urgent desire for stool; Translations: [Fecal urgency] Onset: 04-05-2018 04-05-2018 Episodic Other gastrointestinal disorders (9 sources) Alteration in bowel elimination; Translations: [Change in bowel habit] Onset: 04-05-2018 04-05-2018 Episodic Other gastrointestinal disorders (6 sources) Altered bowel function; Translations: [Change in bowel habit] Onset: 04-05-2018 04-05-2018 Episodic Results Test Name Value Interpretation Reference Range Facil ity Vital Signs Date Time Vital Sign Value Performing Clinician Khushi johnson 03-31-2022 15:14-0400 Body height 167.6 cm Sophie Giron MD Work Phone: [facility] 03-31-2022 15:14-0400 Body temperature 97.59 [degF] Sophie Giron MD Work Phone: [facility] 03-31-2022 15:14-0400 Body weight 51.7 kg Sophie Giron MD Work Phone: [facility] 03-31-2022 15:14-0400 Diastolic blood pressure 61 mm[Hg] Sophie Giron MD Work Phone: [facility] 03-31-2022 15:14-0400 Heart rate 80 /min Sophie Giron MD Work Phone: [facility] 03-31-2022 15:14-0400 SaO2% (BldA) [Mass fraction] 96 % Sophie Giron MD Work Phone: [facility] 03-31-2022 15:14-0400 Systolic blood pressure 111 mm[Hg] Sophie Giron MD Work Phone: [facility] Encounters Encounter Date Encounter Type Care Provider Facility Start: 09-28-2023 Telephone encounter Victor Manuel brock PhD Work Phone: [facility] Plan of Treatment Date Care Activity Detail Author Start: 10-04-2031 Urine microalbumin profile DTaP,Tdap,Td Vaccine (5 - Td or Tdap) [facility] Start: 06-01-2028 Urine microalbumin profile DTAP,TDAP,TD (2 - Td or Tdap) [facility] Start: 03-25-2025 DIABETES SCREEN DIABETES SCREEN [facility] Start: 03-25-2025 Diabetes Screening Diabetes Screenin g [facility] Start: 08-07-2023 Advance Directive Discussion Advance Directive Discussion [facility] Start: 04-07-2023 Covid-19 Vaccine () Covid-19 Vaccine () [facility] Start: 04-07-2023 Influenza vaccination [facility] Start: 08-07-2022 ADVANCE DIRECTIVE DISCUSSION ADVANCE DIRECTIVE DISCUSSION [facility] Start: 04-07-2022 Influenza vaccination C [facility] Start: 03-26-2022 DIABETES SCREEN DIABETES SCREEN [facility] Start: 03-18-2022 End: 05-18-2022 Basic metabolic 2000 panel - Serum or Plasma BASIC METABOLIC PNL Lab Routine NPH (normal pressure hydrocephalus) (HCC) Expected: 03/18/2022, Expires: 05/18/2022 [facility] Work Phone: Immunizations Immunization Date Immunization Notes Care Provider Alaina fregoso 04-01-2020 influenza virus vacc ine, unspecified formulation Victor Manuel Garcia PhD Work Phone: [facility] 05-23-2017 influenza, high dose seasonal, preservative-free Yosvany Erickson Work Phone: [facility] 09-14-2016 pneumococcal conjuga te vaccine, 13 valent Yosvany Erickson Work Phone: [facility] Work Phone: 09-30-2005 pneumococcal polysaccharide vaccine, 23 valent Yosvany Erickson Work Phone: [facility] Payers Date Payer Category Payer Medicare [employer] MEDICARE A ETNA MEDICARE PPO [id number] 2021-Present [phone] [address] [place] [address] PPO [id number] 2021 Medicare A[employer] MEDICARE A ETNA MEDICARE PPO [id number] 2021-Present [phone] [address] [place] [address] PPO [id number] 2021 Medicare [id number] Social History Date Type Detail Facility Start: 12-01-2017 End: 04-04-2018 Tobacco smoking status NHIS Never smoked tobacco [facility] Start: 12-01-2017 End: 04-04-2018 Tobacco use and exposure Smokeless tobacco non-user [facility] Start: 12-24-2021 End: 01-27-2023 Alcohol intake Current drinker of alcohol (finding) [facility] Start: 12-20-2018 History SDOH Alcohol Comment rare use only at weddings for gt ogden [facility] Start: 1935 Sex Assigned At Female C [facility] Start: 12-14-2021 End: 04-29-2022 Exposure to SARS-CoV-2 (event) Not sure [facility] Work Phone: Start: 11-23-2018 End: 01-27-2023 History of Social function [facility] Start: 11-23-2018 End: 01-27-2023 Tobacco use panel [facility] Adult Depression Screening Assessment 0 [facility] Start: 11-18-2018 Gender identity Identifies as female gender (finding) [facility] Start: 03-08-2019 Sexual orientation Choose not to dis close [facility] Clinical Notes 12-24-2021 to 09-28-2023 Telephone Encounter - Latasha Taylor - 09/28/2023 10:56 AM ESTTelephone Encounter - Latasha Taylor - 09/26/2023 10:29 AM ESTTelephone Encounter - Latasha Taylor - 09/25/2023 2:20 PM EST Note Date & Type Note Facility 09-28-2023 Miscellaneous Notes Called the daughter to inform that test results were faxed to Dr. Olmstead and it went through. documented in this encounter [facility] 09-26-2023 Miscellaneous Notes Patient's daughter call. I advised I did receive the POA and scanned it in. Advised that I need release forms signed before I can send testing results to [facility]. I faxed the forms to her personal fax#. Will fill them out and send it back to me. documented in this encounter [facility] 09-25-2023 Miscellaneous Notes Patient's daughter called in requesting patient records/test results from memory test be sent to [facility], Dr. Olmstead. I couldn't find the POA on file with her name on it. Gave fax. Will call her back once I have that on file. documented in this encounter [facility] 01-27-2023 Note HNO ID: [id number] Author: Yosvany Erickson Service: ? Author Type: Physician Type: Progress [...] is to RTC in 3-4 months. Yosvany Erickson DPM [facility] 01-27-2023 Note HNO ID: [id number] Author: Savannah Mcmillan RN Service: ? Author Type: ? Type: Progress Notes Filed: 01/27/2023 10:48 AM Note Text: Patient presents with: Left Foot - Established Patient, Debridement of Nail Right Foot - Established Patient, Debridement of Nail Daughter is with patient today. [facility] 01-27-2023 History of Present illness Narrative Subjective: [...] is to RTC in 3-4 months. Yosvany Erickson DPM Patient presents with: Left Foot - Established Patient, Debridement of Nail Right Foot - Established Patient, Debridement of Nail Daughter is with patient today. documented in this encounter [facility] 10-25-2022 Note HNO ID: [id number] Author: Yosvany Erickson Service: ? Author Type: Physician Type: Progress [...] is to RTC in 3-4 months. Yosvany Erickson DPM [facility] 10-25-2022 Note HNO ID: [id number] Author: Dina Schaeffer LPN Service: ? Author Type: LICENSED NURSE Type: Progress Notes Filed: 10/26/2022 8:10 AM Note Text: AMB ROOMING INTAKE FLOWSHEET DATA Patient presents with: Left Foot - Established Patient, Follow Up, nail care Right Foot - Established Patient, Follow Up, nail care Dina Schaeffer LPN [facility] 10-25-2022 History of Present illness Narrative Subjective: [...] is to RTC in 3-4 months. Yosvany Erickson DPM AMB ROOMING INTAKE FLOWSHEET DATA Patient presents with: Left Foot - Established Patient, Follow Up, nail care Right Foot - Established Patient, Follow Up, nail care Dina Schaeffer LPN documented in this encounter [facility] 07-27-2022 Note HNO ID: [id number] Author: Yosvany Erickson Service: ? Author Type: Physician Type: Progress [...] Objective: Patient presents to clinic ambulating in [facility] Vasc: DP and PT pulses are [...] is to RTC in 3-4 months. Yosvany Erickson DPM [facility] 07-26-2022 History of Present illness Narrative Subjective: [...] Objective: Patient presents to clinic ambulating in [facility] Vasc: DP and PT pulses are [...] is to RTC in 3-4 months. Yosvany Erickson DPM AMB ROOMING INTAKE FLOWSHEET DATA Risk Screening Do you have concerns about personal safety or safety in the home?: No Patient presents with: Left Foot - Established Patient, Follow Up, Swelling Right Foot - Established Patient, Follow Up, Swelling Patient presents with daughter. Dina Schaeffer LPN documented in this encounter [facility] 07-26-2022 Note HNO ID: [id number] Author: Dina Schaeffer LPN Service: ? Author [...] Patient presents with daughter. Dina Schaeffer LPN [facility] 04-29-2022 History of Present illness Narrative Neuropsychology Consultation Name: Kendra Ward Referred by: Sophie Giron MD Date of Evaluation: 04/15/2022 Date of : 1935 Date of Feedback: 04/29/2022 Examiner: Victor Manuel Garcia, PhD Date of Report: 04/29/2022 Reason for Referral: Ms. Kendra Ward is an 86-year-old, right-handed, , white, woman [...] the purpose and/or need for the third constitution party (daughter) to be present and provided verbal consent for her to participate in the evaluation process. A clinical interview was then conducted with the patient and her daughter, and the following tests were administered by the examiner: Test of Premorbid Functioning (TOPF); Repeatable Battery for the Assessment of Neuropsychological Status (RBANS A); [place] Making Test, Parts A & B; Neuropsychological Assessment Battery (NAB: Screening Numbers & Letters, Digits Backward, Naming); Controlled Oral Word Association Test (FAS); Category Fluency (Animals); Clock Drawing Test; Complex Ideational Material ([place] Diagnostic Aphasia Exam); Dot Counting Test (DCT); Sentence Repetition Test; Geriatric Depression Scale - Short Form (GDS-SF); Geriatric Anxiety Scale - 10 item (GAS-10); Quick Dementia Rating System (QDRS); Neuropsychiatric Inventory - Questionnaire (NPI-Q). The testing was scored and interpreted. A follow-up appointment was held to review the results, and this report was finalized. Presenting Problem & Background Information: Ms. Ward and her daughter reported that their primary [...] mechanical heart valve. On neurologic exam Dr. Giron noted gait a little slow, very slight shuffling quality to it, stable turns, unable to tandem. She also noted that anticoagulation would need to be held for LP and surgery which puts her at higher risk of stroke and bleeding. Functionally, Ms. Ward lives alone in her own home. Her [...] they are in her routine (cooking, cleaning, tie puller). She left the stove on recently; this [...] Relevant Developmental, Educational & Occupational History: Ms. Ward reported that she reached all developmental milestones on time. She holds a PhD in history from [employer]. She described herself as an 'A' student without difficulties with learning or reading. She denied problems with inattention or hyperactivity/impulsivity as a child. 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 Relevant Psychiatric & Substance Use History: Ms. Ward denied a prior history of psychiatric diagnoses, hospitalizations, or treatments. She denied past or current substance abuse. She drinks alcohol infrequently. She does not use tobacco or recreational drugs Relevant Social History: Ms. Ward is . She has 3 children and 7 grandchildren; 2 children live locally, 1 lives in [place]. She reported good social support in her family. She is a monolingual Nepalese speaker. Relevant Family History: Dementia (likely AD) [...] distress. Clinical Impressions & Recommendations: Ms. Kendra Ward is an 86-year-old woman referred for a [...] be considered but as noted by Dr. Giron she is at higher risk for stroke [...] impressions, and recommendations were discussed with Ms. Ward and her daughter. They were given an [...] request. They will follow up with Dr. Giron. It was a pleasure participating in the care of Ms. Ward. Please contact me if you have any questions about the evaluation ([phone]). Victor Manuel Garcia, PhD Clinical Neuropsychologist Test Summary This [...] Phonemic Fluency (F-A-S) 48 Semantic Fluency 35 [place] Making Test ([place]) T Score Trails A 55 Trails B 40 Complex Ideational Material ([place]) Raw = 10/12 Scaled Score = 7 Clock Drawing Test Total Score = 8/10 (borderline impaired) Rating Scales Total Score GDS-SF 0 GAS-10 0 QDRS 6 Services associated with this evaluation: 04/15/2022: 67977 x 60 minutes 81515 x 30 minutes 98458 x 120 minutes 04/29/2022: 78134 x 60 minutes 87955 x 180 minutes documented in this encounter [facility] 04-15-2022 History of Present illness Narrative [facility] Department of Psychiatry & Behavioral Sciences Neuropsychology Consultation Name: Kendra Ward Date of : 1935 Age: 86 Date of Evaluation: 04/15/2022 Ms. Ward was seen today for a clinical interview and neuropsychological testing. She was accompanied by her daughter. Return appointment to discuss the results of the evaluation currently scheduled for 04/29/2022 at 1:00 pm. Full report to follow. Victor Manuel Garcia, PhD Clinical Neuropsychologist Services associated with this encounter: 76770 x 60 minutes 53796 x 30 minutes 03361 x 120 minutes documented in this encounter [facility] 04-01-2022 Note HNO ID: [id number] Author: Yosvany Erickson Service: ? Author Type: Physician Type: Progress [...] is to RTC in 3-4 months. Yosvany Erickson DPM [facility] 04-01-2022 Note HNO ID: [id number] Author: Savannah Mcmillan RN Service: ? Author Type: ? Type: Progress Notes Filed: 04/01/2022 11:00 AM Note Text: AMB ROOMING INTAKE FLOWSHEET DATA Risk Screening Do you have concerns about personal safety or safety in the home?: No Patient presents with: Left Foot - Established Patient Right Foot - Established Patient Nail Care [facility] 04-01-2022 History of Present illness Narrative Subjective: [...] is to RTC in 3-4 months. Yosvany Erickson DPM AMB ROOMING INTAKE FLOWSHEET DATA Risk Screening Do you have concerns about personal safety or safety in the home?: No Patient presents with: Left Foot - Established Patient Right Foot - Established Patient Nail Care documented in this encounter [facility] 03-31-2022 History of Present illness Narrative NEUROSURGERY FOLLOW UP OFFICE NOTE Sophie Giron MD Date of visit: March 31, 2022 Patient Name: .Kendra Ward Date of : 1935 Current Age: [age] year old Sex: female MRN/E# [id number] Last Office Visit: 03/18/2022 CLINICAL SUMMARY: Ventriculomegaly, possible NPH Hx of mechanical heart valve, 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 Kendra Ward is a 86 year old right-handed female [...] Castillo. Daughter noted that patient did not cone picker her feet much and shuffled. Patient denied [...] current medical decision making from today. Sophie Giron MD documented in this encounter [facility] 03-31-2022 History of Present illness Narrative Radiology [...] Brain SIGNATURE: RT Viridiana(R) PATIENT NAME: Kendra Ward DATE: March 31, 2022 TIME: 3:29 PM documented in this encounter [facility] 03-18-2022 Miscellaneous Notes Spoke with Dorothy and let her know we would need blood work to check kidney function for her before her CT brain with & without contrast. Katie Tran RN documented in this encounter [facility] 02-04-2022 Miscellaneous Notes Colleen called back and said Dr. Reed earliest availability for neuropsych testing is april 15. Called Pastora james's daughter and let her know this information and she said she will take the appointment on 04/15 at 1 pm. I let her know it is at [facility]. Gave her colleen's phone # as well [phone]. Called colleen back and let her know to set patient up for appt on 04/15 at 1pm. Katie Tran RN [place] colleen [place] to see if she would be able to set up an appt for Kendra. Left phone # and ext to call back. Katie Tran RN documented in this encounter [facility] 02-04-2022 Miscellaneous Notes Referral for neuropsychological testing has been submitted via the [facility] Internal Referral request form on the [facility] Appointment Portal. Confirmation # [id number] Dr Giron requesting Dr Garcia, noted on referral. Petra Leal MA documented in this encounter [facility] 12-24-2021 History of Present illness Narrative Subjective: Patient presents to clinic c/o painful toenails. They state that the nails are especially painful with shoe gear and pressure. Patient states that nails 1-4 b/l are painful. No other pedal complaints at this time. Patient states no change in medications or medical history since last visit. Objective: Patient presents to clinic ambulating in [facility] Vasc: DP and PT pulses are [...] is to RTC in 3-4 months. Yosvany Erickson DPM Patient presents with: Left Foot - Follow Up Right Foot - Follow Up Nail Care Started Aricept. No other med changes. No complaints. Here today with her daughter. Jaki Wilver documented in this encounter [facility] documented [facility] Diagnosis NPH (normal pressure hydrocephalus) (HCC)- Primary Idiopathic normal pressure hydrocephalus (INPH) [facility] Diagnosis Other hydrocephalus (HCC) [facility] Diagnosis Onychomycosis- Primary Dermatophytosis of nail Pain in toe of left foot Pain in limb Pain in toe of right foot Pain in limb [facility] Diagnosis Memory loss- Primary NPH (normal pressure hydrocephalus) (HCC) Idiopathic normal pressure hydrocephalus (INPH) [facility] Diagnosis Mild dementia- Primary Dementia, unspecified, without behavioral disturbance [facility] Diagnosis Onychomycosis- Primary Dermatophytosis of nail Pain in toe of left foot Pain in limb Pain in toe of right foot Pain in limb Venous insufficiency Unspecified venous (peripheral) insufficiency [facility] Diagnosis Onychomycosis- Primary Dermatophytosis of nail Pain in toe of left foot Pain in limb Pain in toe of right foot Pain in limb [facility] Diagnosis Onychomycosis- Primary Dermatophytosis of nail Pain in toe of left foot Pain in limb Pain in toe of right foot Pain in limb documented in this encounter [facility] Summary Purpose Family History No Family History Records FoundNo Family History Records FoundNo Family History Records Found Advance Directives No Advanced Directives Records FoundDocuments on File Type Date Recorded Patient Supervisor [employer] Expl anation Advance Directive(s) 04/17/2018 7:02 AM Advance Directive(s) 04/17/2018 7:08 AM Documents on File Type Date Recorded Patient Supervisor [employer] Expl anation Advance Directive(s) 04/17/2018 7:08 AM Documents on File Type Date Recorded Patient Supervisor [employer] Expl anation Advance Directive(s) 04/17/2018 7:08 AM Reason for Referral Specialty Diagnoses / Procedures Referred By Contac t Referred To Contact CT IMAGING Diagnoses Other hydrocephalus (HCC) Procedures CT BRAIN WO/W IVCON CT HEAD/BRAIN W/O & W/CONTRAST MATERIAL Sophie Giron MD [address] [facility] [place] [address] Ct Imaging Referral ID Status Reason Start Date Expiration Date V isits Requested Visits Authorized [id number] Closed Auto-Generate d Referral 02/04/2022 03/06/2023 1 1 Additional Source Comments INFORMATION SOURCE (unrecogn ized section and content) DATE CREATED AUTHOR AUTHOR'S ORGANIZ ATION 01/31/2023 [facility] DATE CREATED AUTHOR AUTHOR'S ORGANIZ ATION 10/06/2023 [facility] Source Comments (unrecognize d section and content) In the event this informatio n is protected by the Federal Confidentiality of Alcohol and Drug Abuse Patient Records regulations: The Federal rules restrict any use of the information to criminally investigate or prosecute any alcohol or drug abuse patient.[facility] [place] the event this information is protected by the Federal Confidentiality of Alcohol and Drug Abuse Patient Records regulations: The Federal rules restrict any use of the information to criminally investigate or prosecute any alcohol or drug abuse patient.[facility] [place] the event this information is protected by the Federal Confidentiality of Alcohol and Drug Abuse Patient Records regulations: The Federal rules restrict any use of the information to criminally investigate or prosecute any alcohol or drug abuse patient.[facility] [place] the event this information is protected by the Federal Confidentiality of Alcohol and Drug Abuse Patient Records regulations: The Federal rules restrict any use of the information to criminally investigate or prosecute any alcohol or drug abuse patient.[facility] [place] the event this information is protected by the Federal Confidentiality of Alcohol and Drug Abuse Patient Records regulations: The Federal rules restrict any use of the information to criminally investigate or prosecute any alcohol or drug abuse patient.[facility] [place] the event this information is protected by the Federal Confidentiality of Alcohol and Drug Abuse Patient Records regulations: The Federal rules restrict any use of the information to criminally investigate or prosecute any alcohol or drug abuse patient.[facility] [place] the event this information is protected by the Federal Confidentiality of Alcohol and Drug Abuse Patient Records regulations: The Federal rules restrict any use of the information to criminally investigate or prosecute any alcohol or drug abuse patient.[facility] [place] the event this information is protected by the Federal Confidentiality of Alcohol and Drug Abuse Patient Records regulations: The Federal rules restrict any use of the information to criminally investigate or prosecute any alcohol or drug abuse patient.[facility] [place] the event this information is protected by the Federal Confidentiality of Alcohol and Drug Abuse Patient Records regulations: The Federal rules restrict any use of the information to criminally investigate or prosecute any alcohol or drug abuse patient.[facility] [place]In the event this information is protected by the Federal Confidentiality of Alcohol and Drug Abuse Patient Records regulations: The Federal rules restrict any use of the information to criminally investigate or prosecute any alcohol or drug abuse patient.[facility] [place]In the event this information is protected by the Federal Confidentiality of Alcohol and Drug Abuse Patient Records regulations: The Federal rules restrict any use of the information to criminally investigate or prosecute any alcohol or drug abuse patient.[facility] [place]onIn the event this information is protected by the Federal Confidentiality of Alcohol and Drug Abuse Patient Records regulations: The Federal rules restrict any use of the information to criminally investigate or prosecute any alcohol or drug abuse patient.[facility] [place]In the event this information is protected by the Federal Confidentiality of Alcohol and Drug Abuse Patient Records regulations: The Federal rules restrict any use of the information to criminally investigate or prosecute any alcohol or drug abuse patient.[facility] [place]In the event this information is protected by the Federal Confidentiality of Alcohol and Drug Abuse Patient Records regulations: The Federal rules restrict any use of the information to criminally investigate or prosecute any alcohol or drug abuse patient.[facility] [place]onIn the event this information is protected by the Federal Confidentiality of Alcohol and Drug Abuse Patient Records regulations: The Federal rules restrict any use of the information to criminally investigate or prosecute any alcohol or drug abuse patient.[facility] Reason for Visit (unrecogniz ed section and [...] MIN TESTING Carrington Carter MD [address] [facility] [address] [place] [address] Victor Manuel Garcia, PhD 1946 [facility] [address] [place] [address] Referral ID Status Reason Start Date Expiration Date Visits Re quested Visits Authorized [id number] Closed 04/15/2022 08/06/2022 2 2 Reason Comments Nail Care Follow Up Reason Comments Internal Referrals/resources Reason Comments 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 - Other Appointment Reason Comments Patient Update Specialty Diagnoses / Procedures Referred By Contac t Referred To Contact CT IMAGING Diagnoses Other hydrocephalus (HCC) Procedures CT BRAIN WO/W IVCON CT HEAD/BRAIN W/O & W/CONTRAST MATERIAL Sophie Giron MD [address] [place] [address] Ct Imaging Referral ID Status Reason Start Date Expiration Date V isits Requested Visits Authorized [id number] Closed Auto-Generate d Referral 02/04/2022 03/06/2023 1 1 Reason Comments Established Patient Reason Comments Established Patient Nail Care Reason Comments Neuropsych Testing Referral ID Status Reason Start Date Expiration Date V isits Requested Visits Authorized [id number] Authorized 04/15/2022 08/06/2022 2 2 Reason Comments Established Patient Follow Up Swelling Reason Comments Established Patient Follow Up nail care Reason Comments Established Patient Debridement of Nail Reason Comments Patient Question Care Teams (unrecognized sec tion and content) Relief Cook Relationship Specialty Start Date End Date Nadine Neff MD [address] [facility] [place] [address] PCP - General Internal Medicine 10/20/15 Relief Cook Relationship Specialty Start Date End Date Nadine Neff MD [address] [facility] [place] [address] PCP - General Internal Medicine 10/20/15 Relief Cook Relationship Specialty Start Date End Date Nadine Neff MD [address] [facility] [place] [address] PCP - General Internal Medicine 10/20/15 Relief Cook Relationship Specialty Start Date End Date Nadine Neff MD [address] [facility] [place] [address] PCP - General Internal Medicine 10/20/15 Relief Cook Relationship Specialty Start Date End Date Nadine Neff MD [address] [facility] [place] [address] PCP - General Internal Medicine 10/20/15 Relief Cook Relationship Specialty Start Date End Date Nadine Neff MD [address] [facility] [place] [address] PCP - General Internal Medicine 10/20/15 Relief Cook Relationship Specialty Start Date End Date Sheela Del Castillo Chi [address] [place], [place] [address] PCP - General Gerontology 04/29/22 Relief Cook Relationship Specialty Start Date End Date Sheela Del Castillo Chi [address] [place] [address] PCP - General Gerontology 04/29/22 Relief Cook Relationship Specialty Start Date End Date Sheela Del Castillo Chi [address] [facility] [address] [place], [place] [id number] PCP - General Gerontology 04/29/22 Relief Cook Relationship Specialty Start Date End Date Sheela Del Castillo Chi [address] [facility] [address] [place] [address] PCP - General Gerontology 04/29/22 Relief Cook Relationship Specialty Start Date End Date Sheela Del Castillo Chi [address] [facility] [address] [place] [address] PCP - General Gerontology 04/29/22 FOR RECORDS [...] BE BASED ON THE PRIMARY CLINICAL RECORDS. [facility]. provides no warranty or guarantee of the accuracy or completeness of information in this document.
[2023-10-13 10:06] LABS: Vitamin B12 338 pg/mL (211-911)
[2023-10-13 10:41] LABS: AST(SGOT) 41 U/L (15-37); Alanine Aminotransfer ALT/SGPT 42 U/L (13-56); Albumin, Serum 3.7 g/dL (3.2-5.0); Alkaline Phosphatase 80 U/L (45-117); Anion Gap 4 (5-15); BUN 21 mg/dL (7-18); Calcium,Total 9.4 mg/dL (8.5-10.1); Chloride 103 mmol/L (98-107); Creatinine, Serum 0.78 mg/dL (0.55-1.02); EST Glomerular Filtration Rate 74 mL/min (>60); Est Glom Filt Rate - Afr Amer 90 mL/min (>60); Globulin 3.7 g/dL (2.2-4.2); Glucose 92 mg/dL (74-106); Potassium 4.1 mmol/L (3.5-5.1); Protein, Total 7.4 g/dL (6.4-8.2); Sodium Level 138 mmol/L (136-145); Thyroid Stim Hormone (TSH) 2.99 uIU/mL (0.358-3.74)
[2023-10-17 14:33] LABS: Vitamin B1, Thiamine 125.3 nmol/L (66.5-200.0)
== END | disposition home or self-care (01) ==
LOC: LAB 09:11
PROVIDERS: PCP Internal Medicine; Referring Provider Psychiatry & Neurology Neurology; Visit Provider Psychiatry & Neurology Neurology
DX: I48.11 Longstanding persistent atrial fibrillation (principal); F03.90 Unspecified dementia, unspecified severity, without behavioral disturbance, psychotic disturbance, mood disturbance, and anxiety
CPT/HCPCS: 36415; 80053; 82607; 82746; 84425; 84443; 85027

== ENCOUNTER → 2023-10-26 | Outpatient (CLI) | payer MEDICARE, SELFPAY ==
--- NOTE | 2023-10-26 16:57 | CT_ITS ---
STUDY: CT BRAIN WITHOUT CONTRAST REASON FOR EXAM: Female, 88 years old. Dementia; eval for poss normal pressure hydrocepha RADIATION DOSAGE (If Supplied By Facility): CTDIvol = ( 44.99 ) mGy, DLP = ( 779.24 ) mGycm TECHNIQUE: Transaxial CT imaging of the brain was performed without administration of intravenous contrast material. Individualized dose optimization techniques were used for this CT. COMPARISON: Comparison is made with prior study dated November 07, 2022. FINDINGS: Normal soft tissue structures. Normal calvarium. There is disproportionate enlargement of the lateral and third ventricles, as compared to the extra-axial spaces. The findings suggest normal pressure hydrocephalus (NPH). Normal white matter tracts of the cerebral hemispheres. Normal basal ganglia and thalami. Normal brainstem. Normal cerebellum. There is no intracranial hemorrhage. There are no findings of an acute ischemic infarction. Atherosclerotic calcification of the cavernous portions of the internal carotid arteries bilaterally. Normal visualized paranasal sinuses. 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 Electronically Signed: Maurisio Yee MD at 12:40 EDT ,
== END | disposition home or self-care (01) ==
LOC: CT 16:56
PROVIDERS: PCP Internal Medicine; Referring Provider Psychiatry & Neurology Neurology; Visit Provider Psychiatry & Neurology Neurology
DX: F03.90 Unspecified dementia, unspecified severity, without behavioral disturbance, psychotic disturbance, mood disturbance, and anxiety (principal)
CPT/HCPCS: 70450

== ENCOUNTER 2023-10-30 16:54 | Outpatient (RCR) | payer MEDICARE, SELFPAY ==
[2023-10-05 23:53] VITALS: BMI 19.2
[2023-10-17 17:48] LABS: International Normalized Ratio 2.2; Prothrombin Time (Protime)PT. 24.2 SECONDS (11.7-14.9)
[2023-10-30 17:19] LABS: International Normalized Ratio 2.7; Prothrombin Time (Protime)PT. 28.3 SECONDS (11.7-14.9)
== END 2023-11-05 00:30 | disposition home or self-care (01) ==
LOC: LAB 16:54
PROVIDERS: Family Provider Internal Medicine; PCP Internal Medicine; Referring Provider Nurse Practitioner Family; Visit Provider Nurse Practitioner Family
DX: Z79.01 Long term (current) use of anticoagulants (principal); Z95.2 Presence of prosthetic heart valve
CPT/HCPCS: 36415; 85610

== ENCOUNTER 2023-12-04 16:33 | Outpatient (RCR) | payer MEDICARE, SELFPAY ==
[2023-11-05 00:59] VITALS: BMI 19.2
[2023-11-20 17:29] LABS: International Normalized Ratio 2.7; Prothrombin Time (Protime)PT. 28.8 SECONDS (11.7-14.9)
[2023-11-27 17:54] LABS: Prothrombin Time (Protime)PT. 46.4 SECONDS (11.7-14.9)
[2023-11-27 18:07] LABS: International Normalized Ratio 5.1
[2023-12-04 18:00] LABS: International Normalized Ratio 2.8
== END 2023-12-05 23:12 | disposition home or self-care (01) ==
LOC: LAB 16:33
PROVIDERS: Psychiatry & Neurology Neurology; Family Provider Internal Medicine; PCP Internal Medicine; Referring Provider Nurse Practitioner Family; Visit Provider Nurse Practitioner Family
DX: Z79.01 Long term (current) use of anticoagulants (principal); Z95.2 Presence of prosthetic heart valve
CPT/HCPCS: 36415; 85610

== ENCOUNTER 2023-12-18 16:38 | Outpatient (RCR) | payer MEDICARE, SELFPAY ==
[2023-12-05 23:12] VITALS: BMI 19.2
[2023-12-18 18:02] LABS: International Normalized Ratio 3.1; Prothrombin Time (Protime)PT. 31.8 SECONDS (11.7-14.9)
== END 2024-01-02 18:00 | disposition home or self-care (01) ==
LOC: LAB 16:38
PROVIDERS: Physician Assistant Medical; Family Provider Internal Medicine; PCP Internal Medicine; Referring Provider Nurse Practitioner Family; Visit Provider Nurse Practitioner Family
DX: Z79.01 Long term (current) use of anticoagulants (principal); Z95.2 Presence of prosthetic heart valve
CPT/HCPCS: 36415; 85610

== ENCOUNTER 2024-01-22 16:39 | Outpatient (RCR) | payer MEDICARE, SELFPAY ==
[2024-01-08 09:20] VITALS: BMI 19.2
[2024-01-08 17:23] LABS: International Normalized Ratio 3.9; Prothrombin Time (Protime)PT. 37.6 SECONDS (11.7-14.9)
[2024-01-22 17:51] LABS: International Normalized Ratio 2.7; Prothrombin Time (Protime)PT. 28.1 SECONDS (11.7-14.9)
== END 2024-01-22 18:00 | disposition home or self-care (01) ==
LOC: LAB 16:39
PROVIDERS: Family Provider Internal Medicine; PCP Internal Medicine; Referring Provider Nurse Practitioner Family; Visit Provider Nurse Practitioner Family
DX: Z79.01 Long term (current) use of anticoagulants (principal); Z95.2 Presence of prosthetic heart valve
CPT/HCPCS: 36415; 85610

== ENCOUNTER 2024-02-27 16:30 | Outpatient (RCR) | payer MEDICARE, SELFPAY ==
[2024-02-05 03:17] VITALS: BMI 19.2
[2024-02-12 17:27] LABS: International Normalized Ratio 3.6; Prothrombin Time (Protime)PT. 35.3 SECONDS (11.7-14.9)
[2024-02-27 16:57] LABS: International Normalized Ratio 3.5; Prothrombin Time (Protime)PT. 34.6 SECONDS (11.7-14.9)
== END 2024-03-06 18:00 | disposition home or self-care (01) ==
LOC: LAB 16:30
PROVIDERS: Family Provider Internal Medicine; PCP Internal Medicine; Referring Provider Nurse Practitioner Family; Visit Provider Nurse Practitioner Family
DX: Z79.01 Long term (current) use of anticoagulants (principal); Z95.2 Presence of prosthetic heart valve
CPT/HCPCS: 36415; 85610

== ENCOUNTER 2024-03-17 23:15 | Emergency (ER) | payer MEDICARE, SELFPAY ==
[2024-03-17 23:15] VITALS: BP 130/71; PULSE 78; RESP 16; TEMP 36.1; O2SAT 97; BMI 22.0
--- NOTE | 2024-03-17 23:32 | ED.VIS.FALL ---
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 Home Medications ?Medication ?Instructions ?Recorded ?Last Taken ?Type cholecalciferol (vitamin D3) 25 1,000 unit PO DAILY supplement 03/30/19 04/11/20 History mcg (1,000 unit) tablet calcium carbonate 600 mg-vitamin 1 tab PO DAILY supplement 12/16/19 04/11/20 History D3 20 mcg (800 unit) chewable tablet (Caltrate 600 plus D) lidocaine 5 % topical patch 1 patch topical DAILY PRN pain 04/24/20 Unknown History denosumab 60 mg/mL subcutaneous 60 mg subcut [id number] #1 mL 02/10/23 Unknown Rx syringe (Prolia) ascorbic acid (vitamin C) 500 mg See Rx Instructions .Route 04/14/23 Unknown Rx tablet .COMPLEX #90 tabs metoprolol succinate 25 mg 25 mg PO DAILY #90 tabs 07/20/23 Unknown Rx tablet,extended release 24 hr citalopram 20 mg tablet 20 mg PO DAILY #90 tabs 08/14/23 Unknown Rx Lactobacillus acidophilus 20,000 mmu cells PO DAILY 09/15/23 Unknown History (Acidophilus capsule) donepezil 10 mg tablet 10 mg PO QHS #90 tabs 10/12/23 Unknown Rx methenamine mandelate 1 gram tablet 1 g PO DAILY #90 tabs 10/19/23 Unknown Rx baclofen 10 mg tablet See Rx Instructions .Route 02/16/24 Unknown Rx .COMPLEX #90 tabs warfarin 3 mg tablet 1.5 mg PO SUSA 03/17/24 Unknown History warfarin 3 mg tablet 3 mg PO MOTUWETHFR 03/17/24 Unknown History Allergy/AdvReac Type Severity Reaction Status Date / Time amiodarone AdvReac Severe Poor Verified 03/17/24 23:16 balance, poor appetite, severe dizziness amoxicillin trihydrate (From AdvReac Diarrhea Verified 03/17/24 23:16 Augmentin) potassium clavulanate (From AdvReac Diarrhea Verified 03/17/24 23:16 Augmentin) Family History Father , age 65 of head injury Head injury Brother CAD (coronary artery disease) Surgical History History of cardioversion (08/21/19) History of right and left heart catheterization (07/13/00) 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) Social History Smoking Status: Never smoker alcohol intake: never substance use type: does not use what type of physical activity do you participate in: none EXAM Physical Exam Const Vital Signs: 03/17/24 23:15 03/18/24 00:01 03/18/24 01:10 Temperature 97 F L Temperature Source Temporal Pulse Rate 78 87 Respiratory Rate 16 20 H Respiratory Effort Respiratory Depth Respiratory Pattern Blood Pressure 130/71 H 151/86 H Blood Pressure Mean 90 107 Pulse Ox 97 94 88 Oxygen Delivery Method Room Air Room Air Oxygen Flow Rate (L/min) 03/18/24 01:10 03/18/24 01:12 03/18/24 03:00 Temperature Temperature Source Pulse Rate 84 95 Respiratory Rate 25 H 21 H Respiratory Effort Normal Respiratory Depth Normal Respiratory Pattern Normal Blood Pressure 124/84 H 121/94 H Blood Pressure Mean 97 103 Pulse Ox 98 97 Oxygen Delivery Method Nasal Cannula Room Air Oxygen Flow Rate (L/min) 2 MDM MDM MDM Narrative Medical decision making narrative: HISTORY OF PRESENT ILLNESS: 88 F here with daughter after mechanical fall from standing. There is no syncope noted. Patient notes back pain. No she takes warfarin. Last dose was on 03/17/2024. Denies head trauma. REVIEW OF SYSTEMS: Pertinent positives: No she takes warfarin. Pertinent negatives: Head trauma PHYSICAL EXAM: Nursing triage notes reviewed, Vital signs reviewed Primary Survey Airway: Intact Breathing: Bilateral breath sounds Circulation: Palpable bilateral femorals, Palpable bilateral radial, Palpable bilateral DP and Palpable bilateral PT Disability / Spine precautions GCS Score: Eye Openin Verbal Response: 5 Motor Response: 6 Secondary Survey Constitutional: Please see MDM Head: Atraumatic, Midface stable, NO jaw malocclusion, No Cephalohematoma, and No Lacerations noted Eye: Pupils equal round and reactive to light, Extraocular muscles intact and No periorbital ecchymosis or stepoff, no evidence of entrapment ENT: Oropharynx clear, no lacerations, no hemotympanum, no raccoon eyes or che sign Cervical spine / Neck: No cervical spine bony tenderness, crepitance, or stepoff deformity Trachea midline Lungs: Clear to auscultation, No asymmetric rise and No crepitus, no flail chest Cardiac: Regular rate and rhythm and No murmurs Abdomen: Soft, Nontender and No rebound Pelvis: Pelvis stable to compression : No evidence of genital injury Back: TTP over the left thoracolumbar junction and left paraspinal musculature, left ribs Neuro: At baseline, intact strength and sensation in bilateral upper and lower extremities. 2+ patellar reflexes bilaterally. Extremities: NO gross Deformities, no leg length discrepancies. Psych: Normal affect Skin: Abrasion to left posterior shoulder Nursing triage notes reviewed, Vital signs reviewed MEDICAL DECISION MAKING: Chief Complaint: Fall, back pain External records reviewed: Imaging reviewed: Lumbar spine x-ray from 2020 shows mild degenerative changes of lumbar spine Factors affecting care: dementia, HLD, Bronchitis Social determinants of health: History of dementia History obtained from others: EMS Consults: none MDM Narrative: Patient was initially hemodynamically stable, afebrile and nontoxic-appearing. Patient was pleasantly confused primary secondary trauma surveys concerning for the following differential: I considered the following differential diagnosis: Traumatic injury to the head, cervical, thoracic, lumbar spine, chest/ribs I obtained a broad lab and imaging workup. I treat the patient with IV morphine, Zofran and fluids. ALL IMAGES (IF OBTAINED) HAVE BEEN PERSONALLY REVIEWED AND INTERPRETED BY MYSELF. INR supratherapeutic CBC without leukocytosis, severe anemia, no thrombocytopenia. BMP without evidence of significant electrolyte abnormalities, no anion gap, no acute kidney injury. CT scan of the head shows evidence of normal pressure hydrocephalus (chronic from prior CT) but no evidence of acute traumatic injury CT scan of the cervical spine shows no evidence of fracture. CT scan lumbar spine shows no acute traumatic injury CT scan of the thoracic spine shows a T12 compression fracture with retropulsion Tertiary trauma exam revealed ongoing pain and so the patient was treated additional 4 mg of morphine. Patient was significantly agitated so was given 20 mg of IM Geodon to treat agitation. On repeat exam there was an abrasion to left shoulder and TTP over left hip so I added on x-ray left shoulder and left hip. X-ray of the left shoulder, read reviewed person myself and showed no evidence of obvious bony abnormality or fracture Awaiting radiologist read. Radiologist read is negative X-ray of left hip was read reviewed myself and showed no obvious fracture. Radiologist read as possible subcapital fracture. Will communicate with receiving institution about left hip fracture. Given significant pain and T12 compression fracture Required multiple doses of IV narcotics. Patient will require admission. Discussed with [facility] trauma surgeon Dr. Ronquillo. She accepted the patient's case. Will arrange transport. Patient awaiting transport this time. Updated family about x-ray results. Gave baclofen for additional pain control. The patient and/or family, caregivers express understanding. The patient and/or family, caregivers agrees with the plan. Shared decision making: I will have a discussion with the patient and or visitors regarding risk/benefits of further testing or admission. They will be made aware of of the risk/benefits inherent in this decision they will be given the opportunity to voice understanding. Total critical care time today provided was at least 0 minutes. This excludes separately billable procedures. Critical care time (if documented) is secondary to the patient having high probability of clinically significant/life threatening deterioration in the patient's condition which required my urgent intervention. Impression: 1. Fall 2. Supratherapeutic INR 3. Normal pressure hydrocephalus 4. T12 compression 5. Left femoral neck fracture Dispo: Transfer to [facility] to undergo definitive trauma care This note was generated with [employer] dictation software. It may contain incorrect words, spelling, and punctuation that were not noted in review of the chart prior to signing. Lab Data Labs: Laboratory Results - last 24 hr 03/18/24 00:10 WBC 5.7 RBC 4.23 Hgb 12.7 Hct 39.7 MCV 93.9 MCH 30.0 MCHC 32.0 RDW Std Deviation 52.3 H RDW Coeff of Celio 15.0 H Plt Count 161 MPV 10.6 Immature Gran % (Auto) 2.100 H Neut % (Auto) 66.6 Lymph % (Auto) 22.3 [place] % (Auto) 8.1 Eos % (Auto) 0.5 Baso % (Auto) 0.4 Absolute Neuts (auto) 3.8 Absolute Lymphs (auto) 1.27 Nucleated RBC % 0 PT 41.2 H INR 4.3 H* Sodium 140 Potassium 4.4 Chloride 107 Carbon Dioxide 29.0 Anion Gap 4 L BUN 14 Creatinine 0.66 Estim Creat Clear Calc 45.50 Est GFR (MDRD) Af Amer 109 Est GFR (MDRD) Non-Af 90 BUN/Creatinine Ratio 21.2 H Glucose 98 Calcium 9.4 Radiography Diagnostic Testing: Clinical Impression(s) from Imaging Studies Hip/Pelvis X-Ray 03/18/24 02:23 IMPRESSION: There is possible nondisplaced subcapital fracture of the left femur neck . Electronically Signed: Monica Self MD at 4:09 EDT , Shoulder X-Ray 03/18/24 02:23 IMPRESSION: Moderate degenerative arthrosis of the shoulder. Electronically Signed: Monica Self MD at 4:08 EDT Reading Location ID and State: [facility] / [place] Tel , Service support , Brain CT 03/18/24 23:57 IMPRESSION: Findings suggestive of a normal pressure hydrocephalus. Electronically Signed: Monica Self MD at 1:23 EDT , Cervical Spine CT 03/18/24 23:57 IMPRESSION: No evidence of acute cervical spinal fracture . 3 mm of degenerative spondylolisthesis at C4-5. Electronically Signed: Monica Self MD at 2:10 EDT , Chest CT 03/18/24 23:57 IMPRESSION: Moderate cardiomegaly. There is no dilatation of the ascending aorta measuring 4.4 cm. 30% acute compression fracture at T12 with retropulsion of the posterior wall resulting in mild spinal canal narrowing . Electronically Signed: Monica Self MD at 2:33 EDT , Lumbar Spine CT 03/18/24 23:57 IMPRESSION: There is multilevel degenerative spondylosis. Electronically Signed: Monica Self MD at 2:15 EDT , Thoracic Spine CT 03/18/24 23:57 IMPRESSION: 30% acute compression fracture at T12 with retropulsion of the posterior wall resulting in mild spinal canal narrowing . Electronically Signed: Monica Self MD at 2:11 EDT , Discharge Plan Triage Chief Complaint: Fall ED Provider: Warren Mondragon Dx/Rx/DC Orders Prescriptions: No Action cholecalciferol (vitamin D3) 1,000 unit (25 mcg) tablet 1,000 unit PO DAILY Caltrate 600 plus D 600 mg (1,500 mg)-800 unit tablet,chewable 1 tab PO DAILY lidocaine 5 % adhesive patch,medicated 1 patch topical DAILY PRN (Reason: pain) Acidophilus Capsule 20,000 mmu cells PO DAILY donepezil 10 mg tablet 10 mg PO QHS Qty: 90 1RF warfarin 3 mg tablet 1.5 mg PO SUSA warfarin 3 mg tablet 3 mg PO MOTUWETHFR Protocol: Dose Management Condition: Monday Dose/Route: 3 mg Instruction: 1 x 3 mg tablet Condition: Monday Dose/Route: 3 mg Instruction: 1 x 3 mg tablet Condition: Monday Dose/Route: 1.5 mg Instruction: 0.5 x 3 mg tablets Condition: Monday Dose/Route: 3 mg Instruction: 1 x 3 mg tablet Condition: Dose/Route: 3 mg Instruction: 1 x 3 mg tablet Condition: Monday Dose/Route: 3 mg Instruction: 1 x 3 mg tablet Condition: Monday Dose/Route: 3 mg Instruction: 1 x 3 mg tablet Protocol Text: Adjustment Start Date: Monday02/27/24 INR Value: 3.5 INR Date: 02/27/24 Recheck Date: 03/19/24 Prolia 60 mg/mL syringe 60 mg subcut [id number] Qty: 1 3RF ascorbic acid (vitamin C) 500 mg tablet See Rx Instructions .ROUTE .COMPLEX Qty: 90 3RF Dose Instruction: TAKE 1 TABLET BY MOUTH EVERY DAY Rx Instructions: TAKE 1 TABLET BY MOUTH EVERY DAY metoprolol succinate 25 mg tablet extended release 24 hr 25 mg PO DAILY Qty: 90 3RF citalopram 20 mg tablet 20 mg PO DAILY Qty: 90 3RF methenamine mandelate 1 gram tablet 1 g PO DAILY Qty: 90 1RF Rx Instructions: administer after meals and at bedtime baclofen 10 mg tablet See Rx Instructions .ROUTE .COMPLEX Qty: 90 1RF Dose Instruction: TAKE 1 TABLET BY MOUTH EVERY DAY NEEDED FOR MUSCLE SPASM Rx Instructions: TAKE 1 TABLET BY MOUTH EVERY DAY NEEDED FOR MUSCLE SPASM Primary Care Provider: Meredith Olmstead Referrals: Meredith Olmstead MD [Primary Care Provider] - Print Language: Turkmen
[2024-03-18 00:01] VITALS: BP 151/86; PULSE 87; RESP 20; O2SAT 94
[2024-03-18] MEDS: 0.9% Normal Saline (500mL Bag) 500 ML 1000 ML IV (00:05)
[2024-03-18] MEDS: Morphine 4 MG/ML Syringe IV ×2 (00:06→02:11)
[2024-03-18] MEDS: Ondansetron 4 MG/2 ML Vial IV (00:06)
[2024-03-18 00:39] LABS: Prothrombin Time (Protime)PT. 41.2 SECONDS (11.7-14.9)
[2024-03-18 00:42] LABS: International Normalized Ratio 4.3
[2024-03-18 00:46] LABS: Anion Gap 4 (5-15); BUN 14 mg/dL (7-18); BUN/Creat Ratio 21.2 RATIO (10-20); Calcium,Total 9.4 mg/dL (8.5-10.1); Chloride 107 mmol/L (98-107); Creatinine, Serum 0.66 mg/dL (0.55-1.02); EST Glomerular Filtration Rate 90 mL/min (>60); Est Glom Filt Rate - Afr Amer 109 mL/min (>60); Glucose 98 mg/dL (74-106); Potassium 4.4 mmol/L (3.5-5.1); Sodium Level 140 mmol/L (136-145)
[2024-03-18 00:47] LABS: Absolute Lymphocyte Count 1.27 X10^3/uL (0.83-4.51); Absolute Neutrophil Count 3.8 X10^3/uL (2.0-7.7); Basophil# 0.02 X10^3/uL; Basophil% 0.4 % (0-1); Eosinophil# 0.03 X10^3/uL; Eosinophils% 0.5 % (0-5); Hematocrit 39.7 % (37-47); Hemoglobin 12.7 g/dL (12.0-15.0); Lymphocyte # 1.27 X10^3/ul (0.83-4.51); Lymphocyte % 22.3 % (19-41); Mean Corpuscular Volume 93.9 fL (81-99); Mean Platelet Vol. 10.6 fl (6.2-12.0); Monocyte# 0.46 X10^3/uL; Monocyte% 8.1 % (0-10); NRBC Flagged by Analyzer 0 % (0-5); Neutrophil % 66.6 % (47-70); Platelet Count 161 K/mm3 (150-450); RBC Distribution Width SD 52.3 fl (35.1-43.9); Red Blood Count 4.23 M/mm3 (4.2-5.4); White Blood Count 5.7 K/mm3 (4.4-11.0)
[2024-03-18 01:10] VITALS: BP 124/84; PULSE 84; RESP 25; O2SAT 88; O2SAT 98
[2024-03-18] MEDS: Ziprasidone IM 20 MG/ML VIAL IM (02:17)
--- NOTE | 2024-03-18 02:23 | RAD_ITS ---
INDICATION: pain after fall EXAMINATION/TECHNIQUE: X-RAY - XR Hip Unilateral with Pelvis when performed; 2-3 Views COMPARISON: No relevant prior comparison study available FINDINGS: PELVIC BONES: No displaced fracture, destructive or sclerotic lesions. Note that overlapping bowel shadows may however obscure fine detail. Sacroiliac joints are unremarkable. No widening of the pubic symphysis. HIPS: There is possible nondisplaced subcapital fracture of the left femur neck . SOFT TISSUES: No soft tissue swelling or gas. RAD/HIP, UNI W/ Pelvis 2-3 Views IMPRESSION: There is possible nondisplaced subcapital fracture of the left femur neck . Electronically Signed: Monica Self MD at 4:09 EDT ,
--- NOTE | 2024-03-18 02:23 | RAD_ITS ---
INDICATION: pain, fall EXAMINATION/TECHNIQUE: X-RAY - LEFT XR Shoulder Min 2 Views 4 VIEWS COMPARISON: No relevant prior comparison study available FINDINGS: SOFT TISSUES: No soft tissue swelling or gas. No radiopaque foreign body. BONES/JOINTS: Moderate degenerative arthrosis of the shoulder. No sclerotic or destructive changes observed. RAD/Shoulder min 2 Views IMPRESSION: Moderate degenerative arthrosis of the shoulder. Electronically Signed: Monica Self MD at 4:08 EDT ,
[2024-03-18 03:00] VITALS: BP 121/94; PULSE 95; RESP 21; O2SAT 97
[2024-03-18] MEDS: Baclofen 10 MG Tablet PO (04:36)
[2024-03-18 04:40] VITALS: BP 130/76; PULSE 105; RESP 27; TEMP 36.7; O2SAT 94
--- NOTE | 2024-03-18 04:56 | ED.RN ---
REPORT CALLED TO [facility] AND GIVEN TO SURYA DEGROOT.
[2024-03-18 05:58] VITALS: BP 130/76; PULSE 97; RESP 22; O2SAT 95
--- NOTE | 2024-03-18 06:32 | NURSING ---
Report given to transport team from [facility]. Daughter here aware of plan of care.
--- NOTE | 2024-03-18 23:57 | CT_ITS ---
INDICATION: fall, head trauma EXAMINATION: CT BRAIN - CT Head or Brain W/O Contrast Injection TECHNIQUE: Multiple axial images were obtained of the head without intravenous contrast. The protocol utilizes one or more of the following dose reduction techniques: automated exposure control, adjustment of mA and/or kV according to patient size,and/or use of iterative reconstruction technique. IV Contrast dosage and agent: None. RADIATION DOSAGE (If Supplied By Facility): CTDIvol = ( 17.84 ) mGy, DLP = ( 2623.27 ) mGycm COMPARISON: CT BrainMar 2023 5:08pm FINDINGS: Normal soft tissue structures. Normal calvarium. There is disproportionate enlargement of the lateral and third ventricles, as compared to the extra-axial spaces. The findings suggest normal pressure hydrocephalus (NPH). Ill-defined decreased attenuation in the periventricular white matter suggesting chronic microvascular ischemic changes. Normal basal ganglia and thalami. Normal brainstem. Normal cerebellum. There is no intracranial hemorrhage. There are no findings of an acute ischemic infarction. Atherosclerotic calcification of the cavernous portions of the internal carotid arteries bilaterally. Normal visualized paranasal sinuses. 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 Electronically Signed: Monica Self MD at 1:23 EDT ,
--- NOTE | 2024-03-18 23:57 | CT_ITS ---
INDICATION: left posterior rib pain after fall EXAMINATION: CT CHEST WITHOUT CONTRAST - CT Chest W/O Contrast Injection TECHNIQUE: Helically acquired images were obtained of the chest. The protocol utilizes one or more of the following dose reduction techniques: automated exposure control, adjustment of mA and/or kV according to patient size,and/or use of iterative reconstruction technique. IV Contrast dosage and agent: None. RADIATION DOSAGE (If Supplied By Facility): CTDIvol = ( 17.84 ) mGy, DLP = ( 2623.27 ) mGycm COMPARISON: No relevant prior comparison study available FINDINGS: LUNGS, PLEURA AND LARGE AIRWAYS: No masses, consolidation, or edema. No pleural effusion or thickening. No pneumothorax. THYROID: No thyroid lesions. HEART AND PERICARDIUM: Heart size is moderately enlarged. No pericardial effusion. CORONARY ARTERIES: Coronary artery calcification VESSELS: There is no dilatation of the ascending aorta measuring 4.4 cm. MEDIASTINUM AND LARISA: No mediastinal or hilar adenopathy. Esophagus is unremarkable. No hiatal hernia. UPPER ABDOMEN: Cholelithiasis. BONES: 30% acute compression fracture at T12 with retropulsion of the posterior wall resulting in mild spinal canal narrowing .. CT/Chest without Contrast IMPRESSION: Moderate cardiomegaly. There is no dilatation of the ascending aorta measuring 4.4 cm. 30% acute compression fracture at T12 with retropulsion of the posterior wall resulting in mild spinal canal narrowing . Electronically Signed: Monica Self MD at 2:33 EDT ,
--- NOTE | 2024-03-18 23:57 | CT_ITS ---
INDICATION: back pain EXAMINATION: CT LUMBAR SPINE - CT Spine Lumbar W/O Contrast Injection TECHNIQUE: Helically acquired images were obtained of the lumbar spine. 2D reformats were reviewed. A radiation dose optimization technique was used for this scan. The protocol utilizes one or more of the following dose reduction techniques: automated exposure control, adjustment of mA and/or kV according to patient size,and/or use of iterative reconstruction technique. IV Contrast dosage and agent: None. RADIATION DOSAGE (If Supplied By Facility): CTDIvol = ( 17.84 ) mGy, DLP = ( 2623.27 ) mGycm COMPARISON: No relevant prior comparison study available FINDINGS: VERTEBRAE: No fracture or traumatic subluxation. No discrete lytic or blastic abnormality observed. Normal alignment. There are 13 thoracic vertebral bodies. DISCS and SPINAL CANAL: There is multilevel degenerative spondylosis. No critical stenosis. VISUALIZED ABDOMEN: Visualized abdominal aorta is not dilated. There is no retroperitoneal adenopathy. CT/Spine Lumbar without Contrast IMPRESSION: There is multilevel degenerative spondylosis. Electronically Signed: Monica Self MD at 2:15 EDT ,
--- NOTE | 2024-03-18 23:57 | CT_ITS ---
INDICATION: fall, neck pain EXAMINATION: CT CERVICAL SPINE - CT Spine Cervical W/O Contrast Injection TECHNIQUE: Helically acquired images were obtained of the cervical spine. 2D reformatted images were reviewed. The protocol utilizes one or more of the following dose reduction techniques: automated exposure control, adjustment of mA and/or kV according to patient size,and/or use of iterative reconstruction technique. IV Contrast dosage and agent: None. RADIATION DOSAGE (If Supplied By Facility): CTDIvol = ( 17.84 ) mGy, DLP = ( 2623.27 ) mGycm COMPARISON: No relevant prior comparison study available FINDINGS: VERTEBRAE: No fracture or traumatic subluxation. No discrete lytic or blastic abnormality. 3 mm of degenerative spondylolisthesis at C4-5. Normal craniocervical junction and cervicothoracic junction. DISCS and SPINAL CANAL: Disc heights are preserved. No critical stenosis. NECK SOFT TISSUES: No prevertebral soft tissue swelling. There is no cervical adenopathy. LUNG APICES: Clear. CT/Spine Cervical without Contras IMPRESSION: No evidence of acute cervical spinal fracture . 3 mm of degenerative spondylolisthesis at C4-5. Electronically Signed: Monica Self MD at 2:10 EDT ,
--- NOTE | 2024-03-18 23:57 | CT_ITS ---
INDICATION: back pain after fall EXAMINATION: CT THORACIC SPINE - CT Spine Thoracic W/O Contrast Injection TECHNIQUE: Helically acquired images were obtained of the thoracic spine. 2D reformats were reviewed. A radiation dose optimization technique was used for this scan. The protocol utilizes one or more of the following dose reduction techniques: automated exposure control, adjustment of mA and/or kV according to patient size,and/or use of iterative reconstruction technique. IV Contrast dosage and agent: None. RADIATION DOSAGE (If Supplied By Facility): CTDIvol = ( 17.84 ) mGy, DLP = ( 2623.27 ) mGycm COMPARISON: No relevant prior comparison study available FINDINGS: VERTEBRAE: 30% acute compression fracture at T12 with retropulsion of the posterior wall resulting in mild spinal canal narrowing . VERTEBRAL ALIGNMENT: Unremarkable. There is preservation of the normal thoracic kyphosis. DISCS: Disc heights are preserved. VISUALIZED THORAX: Visualized thoracic aorta is nondilated. Lung lake are clear. CT/Spine Thoracic without Contras IMPRESSION: 30% acute compression fracture at T12 with retropulsion of the posterior wall resulting in mild spinal canal narrowing . Electronically Signed: Monica Self MD at 2:11 EDT ,
== END 2024-03-18 06:34 | disposition short-term general hospital (02) ==
PROVIDERS: Emergency Provider Emergency Medicine; PCP Internal Medicine; Visit Provider Emergency Medicine
DX: S72.002A Fracture of unspecified part of neck of left femur, initial encounter for closed fracture (principal); M48.54XA Collapsed vertebra, not elsewhere classified, thoracic region, initial encounter for fracture; F02.80 Dementia in other diseases classified elsewhere, unspecified severity, without behavioral disturbance, psychotic disturbance, mood disturbance, and anxiety; G30.9 Alzheimer's disease, unspecified; I48.11 Longstanding persistent atrial fibrillation; R79.1 Abnormal coagulation profile; Z79.01 Long term (current) use of anticoagulants; E78.5 Hyperlipidemia, unspecified; J40 Bronchitis, not specified as acute or chronic; D64.9 Anemia, unspecified; S40.212A Abrasion of left shoulder, initial encounter; M43.12 Spondylolisthesis, cervical region; M47.816 Spondylosis without myelopathy or radiculopathy, lumbar region; W19.XXXA Unspecified fall, initial encounter
CPT/HCPCS: 70450; 71250; 72125; 72128; 72131; 73030; 73502; 80048; 85025; 85610; 96361; 96372; 96374; 96375; 96376; 99285; J7030; A4216; J2405; J3486

== ENCOUNTER → 2024-05-06 | Outpatient (REF) | payer MEDICARE, SELFPAY ==
[2024-05-06 06:56] LABS: INR Fingerstick 2.7; Prothrombin Time Fingerstick 27.2 SEC (11.7-14.9)
== END ==
LOC: OLS.BROOKB 05:00
PROVIDERS: PCP Internal Medicine; Visit Provider Family Medicine
DX: Z79.01 Long term (current) use of anticoagulants
CPT/HCPCS: 36416; 85610

== ENCOUNTER 2024-05-24 22:52 | Emergency (ER) | payer MEDICARE, SELFPAY ==
[2024-05-24 22:53] VITALS: BP 148/85; PULSE 81; RESP 18; TEMP 36.8; O2SAT 98
--- NOTE | 2024-05-24 23:03 | CT_ITS ---
EXAM: CT HEAD WITHOUT INTRAVENOUS CONTRAST CLINICAL INDICATION: trauma pain. Confusion. TECHNIQUE: Multiple axial images were obtained of the head without intravenous contrast. This CT exam was performed using one or more of the following dose reduction techniques: automated exposure control, adjustment of the mA and/or kV according to patient size, and/or use of iterative reconstruction technique. COMPARISON: 03/18/2024 FINDINGS: BRAIN AND EXTRA-AXIAL SPACES: Global parenchymal volume loss with commensurate enlargement of the ventricles and the sulcal spaces. There is non-specific periventricular hypoattenuation which is most commonly related to chronic microvascular ischemic disease in a patient of this age. There is no mass, mass-effect, or shift of the midline structures. No evidence of acute infarct or acute intracranial hemorrhage. There is no evidence of pathologic extra-axial fluid. There is no hydrocephalus. Patent basal cisterns. BONES/JOINTS: No significant abnormality. No discrete lytic or blastic abnormalities. SOFT TISSUES: Right parietal scalp hematoma. VASCULATURE: Arteriosclerosis. SINUSES: No significant findings. MASTOID AIR CELLS: No significant effusion. ORBITS: Bilateral ocular lens extraction presumptively for the treatment of cataracts. Otherwise, no acute orbital pathology. CT/Brain/Head without Contrast IMPRESSION: 1. Right parietal scalp hematoma. 2. Chronic microvascular ischemic changes and global parenchymal volume loss similar to the prior examination. No evidence of an acute infarct or hemorrhage. Electronically Signed: Arturo Pickens DO at 23:48 EDT ,
--- NOTE | 2024-05-24 23:03 | EDS_ITS ---
HPI HPI - Fall History of Present Illness Chief Complaint: Fall Informant: patient, family and EMS Narrative Narrative: 88-year-old female with advanced dementia at assisted living had a fall in her room after getting out of bed, found on the floor awake and alert at her baseline. Very confused. Family states she has been more mobile and confused lately so they have been giving her Ativan at night but they are not sure how often she is getting it. At the current moment, family is present and states that this is a little bit more delusional/confused than normal. She is on warfarin, and hit her head. That is the only injury/pain that she is complaining of, she is not complaining of a headache, just pain to the posterior scalp. She is also on methenamine due to history of UTIs, family states that is really decreased how many UTIs she has had since being on that. [facility] Medical History Vitamin deficiency Acute bronchitis, unspecified Contact with or exposure to other viral diseases Flu vaccine need Advance directive discussed with patient Generalized anxiety disorder Osteoporosis Alzheimer disease History of hearing problem Hx of cataract Hx: UTI (urinary tract infection) Longstanding persistent atrial fibrillation Hyperlipidemia Nonrheumatic mitral (valve) insufficiency senior living current use of anticoagulant Home Medications ?Medication ?Instructions ?Recorded ?Last Taken ?Type cholecalciferol (vitamin D3) 25 1,000 unit PO DAILY supplement 03/30/19 04/11/20 History mcg (1,000 unit) tablet calcium 600 mg (as carbonate)-vit 1 tab PO DAILY supplement 12/16/19 04/11/20 History D3 20 mcg (800 unit) chewable tablet (Caltrate plus D) lidocaine 5 % topical patch 1 patch topical DAILY PRN pain 04/24/20 Unknown History denosumab 60 mg/mL subcutaneous 60 mg subcut [id number] #1 mL 02/10/23 Unknown Rx syringe (Prolia) ascorbic acid (vitamin C) 500 mg See Rx Instructions .Route 04/14/23 Unknown Rx tablet .COMPLEX #90 tabs citalopram 20 mg tablet 20 mg PO DAILY #90 tabs 08/14/23 Unknown Rx Lactobacillus acidophilus 20,000 mmu cells PO DAILY 09/15/23 Unknown History (Acidophilus capsule) donepezil 10 mg tablet 10 mg PO QHS #90 tabs 03/07/24 Unknown Rx methenamine mandelate 1 gram tablet 1 g PO DAILY #90 tabs 10/19/23 Unknown Rx baclofen 10 mg tablet See Rx Instructions .Route 02/16/24 Unknown Rx .COMPLEX #90 tabs warfarin 3 mg tablet 1.5 mg PO SUSA 03/17/24 Unknown History warfarin 3 mg tablet 3 mg PO MOTUWETHFR 03/17/24 Unknown History metoprolol succinate 25 mg 25 mg PO DAILY #90 tabs 04/15/24 Unknown Rx tablet,extended release 24 hr Allergy/AdvReac Type Severity Reaction Status Date / Time amiodarone AdvReac Severe Poor Verified 03/17/24 23:16 balance, poor appetite, severe dizziness amoxicillin trihydrate (From AdvReac Diarrhea Verified 03/17/24 23:16 Augmentin) potassium clavulanate (From AdvReac Diarrhea Verified 03/17/24 23:16 Augmentin) Family History Father , age 65 of head injury Head injury Brother CAD (coronary artery disease) Surgical History History of cardioversion (08/21/19) History of right and left heart catheterization (07/13/00) 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) Social History Smoking Status: Never smoker alcohol intake: never substance use type: does not use what type of physical activity do you participate in: none ROS ROS ED Review of Systems ROS Unobtainable: due to mental status Eyes Eyes: Denies change in vision ENT ENT ED: Denies ear pain or sore throat Cardiovascular Cardiovascular: Denies chest pain Respiratory/Chest Respiratory/Chest: Denies dyspnea Gastrointestinal Gastrointestinal: Denies abdominal pain or nausea Musculoskeletal Musculoskeletal: Denies back pain or neck pain Neurologic Neurologic: Reports other Details: Baseline confusion/dementia ; Denies headache(s), paresthesias or weakness EXAM Physical Exam Const Vital Signs: 05/24/24 22:53 05/25/24 00:01 05/25/24 00:27 Temperature 98.3 F 97.6 F L Temperature Source Oral Pulse Rate 81 85 Respiratory Rate 18 22 H Respiratory Effort Normal Non-Labored Respiratory Depth Normal Respiratory Pattern Normal Blood Pressure 148/85 H 148/96 H Blood Pressure Mean 106 113 Pulse Ox 98 95 Oxygen Delivery Method Room Air Room Air Positive well nourished and well developed General Appearance ED: well developed and NAD HEENT Reports nasal mucous membranes and turbinates normal HEENT Narrative: No Woody sign, no raccoon eyes, no CSF otorhinorrhea or signs of facial trauma trauma and hematoma Hematoma Size: 4 cm, occiput, no crepitance or depression, no laceration or bleeding Face and Sinus: Negative for facial tenderness Eyes PERRL and EOMs intact bilaterally Visual Acuity: other Other Details: no entrapment or pain with extraocular movements Neck full ROM and supple General: Negative for tenderness Chest Wall inspection of chest normal and palpation of chest normal Chest: symmetrical chest wall rise; Negative for crepitus or tenderness Resp normal respiratory effort and clear to auscultation bilaterally Percussion: other equal BS bilat Cardio no murmurs Rate: regular rate Rhythm: regular rhythm GI normal to inspection, nondistended, normoactive bowel sounds, soft to palpation and non-tender GI Narrative: Pelvis stable APC Back/Spine normal ROM Cervical Spine: Negative for cervical spine tenderness Thoracic Spine / Upper Back: Negative for thoracic spinal tenderness Lumbar Spine / Lower Back: Negative for lumbar spinal tenderness Extremity normal to inspection and full ROM General Extremety ED: Negative for tenderness Neuro CN's II-XII intact bilaterally, moves all extremities, no focal motor deficits and no sensory deficits noted Gopal Coma Scale: document GCS findings Spontaneous Obeys Commands Confused (Near baseline per family) 14 Sensorium / Orientation: awake, alert, orientation impaired and confused Psych Psych Narrative: Discussing random scenarios, thinks she fell watching people outside at a game, playing and doing whatever they do Skin no wounds Lesions: no lesions Rashes: no rashes MDM MDM MDM Narrative Medical decision making narrative: Obtained labs and ordered a urinalysis as well, screening the patient for acute problems that could be causing her confusion to be worse than usual which may also be related to Ativan she has been getting, or simply just her dementia and recent increased mobility. Also obtain CT of the head in order to rule out intracranial injury, I reviewed the images and report which I agree with, negative for anything acute. Family really did not want her straight cath for a urine, they were comfortable with waiting for her to sit on a bedside commode to provide a specimen which she did. It does not appear to show acute infection for me. Family is comfortable taking her home, patient is able to stand and ambulate with little assistance, stable for discharge. Lab Data Attestation: I reviewed the patient's lab results. Labs: Laboratory Results - last 24 hr 05/24/24 05/25/24 23:22 00:19 WBC 4.9 RBC 3.75 L Hgb 11.2 L Hct 34.7 L MCV 92.5 MCH 29.9 MCHC 32.3 RDW Std Deviation 63.0 H RDW Coeff of Celio 18.5 H Plt Count 241 MPV 9.7 Immature Gran % (Auto) 0.200 Neut % (Auto) 50.0 Lymph % (Auto) 31.2 Marshall % (Auto) 12.7 H Eos % (Auto) 5.3 H Baso % (Auto) 0.6 Absolute Neuts (auto) 2.5 Absolute Lymphs (auto) 1.53 Nucleated RBC % 0 PT 24.0 H INR 2.2 Sodium 141 Potassium 4.0 Chloride 109 H Carbon Dioxide 28.0 Anion Gap 3 L BUN 17 Creatinine 0.60 Estim Creat Clear Calc 43.27 Est GFR (MDRD) Af Amer 122 Est GFR (MDRD) Non-Af 101 BUN/Creatinine Ratio 28.4 H Glucose 91 Calcium 9.1 Urine Color Yellow Urine Clarity Clear Urine pH 6.5 Ur Specific [place] 1.010 Urine Protein Negative Urine Glucose (UA) Normal Urine Ketones Negative Urine Occult Blood 25 H Urine Nitrite Negative Urine Bilirubin Negative Urine Urobilinogen Normal Ur Leukocyte Esterase Negative Urine RBC 0 SEEN Urine WBC 0 SEEN Ur Squamous Epith Cells 0 SEEN Urine Bacteria 2+ Urine Mucus 0 SEEN Radiography Diagnostic Testing: Clinical Impression(s) from Imaging Studies Brain CT 05/24/24 23:03 IMPRESSION: 1. Right parietal scalp hematoma. 2. Chronic microvascular ischemic changes and global parenchymal volume loss similar to the prior examination. No evidence of an acute infarct or hemorrhage. Electronically Signed: Arturo Pickens DO at 23:48 EDT , Discharge Plan Triage Chief Complaint: Fall ED Provider: Boston Gonzalez Dx/Rx/DC Orders Clinical Impression: Traumatic injury of head with hematoma of scalp, Dementia, Warfarin-induced coagulopathy Instructions: ED Hematoma Prescriptions: No Action cholecalciferol (vitamin D3) 1,000 unit (25 mcg) tablet 1,000 unit PO DAILY Caltrate 600 plus D 600 mg (1,500 mg)-800 unit tablet,chewable 1 tab PO DAILY lidocaine 5 % adhesive patch,medicated 1 patch topical DAILY PRN (Reason: pain) Acidophilus Capsule 20,000 mmu cells PO DAILY donepezil 10 mg tablet 10 mg PO QHS Qty: 90 1RF warfarin 3 mg tablet 1.5 mg PO SUSA Protocol: Dose Management Condition: Monday Dose/Route: 3 mg Instruction: 1 x 3 mg tablet Condition: Monday Dose/Route: 3 mg Instruction: 1 x 3 mg tablet Condition: Monday Dose/Route: 1.5 mg Instruction: 0.5 x 3 mg tablets Condition: Monday Dose/Route: 3 mg Instruction: 1 x 3 mg tablet Condition: Dose/Route: 3 mg Instruction: 1 x 3 mg tablet Condition: Monday Dose/Route: 3 mg Instruction: 1 x 3 mg tablet Condition: Monday Dose/Route: 3 mg Instruction: 1 x 3 mg tablet Protocol Text: Adjustment Start Date: Monday03/18/24 INR Value: 4.3 INR Date: 03/18/24 Recheck Date: 03/25/24 warfarin 3 mg tablet 3 mg PO MOTUWETHFR Protocol: Dose Management Condition: Monday Dose/Route: 3 mg Instruction: 1 x 3 mg tablet Condition: Monday Dose/Route: 3 mg Instruction: 1 x 3 mg tablet Condition: Monday Dose/Route: 1.5 mg Instruction: 0.5 x 3 mg tablets Condition: Monday Dose/Route: 3 mg Instruction: 1 x 3 mg tablet Condition: Dose/Route: 3 mg Instruction: 1 x 3 mg tablet Condition: Monday Dose/Route: 3 mg Instruction: 1 x 3 mg tablet Condition: Monday Dose/Route: 3 mg Instruction: 1 x 3 mg tablet Protocol Text: Adjustment Start Date: Monday03/18/24 INR Value: 4.3 INR Date: 03/18/24 Recheck Date: 03/25/24 Prolia 60 mg/mL syringe 60 mg subcut [id number] Qty: 1 3RF ascorbic acid (vitamin C) 500 mg tablet See Rx Instructions .ROUTE .COMPLEX Qty: 90 3RF Dose Instruction: TAKE 1 TABLET BY MOUTH EVERY DAY Rx Instructions: TAKE 1 TABLET BY MOUTH EVERY DAY citalopram 20 mg tablet 20 mg PO DAILY Qty: 90 3RF methenamine mandelate 1 gram tablet 1 g PO DAILY Qty: 90 1RF Rx Instructions: administer after meals and at bedtime baclofen 10 mg tablet See Rx Instructions .ROUTE .COMPLEX Qty: 90 1RF Dose Instruction: TAKE 1 TABLET BY MOUTH EVERY DAY NEEDED FOR MUSCLE SPASM Rx Instructions: TAKE 1 TABLET BY MOUTH EVERY DAY NEEDED FOR MUSCLE SPASM metoprolol succinate 25 mg tablet extended release 24 hr 25 mg PO DAILY Qty: 90 3RF Primary Care Provider: Eduardo Vazquez Referrals: Meredith Olmstead MD [Med Staff - Active Staff] - As Needed Print Language: Swedish Disposition Disposition: Home, Self Care
[2024-05-24 23:27] LABS: Absolute Lymphocyte Count 1.53 X10^3/uL (0.83-4.51); Absolute Neutrophil Count 2.5 X10^3/uL (2.0-7.7); Basophil# 0.03 X10^3/uL; Basophil% 0.6 % (0-1); Eosinophil# 0.26 X10^3/uL; Eosinophils% 5.3 % (0-5); Hematocrit 34.7 % (37-47); Hemoglobin 11.2 g/dL (12.0-15.0); Lymphocyte # 1.53 X10^3/ul (0.83-4.51); Lymphocyte % 31.2 % (19-41); Mean Corp Hgb Conc 32.3 g/dL (32-36); Mean Corpuscular Hgb 29.9 pg (27.0-32.0); Mean Corpuscular Volume 92.5 fL (81-99); Mean Platelet Vol. 9.7 fl (6.2-12.0); Monocyte# 0.62 X10^3/uL; Monocyte% 12.7 % (0-10); NRBC Flagged by Analyzer 0 % (0-5); Neutrophil # 2.45 X10^3/uL (2.7-7.7); Platelet Count 241 K/mm3 (150-450); RBC Distribution Width CV 18.5 % (11.6-14.6); Red Blood Count 3.75 M/mm3 (4.2-5.4); White Blood Count 4.9 K/mm3 (4.4-11.0)
[2024-05-24 23:37] LABS: International Normalized Ratio 2.2
[2024-05-24 23:42] LABS: Anion Gap 3 (5-15); BUN 17 mg/dL (7-18); BUN/Creat Ratio 28.4 RATIO (10-20); Calcium,Total 9.1 mg/dL (8.5-10.1); Chloride 109 mmol/L (98-107); EST Glomerular Filtration Rate 101 mL/min (>60); Est Glom Filt Rate - Afr Amer 122 mL/min (>60); Estimated Creatinine Clearance 43.27 ml/min; Glucose 91 mg/dL (74-106); Sodium Level 141 mmol/L (136-145)
--- NOTE | 2024-05-24 23:53 | ED.RN ---
This RN went in to the room with a straight cath to gather a urine sample and the family stated I don't think its neccessary, she is calm now and getting stronger, what are they looking for in the urine? This RN stated Theyre looking for infection since she fell and a UTI can cause people to fall and have increased confusion. The patient family said She's getting stronger not weaker and she did not do well with the blood draw, she hasnt had a UTI for a few years, we dont think she needs it. This RN told Dr Gonzalez. Dr Gonzalez said he would talk to the family.
[2024-05-25 00:24] LABS: Glucose, Dipstick Normal (Normal); Ketone-Dipstick Negative (Negative); Leukocyte Esterase-Dipstick Negative /ul (Negative); Mucous, Urine 0 SEEN /hpf (<or=2+); Nitrite-Dipstick Negative (Negative); Occult Blood-Urine 25 /ul (Negative); Protein-Dipstick Negative (Negative); Red Blood Cells-Urine 0 SEEN /hpf (0-5); Squamous Epithelial Cells - UA 0 SEEN /hpf (5-10); Urine Bilirubin Dipstick Negative (Negative); Urine Urobilinogen Normal (Normal); Urine pH 6.5 (5.0 - 8.0); White Blood Cells 0 SEEN /hpf (0-5)
[2024-05-25 00:27] VITALS: BP 148/96; PULSE 85; RESP 22; TEMP 36.4; O2SAT 95
[2024-05-25 00:37] LABS: Color, Urine Yellow (Yellow); Urine Clarity Clear (Clear)
[2024-05-25 00:42] LABS: Bacteria 2+ /hpf (None Seen)
--- NOTE | 2024-05-25 01:04 | ED.RN ---
This RN called report to the [facility].
== END 2024-05-25 01:05 | disposition home or self-care (01) ==
PROVIDERS: Emergency Provider Emergency Medicine; Visit Provider Emergency Medicine
DX: S00.03XA Contusion of scalp, initial encounter (principal); F02.80 Dementia in other diseases classified elsewhere, unspecified severity, without behavioral disturbance, psychotic disturbance, mood disturbance, and anxiety; Z79.01 Long term (current) use of anticoagulants; W06.XXXA Fall from bed, initial encounter
CPT/HCPCS: 70450; 80048; 81001; 85025; 85610; 99282

== ENCOUNTER → 2024-05-24 | Outpatient (REF) | payer MEDICARE, SELFPAY ==
[2024-05-24 15:53] LABS: INR Fingerstick 2.1
== END ==
LOC: OLS.BROOKB 05:00
PROVIDERS: PCP Internal Medicine; Visit Provider Family Medicine
DX: I82.409 Acute embolism and thrombosis of unspecified deep veins of unspecified lower extremity (principal); Z79.01 Long term (current) use of anticoagulants
CPT/HCPCS: 36416; 85610

== ENCOUNTER → 2024-05-27 | Outpatient (REF) | payer MEDICARE, SELFPAY ==
[2024-05-27 08:56] LABS: INR Fingerstick 1.6; Prothrombin Time Fingerstick 17.5 SEC (11.7-14.9)
== END ==
LOC: OLS.BROOKB 05:00
PROVIDERS: Visit Provider Family Medicine
DX: I82.409 Acute embolism and thrombosis of unspecified deep veins of unspecified lower extremity (principal); Z79.01 Long term (current) use of anticoagulants
CPT/HCPCS: 36416; 85610

== ENCOUNTER → 2024-05-28 05:00 | Outpatient (REF) | payer MEDICARE, SELFPAY ==
[2024-05-28 09:42] LABS: International Normalized Ratio 1.5; Prothrombin Time (Protime)PT. 17.7 SECONDS (11.7-14.9)
== END ==
LOC: OLS.BROOKB 05:00
PROVIDERS: Visit Provider Family Medicine
DX: Z79.01 Long term (current) use of anticoagulants (principal)
CPT/HCPCS: 36415; 85610

== ENCOUNTER → 2024-05-29 05:00 | Outpatient (REF) | payer MEDICARE, SELFPAY ==
[2024-05-29 08:49] LABS: INR Fingerstick 1.3
== END ==
LOC: OLS.BROOKB 05:00
PROVIDERS: Visit Provider Family Medicine
DX: Z79.01 Long term (current) use of anticoagulants (principal)
CPT/HCPCS: 36416; 85610

== ENCOUNTER → 2024-05-30 05:00 | Outpatient (REF) | payer MEDICARE, SELFPAY ==
[2024-05-30 09:26] LABS: International Normalized Ratio 1.4; Prothrombin Time (Protime)PT. 17.4 SECONDS (11.7-14.9)
== END ==
LOC: OLS.BROOKB 05:00
PROVIDERS: Visit Provider Family Medicine
DX: Z79.01 Long term (current) use of anticoagulants (principal)
CPT/HCPCS: 36415; 85610

== ENCOUNTER → 2024-05-31 | Outpatient (REF) | payer MEDICARE, SELFPAY ==
[2024-05-31 09:46] LABS: International Normalized Ratio 1.5; Prothrombin Time (Protime)PT. 18.1 SECONDS (11.7-14.9)
== END ==
LOC: OLS.BROOKB 05:00
PROVIDERS: Visit Provider Family Medicine
DX: Z79.01 Long term (current) use of anticoagulants (principal)
CPT/HCPCS: 85610

== ENCOUNTER → 2024-06-03 | Outpatient (REF) | payer MEDICARE, SELFPAY ==
[2024-06-03 07:15] LABS: INR Fingerstick 1.4; Prothrombin Time Fingerstick 14.9 SEC (11.7-14.9)
== END ==
LOC: OLS.BROOKB 05:00
PROVIDERS: Visit Provider Family Medicine
DX: Z79.01 Long term (current) use of anticoagulants (principal)
CPT/HCPCS: 36416; 85610

== ENCOUNTER → 2024-06-05 05:00 | Outpatient (REF) | payer MEDICARE, SELFPAY ==
[2024-06-05 08:50] LABS: International Normalized Ratio 1.6; Prothrombin Time (Protime)PT. 19.2 SECONDS (11.7-14.9)
== END ==
LOC: OLS.BROOKB 05:00
PROVIDERS: Visit Provider Family Medicine
DX: Z79.01 Long term (current) use of anticoagulants (principal)
CPT/HCPCS: 36415; 85610

== ENCOUNTER → 2024-06-07 | Outpatient (REF) | payer MEDICARE, SELFPAY ==
[2024-06-07 08:02] LABS: INR Fingerstick 1.4; Prothrombin Time Fingerstick 15.5 SEC (11.7-14.9)
== END ==
LOC: OLS.BROOKB 05:00
PROVIDERS: Visit Provider Family Medicine
DX: Z79.01 Long term (current) use of anticoagulants (principal)
CPT/HCPCS: 36416; 85610

== ENCOUNTER → 2024-06-10 | Outpatient (REF) | payer MEDICARE, SELFPAY ==
[2024-06-10 08:58] LABS: Prothrombin Time (Protime)PT. 41.8 SECONDS (11.7-14.9)
[2024-06-10 09:07] LABS: International Normalized Ratio 4.4
== END ==
LOC: OLS.BROOKB 06:35
PROVIDERS: Visit Provider Family Medicine
DX: I34.1 Nonrheumatic mitral (valve) prolapse (principal)
CPT/HCPCS: 36415; 85610

== ENCOUNTER → 2024-06-13 05:00 | Outpatient (REF) | payer MEDICARE, SELFPAY ==
[2024-06-13 07:51] LABS: INR Fingerstick 2.6; Prothrombin Time Fingerstick 26.5 SEC (11.7-14.9)
== END ==
LOC: OLS.BROOKB 05:00
PROVIDERS: Visit Provider Family Medicine
DX: Z79.01 Long term (current) use of anticoagulants (principal)
CPT/HCPCS: 36416; 85610

== ENCOUNTER → 2024-06-20 05:00 | Outpatient (REF) | payer MEDICARE, SELFPAY ==
[2024-06-20 08:14] LABS: INR Fingerstick 2.1; Prothrombin Time Fingerstick 21.7 SEC (11.7-14.9)
== END ==
LOC: OLS.BROOKB 05:00
PROVIDERS: Visit Provider Family Medicine
DX: Z79.01 Long term (current) use of anticoagulants (principal)
CPT/HCPCS: 36416; 85610

== ENCOUNTER → 2024-06-27 05:00 | Outpatient (REF) | payer MEDICARE, SELFPAY ==
[2024-06-27 08:44] LABS: INR Fingerstick 2.2; Prothrombin Time Fingerstick 23.8 SEC (11.7-14.9)
== END ==
LOC: OLS.BROOKB 05:00
PROVIDERS: Visit Provider Family Medicine
DX: Z79.01 Long term (current) use of anticoagulants (principal)
CPT/HCPCS: 36416; 85610

== ENCOUNTER → 2024-07-05 05:00 | Outpatient (REF) | payer MEDICARE, SELFPAY ==
[2024-07-05 08:55] LABS: International Normalized Ratio 3.9
[2024-07-09 08:08] LABS: INR Fingerstick 4.5
== END ==
LOC: OLS.BROOKB 05:00
PROVIDERS: Visit Provider Family Medicine
DX: Z79.01 Long term (current) use of anticoagulants (principal)
CPT/HCPCS: 36415; 36416; 85610

== ENCOUNTER → 2024-07-10 06:10 | Outpatient (REF) | payer MEDICARE, SELFPAY ==
[2024-07-10 08:37] LABS: Prothrombin Time (Protime)PT. 44.5 SECONDS (11.7-14.9)
[2024-07-10 08:43] LABS: International Normalized Ratio 4.8
== END ==
LOC: OLS.BROOKB 06:10
PROVIDERS: Visit Provider Family Medicine
DX: Z79.01 Long term (current) use of anticoagulants (principal)
CPT/HCPCS: 36415; 85610

== ENCOUNTER → 2024-07-12 05:00 | Outpatient (REF) | payer MEDICARE, SELFPAY ==
[2024-07-12 07:41] LABS: International Normalized Ratio 2.2; Prothrombin Time (Protime)PT. 24.7 SECONDS (11.7-14.9)
== END ==
LOC: OLS.BROOKB 05:00
PROVIDERS: Visit Provider Family Medicine
DX: Z79.01 Long term (current) use of anticoagulants (principal)
CPT/HCPCS: 36415; 85610

== ENCOUNTER → 2024-07-18 | Outpatient (REF) | payer MEDICARE, SELFPAY ==
[2024-07-18 08:43] LABS: INR Fingerstick 5.2; Prothrombin Time Fingerstick 49.6 SEC (11.7-14.9)
[2024-07-18 08:51] LABS: Prothrombin Time (Protime)PT. 42.5 SECONDS (11.7-14.9)
[2024-07-18 09:05] LABS: International Normalized Ratio 4.5
== END ==
LOC: OLS.BROOKB 05:00
PROVIDERS: Visit Provider Family Medicine
DX: Z79.01 Long term (current) use of anticoagulants (principal)
CPT/HCPCS: 36415; 36416; 85610

== ENCOUNTER → 2024-07-22 | Outpatient (REF) | payer MEDICARE, SELFPAY ==
[2024-07-22 07:56] LABS: INR Fingerstick 1.5; Prothrombin Time Fingerstick 17.1 SEC (11.7-14.9)
== END ==
LOC: OLS.BROOKB 05:00
PROVIDERS: Visit Provider Family Medicine
DX: Z79.01 Long term (current) use of anticoagulants (principal)
CPT/HCPCS: 36416; 85610

== ENCOUNTER → 2024-07-26 05:00 | Outpatient (REF) | payer MEDICARE, SELFPAY ==
[2024-07-26 08:23] LABS: International Normalized Ratio 1.3; Prothrombin Time (Protime)PT. 16.6 SECONDS (11.7-14.9)
== END ==
LOC: OLS.BROOKB 05:00
PROVIDERS: Visit Provider Family Medicine
DX: Z79.01 Long term (current) use of anticoagulants (principal)
CPT/HCPCS: 36415; 85610

== ENCOUNTER → 2024-07-29 05:00 | Outpatient (REF) | payer MEDICARE, SELFPAY ==
[2024-07-29 08:42] LABS: Prothrombin Time Fingerstick 12.4 SEC (11.7-14.9)
== END ==
LOC: OLS.BROOKB 05:00
PROVIDERS: Visit Provider Family Medicine
DX: Z79.01 Long term (current) use of anticoagulants (principal)
CPT/HCPCS: 36416; 85610

== ENCOUNTER → 2024-08-01 05:00 | Outpatient (REF) | payer MEDICARE, SELFPAY ==
[2024-08-01 06:33] LABS: INR Fingerstick 1.3; Prothrombin Time Fingerstick 14.8 SEC (11.7-14.9)
== END ==
LOC: OLS.BROOKB 05:00
PROVIDERS: Visit Provider Family Medicine
DX: Z79.01 Long term (current) use of anticoagulants (principal)
CPT/HCPCS: 36416; 85610

== ENCOUNTER → 2024-08-06 05:00 | Outpatient (REF) | payer MEDICARE, SELFPAY ==
[2024-08-06 07:51] LABS: INR Fingerstick 3.2; Prothrombin Time Fingerstick 32.6 SEC (11.7-14.9)
== END ==
LOC: OLS.BROOKB 05:00
PROVIDERS: Visit Provider Family Medicine
DX: Z79.01 Long term (current) use of anticoagulants (principal)
CPT/HCPCS: 36416; 85610

== ENCOUNTER → 2024-08-09 | Outpatient (REF) | payer MEDICARE, SELFPAY ==
[2024-08-09 09:10] LABS: INR Fingerstick 1.3; Prothrombin Time Fingerstick 15.5 SEC (11.7-14.9)
== END ==
LOC: OLS.BROOKB 05:00
PROVIDERS: Visit Provider Family Medicine
DX: Z79.01 Long term (current) use of anticoagulants (principal)
CPT/HCPCS: 36416; 85610

== ENCOUNTER → 2024-08-12 | Outpatient (REF) | payer MEDICARE, SELFPAY ==
[2024-08-12 10:12] LABS: HIV - WCH Non-Reactive (Nonreactive)
[2024-08-13 05:07] LABS: HEPATITIS B SURFACE AG Negative (Negative); Hep C Antibodies Non Reactive (Non Reactive); Hepatitis A IgM Antibody Negative (Negative); Hepatitis B Core AB IgM Negative (Negative)
== END ==
LOC: OLS.BROOKB 05:00
PROVIDERS: Visit Provider Family Medicine
DX: T14.8XXA Other injury of unspecified body region, initial encounter (principal); W46.1XXA Contact with contaminated hypodermic needle, initial encounter
CPT/HCPCS: 36415; 80074; 86703

== ENCOUNTER → 2024-08-13 05:00 | Outpatient (REF) | payer MEDICARE, SELFPAY ==
[2024-08-13 09:33] LABS: INR Fingerstick 5.2; Prothrombin Time Fingerstick 50.2 SEC (11.7-14.9)
== END ==
LOC: OLS.BROOKB 05:00
PROVIDERS: Visit Provider Family Medicine
DX: Z79.01 Long term (current) use of anticoagulants (principal)
CPT/HCPCS: 36416; 85610

== ENCOUNTER 2024-08-28 11:36 | Inpatient (IN) | payer MEDICARE, SELFPAY ==
[2024-08-28] VITALS (10 sets, daily range): BP systolic 101–133; BP diastolic 77–109; PULSE 53–104; RESP 15–30; TEMP 36.2–37.8; O2SAT 92–98; BMI 18.1
--- NOTE | 2024-08-28 12:56 | CT_ITS ---
INDICATION: elevated inr, confusion EXAMINATION: CT BRAIN - CT Head or Brain W/O Contrast Injection TECHNIQUE: Multiple axial images were obtained of the head without intravenous contrast. The protocol utilizes one or more of the following dose reduction techniques: automated exposure control, adjustment of mA and/or kV according to patient size,and/or use of iterative reconstruction technique. IV Contrast dosage and agent: None. RADIATION DOSAGE (If Supplied By Facility): CTDIvol = ( 44.99 ) mGy, DLP = ( 812.98 ) mGycm COMPARISON: Prior study dated: 05/24/2024 FINDINGS: BRAIN PARENCHYMA: Right frontoparietal isodense to hypodense fluid measuring about 9 mm in thickness likely subdural new since the previous exam. No evidence of acute infarct. No intracranial mass or mass effect. There is otherwise preservation of the monique/white matter interface. Posterior fossa structures are unremarkable. Atherosclerotic calcifications of the cavernous internal carotid arteries. CSF SPACES: Diffuse prominence of the ventricles. No hydrocephalus. Basal cisterns are patent. CALVARIUM, SKULL BASE, PARANASAL SINUSES AND MASTOID AIR CELLS: Mucosal thickening of the maxillary sinuses bilaterally. No discrete lytic or blastic abnormalities. ORBITS: Previous bilateral cataract surgery. CT/Brain/Head without Contrast IMPRESSION: 1. Right frontoparietal subacute to chronic extra-axial fluid/hematoma likely subdural new since previous exam. 2. Otherwise no acute intracranial process. Electronically Signed: Lavelle Young MD at 13:59 EST ,
--- NOTE | 2024-08-28 12:56 | EX.ED.DYSGE1 ---
HPI History of Present Illness Chief Complaint: Abn Labs Detail of Chief Complaint: Elevated INR Informant: family Narrative Narrative: Patient presents to the emergency department via EMS from long-term for an elevated INR. Patient on Coumadin for history of a mechanical heart valve. INR this morning was checked and it was 19. Apparently they spoke with [facility] and physician recommended against giving vitamin K. Patient in the memory unit and has history of dementia. assisted staff apparently was not comfortable with plan of monitoring INR and discontinuing the Coumadin. Daughter also gives history that patient fell about a week ago but they did not think that she hit her head so she did not have any type of brain imaging. [facility] Medical History Vitamin deficiency Acute bronchitis, unspecified Contact with or exposure to other viral diseases Flu vaccine need Advance directive discussed with patient Generalized anxiety disorder Osteoporosis Alzheimer disease History of hearing problem Hx of cataract Hx: UTI (urinary tract infection) Longstanding persistent atrial fibrillation Hyperlipidemia Nonrheumatic mitral (valve) insufficiency senior care current use of anticoagulant Home Medications ?Medication ?Instructions ?Recorded ?Last Taken ?Type lidocaine 5 % topical patch 1 patch topical DAILY PRN pain 04/24/20 Unknown History denosumab 60 mg/mL subcutaneous 60 mg subcut [id number] #1 mL 02/10/23 Unknown Rx syringe (Prolia) citalopram 20 mg tablet 20 mg PO DAILY #90 tabs 08/14/23 Unknown Rx donepezil 10 mg tablet 10 mg PO QHS #90 tabs 10/12/23 Unknown Rx methenamine mandelate 1 gram tablet 1 g PO DAILY #90 tabs 10/19/23 Unknown Rx metoprolol succinate 25 mg 25 mg PO DAILY #90 tabs 04/15/24 Unknown Rx tablet,extended release 24 hr acetaminophen 325 mg tablet 650 mg PO TID 06/11/24 Unknown History ascorbic acid (vitamin C) 250 mg 250 mg PO QDAY 06/11/24 Unknown History tablet baclofen 10 mg tablet 10 mg PO TID 06/11/24 Unknown History calcium 250 mg (as 2 tab PO QDAY 06/11/24 Unknown History carbonate)-vitamin D3 3.125 mcg (125 unit) tablet (Oyster Shell Calcium-Vitamin D3) cyanocobalamin (vitamin B-12) 1,000 mcg IM QMONTH 06/11/24 Unknown History 1,000 mcg/mL injection solution mirtazapine 7.5 mg tablet 7.5 mg PO QHS 06/11/24 Unknown History polyethylene glycol 3350 17 17 g PO QDAY PRN 06/11/24 Unknown History gram/dose oral powder tramadol 50 mg tablet 50 mg PO Q4H PRN PRN 06/11/24 Unknown History enoxaparin 60 mg/0.6 mL 60 mg (0.6 mL) subcut .COMPLEX #6 08/12/24 Unknown Rx subcutaneous syringe mL warfarin 3 mg tablet 3 mg PO .COMPLEX 90 days #180 tabs 08/13/24 Unknown Rx warfarin 6 mg tablet 6 mg PO QDAY #90 tabs 08/13/24 Unknown Rx lorazepam 0.5 mg tablet 0.5 mg PO QDAY 08/27/24 Unknown History Allergy/AdvReac Type Severity Reaction Status Date / Time poison dale extract Allergy Unknown unknown Verified 08/28/24 11:41 amiodarone AdvReac Severe Poor Verified 08/28/24 11:41 balance, poor appetite, severe dizziness amoxicillin trihydrate (From AdvReac Diarrhea Verified 08/28/24 11:41 Augmentin) potassium clavulanate (From AdvReac Diarrhea Verified 08/28/24 11:41 Augmentin) Family History Father , age 65 of head injury Head injury Brother CAD (coronary artery disease) Surgical History History of cardioversion (08/21/19) History of right and left heart catheterization (07/13/00) 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 Review of Systems ROS Unobtainable: due to mental condition EXAM Physical Exam Const Vital Signs: 08/28/24 11:36 08/28/24 13:00 08/28/24 14:00 Temperature 97.2 F L Temperature Source Temporal Pulse Rate 90 101 H 104 H Respiratory Rate 16 20 H 18 Blood Pressure 122/91 H 118/88 H 117/82 H Blood Pressure Mean 101 98 93 Pulse Ox 97 94 94 Oxygen Delivery Method Room Air Room Air Room Air Positive well nourished and well developed General Appearance ED: well developed and NAD HEENT Reports TM's clear and moist mucous membranes HEENT Narrative: Patient has multiple scabs about the lips as she apparently picks at her lips and has been having some bleeding from the lips. normocephalic and atraumatic; Negative for trauma or tenderness Tympanic Membrane ED: Yes TM's clear Eyes PERRL and EOMs intact bilaterally General Eye ED: Negative for pale conjunctiva or scleral icterus Neck no lymphadenopathy, supple and no JVD General: Negative for tenderness Chest Wall inspection of chest normal and palpation of chest normal Chest: Negative for tenderness Resp normal respiratory effort and clear to auscultation bilaterally Effort and Inspection: Negative for respiratory distress or pain with movement Auscultation: Negative for rhonchi, wheezes or diminished lung sounds Cardio regular rate, regular rhythm, S1 normal heart sound, S2 normal heart sound and no murmurs Peripheral Pulses: pulses 2+ throughout GI normal to inspection, nondistended, normoactive bowel sounds, soft to palpation, non-tender, non-distended and no masses GI Narrative: Lower suprapubic region with some old appearing ecchymosis and bruising. Back/Spine no CVA tenderness and no thoracic nor lumbar tenderness Extremity normal to inspection General Extremety ED: Negative for edema General Extremity: Negative for edema Neuro oriented x3, CN's II-XII intact bilaterally, no sensory deficits noted and gait normal Sensorium / Orientation: awake, alert, oriented to person, oriented to place and oriented to time Motor Exam: strength 5/5 throughout and strength abnormal Psych mental status grossly normal Skin no rashes or lesions noted and no wounds MDM MDM MDM Narrative Medical decision making narrative: Patient presents with concern for elevated INR. She has history of dementia and cannot give history and therefore history comes from family members. Patient apparently had a fall about a week ago. She had x-rays against the long-term of her pelvis and hip and that was unremarkable. Today she had an INR that was elevated over 19 and they are concerned about possibility of ongoing or developing bleeding. Patient really cannot give any history. Clinically she has blood around her mouth from picking at her lips which has not been a new issue. A repeat INR was obtained and was elevated over 19.5. CBC with differential obtained showed a white count of 24.9 with hemoglobin of 11.3 and platelet count of 546. Chemistry showed a sodium 146 with potassium 5.4 and chloride 114. BUN 41 and creatinine 1.04. Urinalysis had blood in it but no evidence of infection. I did do a CT scan of the brain without contrast that was read by radiology as right subacute subdural hematoma. Patient also had a CT scan of the abdomen pelvis ordered which showed a right pelvic hematoma with possible ongoing active bleeding. Discussed all findings with patient's family members as she is currently on hospice. Discussed that if they wanted aggressive care and possible intervention for her subdural hematoma and pelvic hematoma she would likely require transfer to tertiary care center. Family members stated that they do not feel that she would want to or survive any type of surgery and they want to make her comfortable but would like medical management as far as reversing her INR and fluids and comfort measures. Discussed case with hospitalist will evaluate patient for admission Lab Data Attestation: I reviewed the patient's lab results. Labs: Laboratory Results - last 24 hr 08/28/24 08/28/24 08/28/24 12:23 13:16 14:46 WBC 24.9 H RBC 3.72 L Hgb 11.3 L Hct 35.5 L MCV 95.4 MCH 30.4 MCHC 31.8 L RDW Std Deviation 54.8 H RDW Coeff of Celio 16.4 H Plt Count 546 H MPV 9.8 Immature Gran % (Auto) 1.000 H Neut % (Auto) 85.9 H Lymph % (Auto) 3.3 L Bath % (Auto) 9.6 Eos % (Auto) 0.0 Baso % (Auto) 0.2 Absolute Neuts (auto) 21.4 H Absolute Lymphs (auto) 0.82 L Nucleated RBC % 0.1 Diff Path Review May foll Platelet Estimate SLT INC Polychromasia 1+ Spherocytes 1+ H Target Cells 1+ PT > 120.0 H INR > 19.5 H* Sodium Potassium Chloride Carbon Dioxide Anion Gap BUN Creatinine Estim Creat Clear Calc Est GFR (MDRD) Af Amer Est GFR (MDRD) Non-Af BUN/Creatinine Ratio Glucose Calcium Urine Color Red Urine Clarity Turbid Urine pH 6.5 Ur Specific [place] 1.010 Urine Protein 500 H Urine Glucose (UA) Normal Urine Ketones 5 H Urine Occult Blood 250 H Urine Nitrite Negative Urine Bilirubin Negative Urine Urobilinogen Normal Ur Leukocyte Esterase 25 H Urine RBC > 100 SEEN Urine WBC 0-5 SEEN Ur Squamous Epith Cells 0-5 SEEN Urine Bacteria 1+ Urine Mucus 0 SEEN Blood Type 08/28/24 08/28/24 14:49 14:55 WBC RBC Hgb Hct MCV MCH MCHC RDW Std Deviation RDW Coeff of Celio Plt Count MPV Immature Gran % (Auto) Neut % (Auto) Lymph % (Auto) Bath % (Auto) Eos % (Auto) Baso % (Auto) Absolute Neuts (auto) Absolute Lymphs (auto) Nucleated RBC % Diff Path Review Platelet Estimate Polychromasia Spherocytes Target Cells PT INR Sodium 146 H Potassium 5.4 H Chloride 114 H Carbon Dioxide 24.0 Anion Gap 9 BUN 41 H Creatinine 1.04 H Estim Creat Clear Calc 29.58 Est GFR (MDRD) Af Amer 64 Est GFR (MDRD) Non-Af 53 L BUN/Creatinine Ratio 39.4 H Glucose 123 H Calcium 8.7 Urine Color Urine Clarity Urine pH Ur Specific [place] Urine Protein Urine Glucose (UA) Urine Ketones Urine Occult Blood Urine Nitrite Urine Bilirubin Urine Urobilinogen Ur Leukocyte Esterase Urine RBC Urine WBC Ur Squamous Epith Cells Urine Bacteria Urine Mucus Blood Type O POSITIVE Radiography Diagnostic Testing: Clinical Impression(s) from Imaging Studies Brain CT 08/28/24 12:56 IMPRESSION: 1. Right frontoparietal subacute to chronic extra-axial fluid/hematoma likely subdural new since previous exam. 2. Otherwise no acute intracranial process. Electronically Signed: Lavelle Young MD at 13:59 EST , Abdomen/Pelvis CT 08/28/24 13:59 IMPRESSION: Large pelvic pelvis as described above likely due to hematoma with focal hyperdensity within it could represent focal area of active bleeding. Electronically Signed: Lavelle Young MD at 14:56 EST , Chest X-Ray 08/28/24 14:27 IMPRESSION: 1. Enlargement of the cardiac silhouette. 2. No active pulmonary disease. Electronically Signed: Lavelle Young MD at 14:59 EST , Critical Care Time Critical Care Time: Yes Critical care time (excluding procedures): 30-74 minutes, Including time spent:, Discussing w/Patient &/or Family/Pharmacology Professor, Discussing w/Consultants, Arranging Admission or Transfer, Performing Direct Patient Care at Bedside and - (60 minutes) Discharge Plan Triage Chief Complaint: Abn Labs ED Provider: Juancho Roque Dx/Rx/DC Orders Clinical Impression: Supratherapeutic INR, Leukocytosis, Acute subdural hematoma, Hematoma of pelvis Prescriptions: No Action lidocaine 5 % adhesive patch,medicated 1 patch topical DAILY PRN (Reason: pain) donepezil 10 mg tablet 10 mg PO QHS Qty: 90 1RF acetaminophen 325 mg tablet 650 mg PO TID baclofen 10 mg tablet 10 mg PO TID cyanocobalamin (vitamin B-12) 1,000 mcg/mL solution 1,000 mcg IM QMONTH mirtazapine 7.5 mg tablet 7.5 mg PO QHS calcium carbonate-vitamin D3 [Oyster Shell Calcium-Vit D3] 250 mg-3.125 mcg (125 unit) tablet 2 tab PO QDAY ascorbic acid (vitamin C) 250 mg tablet 250 mg PO QDAY tramadol 50 mg tablet 50 mg PO Q4H PRN PRN polyethylene glycol 3350 17 gram/dose powder 17 g PO QDAY PRN Prolia 60 mg/mL syringe 60 mg subcut [id number] Qty: 1 3RF citalopram 20 mg tablet 20 mg PO DAILY Qty: 90 3RF methenamine mandelate 1 gram tablet 1 g PO DAILY Qty: 90 1RF Rx Instructions: administer after meals and at bedtime metoprolol succinate 25 mg tablet extended release 24 hr 25 mg PO DAILY Qty: 90 3RF enoxaparin 60 mg/0.6 mL syringe 60 mg subcut .COMPLEX Qty: 6 3RF Rx Instructions: 60 mg subcutaneously every 12 hours for bridging fow low INR; warfarin 3 mg tablet 3 mg PO .COMPLEX 90 Days Qty: 180 3RF Protocol: Dose Management Condition: Monday Dose/Route: 3 mg Instruction: 1 x 3 mg tablet Condition: Monday Dose/Route: 6 mg Instruction: 1 x 6 mg tablet Condition: Monday Dose/Route: 6 mg Instruction: 1 x 6 mg tablet Condition: Monday Dose/Route: 0 mg Instruction: 0 tablets Condition: Dose/Route: 0 mg Instruction: 0 tablets Condition: Monday Dose/Route: 0 mg Instruction: 0 tablets Condition: Monday Dose/Route: 3 mg Instruction: 1 x 3 mg tablet Protocol Text: Adjustment Start Date: Monday08/28/24 INR Value: > 19.5 INR Date: 08/28/24 Recheck Date: 08/30/24 Rx Instructions: one tab with 6mg to equal 9mg on Fridays; or use as directed warfarin 6 mg tablet 6 mg PO QDAY Qty: 90 3RF Protocol: Dose Management Condition: Monday Dose/Route: 3 mg Instruction: 1 x 3 mg tablet Condition: Monday Dose/Route: 6 mg Instruction: 1 x 6 mg tablet Condition: Monday Dose/Route: 6 mg Instruction: 1 x 6 mg tablet Condition: Monday Dose/Route: 0 mg Instruction: 0 tablets Condition: Dose/Route: 0 mg Instruction: 0 tablets Condition: Monday Dose/Route: 0 mg Instruction: 0 tablets Condition: Monday Dose/Route: 3 mg Instruction: 1 x 3 mg tablet Protocol Text: Adjustment Start Date: Monday08/28/24 INR Value: > 19.5 INR Date: 08/28/24 Recheck Date: 08/30/24 Rx Instructions: 6mg daily; or use as directed lorazepam 0.5 mg tablet 0.5 mg PO QDAY Primary Care Provider: Eduardo Vazquez Referrals: Eduardo Vazquez DO [Primary Care Provider] - Print Language: [place] Disposition Disposition: Acute Care [facility]
[2024-08-28 13:21] LABS: Absolute Lymphocyte Count 0.82 X10^3/uL (0.83-4.51); Absolute Neutrophil Count 21.4 X10^3/uL (2.0-7.7); Basophil# 0.05 X10^3/uL; Basophil% 0.2 % (0-1); Hematocrit 35.5 % (37-47); Hemoglobin 11.3 g/dL (12.0-15.0); Lymphocyte # 0.82 X10^3/ul (0.83-4.51); Lymphocyte % 3.3 % (19-41); Mean Corp Hgb Conc 31.8 g/dL (32-36); Mean Corpuscular Hgb 30.4 pg (27.0-32.0); Mean Corpuscular Volume 95.4 fL (81-99); Mean Platelet Vol. 9.8 fl (6.2-12.0); Monocyte# 2.39 X10^3/uL; Monocyte% 9.6 % (0-10); NRBC Flagged by Analyzer 0.1 % (0-5); Neutrophil # 21.41 X10^3/uL (2.7-7.7); Neutrophil % 85.9 % (47-70); POSITIVE DIFFERENTIAL YES; Platelet Count 546 K/mm3 (150-450); RBC Distribution Width CV 16.4 % (11.6-14.6); RBC Distribution Width SD 54.8 fl (35.1-43.9); Red Blood Count 3.72 M/mm3 (4.2-5.4); White Blood Count 24.9 K/mm3 (4.4-11.0)
[2024-08-28 13:25] LABS: Differential Indicated SCAN CRITERIA MET
[2024-08-28 13:37] LABS: International Normalized Ratio > 19.5; Prothrombin Time (Protime)PT. > 120.0 SECONDS (11.7-14.9)
[2024-08-28 13:52] LABS: Polychromasia 1+; Target Cells 1+
[2024-08-28 13:53] LABS: Spherocyte 1+
[2024-08-28 13:54] LABS: Platelet Estimate SLT INC (ADEQ)
--- NOTE | 2024-08-28 13:59 | CT_ITS ---
STUDY: CT ABDOMEN AND PELVIS WITH CONTRAST REASON FOR EXAM: Female, 89 years old. Abdominal pain. DELAYS DONE RADIATION DOSAGE (If Supplied By Facility): CTDIvol = ( 13.85 ) mGy, DLP = ( 1127.29 ) mGycm TECHNIQUE: IV 75mL Isovue-370 was administered. Transaxial images were obtained from the dome of the diaphragm to the symphysis pubis. Multiplanar coronal and sagittal images were reformatted. The protocol utilizes one or more of the following dose reduction techniques: automated exposure control, adjustment of mA and/or kV according to patient size,and/or use of iterative reconstruction technique. COMPARISON: Prior study dated: 07/13/2015 FINDINGS: The visualized lung bases are unremarkable. Mild cardiomegaly. Aortic stent. Mild hepatic steatosis. No focal lesion is definitely seen. Small gallstone. Normal spleen. Normal pancreas. Normal bilateral adrenal glands. Simple cyst in the left kidney for which no further follow-up exam is needed. No evidence of hydronephrosis. Normal visualized stomach. Normal small intestine. Fecal retention. No evidence of acute diverticulitis. There is non-visualization of the appendix. There is diffuse atherosclerotic calcification of the abdominal aorta, without a demonstrated aneurysm. No retroperitoneal adenopathy. Normal urinary bladder. Large hyperdense mass on the right side of the pelvis displacing the bladder and uterus to the right side measuring about 10 x 6.7 x 9 cm. Focal hyperdensity within it could represent. Mild presacral stranding. Normal abdominal wall. Severe compression fracture of T11 vertebra likely chronic. CT/Abdomen/Pelvis W IV Cont ONLY IMPRESSION: Large pelvic pelvis as described above likely due to hematoma with focal hyperdensity within it could represent focal area of active bleeding. Electronically Signed: Lavelle Young MD at 14:56 EST ,
--- NOTE | 2024-08-28 14:27 | RAD_ITS ---
INDICATION: cough EXAMINATION/TECHNIQUE: X-RAY - XR Chest 1 View COMPARISON: No relevant prior comparison study available FINDINGS: LINES/DEVICES: None. LUNGS: No consolidation, edema or effusion. No pneumothorax. MEDIASTINUM AND CARDIOVASCULAR STRUCTURES: Mild enlargement of the cardiac silhouette. Status post median sternotomy. The patient is markedly rotated. BONES AND SOFT TISSUES: No demonstrated acute osseous changes. RAD/Chest 1 View (Portable) IMPRESSION: 1. Enlargement of the cardiac silhouette. 2. No active pulmonary disease. Electronically Signed: Lavelle Young MD at 14:59 EST ,
[2024-08-28 14:53] LABS: Mucous, Urine 0 SEEN /hpf (<or=2+)
[2024-08-28 14:58] LABS: Color, Urine Red (Yellow); Glucose, Dipstick Normal (Normal); Ketone-Dipstick 5 mg/dl (Negative); Leukocyte Esterase-Dipstick 25 /ul (Negative); Nitrite-Dipstick Negative (Negative); Occult Blood-Urine 250 /ul (Negative); Protein-Dipstick 500 mg/dl (Negative); Urine Bilirubin Dipstick Negative (Negative); Urine Clarity Turbid (Clear); Urine Urobilinogen Normal (Normal); Urine pH 6.5 (5.0 - 8.0)
[2024-08-28 15:18] LABS: Red Blood Cells-Urine > 100 SEEN /hpf (0-5); Squamous Epithelial Cells - UA 0-5 SEEN /hpf (5-10); White Blood Cells 0-5 SEEN /hpf (0-5)
[2024-08-28 15:19] LABS: Bacteria 1+ /hpf (None Seen)
[2024-08-28 15:38] LABS: Anion Gap 9 (5-15); BUN 41 mg/dL (7-18); BUN/Creat Ratio 39.4 RATIO (10-20); Calcium,Total 8.7 mg/dL (8.5-10.1); Chloride 114 mmol/L (98-107); Creatinine, Serum 1.04 mg/dL (0.55-1.02); EST Glomerular Filtration Rate 53 mL/min (>60); Est Glom Filt Rate - Afr Amer 64 mL/min (>60); Estimated Creatinine Clearance 29.58 ml/min; Glucose 123 mg/dL (74-106); Potassium 5.4 mmol/L (3.5-5.1); Sodium Level 146 mmol/L (136-145)
[2024-08-28] MEDS: Phytonadione (Vit K) 5 MG in 0.9% Normal Saline (50mL Bag) 50 ML 150 MG IV (16:10)
--- NOTE | 2024-08-28 16:34 | PCM.HP.STD ---
HPI - General General Date of Admission: 08/28/24 Date of Service: 08/28/24 Chief Complaint: Supratherpeutic INR HPI Narrative REFUGIO MEDINA, is a 89y/o female hx of dementia, depression, anxiety, mechanical heart valve currently residing in memory unit at [facility] who presented to [facility] 08/28/24 d/t elevated INR. Pt had INR checked at residential and it was reportedly 19. It was advised by heart group against giving vitamin K given her mechanical valve and the risk of thrombosis and residential uncomfortable w/ pt being monitored there so they brought her in. Daughter reports she did fall a week ago but it was not thought she hit her head so no brain imaging at that time. In the ED patient with white blood cell count of 24.9, hemoglobin 11.3. INR greater than 19.5. BMP reveals VARGAS with creatinine 1.04 and BUN of 41 with a baseline creatinine closer to 0.6. Additionally sodium of 146 with potassium 5.4. Given patient's dementia and that she is a poor historian and also has elevated white blood cell count she had scan of abdomen pelvis as well as brain. CT of the brain showed right frontoparietal subacute to chronic hematoma that is likely subdural and CT abdomen pelvis showed large pelvic hyperdense area likely hematoma with focal hyperdensity which could represent continued active bleeding. Cardiology contacted and recommended FFP and vitamin K to stop presumed acute bleed and this was ordered in the ED. Family offered transfer but they would like her INR treated and treated supportively and to remain in our institution. Patient is hospice at [facility]. Discussed with family extensively at bedside and family all in agreement that they do not want transferred for any invasive intervention. They are okay with attempting to give FFP and vitamin K to stop presumed abdominal bleed but aside from that would like supportive care including medications for pain if she is hurting and medications for anxiety if she is distressed. Discussed poor prognosis, patient currently on hospice but this is hospice at her memory care unit, family agreeable to hospice consult to evaluate for possible inpatient hospice. Again reiterated that we would not be able to offer invasive measures at our institution and that if this was desired patient will need to be transferred now and it was again reiterated that they do not wish for invasive measures and want to give the current medications in the ED to attempt to stop the possible abdominal bleed and then focus on keeping patient comfortable. [facility] Medical History Vitamin deficiency Acute bronchitis, unspecified Contact with or exposure to other viral diseases Flu vaccine need Advance directive discussed with patient Generalized anxiety disorder Osteoporosis Alzheimer disease History of hearing problem Hx of cataract Hx: UTI (urinary tract infection) Longstanding persistent atrial fibrillation Hyperlipidemia Nonrheumatic mitral (valve) insufficiency FCI current use of anticoagulant Home Medications ?Medication ?Instructions ?Recorded ?Last Taken ?Type lidocaine 5 % topical patch 1 patch topical DAILY PRN pain 04/24/20 Unknown History denosumab 60 mg/mL subcutaneous 60 mg subcut [id number] #1 mL 02/10/23 Unknown Rx syringe (Prolia) citalopram 20 mg tablet 20 mg PO DAILY #90 tabs 08/14/23 Unknown Rx donepezil 10 mg tablet 10 mg PO QHS #90 tabs 10/12/23 Unknown Rx methenamine mandelate 1 gram tablet 1 g PO DAILY #90 tabs 10/19/23 Unknown Rx metoprolol succinate 25 mg 25 mg PO DAILY #90 tabs 04/15/24 Unknown Rx tablet,extended release 24 hr acetaminophen 325 mg tablet 650 mg PO TID 06/11/24 Unknown History ascorbic acid (vitamin C) 250 mg 250 mg PO QDAY 06/11/24 Unknown History tablet baclofen 10 mg tablet 10 mg PO TID 06/11/24 Unknown History calcium 250 mg (as 2 tab PO QDAY 06/11/24 Unknown History carbonate)-vitamin D3 3.125 mcg (125 unit) tablet (Oyster Shell Calcium-Vitamin D3) cyanocobalamin (vitamin B-12) 1,000 mcg IM QMONTH 06/11/24 Unknown History 1,000 mcg/mL injection solution mirtazapine 7.5 mg tablet 7.5 mg PO QHS 06/11/24 Unknown History polyethylene glycol 3350 17 17 g PO QDAY PRN constipation 06/11/24 Unknown History gram/dose oral powder tramadol 50 mg tablet 50 mg PO Q4H PRN pain 06/11/24 Unknown History warfarin 6 mg tablet 6 mg PO QDAY #90 tabs 08/13/24 Unknown Rx lorazepam 0.5 mg tablet 0.5 mg PO DAILY 08/27/24 Unknown History benzonatate 100 mg capsule 100 mg PO TID PRN cough 08/28/24 Unknown History cyclobenzaprine 10 mg tablet 10 mg PO BID PRN muscle spasm 08/28/24 Unknown History diphenhydramine-zinc acetate 2 1 applic topical BID 08/28/24 Unknown History %-0.1 % topical cream (Benadryl Extra Strength) guaifenesin 600 mg tablet, 600 mg PO Q12H PRN congestion 08/28/24 Unknown History extended release 12 hr (Mucus Relief ER) sodium chloride 0.65 % nasal spray 1 spray intranasal TID PRN nasal 08/28/24 Unknown History aerosol (Altamist) congestion Allergy/AdvReac Type Severity Reaction Status Date / Time poison dale extract Allergy Unknown unknown Verified 08/28/24 11:41 amiodarone AdvReac Severe Poor Verified 08/28/24 11:41 balance, poor appetite, severe dizziness amoxicillin trihydrate (From AdvReac Diarrhea Verified 08/28/24 11:41 Augmentin) potassium clavulanate (From AdvReac Diarrhea Verified 08/28/24 11:41 Augmentin) Family History Father , age 65 of head injury Head injury Brother CAD (coronary artery disease) Surgical History History of cardioversion (08/21/19) History of right and left heart catheterization (07/13/00) 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) Social History Smoking Status: Never smoker alcohol intake: never substance use type: does not use what type of physical activity do you participate in: none ROS ROS Narrative Unable to obtain secondary to patient's mental status Vital Signs Vital Signs Vital Signs: 08/28/24 11:36 08/28/24 13:00 08/28/24 14:00 Temperature 97.2 F L Temperature Source Temporal Pulse Rate 90 101 H 104 H Respiratory Rate 16 20 H 18 Blood Pressure 122/91 H 118/88 H 117/82 H Blood Pressure Mean 101 98 93 Pulse Ox 97 94 94 Oxygen Delivery Method Room Air Room Air Room Air 08/28/24 15:00 08/28/24 16:13 Temperature 100.1 F H Temperature Source Pulse Rate 75 77 Respiratory Rate 19 H 19 H Blood Pressure 126/77 H Blood Pressure Mean 93 Pulse Ox 93 98 Oxygen Delivery Method Room Air Weight Weight: 51.1 kg Body Mass Index (BMI) 18.1 Physical Exam Narrative General: Patient not answering questions appropriately, laying in bed intermittently groaning or fidgeting HEENT: Patient with extensive dried blood on lips Eyes: Patient keeping eyes shut Neck: Supple Respiratory: normal respiratory effort Cardiovascular: no edema appreciated in lower extremities GI: Patient tender Extremities: Moving all extremities in bed Neuro: Unable to assess neurologically given patient's difficulty with cooperation Psych: Difficulty with cooperation due to mental status Results Lab / Micro Data 08/28/24 13:16 08/28/24 14:49 Labs: Laboratory Results - last 24 hr 08/28/24 12:23: PT > 120.0 H, INR > 19.5 H* 08/28/24 13:16: WBC 24.9 H, RBC 3.72 L, Hgb 11.3 L, Hct 35.5 L, MCV 95.4, MCH 30.4, MCHC 31.8 L, RDW Std Deviation 54.8 H, RDW Coeff of Celio 16.4 H, Plt Count 546 H, MPV 9.8, Immature Gran % (Auto) 1.000 H, Neut % (Auto) 85.9 H, Lymph % (Auto) 3.3 L, Cooper % (Auto) 9.6, Eos % (Auto) 0.0, Baso % (Auto) 0.2, Absolute Neuts (auto) 21.4 H, Absolute Lymphs (auto) 0.82 L, Nucleated RBC % 0.1, Diff Path Review May edgardo, Platelet Estimate SLT INC, Polychromasia 1+, Spherocytes 1+ H, Target Cells 1+ 08/28/24 14:46: Urine Color Red, Urine Clarity Turbid, Urine pH 6.5, Ur Specific [place] 1.010, Urine Protein 500 H, Urine Glucose (UA) Normal, Urine Ketones 5 H, Urine Occult Blood 250 H, Urine Nitrite Negative, Urine Bilirubin Negative, Urine Urobilinogen Normal, Ur Leukocyte Esterase 25 H, Urine RBC > 100 SEEN, Urine WBC 0-5 SEEN, Ur Squamous Epith Cells 0-5 SEEN, Urine Bacteria 1+, Urine Mucus 0 SEEN 08/28/24 14:49: Sodium 146 H, Potassium 5.4 H, Chloride 114 H, Carbon Dioxide 24.0, Anion Gap 9, BUN 41 H, Creatinine 1.04 H, Estim Creat Clear Calc 29.58, Est GFR (MDRD) Af Amer 64, Est GFR (MDRD) Non-Af 53 L, BUN/Creatinine Ratio 39.4 H, Glucose 123 H, Calcium 8.7 08/28/24 14:55: Blood Type O POSITIVE Imaging Radiology Impression Brain CT 08/28/24 12:56 IMPRESSION: 1. Right frontoparietal subacute to chronic extra-axial fluid/hematoma likely subdural new since previous exam. 2. Otherwise no acute intracranial process. Electronically Signed: Lavelle Young MD at 13:59 EST , Abdomen/Pelvis CT 08/28/24 13:59 IMPRESSION: Large pelvic pelvis as described above likely due to hematoma with focal hyperdensity within it could represent focal area of active bleeding. Electronically Signed: Lavelle Young MD at 14:56 EST , ADDENDUM: 08/28/24 1553 IMPRESSION: undefined ADDENDUM: 08/28/24 1602 IMPRESSION: undefined Chest X-Ray 08/28/24 14:27 IMPRESSION: 1. Enlargement of the cardiac silhouette. 2. No active pulmonary disease. Electronically Signed: Lavelle Young MD at 14:59 EST , Assessment & Plan Assessment/Plan (1) Supratherapeutic INR: PLAN: Plan # Suspicion for active bleeding in abdomen and pelvis -CT scan of the abdomen pelvis demonstrated large hematoma with focal hyperdensity within it that could represent focal area of active bleeding -Family agreeable to have vitamin K and FFP to try to decrease INR to stop presumed active bleeding but want no aggressive or invasive intervention and this was questioned several times and confirmed with family that they are okay with the INR reversal agents in the ED and supportive care but otherwise want to focus more on patient's comfort including giving medicine for anxiety she is anxious and pain if she appears in pain -Discussed very poor prognosis, patient currently outpatient hospice, agreeable to hospice consult for possible inpatient hospice # Subacute subdural hematoma -Suspect that this occurred after her fall 10 days ago as family reports she had progressive cognitive decline since that time #VARGAS -Creatinine 1.04 with BUN of 41, baseline creatinine between 0.6-0.7 -Half-normal saline and supportive care #Supratherapeutic INR -INR reported out as greater than 19.5 -Patient with FFP and vitamin K as above #Hx mechanical valve on coumadin chronically -Patient has history of mechanical aortic valve 07/24/2000 per chart -management as above #Leukocytosis -Could be due to underlying hematoma, does not have evidence of overt infection -Treating patient supportively #Depression/anxiety -Continue home medications as mental status allows, mirtazapine, citalopram #Dementia -Supportive care -Will hold on patient's home medications as this will not provide short-term benefit Discussed goals of care at length, patient to be treated supportively (including INR reversal in ED and IV fluids to attempt to help patient clinically) but do not want any invasive or excessive measures. Advanced Care Planning Face to Face Time: 32 minutes. #DVT ppx: No DVT prophylaxis given patient's INR of 19.5 Joanna Ferrari MD Time spent in the patient's overall evaluation, decision-making process, review of diagnostic data, adjustment of management, discussion with other providers, nursing and ancillary staff involved in patient's care documentation, 78 Minutes Charges/Coding Multi Select Codes Visit Charges Visit Charges: 54471 Init Hosp L3 Hospitalists' Procedures Procedures: 82370 Advncd Care Plan 30 Min
[2024-08-28] MEDS: Lorazepam 2 MG/ML WCH Syringe 1 MG IV (16:37)
--- NOTE | 2024-08-28 16:58 | ED.RN ---
Pt family requesting us not to give information out to the senior care besides that she is getting admitted to [facility].
--- NOTE | 2024-08-28 17:14 | ED.RN ---
This RN called report to the snf and stated I am calling to inform you that the patient is getting admitted but the family would not like me to discuss anything else at this time. Chau the nurse stated oh, okay. I was calling for an update. Thank you.
[2024-08-28] MEDS: Ondansetron 4 MG/2 ML Vial IV (17:48)
[2024-08-28] MEDS: Morphine 4 MG/ML Syringe IV (17:48)
[2024-08-28] MEDS: 0.45% Normal Saline 1,000 ML 75 ML IV (18:44)
[2024-08-28 21:16] LABS: Prothrombin Time (Protime)PT. 43.1 SECONDS (11.7-14.9)
[2024-08-28 21:20] LABS: International Normalized Ratio 4.4
[2024-08-28] MEDS: LORazepam 2 MG/ML Syringe 0.5 MG IV (21:32)
[2024-08-28] MEDS: Morphine 2 MG/ML Syringe IV (23:56)
[2024-08-29] MEDS: Morphine 2 MG/ML Syringe IV ×2 (03:00→08:02)
[2024-08-29] MEDS: LORazepam 2 MG/ML Syringe 0.5 MG IV ×2 (05:49→10:17)
[2024-08-29 05:52] VITALS: BP 96/67; PULSE 160; RESP 32; TEMP 37; O2SAT 99
[2024-08-29] MEDS: 0.9% Saline Lock 10 ML Syringe IV ×2 (08:02→10:17)
--- NOTE | 2024-08-29 08:20 | PCM.PN.HOSP ---
Reason for Visit Reason for Visit: Diagnoses Abnormal coagulation profile (08/28/24) Subjective Subjective Unresponsive. Tachypneic. Objective Data Objective Data Vital Signs: Vital Signs Temp Pulse Resp BP Pulse Ox O2 Del Method 37.0 C 160 H 32 H 96/67 99 Room Air 08/29/24 05:52 08/29/24 05:52 08/29/24 05:52 08/29/24 05:52 08/29/24 05:52 08/29/24 06:00 Oxygen Delivery Method Room Air Weight: 51.1 kg Body Mass Index (BMI) 18.1 Intake & Output: Intake and Output for Last 24 Hours 08/27/24 08/28/24 08/29/24 23:59 23:59 23:59 Intake Total 50.5 / 50.5 0 / 0 Balance 50.5 / 50.5 0 / 0 Lab / Micro Data 08/28/24 13:16 08/28/24 14:49 Labs: Laboratory Results - last 24 hr 08/28/24 12:23: PT > 120.0 H, INR > 19.5 H* 08/28/24 13:16: WBC 24.9 H, RBC 3.72 L, Hgb 11.3 L, Hct 35.5 L, MCV 95.4, MCH 30.4, MCHC 31.8 L, RDW Std Deviation 54.8 H, RDW Coeff of Celio 16.4 H, Plt Count 546 H, MPV 9.8, Immature Gran % (Auto) 1.000 H, Neut % (Auto) 85.9 H, Lymph % (Auto) 3.3 L, [place] % (Auto) 9.6, Eos % (Auto) 0.0, Baso % (Auto) 0.2, Absolute Neuts (auto) 21.4 H, Absolute Lymphs (auto) 0.82 L, Nucleated RBC % 0.1, Diff Path Review May , Platelet Estimate SLT INC, Polychromasia 1+, Spherocytes 1+ H, Target Cells 1+ 08/28/24 14:46: Urine Color Red, Urine Clarity Turbid, Urine pH 6.5, Ur Specific [place] 1.010, Urine Protein 500 H, Urine Glucose (UA) Normal, Urine Ketones 5 H, Urine Occult Blood 250 H, Urine Nitrite Negative, Urine Bilirubin Negative, Urine Urobilinogen Normal, Ur Leukocyte Esterase 25 H, Urine RBC > 100 SEEN, Urine WBC 0-5 SEEN, Ur Squamous Epith Cells 0-5 SEEN, Urine Bacteria 1+, Urine Mucus 0 SEEN 08/28/24 14:49: Sodium 146 H, Potassium 5.4 H, Chloride 114 H, Carbon Dioxide 24.0, Anion Gap 9, BUN 41 H, Creatinine 1.04 H, Estim Creat Clear Calc 29.58, Est GFR (MDRD) Af Amer 64, Est GFR (MDRD) Non-Af 53 L, BUN/Creatinine Ratio 39.4 H, Glucose 123 H, Calcium 8.7 08/28/24 14:55: Blood Type O POSITIVE 08/28/24 20:55: PT 43.1 H, INR 4.4 H* Radiography Diagnostic Testing: Radiology Impression Brain CT 08/28/24 12:56 IMPRESSION: 1. Right frontoparietal subacute to chronic extra-axial fluid/hematoma likely subdural new since previous exam. 2. Otherwise no acute intracranial process. Electronically Signed: Lavelle Young MD at 13:59 EST Reading Location ID and State: [facility] / [place] Tel , Service support , Abdomen/Pelvis CT 08/28/24 13:59 IMPRESSION: Large pelvic pelvis as described above likely due to hematoma with focal hyperdensity within it could represent focal area of active bleeding. Electronically Signed: Lavelle Young MD at 14:56 EST Reading Location ID and State: [facility] / [place] Tel , Service support , ADDENDUM: 08/28/24 1553 IMPRESSION: undefined ADDENDUM: 08/28/24 1602 IMPRESSION: undefined Chest X-Ray 08/28/24 14:27 IMPRESSION: 1. Enlargement of the cardiac silhouette. 2. No active pulmonary disease. Electronically Signed: Lavelle Young MD at 14:59 EST Reading Location ID and State: [facility] / [place] Tel , Service support , Physical Exam Const Constitutional Narrative: unresponsive. tachypneic. HEENT head/scalp atraumatic HEENT Narrative: teeth covered in blood. Extremity Extremity Narrative: mottling of LE. Assessment & Plan Assessment/Plan (1) Supratherapeutic INR: PLAN: Plan Acute intraabdominal bleeding. CT scan of the abdomen pelvis demonstrated large hematoma with focal hyperdensity within it that could represent focal area of active bleeding Family agreeable to have vitamin K and FFP to try to decrease INR to stop presumed active bleeding but want no aggressive or invasive intervention and this was questioned several times and confirmed with family that they are okay with the INR reversal agents in the ED and supportive care but otherwise want to focus more on patient's comfort including giving medicine for anxiety she is anxious and pain if she appears in pain Discussed very poor prognosis, patient currently outpatient hospice, agreeable to hospice consult for possible inpatient hospice Change lorazepam frequency, start SL Roxanol Q1 PRN. Subacute subdural hematoma Suspect that this occurred after her fall 10 days ago as family reports she had progressive cognitive decline since that time Supratherapeutic INR INR greater than 19.5, now down to 4.4. Did receive FFP and vitamin K. No additional work up. Chronic conditions: Hx mechanical valve on coumadin chronically-Patient has history of mechanical aortic valve 07/24/2000 per chart-management as above Prognosis: terminal. Hospice consulted. DW patient's son at bedside. Greater than 40 minutes of which greater than 50 of time was discussion with the family at bedside about her overall prognosis, reviewing the INR and the improvement with vitamin K and FFP, and despite her mechanical valve we will not be check any further INRs and will focus on comfort measures. Charges/Coding Visit Charges Inpatient E&M: 58556 Subs Hosp L2
[2024-08-29] MEDS: Atropine Sulfate 1% 2 ml Bottle 4 DRP SL (08:31)
[2024-08-29] MEDS: BMX LIQUID 180 ML PO (08:32)
--- NOTE | 2024-08-29 08:58 | CASEMGMT ---
Pt has directives on file naming Kendra as primary agent and Андрей and Aracely as alternate agents. KHALIDA Matamoros
--- NOTE | 2024-08-29 09:35 | CASEMGMT ---
Addendum entered by Sarah Phipps 08/29/24 13:09: Social Work SW notified [facility] that pt has a meeting scheduled with [facility] today to change providers and utilize the IPU. KHALIDA Abbasi Addendum entered by Sarah Phipps 08/29/24 11:16: Social Work Return call from [facility]. Pt will be seen today between 1:30 and 2:00. Bedside nurse updated. KHALIDA Abbasi Original Note: Social Work Pt is admitted from [facility]. Pt was active with [facility], however, services were revoked for hospitalization. Per physician and charge nurse, pt is medically ready to be reevaluated by hospice and pt is appropriate for [facility] placement. DILAN met with pt's son Андрей to discuss discharge plan. Андрей confirms that family is requesting hospice and that they would like to change providers to [facility] so pt can utilize the IPU. Phone call to [facility] and referral made. Clinicals faxed. Hospice to reach out to family to make appointment. KHALIDA Abbasi
[2024-08-29] MEDS: morphine (oral solution) 10MG/0.5ML Syringe 10 MG SL ×4 (10:18→13:17)
[2024-08-29 11:15] VITALS: RESP 40
--- NOTE | 2024-08-29 14:10 | EXP.PCM_ITS ---
Preliminary Cause of Preliminary Cause of Preliminary Cause of : Intraabdominal bleeding. Date of Admission: 08/28/24 Date of : 08/29/24 (1351) Principle Diagnosis Problem List: Active and Suspected Problems (Updated 08/28/24 @ 15:[address] Juancho Roque, DO) Hematoma of pelvis (Acute) Acute subdural hematoma (Acute) Leukocytosis (Acute) Supratherapeutic INR (Acute) Hospital Course Patient presents with an elevated INR greater than 19.5. Patient's presented here and her INR was greater than 19.5. Is noted that patient had intra- abdominal hemorrhage as well as a subdermal hematoma. Apparently week before patient had fallen and hit her head and had not been evaluated that time. [place] bdural hematoma may have been from that point time. But given her profound elevated INR and her deteriorating status, family is agreeable to giving FFP and vitamin K. Patient's INR subsequent went down to 4.4 and her hemoglobin was 11 but patient's overall status was extremely poor. Family was agreeable to staying here and proceeding with hospice. Patient's condition deteriorated patient was tachypneic unresponsive. Comfort medications were escalated with increased lorazepam as well as Roxanol.. Patient on August 29, 2024 at 1351. Visit Charges Inpatient E&M: 76405 Disch Hosp >30min
[2024-08-29 14:26] LABS: Pathologist Review Reviewed
--- NOTE | 2024-08-29 15:00 | CASEMGMT ---
Social Work SW notified by nursing that pt . [facility] notified. SW met with pt's family and support provided. Phone call to Jason ROTHMAN and notified of pt passing. KHALIDA Abbasi
--- NOTE | 2024-08-29 15:49 | CHAPLAIN ---
Type of Pastoral Visit ___ Initial Visit ___ Follow-up Visit ___ On-call Visit ___ General Patient Visit ___ Spiritual Assessment ___ Family Conference _x__ Bereavement ___ Rapid Response ___ Code Blue ___ Other (describe below) Pastoral Care Referral From ___ Patient _x__ Family ___ Nurse ___ Physician ___ Insurance Professional ___ Healthcare Social Worker ___ Other (describe below) Sacrament/Intervention _x__ Active listening ___ Anointing ___ Moravian _x__ Bereavement ___ Communion ___ [place] exploration ___ ___ Life review _x__ Prayer ___ Reconciliation ___ Sacrament of Sick _x__ Supportive presence ___ Wedding ___ Other (describe below) Pastoral Comments patient had just before escalator service mechanic made this planned visit; daughter, son, and a friend are in the room; another daughter is in route from [place] but not expected to arrive until later this evening; support, presence, time to talk about how patient passed and how family is doing with this change that came quickly; prayer was welcomed by family; pt was not a member of a kamilah community and there is no one to call about druze support; offer to return as needed for the family
== END 2024-08-29 16:37 | DRG 604 ==
LOC: ED 16:44 → MS3 17:41
PROVIDERS: Admitting Provider Internal Medicine; Emergency Provider Emergency Medicine
DX: S30.0XXA Contusion of lower back and pelvis, initial encounter (principal); S06.5XAA Traumatic subdural hemorrhage with loss of consciousness status unknown, initial encounter; D68.32 Hemorrhagic disorder due to extrinsic circulating anticoagulants; N17.9 Acute kidney failure, unspecified; Z51.5 Encounter for palliative care; F02.80 Dementia in other diseases classified elsewhere, unspecified severity, without behavioral disturbance, psychotic disturbance, mood disturbance, and anxiety; F32.A Depression, unspecified; Z95.2 Presence of prosthetic heart valve; G30.9 Alzheimer's disease, unspecified; W19.XXXA Unspecified fall, initial encounter; F41.9 Anxiety disorder, unspecified; Z79.01 Long term (current) use of anticoagulants; Z79.899 Other long term (current) drug therapy
CPT/HCPCS: 36415; 70450; 71045; 74177; 80048; 81001; 85025; 85610; 86900; 86901; 87040; 99285; Q9967; A4216; J2405; P9017

== ENCOUNTER → 2024-08-28 | Outpatient (REF) | payer MEDICARE, SELFPAY ==
[2024-08-28 07:54] LABS: Prothrombin Time (Protime)PT. > 120.0 SECONDS (11.7-14.9)
[2024-08-28 08:01] LABS: International Normalized Ratio > 19.5
== END ==
LOC: OLS.BROOKB 05:00
PROVIDERS: Visit Provider Family Medicine
DX: Z95.4 Presence of other heart-valve replacement (principal)
CPT/HCPCS: 36415; 85610